=== PATIENT | male | born 1960 | race Caucasian/White ===

== ENCOUNTER 2017-02-06 22:10 | Inpatient (IN) | payer OTHER, MEDICARE ==
[~2017-02-06] VITALS: Ht 182.9 cm; Wt 97.1 kg
[~2017-02-06 22:10] MED LIST: CLINDAMYCIN HY300 MG PO; COREG3.125 MG PO; COZAAR50 M1 PO; LABETALOL HCL200 M1 PO; NORVASC5 M1 PO; OXYCONTIN80 M1 PO; ROXICODONE30 M1 PO; SOMA350 M1 PO; VALIUM10 M1 PO; XARTEMIS XR 7.1 EACH PO
--- NOTE | 2017-02-06 22:16 | NUR ---
YESI FROM HOME FOR MULTIPLE COMPLAINTS. 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 PT REPORTS INCREASE IN FLUID RETENTION, GENREALIZED WEAKNESS, INTERMITTENT SOB. PT STATES HE'S GAINED APPROX 30 LBS IN A MONTH. UPON ARRIVAL PT A+OX4, SPEAKING IN FULL SENTENCES WITH NO DIFFICULTY. 94% ON RA
--- NOTE | 2017-02-06 22:30 | ED GENERAL ADULT ---
See Addendum History of Present Illness General Chief Complaint: Lower Extremity Problems Stated Complaint: LOWER EXTREMITY EDEMA Source: patient Exam Limitations: no limitations Vital Signs & Intake/Output Vital Signs & Intake/Output Vital Signs Date Time Temp Pulse Resp B/P B/P Pulse O2 O2 Flow FiO2 Mean Ox Delivery Rate 02/07 0001 96.8 129 18 117/79 02/06 2317 Room Air 02/06 2215 94 Room Air 02/06 2212 96.8 120 16 103/57 94 Room Air ED Intake and Output 02/07 0000 02/06 1200 Intake Total Output Total Balance Patient 200 lb Weight Weight Estimated Measurement Method Allergies Coded Allergies: MDX - Penicillin (Mild, HIVES 01/04/15) Reconcile Medications Amlodipine (Norvasc 5MG Tab) 5 MG TABLET 1 TAB PO DAILY BP (Reported) Carisoprodol (Soma 350MG Tab) 350 MG TABLET 1 TAB PO QPM MUSCLE SPASMS ( Reported) Carvedilol (Coreg) 3.125 MG TABLET 1 TAB PO BID BP (Reported) CLINDAMYCIN HCL (Clindamycin Hydrochloride) 300 MG CAPSULE 1 TAB PO TID CELLULITIS Diazepam (Valium 10 Mg. Tablet) 10 MG TABLET 1 TAB PO BID MUSCLE SPASMS ( Reported) LABETALOL HCL (Labetalol Hydrochloride) 200 MG TABLET 400 MG PO BID BP ( Reported) Losartan (Cozaar) 50 MG TAB 1 TAB PO DAILY BP (Reported) Oxycodone HCL (Roxicodone) 30 MG TABLET 1 TAB PO Q6 PAIN (Reported) OXYCODONE HCL/ACETAMINOPHEN (Xartemis XR 7.5-325 MG Tablet) 7.5 MG-325 MG TAB.IR.ERO 1 TAB PO 4 TIMES/DAY PAIN (Reported) Oxycodone Hydrochloride (Oxycontin) [address] 1 TAB PO 4 TIMES/DAY PAIN ( Reported) Triage Note: BIBA FROM HOME FOR MULTIPLE COMPLAINTS. 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 PT REPORTS INCREASE IN FLUID RETENTION, GENREALIZED WEAKNESS, INTERMITTENT SOB. PT STATES HE'S GAINED APPROX 30 LBS IN A MONTH. UPON ARRIVAL PT A+OX4, SPEAKING IN FULL SENTENCES WITH NO DIFFICULTY. 94% ON RA Triage Nurses Notes Reviewed? yes Onset: Abrupt Duration: week(s):, constant, continues in ED Timing: recent history Injury Environment: home No Modifying Factors: none HPI: 56-year-old male comes into emergency room for further evaluation of swelling to his legs bilaterally as well as some chest pain or shortness of breath. Symptoms began on for the past month. Patient also reports swelling in his groin and testicles. Patient complains of pain to open sores on his legs. Denies any fever chills. Nothing seems to make the symptoms better or worse. Denies any other associated symptoms. (MICKY DINH) Past History Medical History Any Pertinent Medical History? 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 No (MICKY DINH) Review of Systems Review of Systems Constitutional: Reports: see HPI. EENTM: Reports: no symptoms. Respiratory: Reports: see HPI. Cardiovascular: Reports: no symptoms. GI: Reports: no symptoms. Genitourinary: Reports: no symptoms. Musculoskeletal: Reports: see HPI. Skin: Reports: no symptoms. Neurological/Psychological: Reports: no symptoms. Hematologic/Endocrine: Reports: no symptoms. Immunologic/Allergic: Reports: no symptoms. All Other Systems: Reviewed and Negative (MICKY DINH) Physical Exam Physical Exam General Appearance: alert, awake, mild distress Head: atraumatic Eyes: Bilateral: normal appearance, EOMI. Ears, Nose, Throat: normal ENT inspection, hearing grossly normal Neck: normal inspection, full range of motion Respiratory: normal breath sounds, no respiratory distress Cardiovascular: regular rate/rhythm Gastrointestinal: swelling to her genitals, swelling in the suprapubic region, Back: normal inspection Extremities: edema bilaterally, erythema, open sores, Neurologic/Psych: awake, alert, oriented x 3 Skin: rash (see above) Core Measures ACS in differential dx? No CVA/TIA Diagnosis: No Severe Sepsis Present: No Septic Shock Present: No (MICKY DINH) Progress Differential Diagnoses I considered the following diagnoses in my evaluation of the patient: Cellulitis, DVT, CHF, COPD, liver cirrhosis, Plan of Care: Orders Procedure Date/time Status Patient Data 02/07 2352 Active Telemetry/Foot Tender 02/06 2229 Active URINALYSIS 02/06 2229 Complete TROPONIN LEVEL 02/06 2226 Complete COMPREHENSIVE METABOLIC PANEL 02/06 2226 Complete CBC WITHOUT DIFFERENTIAL 02/06 2226 Complete B-TYPE NATRIURETIC PEP (BNP) 02/06 2226 Complete EKG 02/06 2226 Active Current Medications Sig/Cinthia Start time Last Medication Dose Stop Time Status Admin Oxycodone HCl 60 MG ONCE ONE 02/07 15 UNVr (OxyCONTIN) 02/08 16 Heparin Sodium 25,000 UNIT Q24H 02/06 2345 UNVr (Porcine) (Heparin) Sodium Chloride 500 ML Laboratory Tests 02/06/172321: Urinalysis LIGHT H, Urine Color YEL, Urine Clarity CLEAR, Urine pH 6.0, Ur Specific [place] 1.025, Urine Protein 100 H, Urine Ketones NEG, Urine Nitrite NEG, Urine Bilirubin NEG, Urine Urobilinogen 0.2, Ur Leukocyte Esterase NEG, Ur Microscopic SEDIMENT EXAMINED, Urine WBC 1-3 H, Urine Hemoglobin NEG, Urine Glucose NEG 02/06/17 225: Anion Gap 11, Estimated GFR > 60, BUN/Creatinine Ratio 32.5 H, Glucose 74, Calcium 8.7, Total Bilirubin 0.8, AST 26, ALT 36, Alkaline Phosphatase 100, Troponin I < 0.01, Iji-P-Wffrfktoomu Pept 3890 H, Total Protein 6.2 L, Albumin 3.2 L, Globulin 3.0, Albumin/Globulin Ratio 1.1, CBC w Diff NO MAN DIFF REQ, RBC 3.51 L, MCV 94.6 H, MCH 31.1 H, RDW 14.9 H, MPV 9.4, Gran % 73.0, Lymphocytes % 17.7 L, Monocytes % 7.3, Eosinophils % 1.0, Basophils % 1.0, Absolute Granulocytes 5.6, Absolute Lymphocytes 1.4, Absolute Monocytes 0.6, Absolute Eosinophils 0.1, Absolute Basophils 0.1, PUBS MCHC 32.9 L Diagnostic Imaging: Viewed by Me: Radiology Read. Discussed w/RAD: Radiology Read. Radiology Impression: SERVICE DATE: 02/06/17-2228 EXAM TYPE: RAD - XRY-CHEST XRAY, PA AND LATERAL EXAMINATION: XR CHEST CLINICAL INFORMATION: Chest pain COMPARISON: None TECHNIQUE: 2 views of the chest were obtained. FINDINGS: The lungs are well expanded. Small right pleural effusion. Increased interstitial prominence with bronchial wall thickening. No pneumothorax. The cardiomediastinal silhouette is unchanged. Degenerative changes in the spine. IMPRESSION: Small right pleural effusion. Bronchial wall thickening with interstitial prominence may represent a small airways process. Edema is also a consideration. DICTATED BY: WILLIAM RODRIGUEZ MD DATE/TIME DICTATED:02/06/172304 [employer] WORK[employer] APPRENTICE:MARIBEL DATE/TIME TRANSCRIBED:02/06/172304 Initial ED EKG: rate (126), AFIB (MICKY DINH) Departure Departure Disposition: STILL A PATIENT Condition: Stable Clinical Impression Primary Impression: Acute CHF (congestive heart failure) Secondary Impressions: Hypokalemia, New onset a-fib Referrals: NICOLE HONG MD Departure Forms: Customer Survey General Discharge Information Admission Note Spoke With: HARESH MENDOZA MD Documentation of Exam: Documentation of any treatments & extenuating circumstances including Concerns Regarding Discharge (functional status, medication knowledge or non-compliance, living conditions, etc.) that warrant an admission rather than observation: Patient will require IV heparin. Rate control. IV Lasix. Echocardiogram. Cardiac consultation. High risk. Patient would do poorly as an outpatient. Dr. Mendoza was consulted. (MICKY DINH) PA/ALTERATION WORKROOM SUPERVISOR Co-Sign Statement Statement: ED Attending supervision documentation- x I saw and evaluated the patient. I have also reviewed all the pertinent lab results and diagnostic results. I agree with the findings and the plan of care as documented in the PA's/ALTERATION WORKROOM SUPERVISOR's documentation. [] I have reviewed the ED Record and agree with the PA's/ALTERATION WORKROOM SUPERVISOR's documentation. [] Additions or exceptions (if any) to the PAs/ALTERATION WORKROOM SUPERVISOR's note and plan are summarized below: [] (DUANE BOYD MD) Critical Care Note Critical Care Note Critical Care Time: 30-74 min (40 min) (MICKY DINH)
--- NOTE | 2017-02-06 22:30 | NUR ---
JOSE C PAPPAS AT BEDSIDE
--- NOTE | 2017-02-06 22:35 | NUR ---
PT TO XRAY
--- NOTE | 2017-02-06 22:55 | NUR ---
PT REQUESTING TO USE BATHROOM PRIOR TO EKG
--- NOTE | 2017-02-06 22:55 | NUR ---
LABS DRAWN AND SENT BY THIS [facility].
[2017-02-06 23:00] LABS: ABSOLUTE BASOPHIL COUNT 0.1 /CUMM (0.0-0.2); ABSOLUTE EOSINOPHIL COUNT 0.1 /CUMM (0.0-0.7); ABSOLUTE GRANULOCYTE CT 5.6 /CUMM (1.4-6.5); ABSOLUTE LYMPH COUNT 1.4 /CUMM (1.2-3.4); ABSOLUTE MONOCYTE COUNT 0.6 /CUMM (0.10-0.60); HEMATOCRIT 33.2 % (42-52); MEAN CORPUSCULAR HGB 31.1 PG (27.0-31.0); MEAN CORPUSCULAR HGB CONC 32.9 G/DL (33.0-37.0); MEAN CORPUSCULAR VOLUME 94.6 FL (80.0-94.0); MEAN PLATELET VOLUME 9.4 FL (7.4-10.4); PLATELET COUNT 221 /CUMM (130-400); RBC DISTRIBUTION WIDTH 14.9 % (11.5-14.5); RED BLOOD CELL CT 3.51 /CUMM (4.70-6.10); WHITE BLOOD CELL COUNT 7.7 /CUMM (4.8-10.8)
--- NOTE | 2017-02-06 23:06 | NUR ---
PT CONTINUES TO BE IN BATHROOM, AWAITING EKG
--- NOTE | 2017-02-06 23:12 | RADIOLOGY REPORT ---
EXAMINATION: XR CHEST CLINICAL INFORMATION: Chest pain COMPARISON: None TECHNIQUE: 2 views of the chest were obtained. FINDINGS: The lungs are well expanded. Small right pleural effusion. Increased interstitial prominence with bronchial wall thickening. No pneumothorax. The cardiomediastinal silhouette is unchanged. Degenerative changes in the spine. IMPRESSION: Small right pleural effusion. Bronchial wall thickening with interstitial prominence may represent a small airways process. Edema is also a consideration.
--- NOTE | 2017-02-06 23:19 | NUR ---
PT BACK FROM BATHROOM, EKG PERFORMED. LUNGS CTA. PT REMOVED AVERY WRAPS FROM LEGS, BILATERAL LOWER EXTREMITY ULCERS NOTED. STATES THOSE ARE NEW IN THE LAST FEW WEEKS
--- NOTE | 2017-02-06 23:24 | NUR ---
URINE TRIO SENT BY THIS [facility].
--- NOTE | 2017-02-07 00:01 | History & Physical ---
MAGDALENA SERNA MD 02/07/17 0001: General Information and HPI MD Statement: I have seen and personally examined BRANDON ALEXANDRA JR and documented this H&P. The patient is a 56 year old M who presented with a patient stated chief complaint of lower extremity swelling. Source of Information: patient, old records Exam Limitations: poor historian History of Present Illness: Mr. Alexandra is a 56 year old male with PMH HTN, HLD, chronic low back pain, atrial fibrillation s/p DEUCE cardioversion with return to normal sinus rhythm, chest pain syndrome, hypomagnesemia, mild sleep apnea, obesity and chronic cigarette use who presents with several complaints. As per the patient, about 1 month ago after he was shoveling his driveway, he developed bilateral lower extremity swelling that progressed upwards to his groin and lower abdomen. This swelling was accompanied by a 40-50 pound weight gain over the same time frame. About two weeks ago, patient noticed bilateral lower extremity erythema to the level of the upper shins. Small ulcers slowly formed, mostly on the lateral aspects of the shins, that would weep serous fluid. Due to this swelling and the ulcer formations, Brandon reports that he has only left his house twice in one month and sits most of the days on his couch with his lower extremities elevated. Associated symptoms include shortness of breath at rest and worsened by exertion, lower extremity ulcerations, lower extremity erythema, occasional sweats/chills, constipation and chronic low back pain. Patient denies fever, dizziness, chest pain, wheezing, paroxysmal nocturnal dyspnea, abdominal pain, nausea or vomiting. Social history is significant for tobacco abuse of 5 cigarettes/day. He also admits to prior heavy alcohol use which he stopped about 2.5-3 years ago when he joined the pain management program with Dr. Anthony. He currently takes roxicodone 20 mg PO 5 times a day and oxycontin 60 mg PO Q6. Past surgical history is signficant for pilonidal cyst surgery. Family history is significant for a mother who with heart failure. 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 Home Services at Home: None Smoking Status: Current Everyday Smoker ETOH Use: Heavy former use. Illicit Drug Use: denies illicit drug use Functional Ability ADLs Independent: dressing, eating, toileting, bathing. IADLs Independent: shopping, housework, finances, food prep, telephone, transportation , medication admin. Review of Systems Review of Systems Constitutional: Reports: chills, malaise. Denies: fever. EENTM: Denies: visual changes, hearing changes, nasal congestion. Cardiovascular: Reports: edema, peripheral edema. Denies: chest pain, palpitations, syncope. Respiratory: Reports: short of breath. Denies: cough, wheezing. GI: Denies: abdominal pain, nausea, vomiting. Genitourinary: Denies: dysuria. Musculoskeletal: Reports: back pain (Chronic). Skin: Reports: erythema, lesions. Neurological/Psychological: Denies: confusion, headache. Hematologic/Endocrine: Denies: bruising, bleeding. Immunologic/Allergic: Denies: splenectomy. All Other Systems: Reviewed and Negative Exam & Diagnostic Data Last 24 Hrs of Vital Signs/I&O Vital Signs Date Time Temp Pulse Resp B/P B/P Pulse O2 O2 Flow FiO2 Mean Ox Delivery Rate 02/07 0110 97.0 108 18 105/76 94 Room Air 02/07 0025 95 02/07 0001 96.8 129 18 117/79 02/06 2317 Room Air 02/06 2215 94 Room Air 02/06 2212 96.8 120 16 103/57 94 Room Air Intake & Output 02/07 0800 02/07 0000 02/06 1600 Intake Total Output Total 1265 Balance -1265 Output, Urine 1265 Patient 200 lb Weight Weight Estimated Measurement Method Physical Exam General Appearance Alert, Oriented X3, Cooperative, No Acute Distress Skin Bilateral lower extremity erythema to level of tibial tuberosities. 3 ulcerations noted on the left and one large on the right. Slight drainage of serous fluid. Sepsis Skin Exam (color): Normal for Ethnicity HEENT Atraumatic, PERRLA, Mucous Membr. moist/pink Neck Supple, +2 Carotid Pulse wo Bruit Lymphatic Cervical nl Cardiovascular Irregularly irregular, tachycaric Lungs Right mid and lower lung expiratory wheeze, decreased air entry bilaterally Abdomen Obese, non-tender with + bowel sounds Neurological Normal Speech, Normal Tone Extremities No Clubbing, 1-2+ pitting edema with erthema as noted above. Noted scrotal swelling. Vascular Pulses Symmetrical Sepsis Peripheral Pulse Location: Dorsalis Pedis Sepsis Peripheral Pulse Exam: Normal Sepsis Cap Refill Exam: <2 Sec Last 24 Hrs of Labs/Rigoberto: Laboratory Tests 02/06/17 2350: PT 14.5 H, INR 1.39 H, APTT 33 02/06/17 2322: Urinalysis LIGHT H, Urine Color YEL, Urine Clarity CLEAR, Urine pH 6.0, Ur Specific [place] 1.025, Urine Protein 100 H, Urine Ketones NEG, Urine Nitrite NEG, Urine Bilirubin NEG, Urine Urobilinogen 0.2, Ur Leukocyte Esterase NEG, Ur Microscopic SEDIMENT EXAMINED, Urine WBC 1-3 H, Urine Hemoglobin NEG, Urine Glucose NEG 02/06/17 2252: Anion Gap 11, Estimated GFR > 60, BUN/Creatinine Ratio 32.5 H, Glucose 74, Calcium 8.7, Total Bilirubin 0.8, AST 26, ALT 36, Alkaline Phosphatase 100, Troponin I < 0.01, Gtv-N-Anaibcriqvb Pept 3890 H, Total Protein 6.2 L, Albumin 3.2 L, Globulin 3.0, Albumin/Globulin Ratio 1.1, CBC w Diff NO MAN DIFF REQ, RBC 3.51 L, MCV 94.6 H, MCH 31.1 H, RDW 14.9 H, MPV 9.4, Gran % 73.0, Lymphocytes % 17.7 L, Monocytes % 7.3, Eosinophils % 1.0, Basophils % 1.0, Absolute Granulocytes 5.6, Absolute Lymphocytes 1.4, Absolute Monocytes 0.6, Absolute Eosinophils 0.1, Absolute Basophils 0.1, PUBS MCHC 32.9 L Diagnostic Data EKG Results Atrial fibrillatio HR 126 bpm, QTC 487 CXR Results IMPRESSION: Small right pleural effusion. Bronchial wall thickening with interstitial prominence may represent a small airways process. Edema is also a consideration. Assessment/Plan Assessment: Mr. Alexandra is a 56 year old male with PMH HTN, HLD, chronic low back pain, atrial fibrillation s/p DEUCE cardioversion with return to normal sinus rhythm, chest pain syndrome, hypomagnesemia, mild sleep apnea, obesity and chronic cigarette use who presents with increased lower extremity edema, lower extremity erythema and bilateral ulcerations. In the ED: Vital signs showed T 96.8, HR 120, RR 16, BP 103/57 and O2 saturation of 94% on room air. Labs were significant for macrocytic anemia to 10.9/33.2 with MCV 94.6, Na 135, K 3.2, BUN 26, proBNP 3890, INR 1.39, and UA with 100 protein and 1-3 WBCs. CXR showed small right pleural effusion. EKG showed atrial fibrillation with RVR to HR 126. Patient is admitted to the telemetry floor and the following is the management: 1. New onset atrial fibrillation with rapid ventricular response * Admit to the telemetry floor for continuous telemetry monitoring * Guiac in ED by JOSE C was negative, patient started on IV heparin gtt * Consult with Dr. Nunez in AM * Patient received 10 mg IV of cardizem in ED, monitor HR closely and consider further rate control medications as needed * Echocardiogram for AM, follow up results 2. Likely new onset congestive heart failure * Consider new onset CHF in the setting of bilateral lower extremity edema, increasing shortness of breath, CXR suggestive of cardiac edema, elevated proBNP * Cardio consult for AM pending * Strict Is/Os and daily weights * CHF diet * Patient received 60 mg IV lasix in the ED, continue 40 mg IV lasix BID while on the floor * Follow up echocardiogram * Elevate lower extremities, monitor ulcerations, consider wound consult * Consider vascular surgery consult in AM for ulcerations 3. Hypokalemia * K 3.2 on admission, patient ordered 40 gm PO KDur x 1 in ED * Follow up repeat AM labs and replete as needed * Follow up magnesium level 4. Macrocytic anemia * Guiac negative * Follow up B12, folate, thiamine * Monitor CBC daily for now 5. Tobacco abuse * Patient counseled on tobacco cessation * 7 mg nicotine patch daily 6. HTN, HLD * Monitor vital signs Q shift * Continue daily losartan, labetalol, amlodipine 7. Chronic low back pain * Continue home oxycontin 60 mg Q6 and roxicodone 20 mg 5 times a day * Continue soma 350 mg PO QPM for muscle spasms * Ibuprofen 800 mg 1 tab PO BID FULL CODE DVTP: IV heparin CHF diet Chronic pain pathway As Ranked By This Provider Problem List: 1. Hypokalemia 2. New onset a-fib 3. Acute CHF (congestive heart failure) 4. Obesity 5. Tobacco user 6. Chronic back pain 7. Increased lipid 8. Benign essential hypertension Core Measures/Miscellaneous Acute Coronary Syndrome ACS Diagnosis: No Cerebrovascular Accident CVA/TIA Diagnosis: No Congestive Heart Failure CHF Diagnosis: Yes Date of most recent Echo: 08/10/10 Last Known EF %: 50 Venous Thromboembolism VTE Risk Factors: Acute medical illness, Age > 40, Obesity, Smoking No [facility] VTE prophylaxis d/t: No contraindications No VTE Pharm Prophylaxis d/t: No contraindications VTE Diagnosis: No VTE Type: NONE VTE Confirmed by (Test): NONE Severe Sepsis Severe Sepsis Present: No Septic Shock Septic Shock Present: No Miscellaneous Documentation Attending Case Discussed With: Ezequiel NUNEZ MD Primary Care Physician: Ezequiel NUNEZ MD Patient sees these Specialists Dr. Nunez, cardiology Level of Patient Care: Telemetry [facility] 02/07/17 0112: General Information and HPI Allergies/Medications Allergies: Coded Allergies: Penicillins (Intermediate, HIVES 02/07/17) Resident Review Statement Resident Statement: examined this patient, discussed with hospital internship, agreed with hospital internship Other Findings: is a 56 yo man with PMHx. of A. fib not on anticoagulation s/p cardioversion switched to SR, hypomagnesemia, chest pain syndrome, HTN, chronic tobbaco, HLD, obesity, sleep apnea, cardiac cath @ 2009 with no CAD presented to ED with a c/o B/L lower extrimity swelling, SOB. Patient report that his symptoms started about 1 month ago, in last , he was shoveling the snow and in the second day he develped B/L lower extrimity swelling, SOB, he called his certified emergency vehicle technician who prescribed Lasix for 2 week, his symptoms initially improved with lasix but 2 weeks later his symptoms gradually worsen, he report that he had SOB even at rest, he used 2 pillow at night, he denies fever, chest pain, cough. 2 weeks ago he started to developed B/L lower extrmity ulcers, mainly in the lateral aspect of legs, which oozing clear fluid and it is painful, his edema get extended to groin region and abdomen. He gained about 40 IB in the last months, he report having difficulty urinating 2/2 scrotal edema, he report chills but no fever. Patient denies chest pain, palpitation, headache, dizziness, vision changes and there is no change on bowel habits Vitals examinations and labs as above EKG showed A. fibm rate 126, QTc 487 CXR:Small right pleural effusion. Bronchial wall thickening with interstitial prominence may represent a small airways process. Edema is also a consideration. Assessment: #CHF exacerbation #A.fib #PVD with B/L LE ulcers #Chronic back pain following with pain management clinic #Hx. of HTN, HLD #Active smoker Plan: -Will admitt the patient to telemetry floor -He received IV lasix at ED, will continue to diurese him with 40mg IV lasix BID -Strict I's& O's -daily weight -Full anticoagulation with IV hepain drip given he is now in A.fib -He received one dose of 10mg IV Cardizem at ED and his HR being controlled afterward, will hold further cardizem -Will cycle troponin and EKG -B/L LE doppler to r/o dvt -Vascular surgeon consult for PVD at am -Echocardiogram -Will continue his home meds, including chronic pain medications Wound care and daily dressing -CHF diet Full code dvt ppx: iv heparin Case discussed with , who agreed with above, to see the patient today. HARESH MENDOZA MD 02/26/17 0892: General Information and HPI Allergies/Medications Home Med list Alprazolam (Xanax) 0.25 MG TABLET 0.5 MG PO BID PRN ANXIETY Carisoprodol 350 MG TABLET 1 TAB PO DAILY MUSCLE RELAXANT (Reported) Furosemide 20 MG TABLET 20 MG PO DAILY WATER PILL Ibuprofen 800 MG TABLET 1 TAB PO BID PAIN CONTROL (Reported) Magnesium Oxide 400 MG TABLET 400 MG PO BID low mag Melatonin 10 MG TABLET 1 TAB PO DAILY SLEEP HELP Metoprolol Tartrate 50 MG TABLET 1 TAB PO BID HEART HEALTH Mirtazapine 15 MG TABLET 1 TAB PO QPM DEPRESSION Nicotine (Nicotine Patch) 7 MG/24 HOUR PATCH.TD24 7 MG TOP DAILY smoking Oxycodone HCl (Oxycontin) 60 MG TAB.ER.12H 1 TAB PO 4 TIMES/DAY PAIN CONTROL (Reported) Oxycodone HCl 10 MG TABLET 2 TAB PO Q6 PRN pain (Reported) Polyethylene Glycol 3350 (Miralax) 17 GRAM POWD.PACK 1 PAC PO DAILY PRN CONSTIPATION dissolve in water Rivaroxaban (Xarelto) 10 MG TABLET 20 MG PO 5PM BLOOD THINNER Sennosides (Senna) 8.6 MG TABLET 2 TAB PO BID PRN CONSTIPATION
--- NOTE | 2017-02-07 00:01 | NUR ---
PT MEDICATED WITH 10 MG CARDIZEM IV ORDERED FOR AFIB HR 120'S- 130'S. HR DOWN TO 90'S-110'S
--- NOTE | 2017-02-07 00:23 | NUR ---
PT AT BEDSIDE FOR ALBUTEROL NEB
[2017-02-07 00:39] LABS: PT 14.5 SEC (9.4-12.5); PTT 33 SEC (25-37)
--- NOTE | 2017-02-07 00:43 | NUR ---
PT MEDICATED WITH 40 MEQ POT CHLOR PO AND 60 MG LASIX IV ORDERED. HOUSE STAFF AT BEDSIDE TO EVAL PT
--- NOTE | 2017-02-07 00:50 | NUR ---
MEDICATED WITH 60 MG OXYCONTIN ORDERED FOR CHRONIC PAIN
--- NOTE | 2017-02-07 00:52 | NUR ---
BED 183
--- NOTE | 2017-02-07 01:05 | NUR ---
PT REMIANS IN AFIB, HR 100'S-120. MEDICATED WITH 4000 UNIT HEPARIN BOLUS. PT AT FIRST REFUSED HEPARIN DRIP "I DON'T WANT TO DO THAT UNTIL I SPEAK TO DR NUNEZ" PT INFORMED THAT IT WAS THE FACILITY ENGINEER THAT WANTED HIM TO HAVE THE HEPARIN DRIP RELATED TO RISK FOR BLOOD CLOTS. PT NOW REQUESTING HEPARIN DRIP. HEPARIN INFUSING AT 26 ML/HR. NEXT PTT DUE AT 0705
[2017-02-07] MEDS ORDERED: IBUPROFEN800 M1 PO (01:28)
[2017-02-07] MEDS ORDERED: CARISOPRODOL350 M1 PO (01:28)
[2017-02-07] MEDS ORDERED: OXYCODONE HCL20 M2 PO (01:29)
[2017-02-07] MEDS ORDERED: OXYCONTIN60 M1 PO (01:30)
[2017-02-07] MEDS ORDERED: FUROSEMIDE20 M1 PO (01:31)
--- NOTE | 2017-02-07 01:39 | NUR ---
REPORT GIVEN TO GADIEL SCHERER
[2017-02-07 02:00] VITALS: BP 102/56
[2017-02-07 06:45] LABS: PTT 76 SEC (25-37)
[2017-02-07 08:27] VITALS: BP 98/64
--- NOTE | 2017-02-07 09:56 | ULTRASOUND REPORT ---
EXAMINATION: US TRIPLEX OF LOWER EXTREMITIES, BILATERAL CLINICAL INFORMATION: Bilateral lower extremity edema. COMPARISON: None TECHNIQUE: Color-flow triplex imaging with spectral analysis and compression Doppler were performed on the lower extremities. FINDINGS: Examination is limited due to patient's body habitus. Respiratory variation, normal compression and augmented flow are noted throughout the lower extremities. The visualized common femoral vein, superficial femoral vein, profunda femoral vein, popliteal vein and midcalf peroneal and posterior tibial venous segments show no evidence of deep venous thrombosis. There is no Herndon's cyst. Enlarged lymph nodes noted in the right groin measuring approximately 3.7 x 2.1 x 1.1 cm. Additional lymph node with fatty center entering 4 x 2.2 x 1.3 cm. Enlarged lymph nodes in the left groin with fatty center measuring approximately 3.3 x 1.3 x 2 cm and 2.3 x 1.4 x 1 cm.. IMPRESSION: There is no sonographic evidence of deep venous thrombosis involving the lower extremities. Enlarged lymph nodes noted in bilateral groins, right greater than left. Clinical correlation recommended.
[2017-02-07 10:15] VITALS: BP 90/52
--- NOTE | 2017-02-07 10:41 | Event Note ---
Event Note Event Note: Updates (02/07/17): - Patient was hypotensive to 90s/50s this morning and home antihypertensives losartan and labetalol were held. - Patient was continued on IV heparin drip with plans to transition to oral anticoagulation. - K (3.3) and Mg (1.6) were repleted. - Vascular surgery was consulted for evaluation of bilateral lower extremity edema with ulcers. Dr. Queen will see patient tomorrow (02/08/17). Arterial ultrasound of bilateral lower extremities was ordered according to his recs. - Possible DEUCE and cardioversion is planned for Friday.
--- NOTE | 2017-02-07 10:46 | Cons- Cardiology ---
See Addendum ERLIN ASCENCIO 02/07/17 1046: General Information and HPI Consulting Request Date of Consult: 02/07/17 Requested By: Ezequiel NUNEZ MD Reason for Consult: Atrial fibrillation Source of Information: patient, old records Exam Limitations: no limitations History of Present Illness: Mr Mccann is a 56-year-old gentleman with a PMH of HFrEF (LVEF 4550 percent on echo in 2009), previous history of persistent A. fib with RVR confirmed on Holter monitor for which she underwent successful cardioversion back to [facility], previous catheterization in 2009 with unremarkable coronary vasculature, hypertension, hyperlipidemia and chronic tobacco use was admitted with complaints of one-month duration of progressive lower extremity swelling tracking upwards towards the groin/lower abdomen, 40 pound weight gain, erythema of his lower extremities with ulcerations on the lateral aspects of his shins, decreased mobility due to difficulty with ambulation. ROS: Exertional dyspnea, intermittent subjective fever/chills, chronic low back pain and occasional constipation. VS on admission: BP 103/57, HR 120, RR 16, SPO2 94% on RA, T 96.8 PE on admission: 3+ pitting edema bilateral lower extremities with erythema/ chronic venous changes, ulcerations on bilateral lower extremities, serous drainage present. Irregularly irregular heart rate, tachycardic. Expiratory wheeze present with decreased air entry bilaterally. Scrotal edema present. Pertinent labs: H&H 10.9/33.2, platelets 221, sodium 135, potassium 3.2, chloride 100, Vicryl 23, BUN/Cr 26/0.8 EKG: A. fib, HR 126, QTC 487 CXR: Small right pleural effusion. Bronchial wall thickening with interstitial prominence may represent a small airways process. Edema is also a consideration. Allergies/Medications Allergies: Coded Allergies: Penicillins (Intermediate, HIVES 02/07/17) Home Med List: Alprazolam (Xanax) 0.25 MG TABLET 0.5 MG PO BID PRN ANXIETY Amlodipine Besylate (Norvasc) 5 MG TABLET 1 TAB PO DAILY BP (Reported) Carisoprodol 350 MG TABLET 1 TAB PO DAILY MUSCLE RELAXANT (Reported) Carvedilol (Coreg) 3.125 MG TABLET 1 TAB PO BID BP (Reported) Diazepam (Valium) 10 MG TABLET 1 TAB PO BID MUSCLE SPASMS (Reported) Furosemide 20 MG TABLET 1 TAB PO EOD WATER RETENTION (Reported) Furosemide 20 MG TABLET 20 MG PO DAILY WATER PILL Ibuprofen 800 MG TABLET 1 TAB PO BID PAIN CONTROL (Reported) Labetalol HCl 200 MG TABLET 2 TAB PO BID BP (Reported) Losartan Potassium (Cozaar) 50 MG TABLET 1 TAB PO DAILY BP (Reported) Magnesium Oxide 400 MG TABLET 400 MG PO BID low mag Melatonin 5 MG TABLET 5 MG PO AT BEDTIME SLEEPING Nicotine (Nicotine Patch) 7 MG/24 HOUR PATCH.TD24 7 MG TOP DAILY smoking Oxycodone HCl (Oxycontin) 60 MG TAB.ER.12H 1 TAB PO 4 TIMES/DAY PAIN CONTROL (Reported) Oxycodone HCl 10 MG TABLET 2 TAB PO Q6 PRN pain (Reported) Rivaroxaban (Xarelto) 10 MG TABLET 20 MG PO 5PM BLOOD THINNER Review of Systems Review of Systems Constitutional: Reports: see HPI. EENTM: Reports: see HPI. Cardiovascular: Reports: see HPI. Respiratory: Reports: see HPI. GI: Reports: see HPI. Genitourinary: Reports: see HPI. Musculoskeletal: Reports: see HPI. Skin: Reports: see HPI. 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 Home Services at Home: None Smoking Status: Current Everyday Smoker ETOH Use: Heavy former use. Illicit Drug Use: denies illicit drug use Functional Ability ADLs Independent: dressing, eating, toileting, bathing. IADLs Independent: shopping, housework, finances, food prep, telephone, transportation , medication admin. Exam & Diagnostic Data Vital Signs and I&O Vital Signs Date Time Temp Pulse Resp B/P B/P Pulse O2 O2 Flow FiO2 Mean Ox Delivery Rate 02/07 1138 92/02/07 1055 Room Air Room Air 02/07 1015 9002/07 0827 98.3 118 18 98/64 95 Room Air 02/07 0200 98.0 82 22 102/56 97 Room Air 02/07 0110 97.0 108 18 105/76 94 Room Air 02/07 0025 95 02/07 0001 96.8 129 18 117/79 02/06 2317 Room Air 02/06 2215 94 Room Air 02/06 2212 96.8 120 16 103/57 94 Room Air Intake & Output 02/07 1600 02/07 0800 02/07 0000 02/06 1600 02/06 0800 02/06 0000 Intake Total 480 Output Total 3065 Balance -2585 Intake, Oral 480 Output, Urine 3065 Patient 225 lb 200 lb Weight Weight Chair scale Estimated Measurement Method Physical Exam General Appearance: alert, comfortable Assessment/Plan Assessment/Plan 56-year-old gentleman with a PMH of HFrEF (LVEF 4550 percent on echo in 2009), previous history of persistent A. fib with RVR confirmed on Holter monitor for which she underwent successful cardioversion back to [facility], previous catheterization in 2009 with unremarkable coronary vasculature, hypertension, hyperlipidemia and chronic tobacco use was admitted with complaints of one-month duration of progressive lower extremity swelling tracking upwards towards the groin/lower abdomen, 40 pound weight gain, erythema of his lower extremities with ulcerations on the lateral aspects of his shins, decreased mobility due to difficulty with ambulation. Problem list: 1. Atrial fibrillation with RVR 2. HFrEF (LVEF 4550 percent on echo in 2009) 3. Hyponatremia 4. Hypokalemia 5. Mild hypomagnesemia 6. Hypertension 7. Hyperlipidemia 8. Tobacco dependence 9. Diet noncompliance Recommendations: * New onset hypotension this morning with SBP in the 90s. We'll discontinue home dose of losartan and labetalol. Patient did receive his morning dose of furosemide 40 mg daily * Restart him at lower dose of labetalol 100 mg BID with holding parameter for SBP less than 110mmHg * Continue on heparin drip for now and will plan to transition him to NOAC/ coumadin for 3 months prior ideally prior to a repeat cardioversion in the near future * Replete potassium> 4.0, magnesium > 2.0 * Check phosphorus, TFTs * Check iron studies and start on ferrous sulfate supplementation BID if iron deficient * Check lipid panel and start patient on statin per ASCVD score Problem List: 1. Atrial fibrillation with RVR 2. HFrEF (heart failure with reduced ejection fraction) 3. Chronic venous insufficiency Consult Acknowledgment - Thank you for your consult request. MAYRA YOO,SABINO N 02/07/17 7444: Assessment/Plan Assessment/Plan Attending addendum; I have seen and examined the patient and discussed the case with the housestaff physicians. I agree with the plan as outlined above. Recommendations: - Hold amlodipine and losartan for now. - Restart Labetalol at 100 BID when BP stable - WOund care evaluation - COnservative care for LE edema for now with elevation, sodium restriction and AVERY wraps if possible. - Restart IV lasix BID as soon as tolerated by BP with maintenance of negative fluid balance. - COntinue IV heparin for nowl - SHort term goal to improve Leg issues. - Likely transition to JEFF when stable with plans for possible DEUCE / cardioversion on Friday if patient stable and optimized clinically. - Further plans after the followup labs and echocardiogram available. Consult Acknowledgment - Thank you for your consult request.
[2017-02-07 11:38] VITALS: BP 92/52
[2017-02-07 15:58] VITALS: BP 102/54
--- NOTE | 2017-02-07 19:24 | ULTRASOUND REPORT ---
EXAMINATION: US BILATERAL LOWER EXTREMITY ARTERIAL DOPPLER CLINICAL INFORMATION: 56-year-old male patient with bilateral leg swelling and erythema. Nonhealing ulcers bilaterally for the past 3 weeks. History of atrial fibrillation. COMPARISON: Bilateral leg venous ultrasound performed earlier today which was negative for DVT. TECHNIQUE: Duplex Doppler ultrasound was performed of the leg arteries bilaterally with velocity measurements and waveforms documented. FINDINGS: No significant atherosclerotic plaques are seen in the arteries of either leg. Triphasic waveforms were obtained throughout both leg arterial systems. No focal flow accelerations were identified on either side. The velocities were symmetric. The pulse was noted to be irregular consistent with the clinical history of atrial fibrillation. IMPRESSION: No evidence of significant arterial occlusive disease of either leg.
[2017-02-07 19:54] LABS: PTT 60 SEC (25-37)
[2017-02-07 23:51] VITALS: BP 110/70
[2017-02-08 03:36] LABS: PTT 79 SEC (25-37)
[2017-02-08 08:11] LABS: ABSOLUTE BASOPHIL COUNT 0 /CUMM (0.0-0.2); ABSOLUTE EOSINOPHIL COUNT 0.1 /CUMM (0.0-0.7); ABSOLUTE GRANULOCYTE CT 3.1 /CUMM (1.4-6.5); ABSOLUTE LYMPH COUNT 1.9 /CUMM (1.2-3.4); ABSOLUTE MONOCYTE COUNT 0.4 /CUMM (0.10-0.60); BASOPHIL % 0.5 % (0.0-2.0); EOSINOPHIL % 1.7 % (0-5); MEAN CORPUSCULAR HGB 30.8 PG (27.0-31.0); MEAN CORPUSCULAR HGB CONC 32.7 G/DL (33.0-37.0); MEAN CORPUSCULAR VOLUME 94.3 FL (80.0-94.0); PLATELET COUNT 185 /CUMM (130-400); RBC DISTRIBUTION WIDTH 15.5 % (11.5-14.5); WHITE BLOOD CELL COUNT 5.6 /CUMM (4.8-10.8)
[2017-02-08 08:51] VITALS: BP 122/85
--- NOTE | 2017-02-08 09:48 | PN- Housestaff ---
Subjective Follow-up For: New onset atrial fibrillation HFrEF Hypokalemia Hypomagnesemia LE edema Complaints: back pain, bilateral leg pain Tele-Events Since Last Visit: A.fib 90-160s with RVR PVCs Subjective: Pt was seen and examined at bedside. He's sitting on a chair. He c/o chronic back pain and bilateral leg pain with edema. He is requesting extra dilaudid added on current pain regimen. He c/o chest tightness and light headedness. However, he denies palpitation with RVR. Review of Systems Constitutional: Denies: chills, fever, weakness. EENTM: Reports: no symptoms. Cardiovascular: Reports: peripheral edema. Denies: chest pain, palpitations. Respiratory: Denies: cough, short of breath, sputum production, wheezing. Gastrointestinal: Reports: no symptoms. Genitourinary: Reports: no symptoms. Musculoskeletal: Reports: back pain. Skin: Reports: change in skin color. Neurological/Psychological: Reports: no symptoms. Objective Last 24 Hrs of Vital Signs/I&O Vital Signs Date Time Temp Pulse Resp B/P B/P Pulse O2 O2 Flow FiO2 Mean Ox Delivery Rate 02/08 1100 154 104/80 02/08 0851 98.7 91 16 122/85 96 Room Air 02/07 2351 98.5 94 20 110/70 95 Room Air 02/07 2036 112 106/78 02/07 1558 98.1 107 20 102/54 96 Room Air 02/07 1245 126 110/60 Intake & Output 02/08 1600 02/08 0800 02/08 0000 Intake Total 200 814 Output Total 1750 1700 Balance -1550 -886 Intake, IV 200 214 Intake, Oral 600 Output, Urine 1750 1700 Patient 220 lb Weight Weight Standing Scale Measurement Method Physical Exam General Appearance: Alert, Oriented X3, Cooperative, No Acute Distress Skin: bilateral leg chronic venous stasis, woozing+ Skin Temp/Moisture Exam: Warm/Dry HEENT: Atraumatic, PERRLA, EOMI Neck: Supple, No JVD, +2 Carotid Pulse wo Bruit, No LAD Lymphatic: Cervical nl Cardiovascular: irregularly irregular Lungs: Clear to Auscultation, Normal Air Movement Abdomen: Normal Bowel Sounds, Soft, No Tenderness Neurological: Normal Speech, Strength at 5/5 X4 Ext, Normal Tone, Sensation Intact, Cranial Nerves 3-12 NL Extremities: Normal Pulses, LE non-pitting edema, chronic venous changes Vascular: Normal Pulses, Pulses Symmetrical Current Medications: Current Medications Sig/Cinthia Start time Last Medication Dose Route Stop Time Status Admin Amlodipine Besylate 5 MG DAILY 02/07 1000 DC PO Carisoprodol 350 MG DAILY 02/07 1000 AC 02/07 PO 1135 Furosemide 40 MG 7:30 AM, & 4:30 PM 02/07 0730 AC 02/08 IV 0812 Heparin Sodium 25,000 UNIT Q24H 02/06 2345 AC 02/07 (Porcine) IV 1926 Sodium Chloride 500 ML Hydromorphone HCl 0.2 MG ONCE ONE 02/07 1930 DC 02/07 IV 02/07 193 1927 Ibuprofen 800 MG BID 02/07 0301 AC 02/07 PO 2036 Labetalol HCl 100 MG BID 02/07 2200 AC PO Labetalol HCl 400 MG BID 02/07 1000 DC 02/07 PO 1245 Losartan Potassium 50 MG DAILY 02/07 1000 DC PO Magnesium Oxide 400 MG BID 02/08 1000 UNVr PO Magnesium Oxide 400 MG ONE ONE 02/07 1615 DC 02/07 PO 02/07 1616 1811 Nicotine 7 MG DAILY 02/07 1000 AC TOP Oxycodone HCl 60 MG Q6 02/07 1200 AC 02/08 PO 0637 Oxycodone HCl 20 MG Q4-6 PRN PRN 02/07 0945 AC 02/08 PO 0638 Potassium Chloride 40 MEQ ONCE ONE 02/08 1000 UNVr PO 02/08 1001 Potassium Chloride 10 MEQ ONCE ONE 02/07 1730 DC 02/07 PO 02/07 1731 1811 Last 24 Hrs of Lab/Rigoberto Results Last 24 Hrs of Labs/Mics: Laboratory Tests 02/08/17629: Whole Bld Vitamin B1 Pending 02/08/1730: Anion Gap 11, Estimated GFR > 60, BUN/Creatinine Ratio 31.3 H, Magnesium 1.7, CBC w Diff NO MAN DIFF REQ, RBC 3.40 L, MCV 94.3 H, MCH 30.8, RDW 15.5 H, MPV 10.0, Gran % 56.0, Lymphocytes % 33.8, Monocytes % 8.0, Eosinophils % 1.7, Basophils % 0.5, Absolute Granulocytes 3.1, Absolute Lymphocytes 1.9, Absolute Monocytes 0.4, Absolute Eosinophils 0.1, Absolute Basophils 0, PUBS MCHC 32.7 L 02/08/17 0254: APTT 79 H 02/07/17 1912: APTT 60 H Lines/Diet/Fluids Lines: peripheral lines Assessment/Plan Assessment: 1. Atrial fibrillation with RVR: Rapid rate with po labetalol 100mg bid. BP borderline, was on IV heparin for anticoagulation. Cardiology consult is appreciated. * Will add metoprolol 25mg bid, continue labetalol 100mg bid * Will switch IV heparin to po xarelto per cariology recommendation * possible DEUCE / cardioversion on Friday (02/12) if patient stable and optimized clinically 2. HFrEF (LVEF 4550 percent on echo in 2009): on IV lasix 40mg bid, I/Os -4.9L 1DA, -1.5 today, pt is diuresing well. Bun/Cr stable 23/0.8. * Will hold IV lasix dose per cardio as pt c/o lightheadeness with borderline BP * Continue monitor I/Os, BEP, Leg elevation, Na restriction, wound care. * Repeat echo pending. 3. Hyponatremia: Likely secondary to volume overload. Na 136. 4. Hypokalemia: K 3.7 today, will replete to keep > 4.0 5. Mild hypomagnesemia: Mg 1.7 today, will replete to keep > 2.0 6. Hypertension: losartan/amlodipine were held due to hypotension yesterday. Continue labetalol 100mg bid & metoprolol 25mg bid as tolerated 7. Hyperlipidemia: LDL low 39, HDL 33 8. Chronic LE edema/ulcers: US LE arteridal doppler didn't show arterial occlusion. Likely secondary to chronic venous insufficiency. Patient was seen by Dr. Queen today, will get AVERY bandage. Continue wound care, pt will get wound boot BL on Friday. As pt c/o 8/10 pain due to LE edema, will add po dilaudid on pain pathway. DVT ppx: IV heparin -> xarelto Full code. Problem List: 1. New onset a-fib 2. Acute CHF (congestive heart failure) 3. Hypokalemia 4. Tobacco user Pain Ratin Pain Location: back pain, bialteral LE Pain Goal: Pain 4 or less Pain Plan: oxycontin 60mg q6, oxycodone 20mg q6p, dilaudid 2mg q6p Tomorrow's Labs & Rationales: CBC - on IV heparin BEP - low K, monitor BUN/Cr Mg - low Mg DVT/Prophylaxis: pharmacological Consulting Request: Consulting Specialty: Cardiology Consulting Physician: Dr. Sow Reason for Consult: new onset A.fib Discharge Plan Stable for Discharge? No
--- NOTE | 2017-02-08 10:25 | NUR ---
Visited with pt for meal rounds, he would like more food and doesn't want to be on a therapeutic diet. Discussed medical rationale for CHF diet and pt is aware, reports he will limit sodium on his own. Discussed diet liberalization request with Dr Zaragoza, will liberalize diet to regular as discussed with MD and as requested by pt.
--- NOTE | 2017-02-08 11:08 | PN- Cardiology ---
Subjective Subjective: * Patient reports mild shortness of breath, mild and atypical chest discomfort and mild lightheadedness without significant cognition of palpitations. * Atrial fibrillation with increased heart rate * Increased free T4 Objective Vital Signs and I&Os Vital Signs Date Time Temp Pulse Resp B/P B/P Pulse O2 O2 Flow FiO2 Mean Ox Delivery Rate 02/09 0851 98.7 91 16 122/85 96 Room Air 02/07 2351 98.5 94 20 110/70 95 Room Air 02/07 2036 112 106/78 02/07 1558 98.1 107 20 102/54 96 Room Air 02/07 1245 126 110/60 02/07 1138 92/52 Intake & Output 02/08 1600 02/08 0800 02/08 0000 02/07 1600 02/07 0000 Intake Total 200 814 620 480 Output Total 1750 1700 2100 3065 Balance -1550 -886 -1480 -9905 Intake, IV 200 214 Intake, Oral 600 620 480 Output, Urine 1750 1700 2100 3065 Patient 220 lb 204 lb 225 lb 200 lb Weight Weight Standing Scale Chair scale Estimated Measurement Method Physical Exam: General: WD/WN male in NAD; alert and oriented x 3 Neck: positive JVD Heart: irregularly irregular w/o murmur Lungs: clear bilaterally Extremities: 2+ bilateral leg edema with venous stasis changes Assessment/Plan Assessment/Plan * Atrial fibrillation with increased heart rate. Continue Labetolol for both heart rate and blood pressure control. Begin Xarelto for stroke prophylaxis. Add Metoprolol 25mg PO BID for additional rate control. Stop Norvasc. Anticipate DC cardioversion later in the week. * Hold diuretics for now until blood pressure proves stable on the above medications. * Follow BUN, creatinine and potassium. * Repeat an echocardiogram. * Obtain an endocrine consult for elevated free T4 with low T3 Continue telemetry? Yes
--- NOTE | 2017-02-08 11:56 | Cons- Vascular Surgery ---
General Information and HPI Consulting Request Date of Consult: 02/08/17 Requested By: Ezequiel NUNEZ MD History of Present Illness: 56-year-old man with history of hypertension, HLD, chronic back pain and atrial fibrillation as well as obesity presented to the hospital with progressively worsening bilateral leg swelling, ulcer and discomfort. He has been quite active and was walking 8 miles a day and has lost over 100 pounds. His bilateral leg swelling was noted about a month ago. The venous ultrasound performed on this admission showed no evidence of DVT. He has been started on heparin for A. fib. He swelling so far has been treated with Lasix. Vascular surgery was consulted regarding bilateral leg swelling and ulcers. Allergies/Medications Allergies: Coded Allergies: Penicillins (Intermediate, HIVES 02/07/17) Home Med List: Amlodipine Besylate (Norvasc) 5 MG TABLET 1 TAB PO DAILY BP (Reported) Carisoprodol 350 MG TABLET 1 TAB PO DAILY MUSCLE RELAXANT (Reported) Carisoprodol (SOMA) 350 MG TABLET 1 TAB PO QPM MUSCLE SPASMS (Reported) Carvedilol (Coreg) 3.125 MG TABLET 1 TAB PO BID BP (Reported) CLINDAMYCIN HCL (Clindamycin Hydrochloride) 300 MG CAPSULE 1 TAB PO TID CELLULITIS Diazepam (Valium) 10 MG TABLET 1 TAB PO BID MUSCLE SPASMS (Reported) Furosemide 20 MG TABLET 1 TAB PO EOD WATER RETENTION (Reported) Ibuprofen 800 MG TABLET 1 TAB PO BID PAIN CONTROL (Reported) Labetalol HCl 200 MG TABLET 2 TAB PO BID BP (Reported) Losartan Potassium (Cozaar) 50 MG TABLET 1 TAB PO DAILY BP (Reported) Oxycodone HCl 20 MG TABLET 1 TAB PO 5 TIMES A DAY PAIN CONTROL (Reported) Oxycodone HCl (Oxycontin) 60 MG TAB.ER.12H 1 TAB PO 4 TIMES/DAY PAIN CONTROL (Reported) Oxycodone HCl (Roxicodone) 30 MG TABLET 1 TAB PO Q6 PAIN (Reported) Oxycodone HCl (Oxycontin) 80 MG TAB.ER.12H 1 TAB PO 4 TIMES/DAY PAIN ( Reported) Oxycodone HCl/Acetaminophen (Xartemis XR 7.5-325 MG Tablet) 7.5 MG-325 MG TAB.IR.ERO 1 TAB PO 4 TIMES/DAY PAIN (Reported) Past History Medical History Blood Transfusion Hx: No Neurological: NONE EENT: NONE Cardiovascular: AFIB, hypertension Respiratory: NONE Gastrointestinal: NONE Hepatic: NONE Renal: NONE Musculoskeletal: chronic back pain Psychiatric: chronic pain disorder Endocrine: NONE Blood Disorders: NONE Cancer(s): NONE 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 Home Services at Home: None Smoking Status: Current Everyday Smoker ETOH Use: Heavy former use. Illicit Drug Use: denies illicit drug use Functional Ability ADLs Independent: dressing, eating, toileting, bathing. IADLs Independent: shopping, housework, finances, food prep, telephone, transportation , medication admin. Review of Systems Review of Systems: Patient denies headache, dizziness, cough, palpitation, diarrhea or constipation Exam & Diagnostic Data Vital Signs and I&O Vital Signs Date Time Temp Pulse Resp B/P B/P Pulse O2 O2 Flow FiO2 Mean Ox Delivery Rate 02/08 1146 98 Room Air 02/08 1100 154 104/80 02/08 0851 98.7 91 16 122/85 96 Room Air 02/07 2351 98.5 94 20 110/70 95 Room Air 02/07 2036 112 106/78 02/07 1558 98.1 107 20 102/54 96 Room Air 02/07 1245 126 110/60 Intake & Output 02/08 1600 02/08 0800 02/08 0000 02/07 1600 02/08 0800 02/07 0000 Intake Total 200 814 620 480 Output Total 1750 1700 2100 3065 Balance -1550 -886 -1480 -2585 Intake, IV 200 214 Intake, Oral 600 620 480 Output, Urine 1750 1700 2100 3065 Patient 220 lb 204 lb 225 lb 200 lb Weight Weight Standing Scale Chair scale Estimated Measurement Method Physical Exam: Patient is alert and oriented 3 Cardiovascular: Irregularly irregular Lungs: Clear to auscultation bilaterally Abdomen: Soft, nontender nondistended Extremities: There are weakly palpable pedal pulses bilaterally. Bilateral legs are moderately swollen. There is skin discoloration. There are multiple superficial ulcers with dry scab rhythm. Currently, there is no drainage. There is no evidence of infection. Assessment/Plan Assessment/Plan 56-year-old man with multiple medical issues with new onset of bilateral leg swelling and ulcers in the last month. He does have risk factors for peripheral arterial disease. However, I believe his leg swelling, skin discoloration and ulcers are due to venous insufficiency. I recommend Chu wrap of bilateral legs from toes to below knee for compression. Leg elevation whenever possible. On Friday, please contact [facility] wound center and asked for consultation for placement of bilateral lower extremity Unna boot. I will follow him as outpatient. His wound care will continue to be managed at [facility] wound center after discharge. Consult Acknowledgment - Thank you for your consult request. Attending MD Review Statement Attending Statement Attending MD Statement: examined this patient, discuss w/resident/PA/ARTIFICIAL [employer] WORKER
[2017-02-08 16:12] VITALS: BP 100/88
[2017-02-08 16:12] LABS: PTT 63 SEC (25-37)
[2017-02-08 16:39] VITALS: BP 96/54
--- NOTE | 2017-02-08 16:40 | NUR ---
16:40 PM HEART RATE STEADY IN 140S. HIGHEST RECORDED 166, LOWEST 122. DR KNUTSON & DR THAKKAR AWARE. BP 96/58 AT THIS TIME. AFIB RATE NOT CONTROLLED SINCE AM AFTER GIVEN MEDS PER EMAR. PT ASYMPTOMATIC AT THIS TIME. WILL CONTINUE TO MONITOR.
--- NOTE | 2017-02-08 16:55 | Event Note ---
Event Note Event Note: I spoke with Dr. Banks regarding patient's rapid heart rate. Patient is not complaining of chest pain/palpitation but HR is in 120-150s. As his BP was decreased to 96/54, we'll hold po labetalol. We'll wait until the effect of labetalol wears out, then increase po metoprolol as tolerated. If his HR is not well controlled with higher dose of metoprool, we'll consider adding calcium channel mehreen. Jane Walls PGY4 IM/PM.
--- NOTE | 2017-02-08 16:57 | ECHOCARDIOGRAM REPORT ---
L[place]ON ALEXANDRA Age: 56 : 1960 Gender: M Exam Date: 02/07/2017 11:30 Exam Location: [address] Ht (in): 72 Wt (lb): 200 BSA: 2.16 BP: 92 / 52 Ordering Physician: LIZA RODRÍGUEZ MD Referring Physician: LIZA RODRÍGUEZ MD Technologist: Kavon Tee [facility] Room Number: 183-1 Indications: Shortness of breath Rhythm: Atrial fibrillation Technical Quality: Fair FINDINGS Left Ventricle Mild left ventricular dilatation. Moderately reduced global left ventricular systolic function. Moderately abnormal left ventricular ejection fraction estimated at 25-30%. Possible left ventricular mural thrombus. Right Ventricle Moderate right ventricular dilatation. Right Atrium Moderate right atrial dilatation. Left Atrium Moderate left atrial dilatation. Mitral Valve Mitral valve thickened. Moderate mitral regurgitation. Aortic Valve Trileaflet aortic valve. Focal thickening of the aortic valve cusps. No aortic stenosis. No aortic regurgitation. Tricuspid Valve Tricuspid valve not well visualized, grossly normal. Moderate tricuspid regurgitation. Right ventricular systolic pressure estimated at 40 mmHg. Pulmonic Valve Pulmonic valve not well visualized, grossly normal. Pericardium No pericardial effusion. Great Vessels Mildly dilated proximal ascending aorta (tube). CONCLUSIONS 1. This was a technically difficult examination. 2. Minimal aortic sclerosis is present with no valvular stenTheosis or insufficiency. Minimal dilatation of the ascending aorta is present. 3. Mitral leaflet thickening is present with moderate mitral insufficiency and moderate left atrial enlargement. 4. There is no pericardial fluid present. 5. The left ventricular chamber is mildly enlarged with global hypokinesia and an ejection fraction of 25-30%. THere is an area of increased echodensity present at the apex which is stronglky suggestive of an apical thrombus. 6. MOderate enlargement of the right heart chambers and IVC is noted. with moderate tricuspid insufficiency and an RV systolic pressure of 40 mmHg. 7. A followup study is suggested with IV contrast to better assess for the presence of an apical mural thrombus. Sarah Sow M.D. (Electronically Signed) Final Date: 08 February 2017 16:56 MEASUREMENTS (Male / Female) Normal Values 2D ECHO LV Diastolic Diameter PLAX 6.1 cm 4.2 - 5.9 / 3.9 - 5.3 cm LV Systolic Diameter PLAX 5.3 cm 2.1 - 4.0 cm LV Fractional Shortening PLAX 13.1 % 25 - 46 % LV Ejection Fraction 2D Teich 27.6 % IVS Diastolic Thickness 1.1 cm LVPW Diastolic Thickness 0.8 cm LV Relative Wall Thickness 0.3 RV Internal Dim ED PLAX 3.9 cm 1.9 - 3.8 cm LVOT Diameter 2.2 cm Aortic Root Diameter 3.5 cm LA Systolic Diameter LX 5.0 cm 3.0 - 4.0 / 2.7 - 3.8 cm Ascending Aorta Diameter 3.7 cm DOPPLER AV Peak Velocity 102.0 cm/s AV Peak Gradient 4.2 mmHg AV Mean Velocity 71.8 cm/s AV Mean Gradient 2.0 mmHg AV Velocity Time Integral 20.9 cm LVOT Peak Velocity 69.2 cm/s LVOT Peak Gradient 1.9 mmHg LVOT Mean Velocity 44.7 cm/s LVOT Mean Gradient 1.0 mmHg LVOT Velocity Time Integral 11.1 cm LVOT Stroke Volume 42.2 cm AV Area Cont Eq vti 2.0 cm AV Area Cont Eq pk 2.6 cm MV Peak Velocity 109.0 cm/s MV Peak Gradient 4.8 mmHg MV Mean Velocity 60.3 cm/s MV Mean Gradient 2.0 mmHg Mitral E Point Velocity 83.4 cm/s Mitral A Point Velocity 45.9 cm/s Mitral E to A Ratio 1.8 MV PHT Velocity 106.0 cm/s MV Deceleration [place] 425.0 cm/s MV Pressure Half Time 74.8 ms MV Area PHT 2.9 cm MV Deceleration Time 176.0 ms MR Peak Velocity 435.0 cm/s MR Peak Gradient 75.7 mmHg TR Peak Velocity 311.0 cm/s TR Peak Gradient 38.7 mmHg Right Atrial Pressure 10.0 mmHg Pulmonary Artery Systolic Pressu 48.7 mmHg Right Ventricular Systolic Press 48.7 mmHg PV Peak Velocity 71.3 cm/s PV Peak Gradient 2.0 mmHg PV Mean Velocity 53.4 cm/s PV Mean Gradient 1.0 mmHg PV Velocity Time Integral 17.1 cm
[2017-02-08 23:35] VITALS: BP 98/60
[2017-02-09 07:39] VITALS: BP 100/74
[2017-02-09 08:09] LABS: ABSOLUTE BASOPHIL COUNT 0.1 /CUMM (0.0-0.2); ABSOLUTE EOSINOPHIL COUNT 0.1 /CUMM (0.0-0.7); ABSOLUTE GRANULOCYTE CT 3.2 /CUMM (1.4-6.5); ABSOLUTE LYMPH COUNT 2.2 /CUMM (1.2-3.4); ABSOLUTE MONOCYTE COUNT 0.6 /CUMM (0.10-0.60); BASOPHIL % 0.9 % (0.0-2.0); EOSINOPHIL % 1.6 % (0-5); GRANULOCYTE % 52.7 % (42.2-75.2); HEMATOCRIT 33.5 % (42-52); MEAN CORPUSCULAR HGB 30.9 PG (27.0-31.0); MEAN CORPUSCULAR HGB CONC 32.5 G/DL (33.0-37.0); MEAN PLATELET VOLUME 10.1 FL (7.4-10.4); PLATELET COUNT 198 /CUMM (130-400); RBC DISTRIBUTION WIDTH 15.2 % (11.5-14.5); RED BLOOD CELL CT 3.53 /CUMM (4.70-6.10); WHITE BLOOD CELL COUNT 6.1 /CUMM (4.8-10.8)
--- NOTE | 2017-02-09 08:33 | PN- Housestaff ---
Subjective Follow-up For: Atrial fibrillation with RVR HFrEF Chronic venous insufficiency Abnormal TFTs Tele-Events Since Last Visit: Normal sinus rhythm HR 69-79 First degree heart block CO interval 0.22 Subjective: No acute events overnight. Patient seen and examined this morning. His breathing has improved. He reports swelling in his abdomen. He continues to endorse significant pain in his lower extremities. He has been ambulating around the unit. Review of Systems Constitutional: Reports: see HPI. Objective Last 24 Hrs of Vital Signs/I&O Vital Signs Date Time Temp Pulse Resp B/P B/P Pulse O2 O2 Flow FiO2 Mean Ox Delivery Rate 02/10 0017 97.8 96 20 102/88 94 02/09 2112 115 116/80 02/09 1756 119 118/88 02/09 1556 98.6 119 18 100/60 95 02/09 1246 87 16 96/72 02/09 1137 98 Room Air 02/09 0920 113 100/74 02/09 0800 Room Air 02/09 0739 98.5 113 14 100/74 95 Room Air Intake & Output 02/10 0800 02/10 0000 02/09 1600 Intake Total 480 670 Output Total Balance 480 670 Intake, IV 10 Intake, Oral 480 660 Physical Exam General Appearance: Alert, Oriented X3, No Acute Distress HEENT: Atraumatic, Mucous Membr. moist/pink Neck: Supple Cardiovascular: No Murmurs, Gallops, Rubs, Irregularly Irregular Lungs: Clear to Auscultation Abdomen: Soft, No Tenderness, Positive Bowel Sounds, Mild Distention Extremities: Bilateral Lower Extremities with 2+ Pitting Edema and Skin Changes Consistent with Chronic Venous Stasis Current Medications: Current Medications Sig/Cinthia Start time Last Medication Dose Route Stop Time Status Admin Carisoprodol 350 MG DAILY 02/07 1000 AC 02/09 PO 09 Hydromorphone HCl 2 MG Q6P PRN 02/08 1200 AC 02/09 PO 2347 Ibuprofen 800 MG BID 02/07 0301 AC 02/09 PO 2027 Magnesium Oxide 400 MG BID 02/08 1000 AC 02/09 PO 2027 Melatonin 5 MG ONCE ONE 02/09 2045 DC 02/09 PO 02/09 Metoprolol Tartrate 75 MG BID 02/09 2200 AC 02/09 PO 2026 Metoprolol Tartrate 50 MG BID 02/08 2200 DC 02/09 PO 0920 Nicotine 7 MG DAILY 02/07 1000 AC TOP Oxycodone HCl 20 MG Q6P PRN 02/08 1200 AC 02/09 PO 2028 Oxycodone HCl 60 MG Q6 02/07 1200 AC 02/09 PO 2348 Rivaroxaban 20 MG 5PM 02/08 1700 AC 02/09 PO 1757 Last 24 Hrs of Lab/Rigoberto Results Last 24 Hrs of Labs/Mics: Laboratory Tests 02/09/17 0700: Anion Gap 9, Estimated GFR > 60, BUN/Creatinine Ratio 27.8 H, Magnesium 1.8, CBC w Diff NO MAN DIFF REQ, RBC 3.53 L, MCV 95.0 H, MCH 30.9, RDW 15.2 H, MPV 10.1, Gran % 52.7, Lymphocytes % 35.6, Monocytes % 9.2, Eosinophils % 1.6, Basophils % 0.9, Absolute Granulocytes 3.2, Absolute Lymphocytes 2.2, Absolute Monocytes 0.6, Absolute Eosinophils 0.1, Absolute Basophils 0.1, PUBS MCHC 32.5 L Assessment/Plan Assessment: Mr. Cobian is a 56 y/o M with PMHx of HFrEF, atrial fibrillation and HTN who presents with progressively worsening bilateral lower extremity edema with ulcerations, 40-lbs weight gain and atrial fibrillation with RVR. #Atrial fibrillation with RVR: * Continue telemetry monitoring. * Cardiology following. Appreciate their recs. * Discontinue labetalol given borderline hypotension. * Increase metoprolol to 75 mg PO BID for better control of heart rate. * If BP becomes elevated, maximize beta-mhereen first, then consider calcium channel mehreen as the latter may lead to exacerbation of leg edema. * Possible cardioversion later in the week. * Continue Xarelto 20 mg PO daily for anticoagulation. #HFrEF: * Continue to hold diuretics pending improvement of blood pressures. * Monitor I/Os and daily BMPs. * Repeat ECHO pending. #Abnormal TFTs: TSH WNL but high free T4 and low total T3 on admission. Could represent sick euthyroid syndrome. * Endocrinology following. Appreciate their recs. * Repeat thyroid function tests in the AM. * Check thyroid antibody panel. #Chronic venous insufficiency: Arterial ultrasound of BLE with no significant evidence of arterial occlusive disease. * Wound care consult in the AM for BLE unna boot. * Encourage leg elevation. * Apply bilateral Chu wraps from toes to below knee for compression. * Give vascular surgery follow-up on discharge. Diet: Regular DVT PPx: Xarelto CODE: FULL Problem List: 1. Atrial fibrillation with RVR 2. Abnormal thyroid function test 3. HFrEF (heart failure with reduced ejection fraction) 4. Chronic venous insufficiency Pain Ratin Pain Location: Legs Pain Goal: Pain 4 or less Pain Plan: Dilaudid 2 mg PO Q6H PRN for severe pain (scale 7-10) Roxicodone 20 mg PO Q6H PRN for moderate pain (scale 4-6) Motrin 800 mg PO BID Oxycontin 60 mg PO Q6H Tomorrow's Labs & Rationales: CBC to monitor H/H in the setting of anemia BMP and Mg to monitor lytes and kidney function in the setting of fluctuating potassium levels
--- NOTE | 2017-02-09 10:28 | Cons- Endocrinology ---
General Information and HPI Consulting Request Date of Consult: 02/09/17 Requested By: medical team Reason for Consult: evaluation of abnormal TFT Source of Information: patient, old records Exam Limitations: no limitations History of Present Illness: Mr Mccann is a 56-year-old gentleman with a PMH of CHF (LVEF 4550 percent on echo in 2009), previous history of A. fib with RVR s/p cardioversion 8 years ago, hypertension, hyperlipidemia and chronic tobacco use, was admitted with complaints of one-month duration of progressive lower extremity swelling, 40 pound weight gain, erythema of his lower extremities with ulcerations and A. fib with RVR. Blood work showed TSH 3.6, free T4 1.85 and TT3 0.80. Patient denied having thyroid condition. He doesn't have family hx of thyroid disorders. Allergies/Medications Allergies: Coded Allergies: Penicillins (Intermediate, HIVES 02/07/17) Home Med List: Amlodipine Besylate (Norvasc) 5 MG TABLET 1 TAB PO DAILY BP (Reported) Carisoprodol 350 MG TABLET 1 TAB PO DAILY MUSCLE RELAXANT (Reported) Carisoprodol (SOMA) 350 MG TABLET 1 TAB PO QPM MUSCLE SPASMS (Reported) Carvedilol (Coreg) 3.125 MG TABLET 1 TAB PO BID BP (Reported) CLINDAMYCIN HCL (Clindamycin Hydrochloride) 300 MG CAPSULE 1 TAB PO TID CELLULITIS Diazepam (Valium) 10 MG TABLET 1 TAB PO BID MUSCLE SPASMS (Reported) Furosemide 20 MG TABLET 1 TAB PO EOD WATER RETENTION (Reported) Ibuprofen 800 MG TABLET 1 TAB PO BID PAIN CONTROL (Reported) Labetalol HCl 200 MG TABLET 2 TAB PO BID BP (Reported) Losartan Potassium (Cozaar) 50 MG TABLET 1 TAB PO DAILY BP (Reported) Oxycodone HCl 20 MG TABLET 1 TAB PO 5 TIMES A DAY PAIN CONTROL (Reported) Oxycodone HCl (Oxycontin) 60 MG TAB.ER.12H 1 TAB PO 4 TIMES/DAY PAIN CONTROL (Reported) Oxycodone HCl (Roxicodone) 30 MG TABLET 1 TAB PO Q6 PAIN (Reported) Oxycodone HCl (Oxycontin) 80 MG TAB.ER.12H 1 TAB PO 4 TIMES/DAY PAIN ( Reported) Oxycodone HCl/Acetaminophen (Xartemis XR 7.5-325 MG Tablet) 7.5 MG-325 MG TAB.IR.ERO 1 TAB PO 4 TIMES/DAY PAIN (Reported) Review of Systems Review of Systems Constitutional: Reports: see HPI, weakness. Cardiovascular: Reports: edema, palpitations. Respiratory: Reports: short of breath. GI: Denies: abdominal pain. Skin: Reports: erythema (LE due to CHF). 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 Home Services at Home: None Smoking Status: Current Everyday Smoker ETOH Use: Heavy former use. Illicit Drug Use: denies illicit drug use Functional Ability ADLs Independent: dressing, eating, toileting, bathing. IADLs Independent: shopping, housework, finances, food prep, telephone, transportation , medication admin. Exam & Diagnostic Data Last 24 Hrs of Vital Signs/I&O Vital Signs Date Time Temp Pulse Resp B/P B/P Pulse O2 O2 Flow FiO2 Mean Ox Delivery Rate 02/09 0920 113 100/74 02/09 0800 Room Air 02/09 0739 98.5 113 14 100/74 95 Room Air 02/09 0000 96 Room Air 02/08 2335 98.0 100 18 98/60 96 Room Air 02/08 2059 102/56 02/08 1652 96 Room Air Room Air 02/08 1639 142 96/54 02/08 1612 98.5 100 19 100/88 92 Room Air 02/08 1249 122 110/76 02/08 1146 98 Room Air 02/08 1100 154 104/80 Intake & Output 02/09 1600 02/09 0800 02/09 0000 Intake Total 480 480 Output Total 600 Balance -120 480 Intake, Oral 480 480 Output, Urine 600 Patient 224 lb Weight Weight Standing Scale Measurement Method Physical Exam General Appearance: no apparent distress Neck: no significant thyroid enlargement Respiratory: decreased breath sounds Cardiovascular: tachycardia, irregularly irregular Gastrointestinal: distention Extremities: swelling (with chronic skin changes) Labs/Rigoberto Results: Laboratory Tests 02/09 02/08 02/08 0700 1505 0630 Chemistry Sodium (137 - 145 mmol/L) 138 Potassium (3.5 - 5.1 mmol/L) 4.6 Chloride (98 - 107 mmol/L) 100 Carbon Dioxide (22 - 30 mmol/L) 29 Anion Gap (5 - 16) 9 BUN (9 - 20 mg/dL) 25 H Creatinine (0.7 - 1.2 mg/dL) 0.9 Estimated GFR (>60 ml/min) > 60 BUN/Creatinine Ratio (7 - 25 %) 27.8 H Magnesium (1.6 - 2.3 mg/dL) 1.8 Whole Bld Vitamin B1 Pending Coagulation APTT (25 - 37 SEC) 63 H Hematology CBC w Diff NO MAN DIFF REQ WBC (4.8 - 10.8 /CUMM) 6.1 RBC (4.70 - 6.10 /CUMM) 3.53 L Hgb (14.0 - 18.0 G/DL) 10.9 L Hct (42 - 52 %) 33.5 L MCV (80.0 - 94.0 FL) 95.0 H MCH (27.0 - 31.0 PG) 30.9 RDW (11.5 - 14.5 %) 15.2 H Plt Count (130 - 400 /CUMM) 198 MPV (7.4 - 10.4 FL) 10.1 Gran % (42.2 - 75.2 %) 52.7 Lymphocytes % (20.5 - 51.1 %) 35.6 Monocytes % (1.7 - 9.3 %) 9.2 Eosinophils % (0 - 5 %) 1.6 Basophils % (0.0 - 2.0 %) 0.9 Absolute Granulocytes (1.4 - 6.5 /CUMM) 3.2 Absolute Lymphocytes (1.2 - 3.4 /CUMM) 2.2 Absolute Monocytes (0.10 - 0.60 /CUMM) 0.6 Absolute Eosinophils (0.0 - 0.7 /CUMM) 0.1 Absolute Basophils (0.0 - 0.2 /CUMM) 0.1 PUBS MCHC (33.0 - 37.0 G/DL) 32.5 L 02/08 02/08 02/07 02/07 0630 0254 1912 0615 Chemistry Sodium (137 - 145 mmol/L) 136 L 136 L Potassium (3.5 - 5.1 mmol/L) 3.7 3.3 L Chloride (98 - 107 mmol/L) 102 102 Carbon Dioxide (22 - 30 mmol/L) 24 24 Anion Gap (5 - 16) 11 10 BUN (9 - 20 mg/dL) 25 H 27 H Creatinine (0.7 - 1.2 mg/dL) 0.8 0.8 Estimated GFR (>60 ml/min) > 60 > 60 BUN/Creatinine Ratio (7 - 25 %) 31.3 H 33.8 H Phosphorus (2.5 - 4.5 mg/dL) 3.9 Magnesium (1.6 - 2.3 mg/dL) 1.7 1.6 Iron (49 - 181 ug/dL) 42 L TIBC (261 - 462 ug/dL) 336 Ferritin (17.9 - 464 ng/mL) 55.4 Troponin I (<0.11 ng/ml) < 0.01 Triglycerides (<150 mg/dL) 50 Cholesterol (< 200 MG/DL) 82 LDL Cholesterol, Calc (65 - 129 mg/dL) 39 L HDL Cholesterol (40 - 60 mg/dL) 33 L Cholesterol/HDL Ratio (0.00 - 4.88 %) 3 TSH (0.270 - 4.200 uIU/mL) 3.600 Free T4 (0.64 - 1.79 ng/dL) 1.85 H Total T3 (0.97 - 1.69 ng/mL) 0.80 L Coagulation APTT (25 - 37 SEC) 79 H 60 H 76 H Hematology CBC w Diff NO MAN DIFF REQ WBC (4.8 - 10.8 /CUMM) 5.6 RBC (4.70 - 6.10 /CUMM) 3.40 L Hgb (14.0 - 18.0 G/DL) 10.5 L Hct (42 - 52 %) 32.0 L MCV (80.0 - 94.0 FL) 94.3 H MCH (27.0 - 31.0 PG) 30.8 RDW (11.5 - 14.5 %) 15.5 H Plt Count (130 - 400 /CUMM) 185 MPV (7.4 - 10.4 FL) 10.0 Gran % (42.2 - 75.2 %) 56.0 Lymphocytes % (20.5 - 51.1 %) 33.8 Monocytes % (1.7 - 9.3 %) 8.0 Eosinophils % (0 - 5 %) 1.7 Basophils % (0.0 - 2.0 %) 0.5 Absolute Granulocytes (1.4 - 6.5 /CUMM) 3.1 Absolute Lymphocytes (1.2 - 3.4 /CUMM) 1.9 Absolute Monocytes (0.10 - 0.60 /CUMM) 0.4 Absolute Eosinophils (0.0 - 0.7 /CUMM) 0.1 Absolute Basophils (0.0 - 0.2 /CUMM) 0 PUBS MCHC (33.0 - 37.0 G/DL) 32.7 L 02/07 02/06 02/06 0500 2350 2322 Chemistry Troponin I Cancelled Coagulation PT (9.4 - 12.5 SEC) 14.5 H INR (0.90 - 1.17) 1.39 H APTT (25 - 37 SEC) 33 Urines Urinalysis LIGHT H Urine Color (YEL,AMB,STR) YEL Urine Clarity (CLEAR) CLEAR Urine pH (5.0 - 8.0) 6.0 Ur Specific Warriors Mark (1.001 - 1.035) 1.025 Urine Protein (NEG,<30 MG/DL) 100 H Urine Ketones (NEG) NEG Urine Nitrite (NEG) NEG Urine Bilirubin (NEG) NEG Urine Urobilinogen (0.1 - 1.0 EU/dl) 0.2 Ur Leukocyte Esterase (NEG) NEG Ur Microscopic SEDIMENT EXAMINED Urine WBC (0 - 2 /HPF) 1-3 H Urine Hemoglobin (NEG) NEG Urine Glucose (N MG/DL) NEG 02/06 6952 Chemistry Sodium (137 - 145 mmol/L) 135 L Potassium (3.5 - 5.1 mmol/L) 3.2 L Chloride (98 - 107 mmol/L) 100 Carbon Dioxide (22 - 30 mmol/L) 23 Anion Gap (5 - 16) 11 BUN (9 - 20 mg/dL) 26 H Creatinine (0.7 - 1.2 mg/dL) 0.8 Estimated GFR (>60 ml/min) > 60 BUN/Creatinine Ratio (7 - 25 %) 32.5 H Glucose (65 - 99 mg/dL) 74 Calcium (8.4 - 10.2 mg/dL) 8.7 Magnesium (1.6 - 2.3 mg/dL) 1.6 Total Bilirubin (0.2 - 1.3 mg/dL) 0.8 AST (17 - 59 U/L) 26 ALT (21 - 72 U/L) 36 Alkaline Phosphatase (< 127 U/L) 100 Troponin I (<0.11 ng/ml) < 0.01 Cot-W-Rlbcudlsdom Pept (<125 pg/mL) 3890 H Total Protein (6.3 - 8.2 g/dL) 6.2 L Albumin (3.5 - 5.0 g/dL) 3.2 L Globulin (1.9 - 4.2 gm/dL) 3.0 Albumin/Globulin Ratio (1.1 - 2.2 %) 1.1 Vitamin B12 (239 - 931 pg/mL) 503 Folate (2.76 - 20.0 ng/mL) 5.9 Hematology CBC w Diff NO MAN DIFF REQ WBC (4.8 - 10.8 /CUMM) 7.7 RBC (4.70 - 6.10 /CUMM) 3.51 L Hgb (14.0 - 18.0 G/DL) 10.9 L Hct (42 - 52 %) 33.2 L MCV (80.0 - 94.0 FL) 94.6 H MCH (27.0 - 31.0 PG) 31.1 H RDW (11.5 - 14.5 %) 14.9 H Plt Count (130 - 400 /CUMM) 221 MPV (7.4 - 10.4 FL) 9.4 Gran % (42.2 - 75.2 %) 73.0 Lymphocytes % (20.5 - 51.1 %) 17.7 L Monocytes % (1.7 - 9.3 %) 7.3 Eosinophils % (0 - 5 %) 1.0 Basophils % (0.0 - 2.0 %) 1.0 Absolute Granulocytes (1.4 - 6.5 /CUMM) 5.6 Absolute Lymphocytes (1.2 - 3.4 /CUMM) 1.4 Absolute Monocytes (0.10 - 0.60 /CUMM) 0.6 Absolute Eosinophils (0.0 - 0.7 /CUMM) 0.1 Absolute Basophils (0.0 - 0.2 /CUMM) 0.1 PUBS MCHC (33.0 - 37.0 G/DL) 32.9 L Assessment/Plan Assessment/Plan Mr Mccann is a 56-year-old gentleman with a PMH of CHF (LVEF 4550 percent on echo in 2009), previous history of A. fib with RVR s/p cardioversion 8 years ago, hypertension, hyperlipidemia and chronic tobacco use, was admitted with complaints of one-month duration of progressive lower extremity swelling, 40 pound weight gain, erythema of his lower extremities with ulcerations and A. fib with RVR. Blood work showed TSH 3.6, free T4 1.85 and TT3 0.80. Abnormal TFT could be due to sick euthyroid changes. Recommend: 1. repeating TSH, free T4 and TT3 tomorrow. 2. checking thyroid antibody panel. will follow. Consult Acknowledgment - Thank you for your consult request.
[2017-02-09 12:46] VITALS: BP 96/72
--- NOTE | 2017-02-09 13:23 | PN- Cardiology ---
Subjective Subjective: * Patient reports mild shortness of breath, mild and atypical chest discomfort and mild lightheadedness without significant cognition of palpitations. He is also noting lower abdominal swelling. * Atrial fibrillation with increased heart rate * Increased free T4 Objective Vital Signs and I&Os Vital Signs Date Time Temp Pulse Resp B/P B/P Pulse O2 O2 Flow FiO2 Mean Ox Delivery Rate 02/09 1246 87 16 96/72 02/09 1137 98 Room Air 02/09 0920 113 100/74 02/09 0800 Room Air 02/09 0739 98.5 113 14 100/74 95 Room Air 02/09 0000 96 Room Air 02/08 2335 98.0 100 18 98/60 96 Room Air 02/08 2059 102/56 02/08 1652 96 Room Air Room Air 02/08 1639 142 96/54 02/08 1612 98.5 100 19 100/88 92 Room Air Intake & Output 02/09 1600 02/09 0800 02/09 0000 02/08 1600 02/08 0800 02/08 0000 Intake Total 317 745 6661.6 200 814 Output Total 600 1700 1750 1700 Balance -120 480 -662.4 -1550 -886 Intake, IV 237.6 200 214 Intake, Oral 480 480 800 600 Output, Urine 600 1700 1750 1700 Patient 224 lb 220 lb Weight Weight Standing Scale Standing Scale Measurement Method Physical Exam: General: WD/WN male in NAD; alert and oriented x 3 Neck: positive JVD Heart: irregularly irregular w/o murmur Lungs: clear bilaterally Abdomen: soft, NT, mildly distended, +ve bowel sounds Extremities: 2+ bilateral leg edema with venous stasis changes Assessment/Plan Assessment/Plan * Atrial fibrillation with increased heart rate. Discontinue Labetolol due to borderline blood pressure. Increase Metoprolol to 75 mg BID for better heart rate control. Begin Xarelto for stroke prophylaxis. Stop Norvasc to minimized hypotension. We will consider a calcium channel mehreen if his BP reamins difficult to control but this may exacerbate his leg edema so we will try to maximize beta blockers first. Anticipate DC cardioversion later in the week. * Hold diuretics for now until blood pressure proves stable on the above medications. * Follow BUN, creatinine and potassium. * Repeat an echocardiogram. Continue telemetry? Yes
[2017-02-09 15:56] VITALS: BP 100/60
[2017-02-09 17:56] VITALS: BP 118/88
--- NOTE | 2017-02-09 17:56 | ECHOCARDIOGRAM REPORT ---
LONDON ALEXANDRA Age: 56 : 1960 Gender: M Exam Date: 02/09/2017 13:59 Exam Location: [facility] Ht (in): 72 Wt (lb): 220 BSA: 2.27 BP: 100 / 74 Ordering Physician: LIZETH THAKKAR MD Referring Physician: Sarah Sow MD Technologist: Kimberli Leslie DIANA Room Number: [id number] Indications: SHORTNESS OF BREATH Rhythm: Atrial fibrillation Technical Quality: Fair FINDINGS Left Ventricle Mild left ventricular dilatation. Mildly reduced global left ventricular systolic function. Mildly abnormal left ventricular ejection fraction estimated at 45-50%. Right Ventricle Mild right ventricular dilatation. Right Atrium Mild right atrial dilatation. Left Atrium Moderate to severe left atrial dilatation. Mitral Valve Mitral valve thickened. [id number] mitral regurgitation. Aortic Valve Trileaflet aortic valve. Diffuse thickening (sclerosis) of the aortic valve cusps without reduced excursion. No aortic stenosis. No aortic regurgitation. Tricuspid Valve Tricuspid valve not well visualized, grossly normal. Moderate tricuspid regurgitation. Right ventricular systolic pressure estimated at 36 mmHg. Pulmonic Valve Pulmonic valve not well visualized, grossly normal. Mild pulmonic regurgitation. Pericardium No pericardial effusion. Great Vessels Aortic root and proximal ascending aorta not well visualized, grossly normal. CONCLUSIONS 1. Aortic sclerosis is present with no valvular stenosis or insufficiency. 2. Mitral leaflet thickening is present with mild to moderate mitral insufficinecy and moderate to severe left atrial enlargement. 3. There is no pericardial fluid present 4. The left ventricular chamber is minimally dilated. There is global hypokinesia present with an estimated ejection fraction of 45-50%. 5. Mild enlargement of the right heart chambers is present with moderate tricuspid insufficieny and no significant pulmonary hypertension. 6. THere is evidence of elevated left atrial pressure. 7. Mild LV diastolic dysfunction is present. Sarah Sow M.D. (Electronically Signed) Final Date: 09 February 2017 17:55 MEASUREMENTS (Male / Female) Normal Values 2D ECHO LV Diastolic Diameter PLAX 5.8 cm 4.2 - 5.9 / 3.9 - 5.3 cm LV Systolic Diameter PLAX 2.5 cm 2.1 - 4.0 cm LV Fractional Shortening PLAX 56.9 % 25 - 46 % LV Ejection Fraction 2D Teich 86.6 % IVS Diastolic Thickness 1.1 cm LVPW Diastolic Thickness 1.1 cm LV Relative Wall Thickness 0.4 RV Internal Dim ED PLAX 3.6 cm 1.9 - 3.8 cm LVOT Diameter 1.9 cm Aortic Root Diameter 2.8 cm LA Systolic Diameter LX 5.2 cm 3.0 - 4.0 / 2.7 - 3.8 cm LA Volume 96.0 cm 18 - 58 / 22 - 52 cm Ascending Aorta Diameter 2.9 cm DOPPLER AV Peak Velocity 107.0 cm/s AV Peak Gradient 4.6 mmHg AV Mean Velocity 76.8 cm/s AV Mean Gradient 3.0 mmHg AV Velocity Time Integral 21.5 cm LVOT Peak Velocity 82.0 cm/s LVOT Peak Gradient 2.7 mmHg LVOT Mean Velocity 63.1 cm/s LVOT Mean Gradient 2.0 mmHg LVOT Velocity Time Integral 17.5 cm LVOT Stroke Volume 49.6 cm AV Area Cont Eq vti 2.3 cm AV Area Cont Eq pk 2.2 cm MV Peak Velocity 134.0 cm/s MV Peak Gradient 7.2 mmHg MV Mean Velocity 76.5 cm/s MV Mean Gradient 3.0 mmHg Mitral E Point Velocity 103.0 cm/s MV PHT Velocity 141.0 cm/s MV Deceleration Avery 565.0 cm/s MV Pressure Half Time 74.9 ms MV Area PHT 2.9 cm MV Deceleration Time 201.0 ms MR Peak Velocity 458.0 cm/s MR Peak Gradient 83.9 mmHg MR ERO PISA 0.1 cm MR Regurgitant Volume PISA 16.1 cm TR Peak Velocity 292.0 cm/s TR Peak Gradient 34.1 mmHg Right Atrial Pressure 5.0 mmHg Pulmonary Artery Systolic Pressu 39.1 mmHg Right Ventricular Systolic Press 39.1 mmHg PV Peak Velocity 81.0 cm/s PV Peak Gradient 2.6 mmHg PV Mean Velocity 58.7 cm/s PV Mean Gradient 2.0 mmHg PV Velocity Time Integral 17.8 cm LV E' Lateral Velocity 11.0 cm/s Mitral E to LV E' Lateral Ratio 9.4 LV E' Septal Velocity 3.1 cm/s Mitral E to LV E' Septal Ratio 33.0
[2017-02-09 21:12] VITALS: BP 116/80
[2017-02-10 00:17] VITALS: BP 102/88
--- NOTE | 2017-02-10 07:20 | PN- Housestaff ---
Subjective Follow-up For: Atrial fibrillation with RVR HFrEF Chronic venous insufficiency Abnormal TFTs Tele-Events Since Last Visit: Atrial fibrillation HR 90-100s Intermittent episodes of RVR to 160s Subjective: No acute events overnight. Patient seen and examined this morning. He reports that his shortness of breath and abdominal swelling is worse today and feels that he has too much "water" that needs to be removed. He denies chest pain or palpitations. At 3:45 PM, patient complained of shortness of breath and desatted to 82% on room air. He was placed on 4 L NC with little improvement of his oxygenation and subsequently placed on partial rebreather mask. Respiratory was called nebulizer treatment. He complained of chest discomfort therefore STAT EKG, troponin and CXR were ordered. EKG showed atrial fibrillation with no acute ST-T changes and troponin later came back negative. CXR showed enlarging small right-sided pleural effusion without overt alveolar edema. Patient was given 40 mg of IV Lasix with resulting 1.9 L of urine output and 0.5 mg PO Xanax. Approximately one hour later, patient reported feeling much better and was weaned down to 7 L NC. Review of Systems Constitutional: Reports: see HPI. Objective Last 24 Hrs of Vital Signs/I&O Vital Signs Date Time Temp Pulse Resp B/P B/P Pulse O2 O2 Flow FiO2 Mean Ox Delivery Rate 02/11 2012 120 130/80 02/10 1805 121 120/80 02/10 1647 98.5 65 24 134/82 92 Nasal 60% Cannula 02/10 1545 84 Nasal 4.0L Cannula 02/10 1052 95 Room Air 02/10 0959 127 98/60 02/10 0840 99.3 90 18 95/67 95 Room Air 02/10 0017 97.8 96 20 102/88 94 /30 2112 115 116/80 Intake & Output 02/10 1600 02/10 0800 02/10 0000 Intake Total 480 250 480 Output Total 600 Balance -120 250 480 Intake, IV 10 Intake, Oral 480 240 480 Output, Urine 600 Patient 103.419 kg Weight Physical Exam General Appearance: Alert, Oriented X3, No Acute Distress HEENT: Atraumatic, Mucous Membr. moist/pink Neck: Supple Cardiovascular: Normal S1, No Murmurs, Gallops, Rubs, Irregularly Irregular Lungs: Clear to Auscultation Abdomen: Soft, No Tenderness, Positive Bowel Sounds Extremities: Bilateral Extremities with 2+ Pitting Edema and Compression Wraps in Place Current Medications: Current Medications Sig/Cinthia Start time Last Medication Dose Route Stop Time Status Admin Alprazolam 0.5 MG ONCE ONE 02/10 1515 DC 02/10 PO 02/10 1516 1558 Carisoprodol 350 MG 2200 02/10 2200 AC PO Carisoprodol 350 MG DAILY 02/07 1000 DC 02/09 PO 0921 Diltiazem HCl 2.5 MG ONCE ONE 02/10 1800 DC 02/10 IV 02/10 1801 1805 Furosemide 40 MG 7:30 AM, & 4:30 PM 02/11 0730 AC IV Furosemide 40 MG ONCE ONE 02/10 1545 DC 02/10 IV PUSH 02/10 1546 1550 Hydromorphone HCl 2 MG Q6P PRN 02/08 1200 AC 02/10 PO 0602 Ibuprofen 800 MG BID PRN 02/10 1624 AC PO Ibuprofen 800 MG BID 02/07 0301 DC 02/10 PO 0954 Magnesium Oxide 400 MG BID 02/08 1000 AC 02/10 PO 0954 Melatonin 5 MG ONCE ONE 02/09 2045 DC 02/09 PO 02/09 2046 2348 Metoprolol Tartrate 150 MG BID 02/11 1000 AC PO Metoprolol Tartrate 50 MG ONCE ONE 02/10 1930 DC 02/10 PO 02/10 1932011 Metoprolol Tartrate 100 MG BID 02/10 1000 AC 02/10 PO 02/11 0900 0959 Metoprolol Tartrate 75 MG BID 02/09 2200 DC 02/09 PO 2027 Nicotine 7 MG DAILY 02/07 1000 AC TOP Oxycodone HCl 20 MG Q6P PRN 02/08 1200 AC 02/10 PO 1559 Oxycodone HCl 60 MG Q6 02/07 1200 AC 02/10 PO 1709 Rivaroxaban 20 MG 5PM 02/08 1700 AC 02/10 PO 1709 Last 24 Hrs of Lab/Rigoberto Results Last 24 Hrs of Labs/Mics: Laboratory Tests 02/10/17 1600: Troponin I < 0.01 02/10/17 0715: Anion Gap 10, Estimated GFR > 60, BUN/Creatinine Ratio 33.8 H, Magnesium 1.9, TSH 6.310 H, Free T4 1.56, CBC w Diff NO MAN DIFF REQ, RBC 3.63 L, MCV 95.0 H , MCH 31.1 H, RDW 15.4 H, MPV 10.3, Gran % 70.4, Lymphocytes % 19.2 L, Monocytes % 8.6, Eosinophils % 1.3, Basophils % 0.5, Absolute Granulocytes 5.7, Absolute Lymphocytes 1.5, Absolute Monocytes 0.7 H, Absolute Eosinophils 0.1, Absolute Basophils 0, PUBS MCHC 32.8 L, Thyroglobulin Antibody 74 H, Thyroid Peroxidase Ab 383 H Orders ECHO Findings: 1. Aortic sclerosis is present with no valvular stenosis or insufficiency. 2. Mitral leaflet thickening is present with mild to moderate mitral insufficinecy and moderate to severe left atrial enlargement. 3. There is no pericardial fluid present 4. The left ventricular chamber is minimally dilated. There is global hypokinesia present with an estimated ejection fraction of 45-50%. 5. Mild enlargement of the right heart chambers is present with moderate tricuspid insufficieny and no significant pulmonary hypertension. 6. THere is evidence of elevated left atrial pressure. 7. Mild LV diastolic dysfunction is present. Radiology Findings: CXR: Enlarging right-sided pleural effusion which remains small in volume. Stable cardiomegaly without overt alveolar edema. Prominent bilateral interstitial lung markings could reflect interstitial pulmonary edema. Assessment/Plan Assessment: 56 y/o M with PMHx of HFrEF, atrial fibrillation and HTN who presents with progressively worsening bilateral lower extremity edema with ulcerations, 40-lbs weight gain and atrial fibrillation with RVR. #Acute on chronic HFrEF: ECHO with LVEF of 45-50% and [id number] mitral insufficiency with severe left atrial enlargement. Episode of SOB and hypoxia today likely secondary to volume overload with CXR showing enlarging small right -sided pleural effusion after holding Lasix. S/p Lasix 40 mg IV x 1 with 1.9 L of urine output. * Cardiology following. Appreciate their recs. * Resume Lasix 40 mg IV BID given improvement of blood pressures and evidence of volume overload. * Monitor I/Os and daily weight. * Monitor daily BMPs. * Provide supplemental oxygen as tolerated to keep SpO2 >92%. #Atrial fibrillation with RVR: Continues to have intermittent rapid ventricular rate. * Continue telemetry monitoring. * Increase metoprolol to 100 mg PO BID for better control of heart rate. * DEUCE/cardioversion planned on Friday (02/12/17). * Continue Xarelto 20 mg PO daily for anticoagulation. #Chronic venous insufficiency: * Unna boots applied to bilateral lower extremities by wound care. * Encourage leg elevation. * Give vascular surgery follow-up on discharge. #Abnormal TFTs: TSH WNL (3.6) but high free T4 (1.85) and low total T3 (0.80) on admission. Could represent sick euthyroid syndrome. Repeat TSH today elevated ( 6.31) and free T4 WNL (1.56). 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 * Endocrinology following. Appreciate their recs. Diet: Regular DVT PPx: Xarelto CODE: FULL Problem List: 1. Atrial fibrillation with RVR 2. Abnormal thyroid function test 3. HFrEF (heart failure with reduced ejection fraction) 4. Chronic venous insufficiency 5. Acute CHF (congestive heart failure) Pain Ratin Pain Location: Legs Pain Goal: Remain pain free Pain Plan: Dilaudid 2 mg IV Q6H PRN for severe pain (scale 7-10) Motrin 800 mg PO BID PRN and Roxicodone 20 mg PO Q6H for moderate pain (scale 4- 6) Oxycontin 60 mg PO Q6H Tomorrow's Labs & Rationales: BMP to monitor lytes and kidney function in the setting of diuresis
[2017-02-10 08:15] LABS: ABSOLUTE BASOPHIL COUNT 0 /CUMM (0.0-0.2); ABSOLUTE EOSINOPHIL COUNT 0.1 /CUMM (0.0-0.7); ABSOLUTE GRANULOCYTE CT 5.7 /CUMM (1.4-6.5); ABSOLUTE LYMPH COUNT 1.5 /CUMM (1.2-3.4); ABSOLUTE MONOCYTE COUNT 0.7 /CUMM (0.10-0.60); BASOPHIL % 0.5 % (0.0-2.0); EOSINOPHIL % 1.3 % (0-5); GRANULOCYTE % 70.4 % (42.2-75.2); HEMATOCRIT 34.5 % (42-52); MEAN CORPUSCULAR HGB 31.1 PG (27.0-31.0); MEAN CORPUSCULAR HGB CONC 32.8 G/DL (33.0-37.0); MEAN PLATELET VOLUME 10.3 FL (7.4-10.4); PLATELET COUNT 206 /CUMM (130-400); RBC DISTRIBUTION WIDTH 15.4 % (11.5-14.5); RED BLOOD CELL CT 3.63 /CUMM (4.70-6.10)
[2017-02-10 08:40] VITALS: BP 95/67
--- NOTE | 2017-02-10 13:27 | NUR ---
WOUND CARE: PT SEEN TODAY AT REQUESTED OF DR CALDERA FOR PLACEMENT OF UNNA BOOTS TO BLE - PT NOTED WITH A FULL THICKNESS VENOUS STASIS ULERS PREDOMIN. YELLOW FILL RIGHT LEG 15 X 7 CM AND LEFT LEG 3X3 CM - MOD AMOUNT SEROUS DRNG - NO EVIDENCE OF INFECTION - UNNA BOOTS APPLIED AND EDUCATION PROVIDED - PT REPORTS POOR TOLERANCE TO WRAPS STATING "THEYRE TOO TIGHT AND IM GOING TO END UP TAKING THEM OFF" - UNNA REAPPLIED LOOSELY AND PT CONT TO STATE POOR TOLERANCE - PER MD REQUEST, PT TO KEEP WRAPS ON TOLERATED AND F/U AT [facility] Q FRIDAY RECOMMEDNATION: MULTILAYER COMPRESSION WRAPS TOLERATED BLE - IF PT DEMONSTRATES POOR TOLERANCE AND REFUSAL, MAY APPLY XEROFORM KERLIX AND AVERY WRAPS AND ENCOURAGE STRICT ELEVATION
--- NOTE | 2017-02-10 15:36 | NUR ---
Physical Therapy: Consult received and chart reviewed. Per nursing documentation pt has been ambulating I without AD around unit for past day or so. Spoke with KARISHMA Ibarra who also reports this. Acute skilled PT is not indicated at this time. Will not follow. Thank you.
--- NOTE | 2017-02-10 16:26 | RADIOLOGY REPORT ---
EXAMINATION: XR PORTABLE CHEST CLINICAL INFORMATION: Hypoxia. Congestive heart failure with volume overload. COMPARISON: Chest x-ray 02/06/2017. TECHNIQUE: Portable frontal view of the chest was obtained. FINDINGS: Blunting of the right costophrenic angle indicative of a right-sided pleural effusion, increased in volume relative to the prior examination. Stable prominence of the cardiac silhouette. Prominent bilateral interstitial lung markings, which could reflect interstitial pulmonary edema. No findings suggestive of alveolar edema. IMPRESSION: Enlarging right-sided pleural effusion which remains small in volume. Stable cardiomegaly without overt alveolar edema. Prominent bilateral interstitial lung markings could reflect interstitial pulmonary edema.
--- NOTE | 2017-02-10 16:26 | PN- Cardiology ---
Subjective Subjective: The patient complains of persistent shortness of breath and scrotal swelling. No chest pain. No palpitations. No diaphoresis. No nausea or vomiting. He is noted to have intermittent rapid ventricular rate and borderline low blood pressure Objective Vital Signs and I&Os Vital Signs Date Time Temp Pulse Resp B/P B/P Pulse O2 O2 Flow FiO2 Mean Ox Delivery Rate 02/10 1052 95 Room Air 02/10 0959 127 98/60 02/10 0840 99.3 90 18 95/67 95 Room Air 02/10 0017 97.8 96 20 102/88 94 02/09 2112 115 116/80 02/09 1756 119 118/88 Intake & Output 02/10 1600 02/10 0802/10 0000 02/09 1600 02/09 0800 02/09 0000 Intake Total 480 250 480 670 480 480 Output Total 600 600 Balance -120 250 480 670 -120 480 Intake, IV 10 10 Intake, Oral 480 240 480 660 480 480 Output, Urine 600 600 Patient 228 lb 224 lb Weight Weight Standing Scale Measurement Method Physical Exam: Gen: The patient is in no acute distress HEENT: Normal nose, ears, and oropharynx. Pupils equal bilaterally. Conjunctiva normal. Neck: Supple with no JVD, no masses, and no thyromegaly Lungs: Clear to auscultation with normal respiratory effort Heart: Irregular irregular, S1, S2, no murmurs. 2+ peripheral edema, 2+ pulses in the lower extremities bilaterally Abdomen: Soft, nontender, no masses. No hepatomegaly. No splenomegaly Extremities: No clubbing or cyanosis. Normal muscle strength in the upper and lower extremities Skin: Normal skin turgor with no skin ulcers or lesions noted. Current Medications: Current Medications Sig/Cinthia Start time Last Medication Dose Route Stop Time Status Admin Alprazolam 0.5 MG ONCE ONE 02/10 1515 DC 02/10 PO 02/10 1516 1558 Carisoprodol 350 MG 2200 02/10 2200 AC PO Carisoprodol 350 MG DAILY 02/07 1000 DC 02/09 PO 0921 Furosemide 40 MG ONCE ONE 02/10 1545 DC 02/10 IV PUSH 02/10 1546 1550 Hydromorphone HCl 2 MG Q6P PRN 02/08 1200 AC 02/10 PO 0602 Ibuprofen 800 MG BID PRN 02/10 1624 UNVr PO Ibuprofen 800 MG BID 02/07 0301 DC 02/10 PO 0954 Magnesium Oxide 400 MG BID 02/08 1000 AC 02/10 PO 0954 Melatonin 5 MG ONCE ONE 02/09 2045 DC 02/09 PO 02/09 2046 2348 Metoprolol Tartrate 100 MG BID 02/10 1000 AC 02/10 PO 0959 Metoprolol Tartrate 75 MG BID 02/09 2200 DC 02/09 PO 2027 Nicotine 7 MG DAILY 02/07 1000 AC TOP Oxycodone HCl 20 MG Q6P PRN 02/08 1200 AC 02/10 PO 1559 Oxycodone HCl 60 MG Q6 02/07 1200 AC 02/10 PO 0602 Rivaroxaban 20 MG 5PM 02/08 1700 AC 02/09 PO 1757 Results Last 48 Hrs of Labs/Mics: Laboratory Tests 02/10/17 1608: Troponin I Pending 02/10/17 0715: Anion Gap 10, Estimated GFR > 60, BUN/Creatinine Ratio 33.8 H, Magnesium 1.9, TSH 6.310 H, Free T4 1.56, CBC w Diff NO MAN DIFF REQ, RBC 3.63 L, MCV 95.0 H , MCH 31.1 H, RDW 15.4 H, MPV 10.3, Gran % 70.4, Lymphocytes % 19.2 L, Monocytes % 8.6, Eosinophils % 1.3, Basophils % 0.5, Absolute Granulocytes 5.7, Absolute Lymphocytes 1.5, Absolute Monocytes 0.7 H, Absolute Eosinophils 0.1, Absolute Basophils 0, PUBS MCHC 32.8 L, Thyroglobulin Antibody 74 H, Thyroid Peroxidase Ab 383 H 02/09/17 0700: Anion Gap 9, Estimated GFR > 60, BUN/Creatinine Ratio 27.8 H, Magnesium 1.8, CBC w Diff NO MAN DIFF REQ, RBC 3.53 L, MCV 95.0 H, MCH 30.9, RDW 15.2 H, MPV 10.1, Gran % 52.7, Lymphocytes % 35.6, Monocytes % 9.2, Eosinophils % 1.6, Basophils % 0.9, Absolute Granulocytes 3.2, Absolute Lymphocytes 2.2, Absolute Monocytes 0.6, Absolute Eosinophils 0.1, Absolute Basophils 0.1, PUBS MCHC 32.5 L Recent Imaging Studies: Echocardiogram: 1. Aortic sclerosis is present with no valvular stenosis or insufficiency. 2. Mitral leaflet thickening is present with mild to moderate mitral insufficinecy and moderate to severe left atrial enlargement. 3. There is no pericardial fluid present 4. The left ventricular chamber is minimally dilated. There is global hypokinesia present with an estimated ejection fraction of 45-50%. 5. Mild enlargement of the right heart chambers is present with moderate tricuspid insufficieny and no significant pulmonary hypertension. 6. THere is evidence of elevated left atrial pressure. 7. Mild LV diastolic dysfunction is present. Chest x-ray: Enlarging right-sided pleural effusion which remains small in volume. Stable cardiomegaly without overt alveolar edema. Prominent bilateral interstitial lung markings could reflect interstitial pulmonary edema. Assessment/Plan Assessment/Plan Assessment: 1. Atrial fibrillation 2. Hypertension 3. acute on chronic heart failure with reduced ejection fraction. Plan: * Increase metoprolol to 100 milligrams p.o. b.i.d. for additional rate control * continue Xarelto * Lasix 40 milligrams IV q.12 hours * Monitor input and output with daily weights * DEUCE/cardioversion planned for Friday Continue telemetry? Yes
[2017-02-10 16:47] VITALS: BP 134/82
--- NOTE | 2017-02-10 18:37 | NUR ---
PT AT 1545 C/O SOB O2 82%. 4L NC PLACED ON PT WITH LITTLE IMPROVEMENT. RT CALLED AND PLACED PT ON 60% PARTIAL REBREATHER NOW O2 97%. LASIX AND XANAX GIVEN PER MED ORDER. PT ALSO C/O CHEST PRESSURE EKG AND TROP ORDERED. CXR ORDERED. ABOUT AN HOUR LATER PT DECREASED O2 TO 7L NC AND NOW O2 94%. PT STATES HE FEELS MUCH BETTER AND VOIDED A TOTAL OF 1900 ML IN URINAL. WILL CONTINUE TO MONITOR.
[2017-02-11 01:46] VITALS: BP 118/90
--- NOTE | 2017-02-11 07:14 | PN- Housestaff ---
Subjective Follow-up For: Atrial fibrillation with RVR HFrEF Chronic venous insufficiency Abnormal TFTs Tele-Events Since Last Visit: Atrial fibrillation HR 104-114 No events Subjective: No acute events overnight. Patient seen and examined this morning. He reports that shortness of breath has improved but is still present. He continues to endorse abdominal distention and scrotal swelling. He denies chest pain or palpitations. Review of Systems Constitutional: Reports: see HPI. Objective Last 24 Hrs of Vital Signs/I&O Vital Signs Date Time Temp Pulse Resp B/P B/P Pulse O2 O2 Flow FiO2 Mean Ox Delivery Rate 02/11 1425 98.5 95 18 115/90 95 02/11 0941 102 116/84 02/11 0800 98.0 89 20 120/80 93 Room Air 02/11 0146 98.1 54 22 118/90 95 Room Air 02/10 2156 130 126/64 02/11 2012 120 130/80 02/10 1805 121 120/80 Intake & Output 02/11 1600 02/11 0800 02/11 0000 Intake Total 680 120 120 Output Total 1200 500 600 Balance -520 -380 -480 Intake, Oral 680 120 120 Output, Urine 1200 500 600 Patient 102.058 kg Weight Weight Standing Scale Measurement Method Physical Exam General Appearance: Alert, Oriented X3, No Acute Distress HEENT: Atraumatic, Mucous Membr. moist/pink Neck: Supple Cardiovascular: Normal S1, Normal S2, No Murmurs, Gallops, Rubs, Irregularly Irregular Lungs: Clear to Auscultation Abdomen: Soft, No Tenderness, Mild Distention, Positive Bowel Sounds Extremities: Bilateral Lower Extremities with 2+ Pitting Edema and Compression Wraps in Place Current Medications: Current Medications Sig/Cinthia Start time Last Medication Dose Route Stop Time Status Admin Alprazolam 0.5 MG BID PRN 02/11 1045 AC 02/11 PO 02/18 1044 1405 Carisoprodol 350 MG 2200 02/10 2200 AC 02/10 PO 2156 Diltiazem HCl 2.5 MG ONCE ONE 02/10 1800 DC 02/10 IV 02/10 1801 1805 Furosemide 60 MG 7:30 AM, & 4:30 PM 02/11 1630 AC 02/11 IV 1622 Furosemide 40 MG 7:30 AM, & 4:30 PM 02/11 0730 DC 02/11 IV 0934 Hydromorphone HCl 2 MG Q6P PRN 02/08 1200 AC 02/11 PO 1621 Ibuprofen 800 MG BID PRN 02/10 1624 AC 02/11 PO 1403 Magnesium Oxide 400 MG BID 02/08 1000 AC 02/11 PO 0941 Melatonin 5 MG AT BEDTIME 02/11 2200 DC PO Melatonin 5 MG AT BEDTIME 02/11 0015 AC 02/11 PO 0011 Melatonin 5 MG .STK-MED ONE 02/10 2356 DC PO 02/10 2357 Metoprolol Tartrate 150 MG BID 02/11 1000 AC 02/11 PO 0941 Metoprolol Tartrate 50 MG ONCE ONE 02/10 1930 DC 02/10 PO 02/10 1932011 Metoprolol Tartrate 100 MG BID 02/10 1000 DC 02/10 PO 02/11 0900 2156 Nicotine 7 MG DAILY 02/07 1000 AC TOP Oxycodone HCl 20 MG Q6P PRN 02/08 1200 AC 02/11 PO 1401 Oxycodone HCl 60 MG Q6 02/07 1200 AC 02/11 PO 1359 Patient Medication 1 ED .STK-MED ONE 02/11 1341 DC Teaching ED 02/11 1342 Rivaroxaban 20 MG 5PM 02/08 1700 AC 02/11 PO 1621 Last 24 Hrs of Lab/Rigoberto Results Last 24 Hrs of Labs/Mics: Laboratory Tests 02/11/17 0646: Anion Gap 12, Estimated GFR > 60, BUN/Creatinine Ratio 37.5 H Assessment/Plan Assessment: 56 y/o M with PMHx of HFrEF, atrial fibrillation and HTN who presents with progressively worsening bilateral lower extremity edema with ulcerations, 40-lbs weight gain and atrial fibrillation with RVR. #Acute on chronic HFrEF: ECHO with LVEF of 45-50% and [id number] mitral insufficiency with severe left atrial enlargement. * Cardiology following. Appreciate their recs. * Increase Lasix to 60 mg IV BID. * Monitor I/Os and daily weight. * Monitor daily BMPs. * Provide supplemental oxygen as tolerated to keep SpO2 >92%. #Atrial fibrillation with RVR: Continues to have intermittent rapid ventricular rate. * Continue telemetry monitoring. * Continue metoprolol 100 mg PO BID. * DEUCE/cardioversion planned tomorrow. * Continue Xarelto 20 mg PO daily for anticoagulation. 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 Thyroid function tests have been fluctuating, most likely secondary to sick euthyroid changes. * Recheck thyroid function test in two weeks and follow up with endocrinology as outpatient. * Baseline thyroid ultrasound planned as outpatient. #Chronic venous insufficiency: * Unna boots applied to bilateral lower extremities by wound care. * Encourage leg elevation. * Give vascular surgery follow-up on discharge. Diet: Regular DVT PPx: Xarelto - NPO at midnight for DEUCE/cardioversion in the AM CODE: FULL Problem List: 1. Atrial fibrillation with RVR 2. Abnormal thyroid function test 3. HFrEF (heart failure with reduced ejection fraction) 4. Chronic venous insufficiency 5. Acute CHF (congestive heart failure) Pain Ratin Pain Location: Legs and back Pain Goal: Remain pain free Pain Plan: Motrin 800 mg PO BID PRN and Roxicodone 20 mg PO Q6H for moderate pain (scale 4- 6) Dilaudid 2 mg IV Q6H PRN for severe pain (scale 7-10) Tomorrow's Labs & Rationales: BMP to monitor lytes and kidney function in the setting of diruesis
[2017-02-11 08:00] VITALS: BP 120/80
--- NOTE | 2017-02-11 12:50 | PN- Endocrinology ---
Assessment/Plan Assessment: Mr. Mccann is a 56-year-old gentleman with a PMH of CHF (LVEF 4550 percent on echo in 2009), previous history of A. fib with RVR s/p cardioversion 8 years ago, hypertension, hyperlipidemia and chronic tobacco use, was admitted with complaints of one-month duration of progressive lower extremity swelling, 40 pound weight gain, erythema of his lower extremities with ulcerations and A. fib with RVR. Blood work showed TSH 3.6, free T4 1.85 and TT3 0.80. Patient has a strong family hx of thyroid disorder. Repeat blood work showed TSH 6.310, free T4 1.56; anti TPO 383 and anti Tg 74. Plan: Patient has Salty's thyroiditis. His TFT has been up and down which still could be sick euthyroid changes. I will monitor his TFT in 2 weeks to look for a trend and then the further manegement will be determined accordingly. I will order a baseline thyroid u.s as outpatient. Subjective Subjective: He didn't have special complaints this morning. Objective Last 24 Hrs of Vital Signs/I&O Vital Signs Date Time Temp Pulse Resp B/P B/P Pulse O2 O2 Flow FiO2 Mean Ox Delivery Rate 02/11 0941 102 116/84 02/11 08 98.0 89 20 120/80 93 Room Air 02/11 0146 98.1 54 22 118/90 95 Room Air 02/10 2156 130 126/64 02/11 2012 120 130/80 02/10 1805 121 120/80 02/10 1647 98.5 65 24 134/82 92 Nasal 60% Cannula 02/10 1545 84 Nasal 4.0L Cannula Intake & Output 02/11 1600 02/11 0800 02/11 0000 Intake Total 120 120 Output Total 500 600 Balance -380 -480 Intake, Oral 120 120 Output, Urine 500 600 Patient 225 lb Weight Weight Standing Scale Measurement Method Results Pertinent Lab/Rigoberto Results: Laboratory Tests 02/11 02/10 05 0646 1600 0715 Chemistry Sodium (137 - 145 mmol/L) 137 136 L Potassium (3.5 - 5.1 mmol/L) 4.7 5.2 H Chloride (98 - 107 mmol/L) 99 103 Carbon Dioxide (22 - 30 mmol/L) 26 24 Anion Gap (5 - 16) 12 10 BUN (9 - 20 mg/dL) 30 H 27 H Creatinine (0.7 - 1.2 mg/dL) 0.8 0.8 Estimated GFR (>60 ml/min) > 60 > 60 BUN/Creatinine Ratio (7 - 25 %) 37.5 H 33.8 H Magnesium (1.6 - 2.3 mg/dL) 1.9 Troponin I (<0.11 ng/ml) < 0.01 TSH (0.270 - 4.200 uIU/mL) 6.310 H Free T4 (0.64 - 1.79 ng/dL) 1.56 Hematology CBC w Diff NO MAN DIFF REQ WBC (4.8 - 10.8 /CUMM) 8.0 RBC (4.70 - 6.10 /CUMM) 3.63 L Hgb (14.0 - 18.0 G/DL) 11.3 L Hct (42 - 52 %) 34.5 L MCV (80.0 - 94.0 FL) 95.0 H MCH (27.0 - 31.0 PG) 31.1 H RDW (11.5 - 14.5 %) 15.4 H Plt Count (130 - 400 /CUMM) 206 MPV (7.4 - 10.4 FL) 10.3 Gran % (42.2 - 75.2 %) 70.4 Lymphocytes % (20.5 - 51.1 %) 19.2 L Monocytes % (1.7 - 9.3 %) 8.6 Eosinophils % (0 - 5 %) 1.3 Basophils % (0.0 - 2.0 %) 0.5 Absolute Granulocytes (1.4 - 6.5 /CUMM) 5.7 Absolute Lymphocytes (1.2 - 3.4 /CUMM) 1.5 Absolute Monocytes (0.10 - 0.60 /CUMM) 0.7 H Absolute Eosinophils (0.0 - 0.7 /CUMM) 0.1 Absolute Basophils (0.0 - 0.2 /CUMM) 0 PUBS MCHC (33.0 - 37.0 G/DL) 32.8 L Immunology Thyroglobulin Antibody (< 61 U/mL) 74 H Thyroid Peroxidase Ab (< 61 U/mL) 383 H
--- NOTE | 2017-02-11 13:52 | PN- Cardiology ---
Subjective Subjective: The patient complains of persistent shortness of breath and scrotal swelling. No chest pain. No palpitations. No diaphoresis. No nausea or vomiting. Objective Vital Signs and I&Os Vital Signs Date Time Temp Pulse Resp B/P B/P Pulse O2 O2 Flow FiO2 Mean Ox Delivery Rate 02/11 941 102 116/84 02/11 08 98.0 89 20 120/80 93 Room Air 02/11 0146 98.1 54 22 118/90 95 Room Air 02/10 215 130 126/64 02/11 2012 120 130/80 02/10 180 121 120/80 02/10 1647 98.5 65 24 134/82 92 Nasal 60% Cannula 02/10 1545 84 Nasal 4.0L Cannula Intake & Output 02/11 0000 02/10 1600 02/10 0802/10 0000 Intake Total 120 120 480 250 480 Output Total 500 600 600 Balance -380 -480 -120 250 480 Intake, IV 10 Intake, Oral 120 120 480 240 480 Output, Urine 500 600 600 Patient 225 lb 228 lb Weight Weight Standing Scale Measurement Method Physical Exam: Gen: The patient is in no acute distress HEENT: Normal nose, ears, and oropharynx. Pupils equal bilaterally. Conjunctiva normal. Neck: Supple with no JVD, no masses, and no thyromegaly Lungs: Scattered rales bilaterally with normal respiratory effort Heart: Irregular irregular, S1, S2, no murmurs. 2+ peripheral edema, 2+ pulses in the lower extremities bilaterally Abdomen: Soft, nontender, no masses. No hepatomegaly. No splenomegaly Extremities: No clubbing or cyanosis. Normal muscle strength in the upper and lower extremities Skin: Normal skin turgor with no skin ulcers or lesions noted. Current Medications: Current Medications Sig/Cinthia Start time Last Medication Dose Route Stop Time Status Admin Alprazolam 0.5 MG BID PRN 02/11 1045 AC PO 02/18 1044 Alprazolam 0.5 MG ONCE ONE 02/10 1515 DC 02/10 PO 02/10 1516 1558 Carisoprodol 350 MG 0 02/10 2200 AC 02/10 PO 215 Diltiazem HCl 2.5 MG ONCE ONE 02/10 1800 DC 02/10 IV 02/10 180 180 Furosemide 40 MG 7:30 AM, & 4:30 PM 02/11 0730 AC 02/11 IV 0934 Furosemide 40 MG ONCE ONE 02/10 1545 DC 02/10 IV PUSH 02/10 1546 1550 Furosemide 40 MG .STK-MED ONE 02/10 1545 DC IV 02/10 1546 Hydromorphone HCl 2 MG Q6P PRN 02/08 1200 AC 02/11 PO 0953 Ibuprofen 800 MG BID PRN 02/10 1624 AC 02/11 PO 0011 Ibuprofen 800 MG BID 02/07 0301 DC 02/10 PO 0954 Magnesium Oxide 400 MG BID 02/08 1000 AC 02/11 PO 0941 Melatonin 5 MG AT BEDTIME 02/11 2200 DC PO Melatonin 5 MG AT BEDTIME 02/11 0015 AC 02/11 PO 0011 Melatonin 5 MG .STK-MED ONE 02/10 2356 DC PO 02/10 2357 Metoprolol Tartrate 150 MG BID 02/11 1000 AC 02/11 PO 0941 Metoprolol Tartrate 50 MG ONCE ONE 02/10 1930 DC 02/10 PO 02/10 1932011 Metoprolol Tartrate 100 MG BID 02/10 1000 DC 02/10 PO 02/11 0900 2156 Nicotine 7 MG DAILY 02/07 1000 AC TOP Oxycodone HCl 20 MG Q6P PRN 02/08 1200 AC 02/11 PO 0622 Oxycodone HCl 60 MG Q6 02/07 1200 AC 02/11 PO 0622 Patient Medication 1 ED .STK-MED ONE 02/11 1341 DC Teaching ED 02/11 1342 Rivaroxaban 20 MG 5PM 02/08 1700 AC 02/10 PO 1709 Results Last 48 Hrs of Labs/Mics: Laboratory Tests 02/11/17 0646: Anion Gap 12, Estimated GFR > 60, BUN/Creatinine Ratio 37.5 H 02/10/17 1600: Troponin I < 0.01 02/10/17 0715: Anion Gap 10, Estimated GFR > 60, BUN/Creatinine Ratio 33.8 H, Magnesium 1.9, TSH 6.310 H, Free T4 1.56, CBC w Diff NO MAN DIFF REQ, RBC 3.63 L, MCV 95.0 H , MCH 31.1 H, RDW 15.4 H, MPV 10.3, Gran % 70.4, Lymphocytes % 19.2 L, Monocytes % 8.6, Eosinophils % 1.3, Basophils % 0.5, Absolute Granulocytes 5.7, Absolute Lymphocytes 1.5, Absolute Monocytes 0.7 H, Absolute Eosinophils 0.1, Absolute Basophils 0, PUBS MCHC 32.8 L, Thyroglobulin Antibody 74 H, Thyroid Peroxidase Ab 383 H Recent Imaging Studies: Chest x-ray: Enlarging right-sided pleural effusion which remains small in volume. Stable cardiomegaly without overt alveolar edema. Prominent bilateral interstitial lung markings could reflect interstitial pulmonary edema. Assessment/Plan Assessment/Plan Assessment: 1. Atrial fibrillation 2. Hypertension 3. Acute on chronic heart failure with reduced ejection fraction. Plan: * Continue metoprolol for rate control * continue Xarelto * Increase Lasix to 69 g IV every 12 hours * Monitor input and output with daily weights * DEUCE/cardioversion planned for Friday * Nothing by mouth after midnight Continue telemetry? Yes
[2017-02-11 14:18] VITALS: BP 102/60
[2017-02-11 14:25] VITALS: BP 115/90
[2017-02-11 23:51] VITALS: BP 110/80
--- NOTE | 2017-02-12 07:18 | PN- Housestaff ---
Subjective Follow-up For: Atrial fibrillation with RVR HFrEF Chronic venous insufficiency Abnormal TFTs Tele-Events Since Last Visit: Atrial fibrillation HR 91-114 PVCs Subjective: No acute events overnight. Patient seen and examined this morning. He expresses some anxiety over the DEUCE/cardioversion planned today. Shortness of breath has improved. Patient complains of persistent abdominal distention and scrotal swelling. He denies chest pain or palpitations. Review of Systems Constitutional: Reports: see HPI. Objective Last 24 Hrs of Vital Signs/I&O Vital Signs Date Time Temp Pulse Resp B/P B/P Pulse O2 O2 Flow FiO2 Mean Ox Delivery Rate 02/12 1445 Room Air 60% 02/12 1414 Room Air 60% 02/12 0813 79 110/60 02/12 0800 98.6 79 20 110/60 96 Room Air 02/11 2351 97.3 92 20 110/80 98 Room Air 02/11 2157 120/70 Intake & Output 02/12 1600 02/12 0800 02/12 0000 Intake Total 100 720 Output Total 3500 Balance 100 -2780 Intake, Oral 100 720 Output, Urine 3500 Patient 97.976 kg Weight Weight Standing Scale Measurement Method Physical Exam General Appearance: Alert, Oriented X3, No Acute Distress HEENT: Atraumatic, Mucous Membr. moist/pink Neck: Supple Cardiovascular: Normal S1, Normal S2, No Murmurs, Gallops, Rubs, Irregularly Irregular Lungs: Clear to Auscultation Abdomen: Soft, No Tenderness, Mild Distention, Positive Bowel Sounds Extremities: Bilateral Lower Extremities with 2+ Pitting Edema and Compression Wraps in Place Current Medications: Current Medications Sig/Cinthia Start time Last Medication Dose Route Stop Time Status Admin Alprazolam 0.5 MG BID PRN 02/11 1045 AC 02/12 PO 02/18 1044 1340 Carisoprodol 350 MG 2200 02/10 2200 AC 02/11 PO 2157 Furosemide 60 MG 7:30 AM, & 4:30 PM 02/11 1630 AC 02/12 IV 0812 Hydromorphone HCl 2 MG Q6P PRN 02/08 1200 AC 02/12 PO 0616 Ibuprofen 800 MG BID PRN 02/10 1624 AC 02/12 PO 0210 Magnesium Oxide 400 MG BID 02/08 1000 AC 02/12 PO 0813 Melatonin 5 MG AT BEDTIME 02/11 0015 AC 02/11 PO 2157 Metoprolol Tartrate 100 MG BID 02/12 2200 AC PO Metoprolol Tartrate 150 MG BID 02/11 1000 DC 02/12 PO 0813 Multi-Ingred Cream/ 1 BRIAN BID PRN 02/12 1415 AC Lotion/Oil/Oint EXT Nicotine 7 MG DAILY 02/07 1000 AC TOP Oxycodone HCl 20 MG Q6P PRN 02/08 1200 AC 02/12 PO 0211 Oxycodone HCl 60 MG Q6 02/07 1200 AC 02/12 PO 1333 Rivaroxaban 20 MG 5PM 02/08 1700 AC 02/11 PO 1621 Last 24 Hrs of Lab/Rigoberto Results Last 24 Hrs of Labs/Mics: Laboratory Tests 02/12/17 0625: Anion Gap 8, Estimated GFR > 60, BUN/Creatinine Ratio 37.8 H Assessment/Plan Assessment: 56 y/o M with PMHx of HFrEF, atrial fibrillation and HTN who presents with progressively worsening bilateral lower extremity edema with ulcerations, 40-lbs weight gain and atrial fibrillation with RVR. #Atrial fibrillation with RVR: S/p DEUCE/cardioversion today. Converted successfully to sinus rhythm but was noted to be slightly hypotensive and bradycardic post-procedure. * Continue telemetry monitoring. * Decrease metoprolol to 100 mg PO BID. * Continue Xarelto 20 mg PO daily for anticoagulation. * Monitor patient overnight with possible discharge planned tomorrow. #Acute on chronic HFrEF: ECHO with LVEF of 45-50% and [id number] mitral insufficiency with severe left atrial enlargement. * Cardiology following. Appreciate their recs. * Continue 60 mg IV BID. * Monitor I/Os and daily weight. * Monitor daily BMPs. * Provide supplemental oxygen as tolerated to keep SpO2 >92%. * Patient will need ECHO in several weeks to reassess his LV function. 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 Thyroid function tests have been fluctuating, most likely secondary to sick euthyroid changes. * Recheck thyroid function test in two weeks and follow up with endocrinology as outpatient. * Baseline thyroid ultrasound planned as outpatient. #Chronic venous insufficiency: * Unna boots applied to bilateral lower extremities by wound care. * Encourage leg elevation. * Give vascular surgery follow-up on discharge. Diet: Regular DVT PPx: Xarelto CODE: FULL Problem List: 1. Atrial fibrillation with RVR 2. HFrEF (heart failure with reduced ejection fraction) 3. Chronic venous insufficiency 4. Salty's thyroiditis Pain Ratin Pain Location: Legs Pain Goal: Pain 4 or less Pain Plan: Motrin 800 mg PO BID PRN for eyujbbyc-np-rfzcod pain (scale 4-10) Roxicodone 20 mg PO Q6H PRN for moderate pain (scale 4-6) Dilaudid 2 mg PO Q6H PRN for severe pain (scale 7-10) Oxycontin 60 mg PO Q6H Tomorrow's Labs & Rationales: BMP to monitor lytes and kidney function in the setting of IV diuresis Discharge Plan Anticipated Discharge (Day): tomorrow
[2017-02-12 08:00] VITALS: BP 110/60
--- NOTE | 2017-02-12 13:36 | PN- Cardiology ---
Subjective Subjective: Stable and doing well. Events over the last several days noted. DEUCE/ cardioversion today. Objective Vital Signs and I&Os Vital Signs Date Time Temp Pulse Resp B/P B/P Pulse O2 O2 Flow FiO2 Mean Ox Delivery Rate 02/12 08 79 110/60 / 0800 98.6 79 20 110/60 96 Room Air 02/11 2351 97.3 92 20 110/80 98 Room Air 02/11 2157 120/70 02/11 1425 98.5 95 18 115/90 95 Intake & Output 02/12 1600 02/12 0800 02/12 0000 02/11 1600 02/11 0800 02/11 0000 Intake Total 100 720 680 120 120 Output Total 3500 1200 500 600 Balance 100 -2780 -520 -380 -480 Intake, Oral 100 720 680 120 120 Output, Urine 3500 1200 500 600 Patient 216 lb 225 lb Weight Weight Standing Scale Standing Scale Measurement Method Physical Exam: General Appearance: Alert, Oriented X3, No Acute Distress HEENT: Atraumatic, Mucous Membr. moist/pink Neck: Supple Cardiovascular: Normal S1, Normal S2, No Murmurs, Gallops, Rubs, Irregularly Irregular Lungs: Clear to Auscultation Abdomen: Soft, No Tenderness, Mild Distention, Positive Bowel Sounds Extremities: Bilateral Lower Extremities with 2+ Pitting Edema and Compression Wraps in Place Current Medications: Current Medications Sig/Cinthia Start time Last Medication Dose Route Stop Time Status Admin Alprazolam 0.5 MG BID PRN 02/11 1045 AC 02/12 PO 02/18 1044 0213 Carisoprodol 350 MG 2200 02/10 2200 AC 02/11 PO 2157 Furosemide 60 MG 7:30 AM, & 4:30 PM 02/11 1630 AC 02/12 IV 0812 Furosemide 40 MG 7:30 AM, & 4:30 PM 02/11 0730 DC 02/11 IV 0934 Hydromorphone HCl 2 MG Q6P PRN 02/08 1200 AC 02/12 PO 0616 Ibuprofen 800 MG .STK-MED ONE 02/11 1357 DC PO 02/11 1358 Ibuprofen 800 MG BID PRN 02/10 1624 AC 02/12 PO 0210 Magnesium Oxide 400 MG BID 02/08 1000 AC 02/12 PO 0813 Melatonin 5 MG AT BEDTIME 02/11 0015 AC 02/11 PO 2157 Metoprolol Tartrate 150 MG BID 02/11 1000 AC 02/12 PO 0813 Nicotine 7 MG DAILY 02/07 1000 AC TOP Oxycodone HCl 20 MG Q6P PRN 02/08 1200 AC 02/12 PO 0211 Oxycodone HCl 60 MG Q6 02/07 1200 AC 02/12 PO 1333 Patient Medication 1 ED .STK-MED ONE 02/11 1341 DC Teaching ED 02/11 1342 Rivaroxaban 20 MG 5PM 02/08 1700 AC 02/11 PO 1621 Results Last 48 Hrs of Labs/Mics: Laboratory Tests 02/12/17 0625: Anion Gap 8, Estimated GFR > 60, BUN/Creatinine Ratio 37.8 H 02/11/17 0646: Anion Gap 12, Estimated GFR > 60, BUN/Creatinine Ratio 37.5 H 02/10/17 1600: Troponin I < 0.01 Assessment/Plan Assessment/Plan Assessment: 1. Atrial fibrillation 2. Hypertension 3. Acute on chronic heart failure with reduced ejection fraction. 4. Lower extremity edema with stasis changes Recommendations: -Continue current medications for now. -The patient was noted to be mildly hypotensive and slightly bradycardic post- cardioversion. He is currently in sinus rhythm. For now, I would reassess the patient later today and if necessary decrease his metoprolol dose accordingly. Discussed with the house staff. -Monitor the patient overnight. -Reassess in the morning, possible discharge tomorrow. -The patient will need to have an echocardiogram within several weeks to reassess his LV function now that he is back in sinus rhythm.
[2017-02-12] MEDS ORDERED: NICOTINE PATCH1 EAC1 TOP (15:53)
[2017-02-12] MEDS ORDERED: XANAX0.25 M1 PO (15:53)
[2017-02-12] MEDS ORDERED: MELATONIN5 M7 PO (15:53)
[2017-02-12] MEDS ORDERED: MAGNESIUM OXID400 M1 PO (15:53)
--- NOTE | 2017-02-12 15:56 | Patient Discharge Instructions ---
Discharge Instructions General Discharge Information You were seen/treated for: Atrial fibrillation, CHF exacerbation Special Instructions: -Please follow-up with your primary care provider within 7 days after discharge. -please follow-up with your cathode washer 7 days after discharge -please follow up with vascular suegeron in 7 days after discharge. -Please follow-up with your basin finish operator tig welder 7 days after discharge for outpatient thyroid ultrasound -peasle follow up to [facility]. -We have made changes to your home medications, please read the instructions carefully. -Please come back to the hospital if your symptoms got worse. Diet Recommended Diet: Heart Healthy Activity Full Activity/No Limits: Yes (as tolerated) Acute Coronary Syndrome Inclusion Criteria At DC or during hospital stay patient has or had the following: ACS DIAGNOSIS No Discharge Core Measures Meds if any: Prescribed or Continued at Discharge Meds if any: NOT Prescribed or Continued at Discharge Congestive Heart Failure Inclusion Criteria At DC or during hospital stay patient has or had the following: CHF DIAGNOSIS Yes Discharge Core Measures Meds if any: Prescribed or Continued at Discharge Meds if any: NOT Prescribed or Continued at Discharge No AVERY/ARB d/t Medical Contraindication Cerebrovascular accident Inclusion Criteria At DC or during hospital stay patient has or had the following: CVA/TIA Diagnosis No Discharge Core Measures Meds if any: Prescribed or Continued at Discharge Meds if any: NOT Prescribed or Continued at Discharge Venous thromboembolism Inclusion Criteria VTE Diagnosis No VTE Type NONE VTE Confirmed by (Test) NONE Discharge Core Measures - Per Current guidelines, there needs to be overlap - treatment for the first 5 days of Warfarin therapy. - If discharged on Warfarin prior to 5 days of - overlap therapy, the patient will need to be - assessed for post discharge needs including - *Post discharge parental anticoagulation - *Warfarin and/or parental anticoagulation education - *Follow up date to check INR post discharge At least 5 days overlap therapy as Inpatient No Meds if any: Prescribed or Continued at Discharge Note: Overlap Therapy is Warfarin and Anticoagulant Meds if any: NOT Prescribed or Continued at Discharge
--- NOTE | 2017-02-12 16:14 | Discharge Summary ---
Visit Information Visit Dates Admission Date: 02/07/17 Discharge Date: 02/14/2017 Hospital Course Course Attending Physician: Ezequiel NUNEZ MD Primary Care Physician: Ezequiel NUNEZ MD Hospital Course: Mr. Cobian is a 56 year old male with PMH HTN, HLD, chronic low back pain, atrial fibrillation s/p DEUCE cardioversion with return to normal sinus rhythm, chest pain syndrome, hypomagnesemia, mild sleep apnea, obesity and chronic cigarette use who presents with increased lower extremity edema, lower extremity erythema and bilateral ulcerations. In the ED: Vital signs showed T 96.8, HR 120, RR 16, BP 103/57 and O2 saturation of 94% on room air. Labs were significant for macrocytic anemia to 10.9/33.2 with MCV 94.6, Na 135, K 3.2, BUN 26, proBNP 3890, INR 1.39, and UA with 100 protein and 1-3 WBCs. CXR showed small right pleural effusion. EKG showed atrial fibrillation with RVR to HR 126. Patient is admitted to the telemetry floor and treated for these medical conditions: 1. New onset atrial fibrillation with rapid ventricular response patient was put on IV heparin. ACS was ruled out. laebtalol was changed to metoprolol 50 BID. patient underwent DEUCE and successful cardioversion. IV heparin was transitioned to Xarelto. he should follow up wit in 7-14 days. He should on Xalerto untill seen by him. 2.congestive heart failure patient on high-dose IV Lasix initially. Lower extremities wounds were seen by wound care and vascular surgeon. It was suggested to put him on Unna boots and follow-up in an outpatient setting with vascular surgeon. Eventually IV lasix was changed o by mouth Lasix 20 mg daily and was discharged to [facility]. 3. Macrocytic anemia Guiac negative,stable H&H 4. HTN, HLD We discontinued amlodipine and losartan. Patient was discharged on low-dose metoprolol. 5. Chronic low back pain we continued Continue home oxycontin 60 mg Q6 and roxicodone 20 mg 5 times a day , soma 350 mg PO QPM for muscle spasms,Ibuprofen 800 mg 1 tab PO BID. 6. Abnormal TFTs Patient had elevated TSH and elevated antithyroid antibodies. Per endocrine recommendation he should follow-up in outpatient setting for ultrasound of the thyroid and endocrine follow-up. He should also do thyroid function test in two weeks. Allergies: Coded Allergies: Penicillins (Intermediate, HIVES 02/07/17) Pertinent Lab Results: Laboratory Tests 02/14/17 0635: Anion Gap 11, Estimated GFR > 60, BUN/Creatinine Ratio 29.0 H 02/13/17 0615: Anion Gap 10, Estimated GFR > 60, BUN/Creatinine Ratio 35.0 H, Phosphorus 5.1 H, Magnesium 2.0 02/12/17 0625: Anion Gap 8, Estimated GFR > 60, BUN/Creatinine Ratio 37.8 H Disposition Summary Disposition Principal Diagnosis: Atrial fibrillation is status post cardioversion Additional Diagnosis: Chronic pain Discharge Disposition: SNF Discharge Instructions General Discharge Information Code Status: Full Code Patient's Diet: Heart healthy Patient's Activity: As tolerated Follow-Up Instructions/Appts: -Please follow-up with your primary care provider within 7 days after discharge. -please follow-up with your hand hose cutter 7 days after discharge -please follow up with vascular suegeron in 7 days after discharge. -Please follow-up with your dividend clerk 7 days after discharge for outpatient thyroid ultrasound -[facility]le [facility]. -We have made changes to your home medications, please read the instructions carefully. -Please come back to the hospital if your symptoms got worse. Medications at Discharge Discharge Medications: Stop taking the following medications: Diazepam (Valium) 10 MG TABLET ORAL TWICE DAILY Labetalol HCl (Labetalol HCl) 200 MG TABLET ORAL TWICE DAILY Carvedilol (Coreg) 3.125 MG TABLET ORAL TWICE DAILY Losartan Potassium (Cozaar) 50 MG TABLET ORAL DAILY Amlodipine Besylate (Norvasc) 5 MG TABLET ORAL DAILY Furosemide (Furosemide) 20 MG TABLET ORAL Every other day Qty = 15 Continue taking these medications: Carisoprodol (Carisoprodol) 350 MG TABLET 1 Tablet ORAL DAILY Qty = 30 Comments: Last Taken: 02/13/17 Time: 10:00 PM Ibuprofen (Ibuprofen) 800 MG TABLET 1 Tablet ORAL TWICE DAILY Qty = 60 Comments: Last Taken: 02/14/17 Time: 5:00 AM Oxycodone HCl (Oxycontin) 60 MG TAB.ER.12H 1 Tablet ORAL 4 TIMES A DAY Qty = 120 Comments: Last Taken: 02/14/17 Time: 1:00 PM Oxycodone HCl (Oxycodone HCl) 10 MG TABLET 2 Tablet ORAL EVERY SIX HOURS as needed for pain Comments: Last Taken: 02/14/17 Time: 1:00 PM Start taking the following new medications: Polyethylene Glycol 3350 (Miralax) 17 GRAM POWD.PACK 1 Packet ORAL DAILY as needed for CONSTIPATION Qty = 30 No Refills Instructions: dissolve in water Sennosides (Senna) 8.6 MG TABLET 2 Tablet ORAL TWICE DAILY as needed for CONSTIPATION Qty = 100 No Refills Mirtazapine (Mirtazapine) 15 MG TABLET 1 Tablet ORAL Every night Qty = 30 No Refills Metoprolol Tartrate (Metoprolol Tartrate) 50 MG TABLET 1 Tablet ORAL TWICE DAILY Qty = 60 No Refills Nicotine (Nicotine Patch) 7 MG/24 HOUR PATCH.TD24 7 Milligram On the skin DAILY Days = 6 No Refills Alprazolam (Xanax) 0.25 MG TABLET 0.5 Milligram ORAL TWICE DAILY as needed for ANXIETY Days = 14 No Refills Magnesium Oxide (Magnesium Oxide) 400 MG TABLET 400 Milligram ORAL TWICE DAILY Days = 14 No Refills Rivaroxaban (Xarelto) 10 MG TABLET 20 Milligram ORAL 5 PM Days = 28 No Refills Furosemide (Furosemide) 20 MG TABLET 20 Milligram ORAL DAILY Days = 28 No Refills Melatonin (Melatonin) 10 MG TABLET 1 Tablet ORAL DAILY Qty = 30 No Refills Copies To: MAYRA YOO,Ezequiel GONZALEZ; VERENICE YOO,ANDREW; DELIA YOO,FELICITA
[2017-02-12] MEDS ORDERED: OXYCODONE HCL10 M2 PO (16:18)
[2017-02-12 16:38] VITALS: BP 100/70
[2017-02-12 23:48] VITALS: BP 87/54
--- NOTE | 2017-02-13 00:57 | Event Note ---
Event Note Event Note: At 12:30 AM, nurse called for low blood pressure 87/54 HR 63. Promptly I evaluated the patient, he is lying in Trendelenburg position, complaining of lightheadedness. I rechecked his blood pressure and was 70/50 HR 63. Resident was made aware. I reviewed with patient medication history and noticed that at 9:30 pm blood pressure was 102/68 and was given 100 mg of metoprolol at 10 pm. Decision was made to administer 1 L of fluid 500 mL bolus. We'll measure the blood pressure after one hour. Metoprolol holding measure is systolic less than 90 and heart rate less than 50. It was noticed that patient had multiple episodes of hypotension during this hospitalization. The next dose of metoprolol will be at 10 AM, we will defer for the morning team to change the holding measure if needed. We'll continue to follow.
--- NOTE | 2017-02-13 01:25 | NUR ---
APPX 0035, PT'S BLOOD PRESSURE 76/42. MD NOTIFIED. PT'S LEG RAISED AND HEAD LOWERED. MD NOTIFIED. MD ORDERED 1L NS @ 500 ML/HR. NS CURRENTLY INFUSING. WILL CONTINUE TO MONITOR
[2017-02-13 04:30] VITALS: BP 125/75
[2017-02-13 06:39] VITALS: BP 99/70
--- NOTE | 2017-02-13 06:58 | ECHOCARDIOGRAM REPORT ---
LONDON ALEXANDRA Age: 56 : Gender: M Exam Date: 02/12/2017 10:57 Exam Location: [address] Ht (in): 72 Wt (lb): 216 BSA: 2.25 BP: 120 / 93 Ordering Physician: HARESH MENDOZA M Referring Physician: HARESH MENDOZA MD Technologist: Kavon Tee [facility] Room Number: 182-1 Indications: AFIB/FLUTTER Rhythm: Atrial fibrillation Technical Quality: Good Medications Lidocaine [employer] Propofol administered by Anesthesiology. Ease of Transducer Insertion No Difficulty Complications None. Technical Difficulty FINDINGS Left Ventricle Mild left ventricular dilatation. Moderately reduced global left ventricular systolic function. Moderately abnormal left ventricular ejection fraction estimated at 30-35%. Right Ventricle Moderate right ventricular dilatation. Right Atrium Moderate right atrial dilatation. Left Atrium Moderate left atrial dilatation. LA Appendage Normal left atrial appendage. IA Septum Patent foramen ovale. Mitral Valve Mitral valve thickened. Mild mitral regurgitation. Aortic Valve Trileaflet aortic valve. Focal thickening of the aortic valve cusps. No aortic stenosis. No aortic regurgitation. Tricuspid Valve Tricuspid valve not well visualized, grossly normal. Mild-to- moderate tricuspid regurgitation. Pulmonic Valve Structurally normal pulmonic valve. Trace to mild pulmonic regurgitation. Pericardium No pericardial effusion. Great Vessels Normal size aortic root and proximal ascending aorta. Grade I plaque seen in the aortic arch. Grade I plaque seen in the descending aorta. CONCLUSIONS 1. Aortic scleosis is present with no valvular stenosis or insufficiency. 2. Mitral leaflet thickening is present with mild mitral insufficiency and moderate left atrial enlargement. 3. The left atrial appendage is enlarged with no evidence of mass or thrombus. 4. The pulmonary venous anatomy is normal bilaterally 5. The left ventricular chamber is mildly dilated with global hypokinesia and an ejection fraction of approximately 35%. 6. Moderate enlargement of the right heart chambers is present with mild to moderate tricuspid insufficieny and minimal to mild pulmonic insufficieny. THe RV systolic pressure was not accurately assessed. 7. A PFO is present with a resting small bidirectional shunt. 8. Grade I atheromatous plaque is present in the thoracic aorta. Immediately following the completion of the DEUCE, while still under anesthesia, the patient was placed in the supine position. 200 joules of synchronized energy was administered and the patient reverted to NSR with atrial ectopy. THe patient woke in stable condition and was transferred back to [address] [place] [address]. Sarah Sow M.D. (Electronically Signed) Final Date: 13 Feb 2017 06:58 MEASUREMENTS (Male / Female) Normal Values
--- NOTE | 2017-02-13 07:24 | PN- Housestaff ---
Subjective Follow-up For: Atrial fibrillation with RVR s/p cardioversion Acute on chronic HFrEF Chronic venous insufficiency Abnormal TFTs Tele-Events Since Last Visit: Sinus rhythm HR 57-65 No events Subjective: Patient was hypotensive to 76/42 overnight. Blood pressure improved to acceptable range with 500 ml normal saline bolus. Patient seen and examined this morning. He reports that he does not feel good and endorses anxiety regarding his health. He is worried about the new adjustments to his blood pressure medications. He endorses dizziness and mild shortness of breath. He denies chest pain. Patient had a 7-beat run of V-tach today. Vitals were stable and he was asymptomatic during that time. K and Mg was normal. Phos was slightly elevated at 5.1. Review of Systems Constitutional: Reports: see HPI. Objective Last 24 Hrs of Vital Signs/I&O Vital Signs Date Time Temp Pulse Resp B/P B/P Pulse O2 O2 Flow FiO2 Mean Ox Delivery Rate 05/ 1302 63 116/78 05/04 1258 116/78 05/04 1041 62 105/71 05/04 0824 98.7 62 18 105/71 93 Room Air 05/04 0800 Room Air 05/04 0639 99/70 05/04 0430 125/75 05/04 0000 91 Room Air 05/03 2348 98.0 63 20 87/54 93 Room Air 05/03 2132 77 102/68 05/03 1638 98.1 70 20 100/70 94 Room Air 05/03 1600 96 Room Air Intake & Output 05/04 1600 05/04 0800 05/04 0000 Intake Total 959 1460 460 Output Total 1850 900 Balance -891 560 460 Intake, IV 14 1010 10 Intake, Oral 945 450 450 Number 1 Bowel Movements Output, Urine 1850 900 Patient 96.162 kg Weight Weight Standing Scale Measurement Method Physical Exam General Appearance: Alert, Oriented X3, No Acute Distress HEENT: Atraumatic, Mucous Membr. moist/pink Neck: Supple Cardiovascular: Regular Rate, Normal S1, Normal S2, No Murmurs, Gallops, Rubs Lungs: Clear to Auscultation Abdomen: Soft, No Tenderness, Positive Bowel Sounds Extremities: No Clubbing, No Cyanosis, Multilayer Compression Wraps in Place on Bilateral Lower Extremities Current Medications: Current Medications Sig/Cinthia Start time Last Medication Dose Route Stop Time Status Admin Alprazolam 0.5 MG BID PRN 02/11 1045 AC 02/12 PO 02/18 1044 1340 Carisoprodol 350 MG 2200 02/10 2200 AC 02/12 PO 2128 Furosemide 20 MG DAILY 02/14 1000 AC PO Furosemide 40 MG ONCE ONE 02/13 0730 DC 02/13 IV 02/13 0731 0752 Furosemide 60 MG 7:30 AM, & 4:30 PM 02/11 1630 DC 02/12 IV 1629 Hydromorphone HCl 1 MG Q8P PRN 02/12 1630 AC PO Hydromorphone HCl 2 MG Q6P PRN 02/08 1200 DC 02/12 PO 0616 Ibuprofen 800 MG BID PRN 02/10 1624 AC 02/13 PO 0642 Magnesium Oxide 400 MG BID 02/08 1000 AC 02/13 PO 1045 Melatonin 5 MG AT BEDTIME 02/11 0015 AC 02/12 PO 2128 Metoprolol Tartrate 50 MG BID 02/13 2200 AC PO Metoprolol Tartrate 50 MG ONCE ONE 02/13 1200 DC 02/13 PO 02/13 1201 1302 Metoprolol Tartrate 100 MG BID 02/12 2200 DC 02/12 PO 2132 Metoprolol Tartrate 150 MG BID 02/11 1000 DC 02/12 PO 0813 Mirtazapine 15 MG AT BEDTIME 02/13 2200 AC PO Multi-Ingred Cream/ 1 BRIAN BID PRN 02/12 1415 AC Lotion/Oil/Oint EXT Nicotine 7 MG DAILY 02/07 1000 AC TOP Oxycodone HCl 20 MG Q6P PRN 02/08 1200 AC 02/13 PO 1300 Oxycodone HCl 60 MG Q6 02/07 1200 AC 02/13 PO 1300 Patient Medication 1 ED .STK-MED ONE 02/13 1356 DC Teaching ED 02/13 1357 Rivaroxaban 20 MG 5PM 02/08 1700 AC 02/12 PO 1629 Sodium Chloride 1,000 ML BOLUS ONE 02/13 0100 DC 02/13 IV 02/13 0259 0119 Tramadol HCl 50 MG ONCE ONE 02/13 0815 DC 02/13 PO 02/13 0816 0822 Last 24 Hrs of Lab/Rigoberto Results Last 24 Hrs of Labs/Mics: Laboratory Tests 02/13/17 0615: Anion Gap 10, Estimated GFR > 60, BUN/Creatinine Ratio 35.0 H, Phosphorus 5.1 H, Magnesium 2.0 Orders ECHO Findings: DEUCE: 1. Aortic scleosis is present with no valvular stenosis or insufficiency. 2. Mitral leaflet thickening is present with mild mitral insufficiency and moderate left atrial enlargement. 3. The left atrial appendage is enlarged with no evidence of mass or thrombus. 4. The pulmonary venous anatomy is normal bilaterally 5. The left ventricular chamber is mildly dilated with global hypokinesia and an ejection fraction of approximately 35%. 6. Moderate enlargement of the right heart chambers is present with mild to moderate tricuspid insufficieny and minimal to mild pulmonic insufficieny. THe RV systolic pressure was not accurately assessed. 7. A PFO is present with a resting small bidirectional shunt. 8. Grade I atheromatous plaque is present in the thoracic aorta. Immediately following the completion of the DEUCE, while still under anesthesia, the patient was placed in the supine position. 200 joules of synchronized energy was administered and the patient reverted to NSR with atrial ectopy. THe patient woke in stable condition and was transferred back to [address] [place] [address]. Assessment/Plan Assessment: 56 y/o M with PMHx of HFrEF, atrial fibrillation and HTN who presents with progressively worsening bilateral lower extremity edema with ulcerations, 40-lbs weight gain and atrial fibrillation with RVR s/p cardioversion back to normal sinus rhythm. #Atrial fibrillation with RVR: S/p DEUCE/cardioversion yesterday. Heart rate well- controlled but blood pressure has been running low. * Continue telemetry monitoring. * Decrease metoprolol to 50 mg PO BID. * Continue Xarelto 20 mg PO daily for anticoagulation. * Monitor patient overnight with possible discharge to [facility] in the AM. #Acute on chronic HFrEF: * Cardiology following. Appreciate their recs. * Start Lasix 20 mg PO daily. * Monitor I/Os and daily weight. * Monitor daily BMPs. * Provide supplemental oxygen as tolerated to keep SpO2 >92%. * Patient will need ECHO in several weeks to reassess his LV function. 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 Thyroid function tests have been fluctuating, most likely secondary to sick euthyroid changes. * Recheck thyroid function test in two weeks and follow up with endocrinology as outpatient. * Baseline thyroid ultrasound planned as outpatient. #Chronic venous insufficiency: * Continue multilayer compression wraps to bilateral extremiteis. * Encourage leg elevation. * Give vascular surgery and wound care follow-up on discharge. #Persistent depressive disorder: Seen by psych today. * Psych following. Appreciate their recs. * Include referral to [facility] outpatient psychiatry on discharge. * Have patient follow up with psychiatry at [facility]. * Start mirtazapine 15 mg PO QHS. * Increase melatonin to 10 mg PO QHS. Diet: Regular DVT PPx: Xarelto CODE: FULL Problem List: 1. Atrial fibrillation with RVR 2. Chronic venous insufficiency 3. Salty's thyroiditis 4. HFrEF (heart failure with reduced ejection fraction) 5. Atrial fibrillation status post cardioversion 6. Persistent depressive disorder Pain Ratin Pain Location: Legs Pain Goal: Remain pain free Pain Plan: Dilaudid 1 mg PO Q8H PRN for pain scale 9-10 Motrin 800 mg PO BID PRN for nymqjini-le-gmyaxx pain (scale 4-10) Oxycodone 20 mg PO Q6H PRN for pain scale 4-8 OxyContin 60 mg PO Q6H Tomorrow's Labs & Rationales: BMP to monitor lytes and kidney function in the setting of Discharge Plan Discharge Disposition: STR/RI Anticipated Discharge (Day): tomorrow
--- NOTE | 2017-02-13 07:24 | History & Physical ---
General Information and HPI Source of Information: patient, old records Exam Limitations: no limitations Allergies/Medications Allergies: Coded Allergies: Penicillins (Intermediate, HIVES 02/07/17) Home Med list Alprazolam (Xanax) 0.25 MG TABLET 0.5 MG PO BID PRN ANXIETY Amlodipine Besylate (Norvasc) 5 MG TABLET 1 TAB PO DAILY BP (Reported) Carisoprodol 350 MG TABLET 1 TAB PO DAILY MUSCLE RELAXANT (Reported) Carvedilol (Coreg) 3.125 MG TABLET 1 TAB PO BID BP (Reported) Diazepam (Valium) 10 MG TABLET 1 TAB PO BID MUSCLE SPASMS (Reported) Furosemide 20 MG TABLET 1 TAB PO EOD WATER RETENTION (Reported) Ibuprofen 800 MG TABLET 1 TAB PO BID PAIN CONTROL (Reported) Labetalol HCl 200 MG TABLET 2 TAB PO BID BP (Reported) Losartan Potassium (Cozaar) 50 MG TABLET 1 TAB PO DAILY BP (Reported) Magnesium Oxide 400 MG TABLET 400 MG PO BID low mag Melatonin 5 MG TABLET 5 MG PO AT BEDTIME SLEEPING Nicotine (Nicotine Patch) 7 MG/24 HOUR PATCH.TD24 7 MG TOP DAILY smoking Oxycodone HCl (Oxycontin) 60 MG TAB.ER.12H 1 TAB PO 4 TIMES/DAY PAIN CONTROL (Reported) Oxycodone HCl 10 MG TABLET 2 TAB PO Q6 PRN pain (Reported) Compliance With Home Meds: FAIR Past History Travel History Traveled to [place] past 21 day No Medical History Blood Transfusion Hx: No Neurological: NONE EENT: NONE Cardiovascular: AFIB, hypertension Respiratory: NONE Gastrointestinal: NONE Hepatic: NONE Renal: NONE Musculoskeletal: chronic back pain Psychiatric: chronic pain disorder Endocrine: NONE Blood Disorders: NONE Cancer(s): NONE 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 Home Services at Home: None Smoking Status: Current Everyday Smoker ETOH Use: Heavy former use. Illicit Drug Use: denies illicit drug use Functional Ability ADLs Independent: dressing, eating, toileting, bathing. IADLs Independent: shopping, housework, finances, food prep, telephone, transportation , medication admin. Exam & Diagnostic Data Diagnostic Data EKG Results Atrial fibrillatio HR 126 bpm, QTC 487 CXR Results IMPRESSION: Small right pleural effusion. Bronchial wall thickening with interstitial prominence may represent a small airways process. Edema is also a consideration. Core Measures/Miscellaneous Cerebrovascular Accident CVA/TIA Diagnosis: No Severe Sepsis Severe Sepsis Present: No Septic Shock Septic Shock Present: No Miscellaneous Documentation Patient sees these Specialists Dr. Sow, cardiology Level of Patient Care: Telemetry
--- NOTE | 2017-02-13 08:12 | NUR ---
0746 PT HAD A 7 BEAT RUN V-TACH. PT SITTING UP AT THE EDGE OF THE BED ASYMPTOMATIC. VSS. BP 105/71 HR 81. 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 WILL CONTINUE TO MONITOR PT.
[2017-02-13 08:24] VITALS: BP 105/71
--- NOTE | 2017-02-13 08:45 | PN- Cardiology ---
Subjective Subjective: Inteval history: Episode of symptomatic hypotension last night BP 87/54. Patient had received metoprolol 500 mg at 10 PM. BP responded to 500 mL fluid. He reports concern feeling depressed all the medical issues going on. He reports feeling sad, loss of interest, trouble concentrating, lack of energy, difficulty falling asleep/tenuously. He denies any suicidal/homicidal ideations. He is concerned about the medication adjustments now that his blood pressure is low. Previously he did experience noticeable headaches when his blood pressure medications were changed. He denies any current headache, blurry vision, chest pain, palpitations, shortness of breath, fevers or chills. He is experiencing some pain in his lower extremities with a wrapping of both legs. Review of Systems Constitutional: Reports: see HPI. EENTM: Reports: no symptoms. Cardiovascular: Reports: no symptoms. Respiratory: Reports: no symptoms. Gastrointestinal: Reports: no symptoms. Musculoskeletal: Reports: see HPI. Skin: Reports: see HPI. Objective Vital Signs and I&Os Vital Signs Date Time Temp Pulse Resp B/P B/P Pulse O2 O2 Flow FiO2 Mean Ox Delivery Rate 02/13 1041 62 105/71 / 0824 98.7 62 18 105/71 93 Room Air 02/13 0800 Room Air 02/13 0639 99/70 / 0430 125/75 05/ 0000 91 Room Air 02/12 2348 98.0 63 20 87/54 93 Room Air 02/12 2132 77 102/68 05/ 1638 98.1 70 20 100/70 94 Room Air 02/12 1600 96 Room Air 02/12 1445 Room Air 60% 02/12 1414 Room Air 60% Intake & Output 02/13 1600 02/13 0800 05/04 0000 02/12 1600 02/12 0800 02/12 0000 Intake Total 1460 460 750 100 720 Output Total 900 4500 3500 Balance 560 460 -3750 100 -2780 Intake, IV 1010 10 Intake, Oral 450 450 750 100 720 Number 1 0 Bowel Movements Output, Urine 900 4500 3500 Patient 212 lb 216 lb Weight Weight Standing Scale Standing Scale Measurement Method Physical Exam General Appearance: no apparent distress, alert, awake, Slightly anxious appearing Head: normal appearance Ears, Nose, Throat: hearing grossly normal Respiratory: normal breath sounds, no respiratory distress Cardiovascular: regular rate/rhythm Abdomen: normal bowel sounds, soft, non-tender Extremities: normal range of motion, bilateral lower extremity wrapped in Chu bandages at this time with no evidence of active serous drainage. Neurologic/Psychiatric: sad affect Current Medications: Current Medications Sig/Cinthia Start time Last Medication Dose Route Stop Time Status Admin Alprazolam 0.5 MG BID PRN 02/11 1045 AC 02/12 PO 02/18 1044 1340 Carisoprodol 350 MG 2200 02/10 2200 AC 02/12 PO 2128 Furosemide 40 MG ONCE ONE 02/13 0730 DC 02/13 IV 02/13 0731 0752 Furosemide 60 MG 7:30 AM, & 4:30 PM 02/11 1630 DC 02/12 IV 1629 Hydromorphone HCl 1 MG Q8P PRN 02/12 1630 AC PO Hydromorphone HCl 2 MG Q6P PRN 02/08 1200 DC 02/12 PO 0616 Ibuprofen 800 MG BID PRN 02/10 1624 AC 02/13 PO 0642 Magnesium Oxide 400 MG BID 02/08 1000 AC 02/13 PO 1045 Melatonin 5 MG AT BEDTIME 02/11 0015 AC 02/12 PO 2128 Metoprolol Tartrate 100 MG BID 02/12 2200 DC 02/12 PO 2132 Metoprolol Tartrate 150 MG BID 02/11 1000 DC 02/12 PO 0813 Multi-Ingred Cream/ 1 BRIAN BID PRN 02/12 1415 AC Lotion/Oil/Oint EXT Nicotine 7 MG DAILY 02/07 1000 AC TOP Oxycodone HCl 20 MG Q6P PRN 02/08 1200 AC 02/12 PO 1640 Oxycodone HCl 60 MG Q6 02/07 1200 AC 02/13 PO 0437 Rivaroxaban 20 MG 5PM 02/08 1700 AC 02/12 PO 1629 Sodium Chloride 1,000 ML BOLUS ONE 02/13 0100 DC 02/13 IV 02/13 0259 0119 Tramadol HCl 50 MG ONCE ONE 02/13 0815 DC 02/13 PO 02/13 0816 0822 Results Last 48 Hrs of Labs/Mics: Laboratory Tests 02/13/17 0615: Anion Gap 10, Estimated GFR > 60, BUN/Creatinine Ratio 35.0 H, Phosphorus 5.1 H, Magnesium 2.0 02/12/17 0625: Anion Gap 8, Estimated GFR > 60, BUN/Creatinine Ratio 37.8 H Assessment/Plan Assessment/Plan 56-year-old gentleman with a PMH of HFrEF (LVEF 4550 percent on echo in 2009), previous history of persistent A. fib with RVR confirmed on Holter monitor for which she underwent successful cardioversion back to [facility], previous catheterization in 2009 with unremarkable coronary vasculature, hypertension, hyperlipidemia and chronic tobacco use was admitted with complaints of one-month duration of progressive lower extremity swelling tracking upwards towards the groin/lower abdomen, 40 pound weight gain, erythema of his lower extremities with ulcerations on the lateral aspects of his shins, decreased mobility due to difficulty with ambulation. 1. Atrial fibrillation 2. Hypotension 3. Acute on chronic heart failure with reduced ejection fraction. 4. Lower extremity edema with stasis changes Accommodations: * Discontinued carvedilol 3.125 mg PO BID, losartan 50 mg daily, Norvasc 5 mg * Start on Lopressor 50 mg PO BID monitor for 24 hours * Start furosemide 20 mg daily * Monitor 24 hours prior to discharge Continue telemetry? Yes * Continue telemetry? Yes
[2017-02-13] MEDS ORDERED: FUROSEMIDE20 M1 PO (11:59)
[2017-02-13] MEDS ORDERED: XARELTO10 M1 PO (11:59)
[2017-02-13 12:58] VITALS: BP 116/78
--- NOTE | 2017-02-13 15:06 | Cons- Psychiatry ---
Psychiatric Consult Date of Consult: 02/13/17 Reason for Consult: "Evaluate for Depression" Ordered by Huber Daniel MD History of Present Illness: Identifying Info: 56-year-old male presents to [facility] emergency department on 02/07/2017 with chief complaint of bilateral lower extremity edema and admitted to medicine. CC: "Kind of depressed and stuff" HPI: Patient reports since his divorce 10 years ago he has had some issues with mood which has intermittently waxed and wained without significant intervention or precipitant. He reported over the past month things have been significantly worse since he hurt his back shoveling snow. He subsequently developed swelling in his groin and legs and his mood deteriorated as his physical condition got worse. His depression became more severe when he recently needed hospitalization for his cardiac issues. He reports that he is a "friendly person" and describes being socially isolated, living alone. He spends much time thinking about his relationship with his daughter who blames him for the divorce and he liked to repair his relationship with. Pt states he still loves his ex as well. Per house staff report the patient has been displayed poor compliance with tx in the community. In hospital amotivation and hypersomnolence have been present. PMH: Please see the H&P for a complete listing HTN, HLD, chronic low back pain, atrial fibrillation s/p DEUCE cardioversion with return to normal sinus rhythm, chest pain syndrome, hypomagnesemia, mild sleep apnea, obesity and chronic cigarette use Past Psych History: -Outpatient Couple's counseling with a drug and alcohol counselor with his approximately 10 years ago -Inpatient One previous evaluation by consult service in 2010 for low mood Family Psych History: Unobtained Substance History Formerly heavy daily drinker who quit for a 2 year period. Now has a few drinks a few times a year. Current smoker. -Treatment None Family Substance History: Unobtained Social: . Two young adult children. Born and raised in [place]. 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 Injured at work in 2002 no won social security. Abuse/Trauma: Unobtained Current Home Psychotropic Medications: None Current Hospital Psychotropic Medications: Med Alprazolam 0.5 MG PO BID PRN 02/11/17 1045 Nicotine 7 MG TOP DAILY 02/07/17 1000 Allergies: Coded Allergies: Penicillins (Intermediate, HIVES 02/07/17) Current Medications: Current Medications Sig/Cinthia Start time Last Medication Dose Route Stop Time Status Admin Alprazolam 0.5 MG BID PRN 02/11 1045 AC 02/12 PO 02/18 1044 1340 Carisoprodol 350 MG 2200 02/10 2200 AC 02/12 PO 2128 Furosemide 20 MG DAILY 02/14 1000 AC PO Furosemide 40 MG ONCE ONE 02/13 0730 DC 02/13 IV 02/13 0731 0752 Furosemide 60 MG 7:30 AM, & 4:30 PM 02/11 1630 DC 02/12 IV 1629 Hydromorphone HCl 1 MG Q8P PRN 02/12 1630 AC PO Hydromorphone HCl 2 MG Q6P PRN 02/08 1200 DC 02/12 PO 0616 Ibuprofen 800 MG BID PRN 02/10 1624 AC 02/13 PO 0642 Magnesium Oxide 400 MG BID 02/08 1000 AC 02/13 PO 1045 Melatonin 5 MG AT BEDTIME 02/11 0015 AC 02/12 PO 2128 Metoprolol Tartrate 50 MG BID 02/13 2200 AC PO Metoprolol Tartrate 50 MG ONCE ONE 02/13 1200 DC 02/13 PO 02/13 1201 1302 Metoprolol Tartrate 100 MG BID 02/12 2200 DC 02/12 PO 2132 Metoprolol Tartrate 150 MG BID 02/11 1000 DC 02/12 PO 0813 Multi-Ingred Cream/ 1 BRIAN BID PRN 02/12 1415 AC Lotion/Oil/Oint EXT Nicotine 7 MG DAILY 02/07 1000 AC TOP Oxycodone HCl 20 MG Q6P PRN 02/08 1200 AC 02/13 PO 1300 Oxycodone HCl 60 MG Q6 02/07 1200 AC 02/13 PO 1300 Patient Medication 1 ED .STK-MED ONE 02/13 1356 DC Teaching ED 02/13 1357 Rivaroxaban 20 MG 5PM 02/08 1700 AC 02/12 PO 1629 Sodium Chloride 1,000 ML BOLUS ONE 02/13 0100 DC 02/13 IV 02/13 0259 0119 Tramadol HCl 50 MG ONCE ONE 02/13 0815 DC 02/13 PO 02/13 0816 0822 Past History Past Medical History Neurological: NONE EENT: NONE Cardiovascular: AFIB, hypertension Respiratory: NONE Gastrointestinal: NONE Hepatic: NONE Renal: NONE Musculoskeletal: chronic back pain Psychiatric: chronic pain disorder Endocrine: NONE Blood Disorders: NONE Cancer(s): NONE DRILL DOCTOR/Reproductive: NONE Past Surgical History Surgical History: non-contributory Psychosocial History Strengths/Capabilities: Motivated to improve relationships Physical Limitations (Interventions): Pain, chroinc illness Psychiatric Treatment History Psych Treatment Psychiatric Treatment No Diagnosis: by hx dysthymia Risk Factors: chronic/serious med cond., high anxiety/distress, isolate/no social support, lives alone, male Substance Use/Abuse History Drug Use/Abuse Substances Used/Abused Yes (as above) Substance Abuse Treatment Substance Abuse Treatment Past Substance Abuse [place] No Assessment/Plan Mental Status Mental Status Exam: Mental Status Exam Presentation/Appearance: Cooperative with evaluation. Hospital garb. On approach is lying in bed alone in dark room, listening to music, tears noted to cheeks Orientation: Grossly oriented Sensorium: Awake and alert Eye contact: Appropriate Affect: Somewhat blunted but congruent with stated mood, tearful at times Mood: Dysphoric Depression: Endorses Anxiety: "a little" Thought Content: - Denies SI/HI, AH/VH, PI. States and also believes they will not kill themselves. - Denies Hopeless/Helpless Thoughts Thought Process: Linear, some perseveration on loss Associations: Appropriate Speech: Normal tone and rate Judgment: Intact Insight: Intact Cognition: Memory: Grossly intact Attention/Concentration: Grossly intact Fund of Knowledge: Adequate MMSE: Did not assess Brief ROS Gait: Steady Sleep: Poor Appetite: Adequate Energy: Low IADLs/ADLs: Independent Patient is agreeable to follow-up with outpatient psychiatric services for group therapy and medication management. Lab Results: Laboratory Tests 02/13/17 0615: Anion Gap 10, Estimated GFR > 60, BUN/Creatinine Ratio 35.0 H, Phosphorus 5.1 H, Magnesium 2.0 02/12/17 0625: Anion Gap 8, Estimated GFR > 60, BUN/Creatinine Ratio 37.8 H 02/11/17 0646: Anion Gap 12, Estimated GFR > 60, BUN/Creatinine Ratio 37.5 H 02/10/17 1600: Troponin I < 0.01 Diffential Diagnosis: Persistent Depressive Disorder Tobacco use disorder r/o depressive disorder due to another medical condition h/o alcohol use disorder, in stustained remission Impression: 56-year-old male with a history of intermittent low mood for approximately 10 years that has returned and been compounded by his current physical condition. He cites his divorce and poor relationship with his daughter often during psychiatric interview and appear primary causes of his low mood. He has a history of problematic drinking that has now resolved. Additionally this patient suffers from chronic pain. Of note the patient had a low vitamin D level on lab work in 2014. Provisional Treatment Plan: 1. Please include an W 10 the following "patient to follow-up with [facility] outpatient psychiatric services. Prior to discharge please call to arrange for intake appointment." 2. Please have patient followed by psychiatry at [facility]. 3. Please order mirtazapine 15 mg daily at bedtime. 4. Consider vitamin D supplementation if level remains low. 5. Plan to f/u with Endo for thyroid issues. Thank for including psychiatry in this case we'll follow on an as-needed basis until discharge.
[2017-02-13 15:41] VITALS: BP 112/60
[2017-02-14 00:10] VITALS: BP 102/60
[2017-02-14 01:30] VITALS: BP 98/60
--- NOTE | 2017-02-14 07:04 | PN- Housestaff ---
Subjective Follow-up For: Atrial fibrillation with RVR s/p cardioversion Acute on chronic HFrEF Salty's thyroiditis Chronic venous insufficiency Persistent depressive disorder Tele-Events Since Last Visit: Sinus rhythm HR 56-100 No events Subjective: No acute events overnight. Patient seen and examined this morning. He feels much better today. He reports finally being able to sleep last night. He has no complaints at present. He denies chest pain or shortness of breath. Review of Systems Constitutional: Reports: see HPI. Objective Last 24 Hrs of Vital Signs/I&O Vital Signs Date Time Temp Pulse Resp B/P B/P Pulse O2 O2 Flow FiO2 Mean Ox Delivery Rate 02/14 1222 99.1 64 16 98/50 05/05 1113 64 98/50 05/05 0823 99.1 59 16 102/60 95 Room Air 05 0130 98/60 05/05 0010 102/60 02/13 2214 72 110/64 Intake & Output 02/14 1600 05/05 0800 05 0000 Intake Total 240 840 Output Total Balance 240 840 Intake, Oral 240 840 Patient 97.069 kg Weight Weight Standing Scale Measurement Method Physical Exam General Appearance: Alert, Oriented X3, No Acute Distress HEENT: Atraumatic, Mucous Membr. moist/pink Neck: Supple Cardiovascular: Regular Rate, Normal S1, Normal S2, No Murmurs, Gallops, Rubs Lungs: Clear to Auscultation Abdomen: Soft, No Tenderness, Positive Bowel Sounds Extremities: No Clubbing, No Cyanosis, Multilayer Compression Wraps in Bilateral Lower Extremities Current Medications: Current Medications Sig/Cinthia Start time Last Medication Dose Route Stop Time Status Admin Alprazolam 0.5 MG BID PRN 02/11 1045 DCD 05 PO 02/18 1044 2214 Carisoprodol 350 MG 2200 02/10 2200 DCD 02/13 PO 2214 Furosemide 20 MG DAILY 02/14 1000 DCD 05 PO 0851 Hydromorphone HCl 1 MG Q8P PRN 02/12 1630 DCD 05 PO 1105 Ibuprofen 800 MG BID PRN 02/10 1624 DCD 05 PO 0508 Magnesium Oxide 400 MG BID 02/08 1000 DCD 05 PO 0851 Melatonin 10 MG AT BEDTIME 02/130 DCD 05 PO 0015 Melatonin 5 MG AT BEDTIME 02/11 0015 DC 02/12 PO 2128 Metoprolol Tartrate 50 MG BID 02/13 2200 DCD 02/14 PO 1113 Mirtazapine 15 MG AT BEDTIME 02/13 2200 DCD 02/14 PO 0015 Multi-Ingred Cream/ 1 BRIAN BID PRN 02/12 1415 DCD Lotion/Oil/Oint EXT Nicotine 7 MG DAILY 02/07 1000 DCD TOP Oxycodone HCl 20 MG Q6P PRN 02/08 1200 DCD 02/14 PO 1257 Oxycodone HCl 60 MG Q6 02/07 1200 DCD 05 PO 1259 Polyethylene Glycol 17 GM DAILY 02/14 1104 DCD PO Rivaroxaban 20 MG 5PM 02/08 1700 DCD 02/13 PO 1817 Senna/Docusate Sodium 1 TAB BID 02/14 1106 DCD PO Last 24 Hrs of Lab/Rigoberto Results Last 24 Hrs of Labs/Mics: Laboratory Tests 02/14/17 0635: Anion Gap 11, Estimated GFR > 60, BUN/Creatinine Ratio 29.0 H Assessment/Plan Assessment: 56 y/o M with PMHx of HFrEF, atrial fibrillation and HTN who presents with progressively worsening bilateral lower extremity edema with ulcerations, 40-lbs weight gain and atrial fibrillation with RVR s/p cardioversion back to normal sinus rhythm. #Atrial fibrillation with RVR: S/p DEUCE/cardioversion. Remains in normal sinus rhythm with well-controlled heart rate. BP stable around 90-100s/50-60s. * Discharge to [facility] today. * Continue metoprolol to 50 mg PO BID on discharge. * Continue Xarelto 20 mg PO daily for anticoagulation. #Acute on chronic HFrEF: * Follow up with cardiology on discharge. * Continue Lasix 20 mg PO daily. 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 Thyroid function tests have been fluctuating, most likely secondary to sick euthyroid changes. * Recheck thyroid function test in two weeks and follow up with endocrinology as outpatient. * Baseline thyroid ultrasound planned as outpatient. #Chronic venous insufficiency: With full thickness venous stasis ulcers. * Patient was instructed to follow up with vascular surgery and wound care on discharge. * Encourage leg elevation. #Persistent depressive disorder: * Patient provided instructions to follow up with [facility] for intake appointment after discharge. * Continue mirtazapine 15 mg PO QHS and melatonin to 10 mg PO QHS on discharge. #HTN: * Outpatient antihypertensives labetalol, carvedilol, losartan and amlodipine stopped on discharge. * Patient will continue taking metoprolol 50 mg PO BID and Lasix 20 mg PO daily on discharge. Diet: Regular DVT PPx: Xarelto CODE: FULL Problem List: 1. Atrial fibrillation with RVR 2. HFrEF (heart failure with reduced ejection fraction) 3. Chronic venous insufficiency 4. Salty's thyroiditis 5. Atrial fibrillation status post cardioversion 6. Persistent depressive disorder 7. HTN (hypertension) Pain Ratin Pain Location: Legs Pain Goal: Pain 4 or less Pain Plan: Dilaudid 1 mg PO Q8H PRN for pain scale 9-10 Motrin 800 mg PO BID PRN for [id number] pain (scale 4-10) Oxycodone 20 mg PO Q6H PRN for pain scale 4-8 OxyContin 60 mg PO Q6H Tomorrow's Labs & Rationales: None Discharge Plan Discharge Disposition: STR/NH Stable for Discharge? Yes Anticipated Discharge (Day): today
[2017-02-14 08:23] VITALS: BP 102/60
--- NOTE | 2017-02-14 09:08 | PN- Psychiatry ---
Assessment/Plan Impression: Identifying Info: 56-year-old male presents to [facility] emergency department on 02/07/2017 with chief complaint of bilateral lower extremity edema and admitted to medicine. SUBJECTIVE Pt reports "I got the best sleep I've had in year... I think this is going to work," r/t mirtazepine. He feels ready for discharge today and is looking forward to his f/u at outpatient psychiatry. Brief ROS Gait: Steady Sleep: Adequate Appetite: Adequate OBJECTIVE Mental Status Exam Presentation/Appearance: Cooperative with evaluation. Hospital garb. On approach is sitting in bed. Orientation: x3 Sensorium: Awake and alert Eye contact: Appropriate Affect: Somewhat blunted but range is increased Mood: Denies disturbance this AM Depression: Denies Anxiety: Denies Thought Content: - Denies SI/HI, AH/VH, PI. States and also believes they will not kill themselves. - Denies Hopeless/Helpless Thoughts Thought Process: Linear Associations: Appropriate Speech: Normal tone and rate Judgment: Intact Insight: Intact Cognition: Memory: Grossly intact Attention/Concentration: Grossly intact Fund of Knowledge: Adequate MMSE: Did not assess ASSESSMENT 56-year-old male with a history of intermittent low mood for approximately 10 years that has returned and been compounded by his current physical condition. He is ready to and motivated to seek psychiatric tx at this time. Differential diagnosis Persistent Depressive Disorder Tobacco use disorder r/o depressive disorder due to another medical condition h/o alcohol use disorder, in stustained remission Suggestion: 1. Please include an W 10 the following "patient to follow-up with [facility] outpatient psychiatric services. Prior to discharge please call to arrange for intake appointment." 2. Continue mirtazepine and melatonin as currently ordered. Thank for including psychiatry in this case, we will sign off. Subjective Subjective: as above Objective Last 24 Hrs of Vital Signs/I&O Current Medications Sig/Cinthia Start time Last Medication Dose Route Stop Time Status Admin Alprazolam 0.5 MG BID PRN 02/11 1045 AC 02/13 PO 02/18 1044 2214 Carisoprodol 350 MG 2200 05 2200 AC 02/13 PO 2214 Furosemide 20 MG DAILY 02/14 1000 AC 02/14 PO 0851 Hydromorphone HCl 1 MG Q8P PRN 02/12 1630 AC 02/13 PO 2215 Ibuprofen 800 MG BID PRN 02/10 1624 AC 02/14 PO 0508 Magnesium Oxide 400 MG BID 02/08 1000 AC 02/14 PO 0851 Melatonin 10 MG AT BEDTIME 02/13 2200 AC 02/14 PO 0015 Melatonin 5 MG AT BEDTIME 02/11 0015 DC 02/12 PO 2128 Metoprolol Tartrate 50 MG BID 02/13 2200 AC 02/13 PO 2214 Metoprolol Tartrate 50 MG ONCE ONE 02/13 1200 DC 02/13 PO 02/13 1201 1302 Metoprolol Tartrate 100 MG BID 02/12 2200 DC 02/12 PO 2132 Mirtazapine 15 MG AT BEDTIME 02/13 2200 AC 02/14 PO 0015 Multi-Ingred Cream/ 1 BRIAN BID PRN 02/12 1415 AC Lotion/Oil/Oint EXT Nicotine 7 MG DAILY 02/07 1000 AC TOP Oxycodone HCl 20 MG Q6P PRN 02/08 1200 AC 02/14 PO 0626 Oxycodone HCl 60 MG Q6 02/07 1200 AC 02/14 PO 0627 Patient Medication 1 ED .STK-MED ONE 02/13 1356 AK Teaching ED 02/13 1357 Rivaroxaban 20 MG 5PM 02/08 1700 AC 02/13 PO 1817 Laboratory Tests 02/14/17 0635: Anion Gap 11, Estimated GFR > 60, BUN/Creatinine Ratio 29.0 H Vital Signs Date Time Temp Pulse Resp B/P B/P Pulse O2 O2 Flow FiO2 Mean Ox Delivery Rate 02/14 823 99.1 59 16 102/60 95 Room Air 02/14 0130 98/60 02/14 0010 102/60 02/13 2214 72 110/64 02/13 1541 97.6 60 18 112/60 96 /04 1302 63 116/78 02/13 1258 116/78 02/13 1041 62 105/71 Intake & Output 02/14 1600 02/14 0800 02/14 0000 Intake Total 240 840 Output Total Balance 240 840 Intake, Oral 240 840 Patient 214 lb Weight Weight Standing Scale Measurement Method
--- NOTE | 2017-02-14 11:35 | PN- Cardiology ---
Subjective Subjective: Interval history: This morning Mr. Cobian reports that he feels significantly better than yesterday I was able to get a good night sleep for the first on one year. He denies any dizziness, blurred vision chest pain, palpitations, shortness of breath, worsening lower extremity swelling or pain. He reports intermittent episodes of constipation but denies any bloody stools. Review of Systems Constitutional: Reports: see HPI. EENTM: Reports: no symptoms. Cardiovascular: Reports: no symptoms. Respiratory: Reports: no symptoms. Gastrointestinal: Reports: see HPI. Musculoskeletal: Reports: see HPI. Neurological/Psychological: Reports: see HPI. Objective Vital Signs and I&Os Vital Signs Date Time Temp Pulse Resp B/P B/P Pulse O2 O2 Flow FiO2 Mean Ox Delivery Rate 02/14 1113 64 98/50 02/14 0823 99.1 59 16 102/60 95 Room Air 02/14 0130 98/60 02/14 0010 102/60 02/13 2214 72 110/64 02/13 1541 97.6 60 18 112/60 96 /04 1302 63 116/78 02/13 1258 116/78 Intake & Output 02/14 1600 02/14 0800 / 0000 / 1600 02/13 0800 02/13 0000 Intake Total 240 389 797 2889 460 Output Total 1850 900 Balance 240 840 -891 560 460 Intake, IV 14 1010 10 Intake, Oral 240 840 945 450 450 Number 1 Bowel Movements Output, Urine 1850 900 Patient 214 lb 212 lb Weight Weight Standing Scale Standing Scale Measurement Method Physical Exam General Appearance: no apparent distress, alert, awake, comfortable Head: normal appearance Ears, Nose, Throat: hearing grossly normal Respiratory: normal breath sounds, no respiratory distress, lungs clear Cardiovascular: regular rate/rhythm Abdomen: normal bowel sounds, soft, non-tender Extremities: bilateral lower extremities wrapped in clean Chu bandages at this time with no evidence of weeping Neurologic/Psychiatric: awake, alert, normal mood/affect Current Medications: Current Medications Sig/Cinthia Start time Last Medication Dose Route Stop Time Status Admin Alprazolam 0.5 MG BID PRN 02/11 1045 AC 02/13 PO 02/18 1044 2214 Carisoprodol 350 MG 2200 02/10 2200 AC 02/13 PO 221 Furosemide 20 MG DAILY 02/14 1000 AC 02/14 PO 0851 Hydromorphone HCl 1 MG Q8P PRN 02/12 1630 AC 02/14 PO 1105 Ibuprofen 800 MG BID PRN 02/10 1624 AC 02/14 PO 0508 Magnesium Oxide 400 MG BID 02/08 1000 AC 02/14 PO 0851 Melatonin 10 MG AT BEDTIME 02/13 2200 AC 02/14 PO 0015 Melatonin 5 MG AT BEDTIME 02/11 0015 DC 02/12 PO 2128 Metoprolol Tartrate 50 MG BID 02/13 2200 AC 02/14 PO 1113 Metoprolol Tartrate 50 MG ONCE ONE 02/13 1200 DC 02/13 PO 02/13 1201 1302 Mirtazapine 15 MG AT BEDTIME 02/13 2200 AC 02/14 PO 0015 Multi-Ingred Cream/ 1 BRIAN BID PRN 02/12 1415 AC Lotion/Oil/Oint EXT Nicotine 7 MG DAILY 02/07 1000 AC TOP Oxycodone HCl 20 MG Q6P PRN 02/08 1200 AC 02/14 PO 0626 Oxycodone HCl 60 MG Q6 02/07 1200 AC 02/14 PO 0627 Patient Medication 1 ED .STK-MED ONE 02/13 1356 DC Teaching ED 02/13 1357 Polyethylene Glycol 17 GM DAILY 02/14 1104 AC PO Rivaroxaban 20 MG 5PM 02/08 1700 AC 02/13 PO 1817 Senna/Docusate Sodium 1 TAB BID 02/14 1106 AC PO Results Last 48 Hrs of Labs/Mics: Laboratory Tests 02/14/17 0635: Anion Gap 11, Estimated GFR > 60, BUN/Creatinine Ratio 29.0 H 02/13/17 0615: Anion Gap 10, Estimated GFR > 60, BUN/Creatinine Ratio 35.0 H, Phosphorus 5.1 H, Magnesium 2.0 Assessment/Plan Assessment/Plan 56-year-old gentleman with a PMH of HFrEF (LVEF 4550 percent on echo in 2009), previous history of persistent A. fib with RVR confirmed on Holter monitor for which she underwent successful cardioversion back to [facility], previous catheterization in 2009 with unremarkable coronary vasculature, hypertension, hyperlipidemia and chronic tobacco use was admitted with complaints of one-month duration of progressive lower extremity swelling tracking upwards towards the groin/lower abdomen, 40 pound weight gain, erythema of his lower extremities with ulcerations on the lateral aspects of his shins, decreased mobility due to difficulty with ambulation. 1. Atrial fibrillation 2. Hypotension 3. Acute on chronic heart failure with reduced ejection fraction. 4. Lower extremity edema with stasis changes Accommodations: * Over the past 24 hours his heart rate has remained stable with SBP ranged between 90s to low 100s * Based on his history of A. fib and resistant hypertension we feel it would be safer to discharge the patient on Lopressor 50 mg BID with instructions s/p discharge for rehabilitation facility to titrate up or down based on heart rate and blood pressure * Continue furosemide 20 mg daily * Patient follow-up with cardiology in 2 weeks after discharge Continue telemetry? No Problem List: 1. Atrial fibrillation status post cardioversion 2. HFrEF (heart failure with reduced ejection fraction) 3. Persistent depressive disorder
[2017-02-14 12:22] VITALS: BP 98/50
[2017-02-14] MEDS ORDERED: METOPROLOL TART50 M1 PO ×3 (13:30→13:54)
[2017-02-14] MEDS ORDERED: MIRALAX17 G1 PO (13:52)
[2017-02-14] MEDS ORDERED: SENNA8.6 M3 PO (13:52)
[2017-02-14] MEDS ORDERED: MIRTAZAPINE15 M2 PO (13:53)
[2017-02-14] MEDS ORDERED: MELATONIN5 M7 PO (13:54)
[2017-02-14] MEDS ORDERED: MELATONIN10 M2 PO (13:57)
--- NOTE | 2017-02-14 14:33 | NUR ---
WOUND CARE: PT SEEN FOR REAPPLICATION OF UNNA BOOTS - TOLERATED WELL - NO C/O EXCEPT "THEYRE ANNOYING" UNNA BOOTS REAPPLIED TO FULL THICNKESS VENOUS STASIS ULCERS BLE (R) 5X5 CM, (LEFT) 3X3 CM PREDOMINATELY YELLOW SLOUGHED FILL - ANEDEMATOUS PT HAS F/U [facility] DR AGARWAL BOOKED FOR [facility] AT [address] ON VACATION THIS WEEK
== END 2017-02-14 14:15 | DRG 308 ==
LOC: ERH 22:10 → ERHI 02-07 00:23 → 1NO 02-07 00:23 → ENRESERV 02-07 00:50 → 1NO 02-07 02:20
PROVIDERS: Dermatology; Internal Medicine; Internal Medicine Nephrology; Physician Assistant Medical; ADMIT Specialist
PROC: B246ZZ4 Ultrasonography of Right and Left Heart, Transesophageal (ICD-10-PCS; principal; 2017-02-12)
PROC: 5A2204Z Restoration of Cardiac Rhythm, Single (ICD-10-PCS; principal; 2017-02-12)
DX: I48.91 Unspecified atrial fibrillation (principal); I50.23 Acute on chronic systolic (congestive) heart failure; I95.9 Hypotension, unspecified; E87.1 Hypo-osmolality and hyponatremia; I11.0 Hypertensive heart disease with heart failure; L97.819 Non-pressure chronic ulcer of other part of right lower leg with unspecified severity; L97.829 Non-pressure chronic ulcer of other part of left lower leg with unspecified severity; F17.210 Nicotine dependence, cigarettes, uncomplicated; E87.6 Hypokalemia; G89.29 Other chronic pain; M54.5 Low back pain; E78.5 Hyperlipidemia, unspecified; I87.2 Venous insufficiency (chronic) (peripheral); R09.02 Hypoxemia; E06.3 Autoimmune thyroiditis; I34.0 Nonrheumatic mitral (valve) insufficiency; F32.9 Major depressive disorder, single episode, unspecified
CPT/HCPCS: 1NP; 36415; 81001; 82436; 84425; 86376; 86800; 93005; 93010; 93306; 93325; 93925; 93970; 96374; 96375; 99291; J1170; J1644; J1940; J3490

== ENCOUNTER 2017-03-07 18:40 | Inpatient (IN) | payer OTHER, MEDICARE ==
[~2017-03-07] VITALS: Ht 182.9 cm; Wt 104.0 kg
[~2017-03-07 18:40] MED LIST changes: +CARISOPRODOL350 M1 PO; +FUROSEMIDE20 M1 PO; +IBUPROFEN800 M1 PO; +MAGNESIUM OXID400 M1 PO; +MELATONIN10 M2 PO; +MELATONIN5 M7 PO; +METOPROLOL TART50 M1 PO; +MIRALAX17 G1 PO; +MIRTAZAPINE15 M2 PO; +NICOTINE PATCH1 EAC1 TOP; +OXYCODONE HCL10 M2 PO; +OXYCODONE HCL20 M2 PO; +OXYCONTIN60 M1 PO; +SENNA8.6 M3 PO; +XANAX0.25 M1 PO; +XARELTO10 M1 PO
--- NOTE | 2017-03-07 18:54 | ED GENERAL ADULT ---
History of Present Illness General Chief Complaint: Dyspnea (COPD, CHF, Other) Stated Complaint: BIBA, RAPID AFIB Source: patient, family Exam Limitations: no limitations Vital Signs & Intake/Output Vital Signs & Intake/Output Vital Signs Date Time Temp Pulse Resp B/P B/P Pulse O2 O2 Flow FiO2 Mean Ox Delivery Rate 03/08 0000 Room Air 03/08 0000 Room Air 03/07 2356 160 118/88 03/07 2241 99.2 145 20 128/81 95 Room Air 03/07 2210 97.6 126 20 120/76 95 Room Air 03/07 2200 96 Room Air 03/07 2139 98.7 140 20 109/84 95 Room Air 03/07 2033 98.2 130 20 120/75 03/07 2015 130 20 120/75 99 Room Air 03/07 1941 98.2 137 20 117/69 03/07 1910 98.2 137 20 117/69 96 Room Air ED Intake and Output 03/08 0000 03/07 1200 Intake Total Output Total 1600 Balance -1600 Output, Urine 1600 Patient 2210 lb Weight Allergies Coded Allergies: Penicillins (Intermediate, HIVES 02/07/17) Triage Nurses Notes Reviewed? yes Onset: Gradual Duration: day(s): (2) Timing: recent history Injury Environment: home Severity: moderate Severity Numbers: 8 No Modifying Factors: none Associated Symptoms: SOB HPI: Patient is a 56-year-old male with history of atrial fibrillation that was diagnosed one month ago, chronic CHF presenting to the emergency department with chief complaint of increasing swelling to the lower extremities extending up to his scrotum and lower abdomen. Patient also complaining of intermittent palpitations. He reports last time he was admitted he was electrically cardioverted into sinus rhythm from atrial fibrillation. He went to rehabilitation after discharge from the hospital. Symptoms of shortness of breath, swelling in palpitations started about 2-3 days ago. Denies any fevers or chills. No coughing. Denies any nausea or vomiting. No abdominal pain. Reports that he has pressure over his scrotal area secondary to the swelling but denies any pain. Denies any urinary symptoms. No frequency or urgency. Has been taking all medications as previously prescribed. worse with exertion. (JUMA VARGAS) Reconcile Medications Acetaminophen 325 MG CAPSULE 2 CAP PO Q4H PRN PAIN/TEMP>101 (Reported) Alprazolam (Xanax) 0.25 MG TABLET 0.5 MG PO BID PRN ANXIETY Carisoprodol 350 MG TABLET 1 TAB PO DAILY MUSCLE RELAXANT (Reported) Furosemide 20 MG TABLET 20 MG PO DAILY WATER PILL Ibuprofen 800 MG TABLET 1 TAB PO BID PRN PAIN (Reported) Magnesium Hydroxide (Milk Of Magnesia) 400 MG/5 ML ORAL.SUSP 30 ML PO DAILY PRN CONSTIPATION (Reported) Magnesium Oxide 400 MG TABLET 400 MG PO BID low mag Melatonin 10 MG TABLET 1 TAB PO DAILY SLEEP HELP Metoprolol Tartrate 50 MG TABLET 1 TAB PO BID HEART HEALTH Mirtazapine 15 MG TABLET 1 TAB PO QPM DEPRESSION Oxycodone HCl 10 MG TABLET 2 TAB PO Q6 PRN pain (Reported) Oxycodone HCl (Oxycontin) 60 MG TAB.ER.12H 1 TAB PO 4 TIMES/DAY PAIN CONTROL (Reported) Polyethylene Glycol 3350 (Miralax) 17 GRAM POWD.PACK 1 PAC PO DAILY PRN CONSTIPATION dissolve in water Rivaroxaban (Xarelto) 10 MG TABLET 20 MG PO 5PM BLOOD THINNER Sennosides (Senna) 8.6 MG TABLET 2 TAB PO BID PRN CONSTIPATION (CARL YOO,DIANNE Bonner) Past History Travel History Traveled to [place] past 21 day No Medical History Any Pertinent Medical History? see below for history Neurological: NONE EENT: NONE Cardiovascular: AFIB, hypertension Respiratory: NONE Gastrointestinal: NONE Hepatic: NONE Renal: NONE Musculoskeletal: chronic back pain Psychiatric: chronic pain disorder Endocrine: NONE Blood Disorders: NONE Cancer(s): NONE RAIL WALKER/Reproductive: NONE History of MRSA: No History of VRE: No History of CDIFF: No Influenza Vaccine: 07/27/16 Surgical History Surgical History: non-contributory Psychosocial History Who do you live with Patient/Self Services at Home None What is your primary language Occitan Family History Hx Contributory? No (SAKINA WOODALL,JUMA) Review of Systems Review of Systems Constitutional: Reports: malaise. Comments Review of systems: See HPI, All other systems negative. Constitutional, no chills fever or weight loss HEENT: No visual changes no sore throat Cardiovascular: No chest pain Skin, no jaundice no rashes Respiratory: No cough sputum or hemoptysis GI: No nausea no vomiting : No dysuria No hematuria Muscle skeletal: no back pain, no neck pain, Neurologic: No numbness no confusion NO CARLSON Psych: No stress anxiety or depression,. Heme/endocrine: No bruising no bleeding no polyuria or polydipsia Immunology: No splenectomy or history of AIDS (JUMA VARGAS) Physical Exam Physical Exam General Appearance: no apparent distress, alert, comfortable, obese Comments: Well-developed well-nourished person in no acute distress HEENT: Pupils equally round and reactive to light and accommodation. Nose is atraumatic. External auditory canal and Tympanic membranes clear. Pharynx normal. No swelling or edema. Neck: Supple, no lymphadenopathy, normal range of motion without pain or tenderness Back: Nontender, no CVA tenderness. Cardiovascular: IRRegular rate and rhythms Respiratory: Chest nontender. No respiratory distress.RALES to auscultation bilaterally AT BASES. Abdomen: Soft, nontender , nondistended, no appreciable organomegaly. Normal bowel sounds. No ascites : Extensive swelling noted to the scrotum bilaterally, nontender TO palpation. Extremity: 3 PLUS PITTING EDEMA noted to the upper thighs extending into the scrotal area. 1+ pitting edema noted to the lower aspect of the lower extremities. Wraps in place. Pedal pulses are 2+ bilaterally. Neuro: Alert oriented x3 Skin: No appreciable rash on exposed skin, skin is warm and dry. Psych: Mood and affect is normal, memory and judgment is normal. Core Measures ACS in differential dx? Yes CVA/TIA Diagnosis: No Severe Sepsis Present: No Septic Shock Present: No (JUMA VARGAS) Progress Differential Diagnoses I considered the following diagnoses in my evaluation of the patient: That atrial fibrillation, CHF exacerbation, ACS, electrolyte abnormality, cardiac arrhythmia, medication noncompliance, PE, pneumonia, bronchitis Plan of Care: Orders Procedure Date/time Status Nothing by Mouth 03/08 B Active BASIC ELECTROLYTES PLUS BUN&CR 03/08 0600 Active Skin/Pressure Ulcer Assess (Sk 03/08 0256 Active TROPONIN LEVEL 03/08 0100 Active EKG 03/08 0100 Active Lab Add-on Test 03/08 UNK Active Heart Healthy Diet 03/07 D Complete Teach/Educate 03/07 2338 Active Pain Treatment and Response 03/07 2338 Active Nutritional Intake, Monitor 03/07 2338 Active Isolation 03/07 2338 Active Patient Care Conference 03/07 2338 Active Activity/Ambulation 05/26 2338 Active Precautions 03/07 2320 Active Pathway - chart 03/07 2318 Active Intake & Output 03/07 220 Active Pathway - chart 03/07 2149 Active Patient Data 03/07 2149 Active Saline Lock 03/07 2047 Active Misc Message 03/07 2047 Active ED Holding Orders 03/07 2047 Active Admit to inpatient 03/07 2047 Active Vital Signs 03/07 2047 Active Code Status 03/07 2047 Active THYROID STIMULATING HORMONE 03/07 191 Complete FREE T4 03/07 191 Complete Add-on Test (ER Only) 03/07 190 Active Telemetry/Motorcycle Sales Associate 03/07 185 Active TROPONIN LEVEL 03/07 185 Complete PARTIAL THROMBOPLASTIN TIME 03/07 185 Complete PROTHROMBIN TIME 03/07 185 Complete COMPREHENSIVE METABOLIC PANEL 03/07 185 Complete CBC WITHOUT DIFFERENTIAL 03/07 185 Complete B-TYPE NATRIURETIC PEP (BNP) 03/07 185 Complete EKG 03/07 184 Active Pathway - chart 03/07 UNK Active House Staff 03/07 UNK Active VTE Mechanical Prophylaxis 03/07 UNK Active Vital Signs 03/07 UNK Active Current Medications Sig/Cinthia Start time Last Medication Dose Stop Time Status Admin Magnesium Oxide 400 MG BID 03/08 1000 AC (Mag-Ox) Polyethylene Glycol 17 GM DAILY 03/08 1000 AC (Miralax) Furosemide 40 MG 7:30 AM, & 4:30 PM 03/08 0730 AC (Lasix) Mirtazapine 15 MG QPM 03/08 0100 AC 03/08 (Remeron) 0118 Melatonin 10 MG AT BEDTIME 03/08 0030 AC 03/08 (Melatonin) 0029 Ibuprofen 800 MG BID 03/08 0024 AC 03/08 (Motrin) 0029 Metoprolol Tartrate 50 MG BID 03/07 235 AC 03/07 (Lopressor) 2356 Oxycodone HCl 60 MG Q4P PRN 03/07 2330 AC 03/07 (OxyCONTIN) 2358 Oxycodone HCl 20 MG Q6 PRN 03/07 2330 AC 03/07 (Roxicodone) 235 Rivaroxaban 20 MG 5PM 03/07 2330 AC 03/08 (Xarelto) 0117 Acetaminophen 650 MG Q4P PRN 03/07 2315 AC (Tylenol) Magnesium Hydroxide 30 ML DAILY PRN 03/07 2315 AC (Milk Of Magnesia) Senna/Docusate Sodium 2 TAB DAILY PRN 03/07 231 AC (Senokot S) Diltiazem HCl 125 MG Q24H 03/07 2030 AC 03/07 (Cardizem DRIP) 2145 Sodium Chloride 100 ML (Normal Saline 0.9%) Laboratory Tests 03/07/171913: Anion Gap 12, Estimated GFR > 60, BUN/Creatinine Ratio 28.8 H, Glucose 86, Calcium 8.6, Total Bilirubin 0.6, AST 51, ALT 61, Alkaline Phosphatase 102, Troponin I < 0.01, Xif-Q-Aludtnvrofa Pept 4990 H, Total Protein 6.9, Albumin 3.8, Globulin 3.1, Albumin/Globulin Ratio 1.2, TSH 2.480, Free T4 1.52, PT 15.0 H, INR 1.43 H, APTT 33, CBC w Diff NO MAN DIFF REQ, RBC 3.45 L, MCV 92.4, MCH 30.2, RDW 16.0 H, MPV 8.9, Gran % 76.4 H, Lymphocytes % 14.6 L, Monocytes % 8.1, Eosinophils % 0.6, Basophils % 0.3, Absolute Granulocytes 6.8 H, Absolute Lymphocytes 1.3, Absolute Monocytes 0.7 H, Absolute Eosinophils 0.1, Absolute Basophils 0, PUBS MCHC 32.7 L Diagnostic Imaging: Viewed by Me: Radiology Read. Discussed w/RAD: Radiology Read. CXR Impression: PATIENT: LONDON ALEXANDRA JR PRESENT AGE: 56 PATIENT ACCOUNT NO: [id number] : 60 LOCATION: [facility] ORDERING PHYSICIAN: JUMA WOODALL SERVICE DATE: 03/07/17 EXAM TYPE: RAD - XRY-PORTABLE CHEST XRAY EXAMINATION: XR PORTABLE CHEST CLINICAL INFORMATION: Shortness of breath. Fluid overload. COMPARISON: Chest x-ray dated 02/10/2017. TECHNIQUE: Portable frontal view of the chest was obtained. FINDINGS: The cardiac silhouette remains enlarged. Mediastinal contours are normal. There is a stable small right-sided pleural effusion. Prominence of interstitial markings is again noted, though somewhat improved compared to the prior study. IMPRESSION : No new airspace disease. Unchanged cardiomegaly. Small right-sided pleural effusion is stable. Improvement in degree of interstitial prominence. DICTATED BY: KARINA MARTINEZ MD DATE/TIME DICTATED:03/07/171934 FRICTION WELDING MACHINE OPERATOR: MARIBEL DATE/TIME TRANSCRIBED:03/07/171934 CONFIDENTIAL, DO NOT COPY WITHOUT APPROPRIATE AUTHORIZATION. <Electronically signed in Other Vendor System> SIGNED BY: KARINA MARTINEZ MD 03/07/171940 Initial ED EKG: RAPID ATRIAL FIBRILLATION AT 146 BPM. Prior EKG: changed Comments: On arrival patient in rapid atrial fibrillation with pitting edema and alert she moves as well. Patient will receive IV Cardizem bolus 10 mg. Patient will also receive IV Lasix 40 mg as he takes 20 mg by mouth daily. Patient was recently diagnosed with atrial fibrillation about 1 month ago and was cardioverted into sinus rhythm. Second dose of Cardizem IV 10 mg administered for rapid atrial fibrillation. We will reassess after medication has been given. Second is of Cardizem IV 10 mg unsuccessful to slow down the rate of the rapid A. fib. Patient will be started on a Cardizem drip. Spoke with Dr. Jaramillo regarding this patient. Telemetry monitoring come IV drip starting at 5 and titration up. Spoke with Dr. Villagomez and he agrees with plan. (JUMA VARGAS) Departure Departure Time of Disposition: 2125 Disposition: STILL A PATIENT Condition: Stable Clinical Impression Primary Impression: Rapid atrial fibrillation Secondary Impressions: Acute on chronic congestive heart failure Qualifiers: Congestive heart failure type: unspecified congestive heart failure type Qualified Code: I50.9 - Heart failure, unspecified Anasarca Referrals: Ezequiel JARAMILLO MD (PCP/Family) Departure Forms: Customer Survey General Discharge Information Admission Note Spoke With: Ezequiel JARAMILLO MD Documentation of Exam: Documentation of any treatments & extenuating circumstances including Concerns Regarding Discharge (functional status, medication knowledge or non-compliance, living conditions, etc.) that warrant an admission rather than observation: requiring cardiology consultation, IV Cardizem drip for rapid atrial fibrillation, IV Lasix for anasarca and CHF. Serial CMP to monitor kidney function while on IV Lasix. Telemetry monitoring for rapid atrial fibrillation. Discharge at this time and he medically harmful. Monitoring ins and outs. (JUMA VARGAS) PA/PEN RIDER Co-Sign Statement Statement: ED Attending supervision documentation- [x] I saw and evaluated the patient. I have also reviewed all the pertinent lab results and diagnostic results. I agree with the findings and the plan of care as documented in the PA's/PEN RIDER's documentation. pt signed out to me... I evaluated patient... pt on dilt gtt, stable, doing well. [] I have reviewed the ED Record and agree with the PA's/PEN RIDER's documentation. [] Additions or exceptions (if any) to the PAs/PEN RIDER's note and plan are summarized below: [] (CARL YOO,DIANNE Bonner) Critical Care Note Critical Care Note Critical Care Time: 30-74 min (SAKINA WOODALL,JUMA)
[2017-03-07 19:21] LABS: ABSOLUTE BASOPHIL COUNT 0 /CUMM (0.0-0.2); ABSOLUTE EOSINOPHIL COUNT 0.1 /CUMM (0.0-0.7); ABSOLUTE GRANULOCYTE CT 6.8 /CUMM (1.4-6.5); ABSOLUTE LYMPH COUNT 1.3 /CUMM (1.2-3.4); ABSOLUTE MONOCYTE COUNT 0.7 /CUMM (0.10-0.60); BASOPHIL % 0.3 % (0.0-2.0); EOSINOPHIL % 0.6 % (0-5); GRANULOCYTE % 76.4 % (42.2-75.2); HEMATOCRIT 31.9 % (42-52); MEAN CORPUSCULAR HGB 30.2 PG (27.0-31.0); MEAN CORPUSCULAR HGB CONC 32.7 G/DL (33.0-37.0); MEAN CORPUSCULAR VOLUME 92.4 FL (80.0-94.0); MEAN PLATELET VOLUME 8.9 FL (7.4-10.4); PLATELET COUNT 203 /CUMM (130-400); RED BLOOD CELL CT 3.45 /CUMM (4.70-6.10); WHITE BLOOD CELL COUNT 8.9 /CUMM (4.8-10.8)
[2017-03-07 19:29] LABS: PTT 33 SEC (25-37)
--- NOTE | 2017-03-07 19:41 | RADIOLOGY REPORT ---
EXAMINATION: XR PORTABLE CHEST CLINICAL INFORMATION: Shortness of breath. Fluid overload. COMPARISON: Chest x-ray dated 02/10/2017. TECHNIQUE: Portable frontal view of the chest was obtained. FINDINGS: The cardiac silhouette remains enlarged. Mediastinal contours are normal. There is a stable small right-sided pleural effusion. Prominence of interstitial markings is again noted, though somewhat improved compared to the prior study. IMPRESSION: No new airspace disease. Unchanged cardiomegaly. Small right-sided pleural effusion is stable. Improvement in degree of interstitial prominence.
[2017-03-07] MEDS ORDERED: ACETAMINOPHEN325 M3 PO (21:52)
[2017-03-07] MEDS ORDERED: MILK OF MA400 MG/52 PO (21:52)
--- NOTE | 2017-03-07 22:51 | History & Physical ---
See Addendum YAIR YOO,AVARaya 03/07/17 8790: General Information and HPI MD Statement: I have seen and personally examined LONDON ALEXANDRA JR and documented this H&P. The patient is a 56 year old M who presented with a patient stated chief complaint of [ worsening edema and a. fib]. Source of Information: patient, old records Exam Limitations: no limitations History of Present Illness: This is a 56-year-old male past medical history significant for hypertension, hyperlipidemia, CHF, A. fib with rapid ventricular rate, who comes in for chief complaint of worsening lower extremity edema and atrial fibrillation. On Friday of this week he noticed an increasing shortness of breath when he was ambulating. Additionally he noted worsening lower extremity edema. Symptoms progressed over the next 2 days. Patient had a visiting nurse come in today and upon monitoring of his vitals he was noted to be in atrial fibrillation with rapid ventricular rate. Patient was last seen at [facility] on February 07 for worsening lower extremity edema and atrial fibrillation with rapid ventricular rate. During that admission he was noted to be slightly hypotensive and treated Lasix and sodium restriction for heart failure. For his a.fib he had DEUCE with successful cardioversion. He was discharged to rehabilitation and he finally went home on 02/27/2017. He states that after discharge he did not have any lower extremity edema and he was normal sinus rhythm. Pt states that he has had one more episode of atrial fibrillation about 10 years ago and he had had cardioversion during that time. In the interim 10 years until his admission last month he states he had been in normal sinus rhythm. Patient denies any chest pain, dizziness, headache, or orthopnea. He endorses some shortness of breath and dyspnea on exertion. He also endorses lower extremity edema and some intermittent palpitations. Allergies/Medications Allergies: Coded Allergies: Penicillins (Intermediate, HIVES 02/07/17) Home Med list Acetaminophen 325 MG CAPSULE 2 CAP PO Q4H PRN PAIN/TEMP>101 (Reported) Alprazolam (Xanax) 0.25 MG TABLET 0.5 MG PO BID PRN ANXIETY Carisoprodol 350 MG TABLET 1 TAB PO DAILY MUSCLE RELAXANT (Reported) Furosemide 20 MG TABLET 20 MG PO DAILY WATER PILL Ibuprofen 800 MG TABLET 1 TAB PO BID PRN PAIN (Reported) Magnesium Hydroxide (Milk Of Magnesia) 400 MG/5 ML ORAL.SUSP 30 ML PO DAILY PRN CONSTIPATION (Reported) Magnesium Oxide 400 MG TABLET 400 MG PO BID low mag Melatonin 10 MG TABLET 1 TAB PO DAILY SLEEP HELP Metoprolol Tartrate 50 MG TABLET 1 TAB PO BID HEART HEALTH Mirtazapine 15 MG TABLET 1 TAB PO QPM DEPRESSION Oxycodone HCl 10 MG TABLET 2 TAB PO Q6 PRN pain (Reported) Oxycodone HCl (Oxycontin) 60 MG TAB.ER.12H 1 TAB PO 4 TIMES/DAY PAIN CONTROL (Reported) Polyethylene Glycol 3350 (Miralax) 17 GRAM POWD.PACK 1 PAC PO DAILY PRN CONSTIPATION dissolve in water Rivaroxaban (Xarelto) 10 MG TABLET 20 MG PO 5PM BLOOD THINNER Sennosides (Senna) 8.6 MG TABLET 2 TAB PO BID PRN CONSTIPATION Compliance With Home Meds: GOOD Past History Travel History Traveled to [place] past 21 day No Medical History Neurological: NONE EENT: NONE Cardiovascular: AFIB, hypertension Respiratory: NONE Gastrointestinal: NONE Hepatic: NONE Renal: NONE Musculoskeletal: chronic back pain Psychiatric: chronic pain disorder Endocrine: NONE Blood Disorders: NONE 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 Ambulation: walker IADLs Independent: shopping, housework, finances, food prep, telephone, transportation , medication admin. Review of Systems Review of Systems Constitutional: Denies: chills, diaphoresis, fever, malaise, weakness, unexplained weight loss. EENTM: Denies: blurred vision, visual changes. Cardiovascular: Reports: edema, palpitations, peripheral edema. Denies: chest pain, orthopena, syncope. Respiratory: Reports: short of breath. Denies: hemoptysis, orthopnea, sputum production. GI: Reports: no symptoms. Genitourinary: Reports: no symptoms. Musculoskeletal: Reports: no symptoms. Skin: Reports: no symptoms. Denies: rash. Neurological/Psychological: Reports: no symptoms. Exam & Diagnostic Data Last 24 Hrs of Vital Signs/I&O Vital Signs Date Time Temp Pulse Resp B/P B/P Pulse O2 O2 Flow FiO2 Mean Ox Delivery Rate 03/07 2241 99.2 145 20 128/81 95 Room Air 03/070 97.6 126 20 120/76 95 Room Air 03/070 96 Room Air 03/07 2139 98.7 140 20 109/84 95 Room Air 03/07 2033 98.2 130 20 120/75 03/07 2015 130 20 120/75 99 Room Air 03/07 1941 98.2 137 20 117/69 03/07 1910 98.2 137 20 117/69 96 Room Air Physical Exam General Appearance Alert, Oriented X3, Cooperative, No Acute Distress Skin has both LE wrapped in AVERY wrap. HEENT Atraumatic, PERRLA, EOMI, Mucous Membr. moist/pink Neck Supple, mild JVD elevation Cardiovascular irreg irregular Lungs Normal Air Movement Abdomen slightly tense. no rebound or guarding Neurological Normal Speech, Strength at 5/5 X4 Ext, Normal Tone, Cranial Nerves 3-12 NL Extremities 3+ edema in bilat LE above shins. Has both legs below knee in avery bandage Last 24 Hrs of Labs/Rigoberto: Laboratory Tests 03/07/171913: Anion Gap 12, Estimated GFR > 60, BUN/Creatinine Ratio 28.8 H, Glucose 86, Calcium 8.6, Total Bilirubin 0.6, AST 51, ALT 61, Alkaline Phosphatase 102, Troponin I < 0.01, [id number] Pept 4990 H, Total Protein 6.9, Albumin 3.8, Globulin 3.1, Albumin/Globulin Ratio 1.2, PT 15.0 H, INR 1.43 H, APTT 33, CBC w Diff NO MAN DIFF REQ, RBC 3.45 L, MCV 92.4, MCH 30.2, RDW 16.0 H, MPV 8.9, Gran % 76.4 H, Lymphocytes % 14.6 L, Monocytes % 8.1, Eosinophils % 0.6, Basophils % 0.3, Absolute Granulocytes 6.8 H, Absolute Lymphocytes 1.3, Absolute Monocytes 0.7 H, Absolute Eosinophils 0.1, Absolute Basophils 0, PUBS MCHC 32.7 L Assessment/Plan Assessment: This is a 56 are old male past medical history significant for A. fib with RVR and heart failure, hypertension, hyperlipidemia, tobacco use, comes in for chief complaint of worsening lower extreme edema and A. fib with RVR. ED workup shows: Vitals: 98.2, 137, 20, 117/69, 96. CBC shows: White count 8.9, hemoglobin 10.4, hematocrit 31.9, platelet 203. BEP shows sodium 132, BUN 23, creatinine 0.8 Chest x-ray: Small stable pleural effusion. No new changes. EKG: Is irregularly irregular, rate 146. QTc 443. Plan A. fib with rapid ventricular rate: Patient was seen for this same problem in February 2017. At that time he received DEUCE with successful cardioversion. Patient has had one other episode of atrial fibrillation and cardioversion around 10 years ago. Since last month he has been on Xarelto daily. CHADS2 vasc of 2. * Control heart rate with IV diltiazem. Titrate as necessary * Continue Xarelto * Continue home dose of metoprolol tartrate 50 mg twice a day * Cardiology consult with Dr. Nunez Heart failure with reduced ejection fraction: Echocardiogram done on 02/12/2017 shows EF 30-35% with left ventricular dilation, moderate right ventricular dilation, moderate right atrial dilation, moderate left atrial dilation. Small PFO present. BNP at 4990. On February 06, last admission, was at 3890. Patient's weight on 02/14/2017, on day of last discharge, was 214 pounds. Unclear if pt is on AVERY/ARB for HF. The current list he gave us does not have the medication; apparently recently d/c'd recently...Follow up with pharmacy in AM regarding pt' s regimen. * IV Lasix 40 mg twice a day * Elevate Legs * Low-salt diet * Compression stockings * Heart failure medical optimization Chronic pain and muscle spasm: * Continue oxycodone * Continue OxyContin * Continue Soma * Continue ibuprofen Hypothyroidism: Pt not on any medication. Labs on previous admission show subclinical hypothyroidism. * Re-check TFT Full code Chemical DVT prophylaxis Low-sodium diet As Ranked By This Provider Problem List: 1. ATRIAL FIBRILATION 2. Acute on chronic congestive heart failure Qualifiers Congestive heart failure type: unspecified congestive heart failure type Qualified Code: I50.9 - Heart failure, unspecified 3. Rapid atrial fibrillation Core Measures/Miscellaneous Acute Coronary Syndrome ACS Diagnosis: No Cerebrovascular Accident CVA/TIA Diagnosis: No Congestive Heart Failure CHF Diagnosis: Yes Date of most recent Echo: 02/12/17 Last Known EF %: 35 AVERY/ARB for EF <40%: No No AVERY/ARB d/t: Medical Contraindication Venous Thromboembolism VTE Risk Factors: Acute medical illness, Age > 40 No [facility] V[facility] prophylaxis d/t: No contraindications No VTE Pharm Prophylaxis d/t: No contraindications VTE Diagnosis: No VTE Type: NONE VTE Confirmed by (Test): NONE Severe Sepsis Severe Sepsis Present: No Septic Shock Septic Shock Present: No Miscellaneous Documentation Attending Case Discussed With: Ezequiel NUNEZ MD Primary Care Physician: Ezequiel NUNEZ MD Patient sees these Specialists unknonw Level of Patient Care: Telemetry RODRIGUEZ YOO,AISLINN 03/07/17 2306: Resident Review Statement Resident Statement: examined this patient, discussed with underwriting internship, agreed with underwriting internship Other Findings: 56-year-old man with past medical history significant for hyperlipidemia, hypertension, congestive heart failure, atrial fibrillation with rapid ventricular rate came to emergency department with chief complaint of increasing bilateral lower extremity swelling, shortness of breath on exertion and some palpitations noticed for the last 3-4 days. Patient in emergency department afebrile, tachycardic heart rate ranging from 137-140, no tachypnea, systolic pressure ranging from 109-120 and diastolic 75- 84, oxygen saturation of 95-99% on room air. Patient is alert and oriented not in any acute distress, active GI in the bed. Lower extremities are covered with pressure bandages. S1 and S2 audible without any murmurs, decreased air entry bilateral lower lung bases with some rales, 2-3 + bilateral lower extremity edema, wounds covered with dressing, grossly intact neurological examination. Labs significant for chronic anemia, no leukocytosis, no significant electrolyte abnormality. ProBNP 4990. INR 1.43. Chest x-ray showed no new airspace disease. Last echo showed ejection fraction of 30-35%. EKG showed heart rate of 140, left axis deviation, atrial fibrillation. Patient was admitted on telemetry floor for the management of following problems Atrial fibrillation with RVR Most likely cause ? CHF ( High BNP ) vs ACS (Negative Troponins and No ST changes on EKG) VS vs ? Hyperthyroidism Current [id number] score 2, Stroke risk was 2.2% per year - Admit to Telemetry - Vitals Q shift - Repeat EKG - Adjust cardizem drip and Lopressor dose as per HR, Hold if less than 60. - Patient is currently on Xarelto for anticoagulation - Monitor HR and Rhythm -Patient had a recent echo on 02-26 which showed ejection fraction of 30-35% -Free T4 and TSH to rule out thyroid abnormalities CHF exacerbation -Most likely acute CHF exacerbation vs OR vs non compliance with medications -No acute EKG ST changes and negative troponin < 0.01. - Hemodynamically stable, 2-3+ve B/L Lowr extremity edema - Admit to telemetry - Vitals q Shift - Monitor I/O - Daily weight - Cardio consult - Last Echo was done in - ? AVERY-1 or ARB - Give Furosemide 40mg IV BID - Continue Metoprololo 50 mg PO Daily, - ASA 81 mg Po daily. - Give dinner (Heart Healthy Diet) Patient is on Xarelto for DVT prophylaxis Patient is on heart healthy diet Patient is full code Patient is on pain pathway and medications from his reconcile meds. MAYRA YOO,SABINO Ferreira 03/08/17 1423: Attending MD Review Statement Attending Statement Attending MD Statement: examined this patient, discuss w/resident/PA/JUICE SCALEMAN, agreed w/resident/PA/JUICE SCALEMAN, discussed with family, reviewed EMR data (avail), discussed with nursing, discussed with case mgmt, reviewed images, amended to note Attending Assessment/Plan: Attending addendum: The patient is a 56 role male well-known to me. I have examined the patient and discussed the case with the patient and with the house staff. I agree with the plan as outlined above. Recommendations: -Admit the patient to telemetry monitoring -Continue IV Cardizem for now in addition to the patient's metoprolol. -If there is issues with the patient's heart rate, increase metoprolol to 75 mg twice a day -Follow-up limited echocardiogram to reassess LV function. -Hold diuretics for now due to borderline blood pressure -Continue pain medication regimen -We can reassess the patient's status in 24 hours. Clearly, the patient does not tolerate the atrial fibrillation and tends to retain fluid and his left ventricular systolic function does tend to deteriorate when in atrial fibrillation. -Ultimately, I would like to cardiovert the patient again, however, we will likely need to change his medical regimen prior to that time in the hopes of maintaining sinus rhythm. -In addition, I will have the patient seen and evaluated by electrophysiology as an outpatient for consideration for possible ablation.
[2017-03-07 23:45] VITALS: BP 118/88
--- NOTE | 2017-03-08 05:21 | PN- Housestaff ---
Subjective Follow-up For: Atrial fibrillation with RVR CHF exacerbation Complaints: Bilateral lower extremity edema Tele-Events Since Last Visit: Afib, 68-157 HR Subjective: Pateint is doing the same as before No acute shortness of breath or chest pain overnight. Review of Systems Constitutional: Denies: chills, fever. Cardiovascular: Denies: chest pain, palpitations. Respiratory: Denies: cough, short of breath. Gastrointestinal: Reports: bloating, distention. Genitourinary: Denies: dysuria, hematuria. Objective Last 24 Hrs of Vital Signs/I&O Vital Signs Date Time Temp Pulse Resp B/P B/P Pulse O2 O2 Flow FiO2 Mean Ox Delivery Rate 03/08 0000 Room Air 03/08 0000 Room Air 03/07 2356 160 118/88 03/07 2345 98.2 160 18 118/88 95 03/07 2241 99.2 145 20 128/81 95 Room Air 03/07 2210 97.6 126 20 120/76 95 Room Air 03/070 96 Room Air 03/079 98.7 140 20 109/84 95 Room Air 03/07 2033 98.2 130 20 120/75 03/07 2015 130 20 120/75 99 Room Air 03/07 1941 98.2 137 20 117/69 03/07 1910 98.2 137 20 117/69 96 Room Air Intake & Output 03/08 0800 03/08 0000 03/07 1600 Intake Total Output Total 1600 Balance -1600 Output, Urine 1600 Patient 2210 lb Weight Physical Exam General Appearance: Alert, Oriented X3, Cooperative, No Acute Distress Neck: Mild JVD elevation Cardiovascular: Regular Rate, Normal S1, Normal S2 Abdomen: Soft, No Tenderness, Mildy distended Neurological: Normal Gait, Normal Tone, Sensation Intact Extremities: No Clubbing, 2-3+ BILATERAL LOWER EXTREMITY EDEMA, lower extremity wounds covered with dressing b/l Current Medications: Current Medications Sig/Cinthia Start time Last Medication Dose Route Stop Time Status Admin Acetaminophen 650 MG Q4P PRN 03/07 2315 AC PO Carisoprodol 350 MG ONCE ONE 03/08 0030 DC 03/08 PO 03/08 003 0028 Diltiazem HCl 0 .STK-MED ONE 03/07 2126 DC IV Diltiazem HCl 125 MG Q24H 03/07 2030 AC 03/07 Sodium Chloride 100 ML IV 2144 Diltiazem HCl 10 MG ONCE ONE 03/07 2015 DC 03/07 IV 03/07 Diltiazem HCl 0 .STK-MED ONE 03/07 1939 DC .ROUTE Diltiazem HCl 10 MG ONCE ONE 03/07 1930 DC 03/07 IV 03/07 Furosemide 40 MG 7:30 AM, & 4:30 PM 03/08 730 AC IV Furosemide 0 .STK-MED ONE 03/07 1940 DC IV Furosemide 40 MG ONCE ONE 03/07 1915 DC 03/07 IV 03/07 Ibuprofen 800 MG BID 03/08 0024 AC 03/08 PO 0029 Magnesium Hydroxide 30 ML DAILY PRN 03/07 2315 AC PO Magnesium Oxide 400 MG BID 03/08 1000 AC PO Melatonin 10 MG AT BEDTIME 03/08 2200 DC PO Melatonin 10 MG AT BEDTIME 03/08 0030 AC 03/08 PO 0029 Metoprolol Tartrate 50 MG BID 03/07 2359 AC 03/07 PO 2356 Mirtazapine 15 MG QPM 03/08 2200 DC PO Mirtazapine 15 MG QPM 03/08 0100 AC 03/08 PO 0118 Oxycodone HCl 60 MG Q4P PRN 03/07 2330 AC 03/07 PO 2359 Oxycodone HCl 20 MG Q6 PRN 03/07 233 AC 03/07 PO 2359 Polyethylene Glycol 17 GM DAILY 03/08 1000 AC PO Rivaroxaban 20 MG 5PM 03/07 2330 AC 03/08 PO 0117 Senna/Docusate Sodium 2 TAB DAILY PRN 03/07 2315 AC PO Last 24 Hrs of Lab/Rigoberto Results Last 24 Hrs of Labs/Mics: Laboratory Tests 03/08/17 0340: Troponin I < 0.01 03/07/171913: Anion Gap 12, Estimated GFR > 60, BUN/Creatinine Ratio 28.8 H, Glucose 86, Calcium 8.6, Total Bilirubin 0.6, AST 51, ALT 61, Alkaline Phosphatase 102, Troponin I < 0.01, [id number] Pept 4990 H, Total Protein 6.9, Albumin 3.8, Globulin 3.1, Albumin/Globulin Ratio 1.2, TSH 2.480, Free T4 1.52, PT 15.0 H, INR 1.43 H, APTT 33, CBC w Diff NO MAN DIFF REQ, RBC 3.45 L, MCV 92.4, MCH 30.2, RDW 16.0 H, MPV 8.9, Gran % 76.4 H, Lymphocytes % 14.6 L, Monocytes % 8.1, Eosinophils % 0.6, Basophils % 0.3, Absolute Granulocytes 6.8 H, Absolute Lymphocytes 1.3, Absolute Monocytes 0.7 H, Absolute Eosinophils 0.1, Absolute Basophils 0, PUBS MCHC 32.7 L Lines/Diet/Fluids Fluids/Infusions: none Lines: peripheral lines Restraints: none Assessment/Plan Assessment: 56-year-old man with past medical history significant for hyperlipidemia, hypertension, congestive heart failure, atrial fibrillation with rapid ventricular rate came to emergency department with chief complaint of increasing bilateral lower extremity swelling, shortness of breath on exertion and some palpitations noticed for the last 3-4 days. Atrial fibrillation with RVR Most likely cause ? CHF ( High BNP ) vs ACS (Negative Troponins and No ST changes on EKG) VS vs ? Hyperthyroidism -Current [id number] score 2, Stroke risk was 2.2% per year -Adjust cardizem drip @ 10 and Lopressor dose as per HR, Hold if less than 60. -Patient is currently on Xarelto for anticoagulation -Recent echo on 02/26 which showed ejection fraction of 30-35% -Free T4 and TSH to rule out thyroid abnormalities CHF exacerbation -Most likely acute CHF exacerbation vs AL vs possible non compliance with medications -No acute EKG ST changes and negative troponin < 0.01 X 2 - Hemodynamically stable, 2-3+ve B/L Lowr extremity edema - ? Ask cardio for AVERY-1 or ARB - Continue Furosemide 40mg IV BID - Continue Metoprololo 50 mg PO Daily, - ASA 81 mg Po daily Patient is on Xarelto for DVT prophylaxis Patient is on heart healthy diet Patient is full code Patient is on pain pathway and medications from his reconcile med Problem List: 1. ATRIAL FIBRILATION 2. Acute on chronic congestive heart failure Pain Ratin Pain Location: BACK Pain Goal: Pain 4 or less Pain Plan: PAIN PATHWAY [facility] Labs & Rationales: YES, BEP for IV Lasix DVT/Prophylaxis: pharmacological Discharge Plan Discharge Disposition: home PAIN PATHWAY [facility] Labs & Rationales: YES, BEP for IV Lasix DVT/Prophylaxis: pharmacological Discharge Plan Discharge Disposition: home
[2017-03-08 08:26] VITALS: BP 90/64
[2017-03-08 11:35] VITALS: BP 102/64
[2017-03-08 16:05] VITALS: BP 127/73
[2017-03-09 01:13] VITALS: BP 122/74
[2017-03-09 08:28] VITALS: BP 116/80
--- NOTE | 2017-03-09 09:28 | PN- Housestaff ---
DIA YOO,DACIA 03/09/17927: Subjective Follow-up For: Atrial fibrillation with RVR CHF exacerbation Tele-Events Since Last Visit: Afib, HR 80-117 Subjective: Patient seen and examined. He is sitting in bed in mild distress due to the chronic back pain, waiting for his scheduled pain meds. Otherwise he feels improved overall compared to yesterday. Reports less swelling in legs. Denies any headache, chest discomfort, palpitations, dypsnea, lightheadedness, dizziness, abdominal pain, n/v/c/d. No events reported overnight. Review of Systems Constitutional: Reports: see HPI. Objective Last 24 Hrs of Vital Signs/I&O Vital Signs Date Time Temp Pulse Resp B/P B/P Pulse O2 O2 Flow FiO2 Mean Ox Delivery Rate 03/09 828 97.7 71 20 116/80 95 Room Air 03/09 0113 98.4 78 16 122/74 94 Room Air 03/08 1605 98.2 88 16 127/73 94 Room Air 03/08 1242 117 102/64 03/08 1135 109 102/64 Intake & Output 03/09 1600 03/09 0800 03/09 0000 Intake Total 330 Output Total Balance 330 Intake, IV 30 Intake, Oral 300 Patient 102.512 kg Weight Weight Standing Scale Measurement Method Physical Exam General Appearance: Alert, Oriented X3, Cooperative, Mild Distress Other Physical Findings: Neck: Mild JVD elevation Cardiovascular: Regular Rate, Normal S1, Normal S2 Abdomen: Soft, No Tenderness, Mildy distended Neurological: Normal Gait, Normal Tone, Sensation Intact Extremities: No Clubbing, 1+ BILATERAL LOWER EXTREMITY EDEMA, lower extremity wounds covered with dressing b/l Current Medications: Current Medications Sig/Cinthia Start time Last Medication Dose Route Stop Time Status Admin Acetaminophen 650 MG Q4P PRN 03/075 AC PO Diltiazem HCl 125 MG Q24H 03/07 2030 03/07 Sodium Chloride 100 ML IV 2145 Furosemide 40 MG 7:30 AM, & 4:30 PM 03/08 0730 DC 03/08 IV 0855 Ibuprofen 800 MG BID 03/08 0024 AC 03/09 PO 0932 Magnesium Hydroxide 30 ML DAILY PRN 03/07 2315 AC PO Magnesium Oxide 400 MG BID 03/08 1000 AC 03/09 PO 0932 Melatonin 10 MG AT BEDTIME 03/08 0030 AC 03/08 PO 0029 Metoprolol Tartrate 50 MG BID 03/07 2359 AC 03/09 PO 0932 Mirtazapine 15 MG QPM 03/08 0100 AC 03/08 PO 0118 Oxycodone HCl 20 MG Q5 PRN 03/08 1329 AC 03/09 PO 1039 Oxycodone HCl 60 MG Q4P PRN 03/07 2330 AC 03/09 PO 1039 Oxycodone HCl 20 MG Q6 PRN 03/07 2330 DC 03/08 PO 1241 Polyethylene Glycol 17 GM DAILY 03/08 1000 AC 03/08 PO 0859 Potassium Chloride 40 MEQ ONCE ONE 03/08 1600 DC 03/08 PO 03/08 1601 1749 Rivaroxaban 20 MG AT BEDTIME 03/08 2200 AC PO Rivaroxaban 20 MG 5PM 03/07 2330 DC 03/08 PO 0117 Senna/Docusate Sodium 2 TAB DAILY PRN 03/07 2315 AC PO Assessment/Plan Assessment: 56-year-old man with past medical history significant for hyperlipidemia, hypertension, congestive heart failure, atrial fibrillation with rapid ventricular rate came to emergency department with chief complaint of increasing bilateral lower extremity swelling, shortness of breath on exertion and some palpitations noticed for the last 3-4 days. # Atrial fibrillation with RVR Most likely cause ? CHF ( High BNP ) vs ACS (Negative Troponins and No ST changes on EKG) VS vs ? Hyperthyroidism. Current [id number] score 2, Stroke risk was 2.2% per year. Recent echo on 02/26 showed ejection fraction of 30-35% -Start amiodarone 400mg PO BID -Taper off cardizem drip -Cont Xarelto for anticoagulation -Free T4 and TSH - WNL # CHF exacerbation Most likely acute CHF exacerbation vs UT vs possible non compliance with medications. No acute EKG ST changes and negative troponin < 0.01 X 2 - Remains hemodynamically stable with improvement in bilateral lower extremity edema - Decrease Furosemide to 40mg IV daily as patient's BP tends to drop and his creatinine is slightly elevated - Continue Metoprololo 50 mg PO Daily, - ASA 81 mg Po daily Patient is on Xarelto for DVT prophylaxis Patient is on heart healthy diet Patient is full code Patient is on pain pathway and medications from his reconcile med Problem List: 1. ATRIAL FIBRILATION 2. Benign essential hypertension 3. Chronic back pain 4. Obesity 5. Tobacco user 6. Acute on chronic congestive heart failure 7. Rapid atrial fibrillation 8. Persistent depressive disorder 9. Chronic venous insufficiency Pain Ratin Pain Location: Back Pain Goal: Pain 4 or less Pain Plan: Moderate pathway Tomorrow's Labs & Rationales: CBC, BEP, Mg MAYRA YOO,SABINO Jhon 03/09/17 1349: Attending MD Review Statement Attending Statement Attending MD Statement: examined this patient, discuss w/resident/PA/BROADCAST MAINTENANCE ENGINEER, agreed w/resident/PA/BROADCAST MAINTENANCE ENGINEER, discussed with family, reviewed EMR data (avail), discussed with nursing, discussed with case mgmt, reviewed images, amended to note Attending Assessment/Plan: Attending addendum: The patient appears to be doing about the same. He remains in atrial fibrillation. He has had no significant change in his clinical status. His ventricular rate, however, is better controlled although intermittently elevated. I had an extended discussion about the situation with the patient. For now, I believe that he will need a repeat attempt at cardioversion. However , prior to that time we will need to institute some other medication in the hopes of preventing recurrent atrial fibrillation post cardioversion. Recommendations: -Await echocardiogram -Add amiodarone 400 mg twice a day for 7 days, then decrease to 200 mg twice a day 7 days, then decrease to 200 mg daily. -As amiodarone is added to the patient's system, titrate the IV Cardizem drip in the hopes of eliminating the Cardizem. -Continue metoprolol for now -Depending on the patient's course over the next 48 hours, possible plans for cardioversion later this week. -The patient will also be seen by Dr. Pedro James as an outpatient for electrophysiology evaluation and consideration for possible ablation electrophysiology evaluation and consideration for possible ablation
--- NOTE | 2017-03-09 15:20 | ECHOCARDIOGRAM REPORT ---
LONDON ALEXANDRA Age: 56 : 1960 Gender: M Exam Date: 03/09/2017 11:27 Exam Location: 1 [address] Ht (in): 72 Wt (lb): 226 BSA: 2.31 BP: 122 / 74 Ordering Physician: RHINA PAREDES MD Referring Physician: Sarah Sow MD Technologist: Kimberli Leslie [facility] Room Number: [id number] Indications: AFIB/FLUTTER Rhythm: Atrial fibrillation Technical Quality: Good FINDINGS Left Ventricle Mild left ventricular dilatation. Mildly reduced global left ventricular systolic function. Mildly abnormal left ventricular ejection fraction estimated at 35-40%. Right Ventricle Mild right ventricular dilatation. Right Atrium Mild to moderate right atrial dilatation. Left Atrium Moderate to severe left atrial dilatation. Mitral Valve Mitral valve thickened. Moderate mitral regurgitation. Posteriorly directed mitral regurgitation jet. Aortic Valve Trileaflet aortic valve. Focal thickening of the aortic valve cusps. No aortic regurgitation. No aortic stenosis. Tricuspid Valve Tricuspid valve not well visualized, grossly normal. Moderate tricuspid regurgitation. Right ventricular systolic pressure estimated to be elevated at 50 mmHg. Pulmonic Valve Pulmonic valve not well visualized, grossly normal. Pericardium No pericardial effusion. Great Vessels Aortic root and proximal ascending aorta not well visualized, grossly normal. CONCLUSIONS 1. Minimal aortic sclerosis is present with no valvualr stenosis or insufficiency. 2. Mitral leaflet thickening is present with moderate eccentric mitral insufficiency and moderate to severe left atrial enlargement. 3. There is no significant pericardial fluid present. 4. The left ventricular chamber is minimally dilated with global hypokinesia and an ejection fraction of 35-40%. 5. Mild enlargement of the right heart chambers is present with moderate tricuspid insufficiency and pulmonary hypertension wtih an estimated RV systolic pressure of 50 mmHg 6. There is evidence of elevated left atrial pressure. Sarah Sow M.D. (Electronically Signed) Final Date: 09 Mar 2017 15:19 MEASUREMENTS (Male / Female) Normal Values 2D ECHO LV Diastolic Diameter PLAX 5.7 cm 4.2 - 5.9 / 3.9 - 5.3 cm LV Systolic Diameter PLAX 4.5 cm 2.1 - 4.0 cm LV Fractional Shortening PLAX 21.1 % 25 - 46 % LV Ejection Fraction 2D Teich 42.2 % IVS Diastolic Thickness 0.8 cm LVPW Diastolic Thickness 0.8 cm LV Relative Wall Thickness 0.3 RV Internal Dim ED PLAX 4.6 cm 1.9 - 3.8 cm DOPPLER TR Peak Velocity 321.0 cm/s TR Peak Gradient 41.2 mmHg Right Atrial Pressure 10.0 mmHg Pulmonary Artery Systolic Pressu 51.2 mmHg Right Ventricular Systolic Press 51.2 mmHg
[2017-03-09 15:53] VITALS: BP 116/84
[2017-03-09 22:00] VITALS: BP 100/70
[2017-03-10 08:07] LABS: ABSOLUTE BASOPHIL COUNT 0 /CUMM (0.0-0.2); ABSOLUTE EOSINOPHIL COUNT 0.2 /CUMM (0.0-0.7); ABSOLUTE MONOCYTE COUNT 0.8 /CUMM (0.10-0.60); BASOPHIL % 0.5 % (0.0-2.0); EOSINOPHIL % 2.3 % (0-5); GRANULOCYTE % 66.7 % (42.2-75.2); HEMATOCRIT 32.9 % (42-52); MEAN CORPUSCULAR HGB 30.1 PG (27.0-31.0); MEAN CORPUSCULAR HGB CONC 32.4 G/DL (33.0-37.0); MEAN CORPUSCULAR VOLUME 92.9 FL (80.0-94.0); MEAN PLATELET VOLUME 9.4 FL (7.4-10.4); PLATELET COUNT 217 /CUMM (130-400); RBC DISTRIBUTION WIDTH 16.4 % (11.5-14.5); RED BLOOD CELL CT 3.54 /CUMM (4.70-6.10)
--- NOTE | 2017-03-10 08:26 | PN- Housestaff ---
See Addendum Subjective Follow-up For: Atrial fibrillation with RVR CHF exacerbation Tele-Events Since Last Visit: Atrial fibrillation, 73-114, some PVCs Subjective: Afebrile, heart rate in the 90s, stable blood pressure, and saturating well on room air. Patient reported multiple similar for bowel movement immediately after he was started on magnesium. He denies abdominal pain, nausea, or vomiting. He denies any recent use of antibiotic. Patient denies any other current active complaints Review of Systems Constitutional: Reports: no symptoms. Objective Last 24 Hrs of Vital Signs/I&O Vital Signs Date Time Temp Pulse Resp B/P B/P Pulse O2 O2 Flow FiO2 Mean Ox Delivery Rate 03/10 1009 95 112/78 03/10 1008 95 11278 03/10 0841 99.0 95 18 11278 94 Room Air 03/10 0800 Room Air 03/09 2200 98.1 96 20 100/70 95 Room Air 03/09 2145 96 100/60 03/09 1553 98.3 70 18 116/84 95 Intake & Output 03/10 1600 03/10 0800 03/10 0000 Intake Total 1199 100 200 Output Total 1200 Balance -1 100 200 Intake, IV 44 Intake, Oral 1155 100 200 Number 3 Bowel Movements Output, Urine 1200 Physical Exam General Appearance: Alert, Oriented X3, Cooperative, No Acute Distress HEENT: Atraumatic, PERRLA, EOMI, Mucous Membr. moist/pink Cardiovascular: Normal S1, Normal S2, No Murmurs, irregular Lungs: Clear to Auscultation, Normal Air Movement Abdomen: Normal Bowel Sounds, Soft, No Tenderness Neurological: Normal Speech, Strength at 5/5 X4 Ext Extremities: No Clubbing, No Cyanosis, No Edema Current Medications: Current Medications Sig/Cinthia Start time Last Medication Dose Route Stop Time Status Admin Acetaminophen 650 MG Q4P PRN 03/07 2315 AC PO Amiodarone HCl 400 MG BID 03/09 1302 AC 03/10 PO 1009 Diltiazem HCl 125 MG Q24H 03/07 2030 03/10 Sodium Chloride 100 ML IV 0120 Diphenoxylate HCl/ 2.5 MG BID 03/10 1138 AC 03/10 Atropine PO 1234 Furosemide 40 MG DAILY 03/09 1444 AC 03/10 IV 1010 Ibuprofen 800 MG BID 03/08 0024 AC 03/10 PO 1009 Magnesium Hydroxide 30 ML DAILY PRN 03/07 2315 AC PO Magnesium Oxide 400 MG BID 03/08 1000 AC 03/09 PO 2140 Melatonin 10 MG AT BEDTIME 03/08 0030 AC 03/09 PO 214 Metoprolol Tartrate 50 MG BID 03/07 2359 AC 03/10 PO 1008 Mirtazapine 15 MG QPM 03/08 0100 AC 03/09 PO 2139 Oxycodone HCl 20 MG Q5 PRN 03/08 1329 AC 03/10 PO 1258 Oxycodone HCl 60 MG Q4P PRN 03/07 2330 AC 03/10 PO 1258 Polyethylene Glycol 17 GM DAILY 03/08 1000 AC 03/08 PO 0859 Rivaroxaban 20 MG AT BEDTIME 03/08 2200 AC 03/09 PO 2141 Senna/Docusate Sodium 2 TAB DAILY PRN 03/07 2315 AC PO Last 24 Hrs of Lab/Rigoberto Results Last 24 Hrs of Labs/Mics: Laboratory Tests 03/10/17 0650: CBC w Diff NO MAN DIFF REQ, RBC 3.54 L, MCV 92.9, MCH 30.1, RDW 16.4 H, MPV 9.4, Gran % 66.7, Lymphocytes % 21.8, Monocytes % 8.7, Eosinophils % 2.3, Basophils % 0.5, Absolute Granulocytes 6.0, Absolute Lymphocytes 2.0, Absolute Monocytes 0.8 H, Absolute Eosinophils 0.2, Absolute Basophils 0, PUBS MCHC 32.4 L Assessment/Plan Assessment: 56-year-old man with past medical history significant for hyperlipidemia, hypertension, congestive heart failure, atrial fibrillation with rapid ventricular rate came to emergency department with chief complaint of increasing bilateral lower extremity swelling, shortness of breath on exertion and some palpitations noticed for the last 3-4 days. # Atrial fibrillation with RVR * Continue amiodarone 400mg PO BID * We will follow cardiology in regard of switching cardizem from drip to PO * Continue Xarelto for anticoagulation * Free T4 and TSH - WNL # CHF exacerbation * Remains hemodynamically stable with improvement in bilateral lower extremity edema * Continue Furosemide 40mg IV daily, monitor as patient's BP tends to drop and his creatinine is slightly elevated * Continue Metoprololo 50 mg PO Daily, * Continue ASA 81 mg Po daily #Diarrhea caused by magnesium * Patient has a benign Physical Exam. His symptoms started after he was given magnesium. * Patient denies nausea, fever, vomiting, OR abdominal pain. * She will be given Lomotil 2.5 mg BID PRN Patient is on Xarelto for DVT prophylaxis Patient is on heart healthy diet Patient is full code Problem List: 1. ATRIAL FIBRILATION Pain Ratin Pain Location: NA Pain Goal: Remain pain free Pain Plan: See A&P Tomorrow's Labs & Rationales: bep and mag
[2017-03-10 08:41] VITALS: BP 112/78
[2017-03-10 15:54] VITALS: BP 110/70
[2017-03-10 18:08] VITALS: BP 128/86
[2017-03-10 22:32] VITALS: BP 112/80
--- NOTE | 2017-03-11 08:08 | PN- Housestaff ---
HERBERT YOO,CLEM 03/11/17 0808: Subjective Follow-up For: Bibiana zhang with RVR Tele-Events Since Last Visit: Overnight telemetry: Bibiana zhang with heart rates of 73-86. Subjective: Patient seen while walking around the hallway. Was then examined at bedside in his room, he still endorses his chronic pain, he denies any complaints of chest pain, increased shortness of breath, fever, chills, nausea, vomiting. He is noted to have an increased heart rate today in the morning with intermittent bursts of 130s (current cardizem drip is 2.5). However no acute overnight event reported these overnight heart rate being around 73-86. Review of Systems Constitutional: Reports: no symptoms. Objective Last 24 Hrs of Vital Signs/I&O Vital Signs Date Time Temp Pulse Resp B/P B/P Pulse O2 O2 Flow FiO2 Mean Ox Delivery Rate 03/11 1113 104 102/66 03/11 0912 118 112/68 03/11 0911 118 112/68 03/11 0818 98.2 98 18 110/78 97 Room Air 03/10 2232 97.9 148 18 112/80 94 Room Air 03/10 2124 4.0 03/10 212 145 112/80 03/10 2124 145 112/80 03/10 1808 134 128/86 94 Room Air 03/10 1554 97.8 114 18 110/70 95 Room Air Intake & Output 03/11 1600 03/11 0800 03/11 0000 Intake Total 1155 Output Total 300 Balance 855 Intake, IV 10 Intake, Oral 1145 Number 1 Bowel Movements Output, Urine 300 Physical Exam General Appearance: Alert, Oriented X3, Cooperative Other Physical Findings: HEENT: Atraumatic, PERRLA, EOMI, Mucous Membr. moist/pink Cardiovascular: Normal S1, Normal S2, No Murmurs, irregular Lungs: Clear to Auscultation, Normal Air Movement Abdomen: Normal Bowel Sounds, Soft, No Tenderness Neurological: Normal Speech, Strength at 5/5 X4 Ext Extremities: No Clubbing, No Cyanosis, No Edema Current Medications: Current Medications Sig/Cinthia Start time Last Medication Dose Route Stop Time Status Admin Acetaminophen 650 MG Q4P PRN 03/07 2315 AC PO Amiodarone HCl 400 MG BID 03/09 1302 AC 03/11 PO 0911 Diltiazem HCl 125 MG Q24H 03/07 2030 AC 03/10 Sodium Chloride 100 ML IV 0120 Diphenoxylate HCl/ 2.5 MG BID 03/10 1138 AC 03/11 Atropine PO 0919 Furosemide 40 MG DAILY 03/09 1444 AC 03/11 IV 0911 Ibuprofen 800 MG BID 03/08 0024 AC 03/11 PO 0912 Magnesium Hydroxide 30 ML DAILY PRN 03/07 2315 AC PO Magnesium Oxide 400 MG BID 03/08 1000 AC 03/10 PO 2121 Melatonin 10 MG AT BEDTIME 03/08 0030 AC 03/10 PO 2123 Metoprolol Tartrate 75 MG BID 03/11 1000 AC 03/11 PO 1153 Metoprolol Tartrate 50 MG BID 03/07 2359 DC 03/11 PO 0912 Mirtazapine 15 MG QPM 03/08 0100 AC 03/10 PO 2123 Oxycodone HCl 20 MG Q5 PRN 03/08 1329 AC 03/11 PO 0912 Oxycodone HCl 60 MG Q4P PRN 03/07 2330 AC 03/11 PO 0912 Polyethylene Glycol 17 GM DAILY 03/08 1000 AC 03/08 PO 0859 Rivaroxaban 20 MG AT BEDTIME 03/08 2200 AC 03/10 PO 2123 Senna/Docusate Sodium 2 TAB DAILY PRN 03/07 2315 AC PO Assessment/Plan Assessment: 56-year-old man with past medical history significant for hyperlipidemia, hypertension, congestive heart failure, atrial fibrillation with rapid ventricular rate came to emergency department with chief complaint of increasing bilateral lower extremity swelling, shortness of breath on exertion and some palpitations noticed for the last 3-4 days. # Atrial fibrillation with RVR: Morning rates averaging 110s with intermittent bursts of 130s. Cardizem drip is a 2.5mg/hr, will increase metoprolol from 50 [place] twice a day to 75 twice a day (current BP allows)/ * Continue amiodarone 400mg PO BID * Continue Xarelto for anticoagulation * Free T4 and TSH - WNL # CHF exacerbation * Remains hemodynamically stable with improvement in bilateral lower extremity edema * Will hold off furosemide for today as patient's systolic blood pressure is around 102 and his rapid heart rate required a titration of his metoprolol and possibly Cardizem. * Continue Metoprololo 50 mg PO Daily, * Continue ASA 81 mg Po daily #Diarrhea caused by magnesium * Patient has a benign Physical Exam. His symptoms started after he was given magnesium. * Patient denies nausea, fever, vomiting, OR abdominal pain. * Lomotil 2.5 mg BID PRN Patient is on Xarelto for DVT prophylaxis Patient is on heart healthy diet Patient is full code Problem List: 1. ATRIAL FIBRILATION Pain Ratin Pain Location: musculoskeletal Pain Goal: Pain 4 or less Pain Plan: oxcycontin and oxycodone Tomorrow's Labs & Rationales: BEP-a/fib --electrolytes Magnesium--afib HARESH MENDOZA MD 03/11/17 1150: Attending MD Review Statement Attending Statement Attending MD Statement: examined this patient, discuss w/resident/PA/PROVIDER SERVICE REPRESENTATIVE, agreed w/resident/PA/PROVIDER SERVICE REPRESENTATIVE, discussed with family, reviewed EMR data (avail), discussed with nursing, reviewed images, amended to note Attending Assessment/Plan: Shortness of breath somewhat better. No chest pain. No palpitations. No diaphoresis. The patient remains in atrial fibrillation with controlled rate. Vital Signs Date Time Temp Pulse Resp B/P B/P Pulse O2 O2 Flow FiO2 Mean Ox Delivery Rate 03/11 1113 104 102/66 03/11 0912 118 112/68 03/11 0911 118 112/68 03/11 0818 98.2 98 18 110/78 97 Room Air 03/10 2232 97.9 148 18 112/80 94 Room Air 03/10 2124 4.0 03/10 212 145 112/80 03/10 2124 145 112/80 03/10 1808 134 128/86 94 Room Air 03/10 1554 97.8 114 18 110/70 95 Room Air Gen: NAD HEENT: normal Lungs: clear to auscultation, normal resp. effort Heart: Irregularly irregular, S1, S2, 1/6 systolic murmur Abdomen: Soft, nontender, no masses Extremities: 2+ edema Neuro: Alert and oriented x 3, cranial nerves intact Laboratory Tests 03/10 0650 Hematology CBC w Diff NO MAN DIFF REQ WBC (4.8 - 10.8 /CUMM) 9.0 RBC (4.70 - 6.10 /CUMM) 3.54 L Hgb (14.0 - 18.0 G/DL) 10.6 L Hct (42 - 52 %) 32.9 L MCV (80.0 - 94.0 FL) 92.9 MCH (27.0 - 31.0 PG) 30.1 RDW (11.5 - 14.5 %) 16.4 H Plt Count (130 - 400 /CUMM) 217 MPV (7.4 - 10.4 FL) 9.4 Gran % (42.2 - 75.2 %) 66.7 Lymphocytes % (20.5 - 51.1 %) 21.8 Monocytes % (1.7 - 9.3 %) 8.7 Eosinophils % (0 - 5 %) 2.3 Basophils % (0.0 - 2.0 %) 0.5 Absolute Granulocytes (1.4 - 6.5 /CUMM) 6.0 Absolute Lymphocytes (1.2 - 3.4 /CUMM) 2.0 Absolute Monocytes (0.10 - 0.60 /CUMM) 0.8 H Absolute Eosinophils (0.0 - 0.7 /CUMM) 0.2 Absolute Basophils (0.0 - 0.2 /CUMM) 0 PUBS MCHC (33.0 - 37.0 G/DL) 32.4 L Assessment: 1. paroxysmal atrial fibrillation, rate under control 2. Acute systolic heart failure Plan: * Increased Lasix dose to 40 mg IV every 12 hours * Continue amiodarone * Continue Xarelto * Increase metoprolol to 100 mg by mouth twice a day * Wean off IV diltiazem if possible
[2017-03-11 08:18] VITALS: BP 110/78
[2017-03-11 11:13] VITALS: BP 102/66
--- NOTE | 2017-03-11 15:47 | Incdntl Nt Psy ---
Incidental Note Notation: Saw this former pt ambulating on unit. He requested help with outpatient psychiatry referral. Plan - Please include the following in discharge instructions: "Follow-up with [facility] on Friday03/26/17 at 8:45 AM for intake appointment with Clary Sifuentes LCSW at [address] [place] [address] in [facility]. Call [phone] for details or appointment changes." -Appointment card provided to pt. -If needed, please order formal psychiatry referral.
[2017-03-11 15:54] VITALS: BP 104/62
[2017-03-12 00:23] VITALS: BP 86/56
--- NOTE | 2017-03-12 07:58 | PN- Housestaff ---
Subjective Follow-up For: Bibiana zhang Tele-Events Since Last Visit: Hermelinda. vicente with rates of 80s to 100s and some PVCs. Subjective: Patient is seen and examined while seated in a recliner. He reports that his pain is well controlled with his current pain regimen. Does not endorse any acute complaints of chest pain, shortness of breath, palpitation, fever, chills. He is noted to be very ambulatory and likes to walk around the hospital HALLWAY. Acute overnight event reported by nursing staff Review of Systems Constitutional: Reports: no symptoms. Objective Last 24 Hrs of Vital Signs/I&O Vital Signs Date Time Temp Pulse Resp B/P B/P Pulse O2 O2 Flow FiO2 Mean Ox Delivery Rate 03/12 1021 130 116/74 03/12 1018 130 98/70 03/12 0823 98.1 102 20 98/60 96 Room Air 03/12 0023 98.2 82 12 86/56 96 Room Air 03/11 205 115 112/72 03/11 205 115 112/72 03/11 1600 Room Air 03/11 1554 97.5 103 14 104/62 98 Room Air Intake & Output 03/12 1600 03/12 0800 03/12 0000 Intake Total 200 820 Output Total 700 Balance 200 120 Intake, IV 220 Intake, Oral 200 600 Output, Urine 700 Patient 104.043 kg Weight Weight Chair scale Measurement Method Physical Exam General Appearance: Alert, Oriented X3, Cooperative Other Physical Findings: HEENT: normal Lungs: clear to auscultation, normal resp. effort Heart: Irregularly irregular, S1, S2, 1/6 systolic murmur Abdomen: Soft, nontender, no masses Extremities: 2+ edema Neuro: Alert and oriented x 3, cranial nerves intact Current Medications: Current Medications Sig/Cinthia Start time Last Medication Dose Route Stop Time Status Admin Acetaminophen 650 MG Q4P PRN 03/07 2315 AC PO Amiodarone HCl 400 MG BID 03/09 1302 AC 03/12 PO 1018 Diltiazem HCl 125 MG Q24H 03/07 2030 DC 03/11 Sodium Chloride 100 ML IV 2051 Diphenoxylate HCl/ 2.5 MG BID 03/10 1138 AC 03/12 Atropine PO 1012 Furosemide 40 MG BID 03/11 2200 AC 03/12 IV 1017 Furosemide 40 MG DAILY 03/09 1444 DC 03/11 IV 0911 Ibuprofen 800 MG BID 03/08 0024 AC 03/12 PO 1019 Magnesium Hydroxide 30 ML DAILY PRN 03/07 2315 AC PO Magnesium Oxide 400 MG BID 03/08 1000 AC 03/10 PO 2121 Magnesium Sulfate 1 GM Q2H 03/11 1645 DC 03/11 Dextrose/Water 100 ML IV 03/11 2044 1905 Melatonin 10 MG AT BEDTIME 03/08 0030 AC 03/11 PO 2048 Metoprolol Tartrate 100 MG BID 03/11 2200 AC 03/12 PO 1021 Metoprolol Tartrate 75 MG BID 03/11 1000 DC 03/11 PO 1153 Mirtazapine 15 MG QPM 03/08 0100 AC 03/11 PO 2048 Oxycodone HCl 20 MG Q5 PRN 03/08 1329 AC 03/12 PO 1012 Oxycodone HCl 60 MG Q4P PRN 03/07 2330 AC 03/12 PO 1012 Polyethylene Glycol 17 GM DAILY 03/08 1000 AC 03/12 PO 1018 Rivaroxaban 20 MG AT BEDTIME 03/08 2200 AC 03/11 PO 2047 Senna/Docusate Sodium 2 TAB DAILY PRN 03/07 2315 AC PO Last 24 Hrs of Lab/Rigoberto Results Last 24 Hrs of Labs/Mics: Laboratory Tests 03/12/17 0620: Anion Gap 7, Estimated GFR > 60, BUN/Creatinine Ratio 37.8 H, Magnesium 1.9 03/11/17 1420: Anion Gap 12, Estimated GFR > 60, BUN/Creatinine Ratio 34.4 H, Magnesium 1.6 Assessment/Plan Assessment: 56-year-old man with past medical history significant for hyperlipidemia, hypertension, congestive heart failure, atrial fibrillation with rapid ventricular rate came to emergency department with chief complaint of increasing bilateral lower extremity swelling, shortness of breath on exertion and some palpitations noticed for the last 3-4 days. # Atrial fibrillation with RVR: Heart rate averages below 110 however patient has intermittent bursts up to 120-140. * Currently on metoprolol 100 mg twice a day * Plan is to cardiovert patient on Friday * Continue amiodarone 400mg PO BID * Continue Xarelto for anticoagulation * Free T4 and TSH - WNL # CHF exacerbation * Remains hemodynamically stable with improvement in bilateral lower extremity edema * Will continue Lasix 40 mg twice a day, will monitor strict ins and outs. * Continue Metoprololo 50 mg PO Daily, * Continue ASA 81 mg Po daily Patient is on Xarelto for DVT prophylaxis Patient is on heart healthy diet Patient is full code Problem List: 1. ATRIAL FIBRILATION Pain Ratin Pain Location: back Pain Goal: Remain pain free Pain Plan: per pain pathway Tomorrow's Labs & Rationales: CBC BEP
[2017-03-12 08:23] VITALS: BP 98/60
--- NOTE | 2017-03-12 13:21 | PN- Cardiology ---
Subjective Subjective: Clinically somewhat better. Diarrhea improved. Continues to be minimally short of breath and lower extremity edema still present. Remains in atrial fibrillation with suboptimal rate control. Objective Vital Signs and I&Os Vital Signs Date Time Temp Pulse Resp B/P B/P Pulse O2 O2 Flow FiO2 Mean Ox Delivery Rate 03/12 1021 130 116/74 03/12 1018 130 98/70 03/12 0823 98.1 102 20 98/60 96 Room Air 03/12 0023 98.2 82 12 86/56 96 Room Air 03/11 2051 115 112/72 03/11 2051 115 112/72 03/11 1600 Room Air 03/11 1554 97.5 103 14 104/62 98 Room Air Intake & Output 03/12 0800 03/12 0000 03/11 1600 03/11 0800 03/11 0000 Intake Total 200 820 563 269 1903 Output Total 700 1750 300 Balance 200 120 -1070 800 855 Intake, IV 220 10 Intake, Oral 200 600 884 640 8586 Number 1 Bowel Movements Output, Urine 700 1750 300 Patient 229 lb 227 lb 223 lb Weight Weight Chair scale Standing Scale Measurement Method Current Medications: Current Medications Sig/Cinthia Start time Last Medication Dose Route Stop Time Status Admin Acetaminophen 650 MG Q4P PRN 03/07 2315 AC PO Amiodarone HCl 400 MG BID 03/09 1302 AC 03/12 PO 1018 Diltiazem HCl 125 MG Q24H 03/07 2030 DC 03/11 Sodium Chloride 100 ML IV 2051 Diphenoxylate HCl/ 2.5 MG BID 03/10 1138 AC 03/12 Atropine PO 1012 Furosemide 40 MG BID 03/11 2200 AC 03/12 IV 1017 Furosemide 40 MG DAILY 03/09 1444 DC 03/11 IV 0911 Ibuprofen 800 MG BID 03/08 0024 AC 03/12 PO 1019 Magnesium Hydroxide 30 ML DAILY PRN 03/07 2315 AC PO Magnesium Oxide 400 MG BID 03/08 1000 AC 03/10 PO 2121 Magnesium Sulfate 1 GM Q2H 03/11 1645 DC 03/11 Dextrose/Water 100 ML IV 03/11 2044 1905 Melatonin 10 MG AT BEDTIME 03/08 0030 AC 03/11 PO 2048 Metoprolol Tartrate 100 MG BID 03/11 2200 AC 03/12 PO 1021 Metoprolol Tartrate 75 MG BID 03/11 1000 DC 03/11 PO 1153 Mirtazapine 15 MG QPM 03/08 0100 AC 03/11 PO 2048 Oxycodone HCl 20 MG Q5 PRN 03/08 1329 AC 03/12 PO 1012 Oxycodone HCl 60 MG Q4P PRN 03/07 2330 AC 03/12 PO 1012 Polyethylene Glycol 17 GM DAILY 03/08 1000 AC 03/12 PO 1018 Rivaroxaban 20 MG AT BEDTIME 03/08 2200 AC 03/11 PO 2047 Senna/Docusate Sodium 2 TAB DAILY PRN 03/07 2315 AC PO Results Last 48 Hrs of Labs/Mics: Laboratory Tests 03/12/17 0620: Anion Gap 7, Estimated GFR > 60, BUN/Creatinine Ratio 37.8 H, Magnesium 1.9 03/11/17 1420: Anion Gap 12, Estimated GFR > 60, BUN/Creatinine Ratio 34.4 H, Magnesium 1.6 Assessment/Plan Assessment/Plan Assessment: 1. Paroxysmal atrial fibrillation 2. History of hypertension 3. Cardiomyopathy with acute on chronic systolic heart failure, likely related to #1 Recommendations: -Please keep the patient on IV Lasix for another 24 hours -Continue to monitor her intakes, outputs, daily weights. -Follow-up laboratories, including potassium, magnesium, etc. in the morning -Continue current medications. Continue amiodarone. -If the patient is improved tomorrow, the patient will be kept nothing by mouth tomorrow night for possible DEUCE cardioversion on Friday.
[2017-03-12 16:12] VITALS: BP 110/80
--- NOTE | 2017-03-12 20:08 | RADIOLOGY REPORT ---
EXAMINATION: XR PORTABLE CHEST CLINICAL INFORMATION: 56-year-old male patient with shortness of breath and dizziness. Fluid overload. COMPARISON: Chest x-rays done February 10 and 03/07/2017. TECHNIQUE: Portable AP semierect view of the chest was obtained. FINDINGS: The heart remains enlarged as before. There is no evidence of interstitial or airspace pulmonary edema. The small right pleural effusion has decreased in volume. IMPRESSION: Cardiomegaly. No pulmonary edema.
[2017-03-12 22:35] VITALS: BP 86/60
[2017-03-13 00:49] VITALS: BP 98/70
--- NOTE | 2017-03-13 07:31 | PN- Housestaff ---
Subjective Follow-up For: AFIB RVR Subjective: Patient is seen and examined while seated in a recliner. He reports that his pain is well controlled with his current pain regimen. He continues to be very ambulatory and likes to walk around the hospital hallway. He still has episode of intermittent burst of hr 140s.No Acute overnight event reported by nursing staff Review of Systems Constitutional: Reports: see HPI. Objective Last 24 Hrs of Vital Signs/I&O Vital Signs Date Time Temp Pulse Resp B/P B/P Pulse O2 O2 Flow FiO2 Mean Ox Delivery Rate 03/14 0000 95 Room Air 03/13 2336 98.9 122 18 106/62 97 Room Air 03/13 212 134 110/70 03/13 2127 4.0 03/13 2016 134 108/78 03/13 1707 98.0 119 18 104/84 95 Room Air Room Air 03/13 0923 132 102/68 03/13 0922 132 102/68 03/13 0807 98.8 107 20 90/62 95 Room Air Intake & Output 03/14 0800 03/14 0000 03/13 1600 Intake Total 600 1000 Output Total 1999 1999 Balance -1400 -1000 Intake, Oral 600 1000 Number 1 Bowel Movements Output, Urine 1999 1999 Physical Exam General Appearance: Alert, Oriented X3, Cooperative Skin: No Breakdown, No Significant Lesion Cardiovascular: Normal S1, Normal S2, irregular Lungs: Clear to Auscultation, Normal Air Movement Abdomen: Normal Bowel Sounds, Soft, No Tenderness Neurological: Normal Gait, Normal Speech, Strength at 5/5 X4 Ext, Normal Tone, Sensation Intact Extremities: No Tenderness/Swelling Vascular: Pulses Symmetrical Assessment/Plan Assessment: 56-year-old man with past medical history significant for hyperlipidemia, hypertension, congestive heart failure, atrial fibrillation with rapid ventricular rate came to emergency department with chief complaint of increasing bilateral lower extremity swelling, shortness of breath on exertion and some palpitations noticed for the last 3-4 days. # Atrial fibrillation with RVR: Heart rate averages below 110 however patient has intermittent bursts up to 120-140. * Currently on metoprolol 100 mg twice a day * Plan is to cardiovert patient tomorrow * Continue amiodarone 400mg PO BID * Continue Xarelto for anticoagulation * Free T4 and TSH - WNL # CHF exacerbation * Remains hemodynamically stable with improvement in bilateral lower extremity edema * Will continue Lasix 40 mg twice a day till tomorrow. Will then trasntion to po. * will monitor strict ins and outs. * Continue Metoprololo 100 mg PO BID * Continue ASA 81 mg Po daily Patient is on Xarelto for DVT prophylaxis Patient is on heart healthy diet Patient is full code Problem List: 1. Atrial fibrillation with RVR 2. Acute CHF (congestive heart failure) Pain Ratin Pain Location: back Pain Goal: Remain pain free Pain Plan: per pain pathway Tomorrow's Labs & Rationales: BEP AND MAG: On lasix
[2017-03-13 08:07] VITALS: BP 90/62
[2017-03-13 08:09] LABS: ABSOLUTE BASOPHIL COUNT 0 /CUMM (0.0-0.2); ABSOLUTE EOSINOPHIL COUNT 0.3 /CUMM (0.0-0.7); ABSOLUTE GRANULOCYTE CT 5.7 /CUMM (1.4-6.5); ABSOLUTE LYMPH COUNT 2.3 /CUMM (1.2-3.4); ABSOLUTE MONOCYTE COUNT 0.6 /CUMM (0.10-0.60); BASOPHIL % 0.5 % (0.0-2.0); EOSINOPHIL % 2.8 % (0-5); GRANULOCYTE % 64.2 % (42.2-75.2); HEMATOCRIT 33.7 % (42-52); MEAN CORPUSCULAR HGB 29.9 PG (27.0-31.0); MEAN CORPUSCULAR HGB CONC 32.4 G/DL (33.0-37.0); MEAN CORPUSCULAR VOLUME 92.2 FL (80.0-94.0); MEAN PLATELET VOLUME 8.9 FL (7.4-10.4); PLATELET COUNT 228 /CUMM (130-400); RBC DISTRIBUTION WIDTH 16.3 % (11.5-14.5); RED BLOOD CELL CT 3.65 /CUMM (4.70-6.10); WHITE BLOOD CELL COUNT 8.9 /CUMM (4.8-10.8)
--- NOTE | 2017-03-13 11:58 | PN- Cardiology ---
Objective Vital Signs and I&Os Vital Signs Date Time Temp Pulse Resp B/P B/P Pulse O2 O2 Flow FiO2 Mean Ox Delivery Rate 03/13 923 132 102/68 03/13 09 132 102/68 03/13 0807 98.8 107 20 90/62 95 Room Air 03/13 0049 97.8 74 20 98/70 96 Room Air 03/12 2235 86/60 03/12 2032 137 126/90 03/12 2032 137 126/90 03/12 1612 97.8 125 20 110/80 95 Room Air Intake & Output 03/13 1600 03/13 0800 03/13 0000 03/12 1600 03/12 0800 03/12 0000 Intake Total 589 232 3952 200 820 Output Total 850 2250 700 Balance 480 -120 -450 200 120 Intake, IV 10 220 Intake, Oral 689 083 9623 200 600 Number 1 Bowel Movements Output, Urine 850 2250 700 Patient 229 lb 229 lb Weight Weight Chair scale Chair scale Measurement Method Current Medications: Current Medications Sig/Cinthia Start time Last Medication Dose Route Stop Time Status Admin Acetaminophen 650 MG Q4P PRN 03/07 2315 AC PO Amiodarone HCl 400 MG BID 03/09 1302 AC 03/13 PO 0922 Carisoprodol 350 MG AT BEDTIME NEED.. 03/12 2100 AC 03/13 PO 0120 Diphenoxylate HCl/ 2.5 MG BID 03/10 1138 AC 03/12 Atropine PO 2032 Furosemide 20 MG ONCE ONE 03/12 2030 DC 03/12 IV 03/12 2031 203 Furosemide 40 MG BID 03/11 2200 AC 03/13 IV 0924 Ibuprofen 800 MG BID 03/08 0024 AC 03/13 PO 0922 Magnesium Hydroxide 30 ML DAILY PRN 03/07 2315 PO Magnesium Oxide 400 MG BID 03/08 1000 AC 03/10 PO 2121 Melatonin 10 MG AT BEDTIME 03/08 0030 AC 03/12 PO 2031 Metoprolol Tartrate 100 MG BID 03/11 2200 AC 03/13 PO 0923 Mirtazapine 15 MG QPM 03/08 0100 AC 03/12 PO 203 Oxycodone HCl 20 MG Q5 PRN 03/08 1329 AC 03/13 PO 1114 Oxycodone HCl 60 MG Q4P PRN 03/07 2330 AC 03/13 PO 1115 Patient Medication 1 ED .STK-MED ONE 03/12 1417 [facility] ED 03/12 1418 Polyethylene Glycol 17 GM DAILY 03/08 1000 AC 03/12 PO 1018 Rivaroxaban 20 MG AT BEDTIME 03/08 2200 AC 03/12 PO 2031 Senna/Docusate Sodium 2 TAB DAILY PRN 03/07 2315 AC PO Results Last 48 Hrs of Labs/Mics: Laboratory Tests 03/13/17 0605: Anion Gap 10, Estimated GFR > 60, BUN/Creatinine Ratio 35.0 H, Magnesium 1.6, CBC w Diff NO MAN DIFF REQ, RBC 3.65 L, MCV 92.2, MCH 29.9, RDW 16.3 H, MPV 8.9, Gran % 64.2, Lymphocytes % 25.6, Monocytes % 6.9, Eosinophils % 2.8, Basophils % 0.5, Absolute Granulocytes 5.7, Absolute Lymphocytes 2.3, Absolute Monocytes 0.6, Absolute Eosinophils 0.3, Absolute Basophils 0, PUBS MCHC 32.4 L 03/12/17 0620: Anion Gap 7, Estimated GFR > 60, BUN/Creatinine Ratio 37.8 H, Magnesium 1.9 03/11/17 1420: Anion Gap 12, Estimated GFR > 60, BUN/Creatinine Ratio 34.4 H, Magnesium 1.6 Assessment/Plan Assessment/Plan Assessment: 1. Paroxysmal atrial fibrillation 2. History of hypertension 3. Cardiomyopathy with acute on chronic systolic heart failure, likely related to #1 Recommendations: -Please keep the patient on IV Lasix for another 24 hours -Continue to monitor her intakes, outputs, daily weights. -Follow-up laboratories, including potassium, magnesium, etc. in the morning -Continue current medications. Continue amiodarone. -If the patient is improved tomorrow, the patient will be kept nothing by mouth tomorrow night for possible DEUCE cardioversion on Friday.
[2017-03-13 17:07] VITALS: BP 104/84
[2017-03-13 23:36] VITALS: BP 106/62
--- NOTE | 2017-03-14 07:37 | PN- Housestaff ---
Subjective Follow-up For: afib rvr Subjective: Seen and examine at [facility]. Pt was NPO since midnight for DEUCE cardioversion. However, dietitician reports finding patinet at the kitchen eating crackers and drinking coffe around 7:00am, nurse also reports around 8 pm, pt was noted to have empty cracker wraps on his hands. When asked, pt denies eating anything. Review of Systems Constitutional: Reports: see HPI. Objective Last 24 Hrs of Vital Signs/I&O .. Physical Exam General Appearance: Alert, Oriented X3 Other Physical Findings: Skin: No Breakdown, No Significant Lesion Cardiovascular: Normal S1, Normal S2, irregular Lungs: Clear to Auscultation, Normal Air Movement Abdomen: Normal Bowel Sounds, Soft, No Tenderness Neurological: Normal Gait, Normal Speech, Strength at 5/5 X4 Ext, Normal Tone, Sensation Intact Extremities: No Tenderness/Swelling Vascular: Pulses Symmetrical Current Medications: . Last 24 Hrs of Lab/Rigoberto Results Last 24 Hrs of Labs/Mics: .. Assessment/Plan Assessment: 56-year-old man with past medical history significant for hyperlipidemia, hypertension, congestive heart failure, atrial fibrillation with rapid ventricular rate came to emergency department with chief complaint of increasing bilateral lower extremity swelling, shortness of breath on exertion and some palpitations noticed for the last 3-4 days. # Atrial fibrillation with RVR: Heart rate averages below 110 however patient has intermittent bursts up to 120-140. * Currently on metoprolol 100 mg twice a day * Not able to be cardioverted because of patient secretly eating breakfast, procedure will be done outpatient basis. * Continue amiodarone 400mg PO BID * Continue Xarelto for anticoagulation * Free T4 and TSH - WNL # CHF exacerbation * Remains hemodynamically stable with improvement in bilateral lower extremity edema * Tranition to Lasix po * will monitor strict ins and outs. * Continue Metoprololo 100 mg PO BID * Continue ASA 81 mg Po daily Patient is on Xarelto for DVT prophylaxis Patient is on heart healthy diet Patient is full code Problem List: 1. ATRIAL FIBRILATION 2. Benign essential hypertension Pain Ratin Pain Location: chronic back pain Pain Goal: Pain 4 or less Pain Plan: per pain pathway Tomorrow's Labs & Rationales: none-discharge
[2017-03-14 08:23] VITALS: BP 112/80
[2017-03-14 09:11] VITALS: BP 112/80
--- NOTE | 2017-03-14 10:59 | Patient Discharge Instructions ---
Discharge Instructions General Discharge Information You were seen/treated for: AFIB CHF Special Instructions: please follow up with Dr Sow (Dr Sow) on friday to arrange for a scheduled procedure (cardioversion) Please follow up with your primary care physcian within 1 week Acute Coronary Syndrome Inclusion Criteria At DC or during hospital stay patient has or had the following: ACS DIAGNOSIS No Discharge Core Measures Meds if any: Prescribed or Continued at Discharge Meds if any: NOT Prescribed or Continued at Discharge Congestive Heart Failure Inclusion Criteria At DC or during hospital stay patient has or had the following: CHF DIAGNOSIS No Discharge Core Measures Meds if any: Prescribed or Continued at Discharge Meds if any: NOT Prescribed or Continued at Discharge Cerebrovascular accident Inclusion Criteria At DC or during hospital stay patient has or had the following: CVA/TIA Diagnosis No Discharge Core Measures Meds if any: Prescribed or Continued at Discharge Meds if any: NOT Prescribed or Continued at Discharge Venous thromboembolism Inclusion Criteria VTE Diagnosis No VTE Type NONE VTE Confirmed by (Test) NONE Discharge Core Measures - Per Current guidelines, there needs to be overlap - treatment for the first 5 days of Warfarin therapy. - If discharged on Warfarin prior to 5 days of - overlap therapy, the patient will need to be - assessed for post discharge needs including - *Post discharge parental anticoagulation - *Warfarin and/or parental anticoagulation education - *Follow up date to check INR post discharge At least 5 days overlap therapy as Inpatient No Meds if any: Prescribed or Continued at Discharge Note: Overlap Therapy is Warfarin and Anticoagulant Meds if any: NOT Prescribed or Continued at Discharge
[2017-03-14] MEDS ORDERED: XANAX0.25 M1 PO (11:10)
[2017-03-14] MEDS ORDERED: LASIX40 M1 PO (11:10)
[2017-03-14] MEDS ORDERED: Cordarone PO (11:10)
[2017-03-14] MEDS ORDERED: METOPROLOL TART50 M1 PO (11:15)
--- NOTE | 2017-03-14 13:31 | PN- Cardiology ---
Subjective Subjective: Clinically stable, events of this morning noted. Objective Vital Signs and I&Os Vital Signs Date Time Temp Pulse Resp B/P B/P Pulse O2 O2 Flow FiO2 Mean Ox Delivery Rate 03/14 0911 120 112/80 03/14 0911 120 112/80 03/14 0823 98.8 120 18 112/80 96 Room Air 03/14 0000 95 Room Air 03/13 2336 98.9 122 18 106/62 97 Room Air 03/13 2128 134 110/70 03/13 2127 4.0 03/13 2016 134 108/78 03/13 1707 98.0 119 18 104/84 95 Room Air Room Air Intake & Output 03/14 1600 03/14 0800 03/14 0000 03/13 1600 03/13 0800 03/13 0000 Intake Total 600 1000 480 730 Output Total 1999 1999 850 Balance -1400 -1000 480 -120 Intake, IV 10 Intake, Oral 600 1000 480 720 Number 1 Bowel Movements Output, Urine 1999 1999 850 Patient 229 lb Weight Weight Chair scale Measurement Method Current Medications: Current Medications Sig/Cinthia Start time Last Medication Dose Route Stop Time Status Admin Acetaminophen 650 MG Q4P PRN 03/07 2315 AC PO Alprazolam 0.5 MG ONCE PRN 03/13 2200 AC 03/14 PO 03/209 0828 Alprazolam 0.5 MG ONCE ONE 03/13 1730 DC 03/13 PO 03/13 1731 1719 Amiodarone HCl 400 MG BID 03/09 1302 AC 03/14 PO 0911 Carisoprodol 350 MG AT BEDTIME NEED.. 03/12 2100 AC 03/13 PO 2328 Diphenoxylate HCl/ 2.5 MG BID 03/10 1138 AC 03/12 Atropine PO 2033 Furosemide 40 MG DAILY 03/14 1000 AC PO Furosemide 40 MG BID 03/11 2200 DC 03/13 IV 2016 Ibuprofen 800 MG BID 03/08 0024 AC 03/14 PO 0911 Lidocaine 0 .STK-MED ONE 03/14 0951 DC TOP Magnesium Hydroxide 30 ML DAILY PRN 03/07 2315 AC PO Magnesium Oxide 400 MG BID 03/08 1000 AC 03/10 PO 2121 Magnesium Sulfate 1 GM Q2H 03/13 1515 DC 03/13 Dextrose/Water 100 ML IV 03/13 1914 1609 Melatonin 10 MG AT BEDTIME 03/08 0030 AC 03/13 PO 2328 Metoprolol Tartrate 100 MG BID 03/11 2200 AC 03/14 PO 0911 Mirtazapine 15 MG QPM 03/08 0100 AC 03/13 PO 2126 Oxycodone HCl 20 MG Q5 PRN 03/08 1329 AC 03/14 PO 1253 Oxycodone HCl 60 MG Q4P PRN 03/07 2330 AC 03/14 PO 1224 Polyethylene Glycol 17 GM DAILY 03/08 1000 AC 03/12 PO 1018 Rivaroxaban 20 MG AT BEDTIME 03/08 2200 AC 03/13 PO 2127 Senna/Docusate Sodium 2 TAB DAILY PRN 03/07 2315 AC PO Results Last 48 Hrs of Labs/Mics: Laboratory Tests 03/14/17638: Anion Gap 9, Estimated GFR > 60, BUN/Creatinine Ratio 39.0 H, Magnesium 1.8 03/13/17604: Anion Gap 10, Estimated GFR > 60, BUN/Creatinine Ratio 35.0 H, Magnesium 1.6, CBC w Diff NO MAN DIFF REQ, RBC 3.65 L, MCV 92.2, MCH 29.9, RDW 16.3 H, MPV 8.9, Gran % 64.2, Lymphocytes % 25.6, Monocytes % 6.9, Eosinophils % 2.8, Basophils % 0.5, Absolute Granulocytes 5.7, Absolute Lymphocytes 2.3, Absolute Monocytes 0.6, Absolute Eosinophils 0.3, Absolute Basophils 0, PUBS MCHC 32.4 L Assessment/Plan Assessment/Plan Assessment: 1. Paroxysmal atrial fibrillation 2. History of hypertension 3. Cardiomyopathy with acute on chronic systolic heart failure, likely related to #1 Recommendations: -The patient was originally scheduled for a DEUCE cardioversions morning at 10 AM. -The patient was observed by the dietary staff at approximate 6:45 AM to be making and/or drinking coffee as well as eating crackers. -In addition, the nursing staff noted the patient to be in the kitchen, possibly eating crackers again at 9 AM. -After an extended discussion with the patient, anesthesia, etc., the decision was made that, since the procedure is elective, that the procedure should be canceled and we will reschedule it later as an outpatient. Hopefully can be performed this coming Friday. -The patient will be discharged home today. -The patient will continue all of his current medications including amiodarone, metoprolol, xarelto, Lasix, etc. -The patient will call my office later today or Friday to document the scheduled procedure on Friday.
== END 2017-03-14 13:00 | disposition home health service (06) | DRG 308 ==
LOC: ERH 18:40 → ERHI 20:47 → 1NO 20:47 → ENRESERV 22:25 → 1NO 23:28 → ENPENDDIS 03-14 11:43 → 1NO 03-14 13:00
PROVIDERS: Physician Assistant; Student in an Organized Health Care Education/Training Program; ADMIT Specialist
DX: I48.0 Paroxysmal atrial fibrillation (principal); I50.23 Acute on chronic systolic (congestive) heart failure; I42.9 Cardiomyopathy, unspecified; I11.0 Hypertensive heart disease with heart failure; E78.5 Hyperlipidemia, unspecified; D64.9 Anemia, unspecified; I87.2 Venous insufficiency (chronic) (peripheral); E66.9 Obesity, unspecified; Z68.30 Body mass index [BMI] 30.0-30.9, adult; F32.9 Major depressive disorder, single episode, unspecified; E03.9 Hypothyroidism, unspecified
CPT/HCPCS: 1NSP; 36415; 82436; 93005; 93010; 93308; 93321; 96365; 96375; 96376; 99291; J1940; J3490

== ENCOUNTER 2018-04-24 06:15 | Inpatient (IN) | payer OTHER, MEDICARE ==
[~2018-04-24] VITALS: Ht 182.9 cm; Wt 128.8 kg
[~2018-04-24 06:15] MED LIST changes: +ACETAMINOPHEN325 M3 PO; +AMIODARONE HCL200 M2 PO; +Cordarone PO; +FUROSEMIDE40 M1 PO; +LASIX40 M1 PO; +MILK OF MA400 MG/52 PO; +MOBIC15 M1 PO
--- NOTE | 2018-04-24 06:40 | ED GENERAL ADULT ---
History of Present Illness General Chief Complaint: ETOH/Drug Related Complaint Stated Complaint: YESI GOMEZ Source: patient, old records, EMS Exam Limitations: no limitations Vital Signs & Intake/Output Vital Signs & Intake/Output Vital Signs Date Time Temp Pulse Resp B/P B/P Pulse O2 O2 Flow FiO2 Mean Ox Delivery Rate 04/24 1143 151 98/58 04/24 1003 136 88/46 04/24 0930 136 80/45 04/24 0900 139 84/50 04/24 0840 130 81/55 04/24 0839 130 81/55 04/24 0838 130 81/55 04/24 0831 70/00 04/24 0815 140 111/48 04/24 0800 140 110/48 04/24 0621 97.0 710 18 131/58 93 Room Air Allergies Coded Allergies: Penicillins (Intermediate, HIVES 02/07/17) Reconcile Medications Amiodarone HCl 200 MG TABLET 0.5 TAB PO DAILY HEART (Reported) Carisoprodol 350 MG TABLET 1 TAB PO QPM MUSCLE RELAXANT (Reported) Furosemide 40 MG TABLET 1 TAB PO DAILY DIURETIC (Reported) Ibuprofen 800 MG TABLET 1 TAB PO BID PRN PAIN (Reported) Metoprolol Tartrate 50 MG TABLET 1 TAB PO BID HEART/BP (Reported) Mirtazapine 15 MG TABLET 1 TAB PO QPM MENTAL HEALTH (Reported) Oxycodone HCl (Oxycontin) 60 MG TAB.ER.12H 1 TAB PO 4 TIMES/DAY PAIN CONTROL (Reported) Oxycodone HCl 20 MG TABLET 1 TAB PO 5XDAILY PAIN (Reported) Oxycodone HCl 10 MG TABLET 1 TAB PO 4XDP PRN CHRONIC BACK PAIN Triage Nurses Notes Reviewed? yes Onset: 2 days Duration: day(s):, constant, continues in ED Timing: recent history Injury Environment: home Severity: moderate Modifying Factors: Improves With: rest. Worsens With: movement. Associated Symptoms: back pain (chronic) HPI: 2 days prior to admission the patient reports losing his balance and falling down the stairs with left lateral malleolar pain and swelling right medial malleoli pain and swelling right knee pain. Prior to admission he reports seeing a woman and her cats Feeding from His Refrigerator with a board underneath the refrigerator for them to enter and exit. EMS did not find any woman or animals in his apartment. He denies fever chills nausea vomiting diarrhea abdominal pain chest pain shortness of breath headache dysuria rash bleeding. (Luis Bee MD) Past History Medical History Any Pertinent Medical History? 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 No (Luis Bee MD) Review of Systems Review of Systems Constitutional: Reports: no symptoms. EENTM: Reports: no symptoms. Respiratory: Reports: no symptoms. Cardiovascular: Reports: no symptoms. GI: Reports: no symptoms. Genitourinary: Reports: no symptoms. Musculoskeletal: Reports: see HPI, back pain, joint pain. Skin: Reports: no symptoms. Neurological/Psychological: Reports: see HPI, anxiety, cognitive dysfunction. Hematologic/Endocrine: Reports: no symptoms. Immunologic/Allergic: Reports: no symptoms. All Other Systems: Reviewed and Negative (Luis Bee MD) Physical Exam Physical Exam General Appearance: well developed/nourished, alert, awake, anxious, mild distress Head: atraumatic, normal appearance Eyes: Bilateral: normal appearance, PERRL, EOMI. Ears, Nose, Throat: normal pharynx, normal ENT inspection Neck: normal inspection, supple, full range of motion, no midline tenderness Respiratory: chest non-tender, no respiratory distress, decreased breath sounds, rales Cardiovascular: normal peripheral pulses, irregularly irregular, norml femoral pulses equa Peripheral Pulses: 4+ carotid (R), 4+ carotid (L) Gastrointestinal: normal bowel sounds, soft, non-tender, no organomegaly Back: normal inspection, normal range of motion, no vertebral tenderness Extremities: normal capillary refill, limited range of motion, pedal edema, tenderness (bilateral ankle right knee), no ligament instability Neurologic/Psych: no motor/sensory deficits, awake, alert, oriented x 3, metrology manager II- XII nml as tested Reflexes: 2+: bicep (R), bicep (L). Skin: warm/dry, rash, bilateral stasis dermatitis Lymphatic: no anterior cervical caesar Core Measures ACS in differential dx? No CVA/TIA Diagnosis: No Sepsis Present: No Sepsis Focused Exam Completed? No (Luis Bee MD) Progress Differential Diagnoses I considered the following diagnoses in my evaluation of the patient: Fracture electrolyte abnormality schizoaffective disorder schizophrenia Plan of Care: Orders Procedure Date/time Status Add-on Test (ER Only) 04/24 1153 Active TROPONIN LEVEL 04/24 1153 Active MAGNESIUM 04/24 06 Complete ETHANOL 04/24 06 Complete COMPREHENSIVE METABOLIC PANEL 04/24 630 Complete CBC WITHOUT DIFFERENTIAL 04/24 630 Complete B-TYPE NATRIURETIC PEP (BNP) 04/24 630 Complete EKG 04/24 630 Active Current Medications Sig/Cinthia Start time Last Medication Dose Stop Time Status Admin Amiodarone HCl 100 MG ONCE ONE 04/24 1200 AC (Cordarone) 04/24 1201 Metoprolol Tartrate 50 MG ONCE ONE 04/24 1200 AC (Lopressor) 04/24 1201 Sodium Chloride 1,000 ML BOLUS ONE 04/24 1130 AC 04/24 (Normal Saline 0.9%) 04/24 1229 1130 Amiodarone HCl 100 MG DAILY 04/24 0900 UNVr (Cordarone) Metoprolol Tartrate 50 MG BID 04/24 0900 UNVr (Lopressor) Laboratory Tests 04/24/18 0658: Anion Gap 15, Estimated GFR 31 L, BUN/Creatinine Ratio 19.5, Glucose 113 H, Calcium 9.0, Magnesium 1.8, Total Bilirubin 0.4, AST 27, ALT 26, Alkaline Phosphatase 84, [id number]-Hzmddcrtcgg Pept 7510 H, Total Protein 6.9, Albumin 3.8, Globulin 3.1, Albumin/Globulin Ratio 1.2, CBC w Diff NO MAN DIFF REQ, RBC 4.06 L, MCV 91.6, MCH 30.9, MCHC 33.8, RDW 14.7 H, MPV 9.1, Gran % 82.9 H, Lymphocytes % 7.3 L, Monocytes % 8.0, Eosinophils % 1.4, Basophils % 0.4, Absolute Granulocytes 7.2 H, Absolute Lymphocytes 0.6 L, Absolute Monocytes 0.7 H, Absolute Eosinophils 0.1, Absolute Basophils 0, Serum Alcohol < 10.0 Diagnostic Imaging: Viewed by Me: Radiology Read. Discussed w/RAD: Radiology Read. Initial ED EKG: AFIB, nonspecific ST T wave chg Prior EKG: unchanged Rhythm Strip: atrial fibrillation Hand-Off Endorsed To: Giuseppe Little MD Endorsed Time: 0700 Pending: labs, Xray (Rohit YOO,Luis) Radiology Impression: PATIENT: BRANDON ALEXANDRA JR PRESENT AGE: 57 PATIENT ACCOUNT NO: [id number] : 60 LOCATION: [facility] ORDERING PHYSICIAN: Luis Bee MD SERVICE DATE: 04/24/18 EXAM TYPE: RAD - XRY-CHEST XRAY, TWO VIEWS EXAMINATION: XR CHEST CLINICAL INFORMATION: History of atrial fibrillation. CHF. Fall. COMPARISON: 09/18/2017 TECHNIQUE: 2 views of the chest were obtained. FINDINGS: Lung volumes are low. No consolidation, edema, or effusion. No pneumothorax. The cardiomediastinal silhouette is within normal limits. Multilevel degenerative changes of the spine. No acute osseous abnormality. IMPRESSION: Hypoexpanded lungs with no acute pulmonary finding. No displaced fractures are seen. DICTATED BY: Isaias Otoole MD DATE/TIME DICTATED:04/24/18658 TITLE CLOSER: MARIBEL DATE/TIME TRANSCRIBED:04/24/18658 CONFIDENTIAL, DO NOT COPY WITHOUT APPROPRIATE AUTHORIZATION. <Electronically signed in Other Vendor System> SIGNED BY: Isaias Otoole MD 04/24/18 0703, PATIENT: BRANDON ALEXANDRA JR PRESENT AGE: 57 PATIENT ACCOUNT NO: [id number] : 60 LOCATION: [facility] ORDERING PHYSICIAN: Luis Bee MD SERVICE DATE: 04/24/18 EXAM TYPE: RAD - XRY-ANKLE 3 OR MORE VIEWS L; XRY- ANKLE 3 OR MORE VIEWS R EXAMINATION: XR ANKLE, LEFT XR ANKLE, RIGHT CLINICAL INFORMATION: Left ankle pain status post fall down stairs. Lateral malleolus tenderness. Right ankle pain. COMPARISON: 08/11/2017 TECHNIQUE: 2 views of the left ankle. 3 views of the right ankle. FINDINGS: Left ankle: No fracture or dislocation. Ankle mortise is congruent. Mild circumferential soft tissue swelling diffusely. Plantar and Achilles heel spurs. Mild degenerative changes at the midfoot. No ankle joint effusion. Right ankle: There is somewhat irregular contour of the calcaneus, although this is unchanged from previous imaging. This may be the sequela of old fracture. No evidence of acute fracture or dislocation. The ankle mortise is congruent. Small plantar heel spurs. Circumferential soft tissue swelling. Possible small ankle joint effusion. IMPRESSION: No evidence of acute fracture or malalignment. Diffuse soft tissue swelling of both lower extremities. Probable old right calcaneal fracture. DICTATED BY: Isaias Otoole MD DATE/TIME DICTATED:04/24/18699 TITLE CLOSER:MARIBEL DATE/TIME TRANSCRIBED:04/24/18699 CONFIDENTIAL, DO NOT COPY WITHOUT APPROPRIATE AUTHORIZATION. <Electronically signed in Other Vendor System> SIGNED BY: Isaias Otoole MD 04/24/18 0705 Comments: 04/24/2018 8:20:23 AM patient signed out to me by Dr. Bee at shift exchange clerk. I have just updated Brandon on test results. He offers no complaints currently. I have paged Dr. Pineda regarding his paroxysm of atrial fibrillation. He has just received an IV dose of Lopressor for rate control. 8:26AM pt case d/w dr pineda who will evaluate pt shortly. 04/24/2018 8:38:29 AM I was asked to see patient due to low blood pressure after Lopressor. The patient is awake alert and appears clinically stable with easily palpable radial pulses. I have ordered a fluid bolus. Review of patient's renal functions show an acute increase in creatinine consistent with acute kidney injury. 04/24/2018 11:47:40 AM Sarah Pineda MD is evaluating patient in the emergency department. He has recommended holding off on the Cardizem drip even though patient's blood pressure has improved with IV fluids. He does agree with providing the patient's usual medications (amiodarone and metoprolol). Patient to be admitted due to his relative hypotension and rapid atrial fibrillation. (Anabel YOO,Giuseppe De Oliveira) Departure Departure Disposition: STILL A PATIENT Condition: Stable Clinical Impression Primary Impression: Atrial fibrillation Secondary Impressions: Fall at home Referrals: Ezequiel Pineda MD (PCP/Family) Departure Forms: Customer Survey General Discharge Information (Rohit YOO,Luis) Admission Note Spoke With: Migdalia Grissom MD Documentation of Exam: Documentation of any treatments & extenuating circumstances including Concerns Regarding Discharge (functional status, medication knowledge or non-compliance, living conditions, etc.) that warrant an admission rather than observation: Patient is experiencing rapid atrial fibrillation with relative hypotension along with an acute kidney injury. The patient cannot be safely treated as an outpatient as he requires continuous cardiac monitoring and IV heparin to prevent cardioembolic phenomenon. He will also require a rate controlling medications such as metoprolol and amiodarone and serial EKGs and troponins to rule out an acute coronary syndrome. Cardiology consultation should be considered. Patient will require conversion to oral anticoagulates along with adjustment of his current rate controlling medications to provide better heart rate control. He should also receive IV fluids to correct his acute kidney injury and have renal functions monitored. If patient does not respond to IV fluids in regards to his renal functions and nephrology consultations to be considered. I feel this patient will require a multiple day hospitalization. (Anabel YOO,Giuseppe De Oliveira) Critical Care Note Critical Care Note Critical Care Time: non-applicable (Rohit YOO,Luis) Critical Care Note Critical Care Time: 30-74 min (Anabel YOO,Giuseppe De Oliveira)
--- NOTE | 2018-04-24 07:03 | RADIOLOGY REPORT ---
EXAMINATION: XR CHEST CLINICAL INFORMATION: History of atrial fibrillation. CHF. Fall. COMPARISON: 09/18/2017 TECHNIQUE: 2 views of the chest were obtained. FINDINGS: Lung volumes are low. No consolidation, edema, or effusion. No pneumothorax. The cardiomediastinal silhouette is within normal limits. Multilevel degenerative changes of the spine. No acute osseous abnormality. IMPRESSION: Hypoexpanded lungs with no acute pulmonary finding. No displaced fractures are seen.
--- NOTE | 2018-04-24 07:05 | RADIOLOGY REPORT ---
EXAMINATION: XR ANKLE, LEFT XR ANKLE, RIGHT CLINICAL INFORMATION: Left ankle pain status post fall down stairs. Lateral malleolus tenderness. Right ankle pain. COMPARISON: 08/11/2017 TECHNIQUE: 2 views of the left ankle. 3 views of the right ankle. FINDINGS: Left ankle: No fracture or dislocation. Ankle mortise is congruent. Mild circumferential soft tissue swelling diffusely. Plantar and Achilles heel spurs. Mild degenerative changes at the midfoot. No ankle joint effusion. Right ankle: There is somewhat irregular contour of the calcaneus, although this is unchanged from previous imaging. This may be the sequela of old fracture. No evidence of acute fracture or dislocation. The ankle mortise is congruent. Small plantar heel spurs. Circumferential soft tissue swelling. Possible small ankle joint effusion. IMPRESSION: No evidence of acute fracture or malalignment. Diffuse soft tissue swelling of both lower extremities. Probable old right calcaneal fracture.
--- NOTE | 2018-04-24 07:06 | RADIOLOGY REPORT ---
EXAMINATION: XR KNEE, RIGHT CLINICAL INFORMATION: Fall down stairs. Right knee pain. COMPARISON: None TECHNIQUE: Three views of the right knee. FINDINGS: No fracture or subluxation. Mild medial compartment joint space narrowing. Tiny marginal osteophytes of the medial compartment. Diffuse soft tissue swelling. No joint effusion. IMPRESSION: Diffuse soft tissue swelling. No acute fracture or malalignment.
[2018-04-24 07:24] LABS: ABSOLUTE BASOPHIL COUNT 0 /CUMM (0.0-0.2); ABSOLUTE EOSINOPHIL COUNT 0.1 /CUMM (0.0-0.7); ABSOLUTE GRANULOCYTE CT 7.2 /CUMM (1.4-6.5); ABSOLUTE LYMPH COUNT 0.6 /CUMM (1.2-3.4); ABSOLUTE MONOCYTE COUNT 0.7 /CUMM (0.10-0.60); BASOPHIL % 0.4 % (0.0-2.0); EOSINOPHIL % 1.4 % (0-5); GRANULOCYTE % 82.9 % (42.2-75.2); HEMATOCRIT 37.1 % (42-52); MEAN CORPUSCULAR HGB 30.9 PG (27.0-31.0); MEAN CORPUSCULAR HGB CONC 33.8 G/DL (33.0-37.0); MEAN CORPUSCULAR VOLUME 91.6 FL (80.0-94.0); MEAN PLATELET VOLUME 9.1 FL (7.4-10.4); PLATELET COUNT 203 /CUMM (130-400); RBC DISTRIBUTION WIDTH 14.7 % (11.5-14.5); RED BLOOD CELL CT 4.06 /CUMM (4.70-6.10); WHITE BLOOD CELL COUNT 8.7 /CUMM (4.8-10.8)
--- NOTE | 2018-04-24 12:10 | History & Physical ---
Mahamed Rosales 04/24/18 1209: General Information and HPI MD Statement: I have seen and personally examined LONDON ALEXANDRA and documented this H&P. The patient is a 57 year old M who presented with a patient stated chief complaint of [ELEVATED HR]. Exam Limitations: no limitations History of Present Illness: 57 year old gentleman, current smoker with PMH significant for atrial fibrillation status post cardioversion in 2009 with conversion to sinus till 2016 when he underwent another cardioversion with conversion back to sinus at that time, apparently he was on Coumadin for about 4 months at this time after which Coumadin was discontinued. Currently not on anticoagulation status post cardiac cath done in 2006,HTN, HFpEF, HLD, chronic low back pain on oxycodone and OxyContin, came in for evaluation after he apparently had a fall last and continued to have left ankle pain. Denies any loss of consciousness, head strike dizziness, chest pain, palpitations at that time. Stated that he tripped over a carpet. 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 Pineda. About 2 days ago he noticed while checking his blood pressure his heart rate on the machine was high. He also endorsed some mid chest discomfort which was nonradiating associated with some diaphoresis Denies any fever, chills, upper respiratory symptoms, dysuria, urinary frequency or hesitancy, bowel symptoms. 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 Ambulation: walker IADLs Independent: shopping, housework, finances, food prep, telephone, transportation , medication admin. Review of Systems Review of Systems Constitutional: Denies: chills, diaphoresis, fever, malaise, weakness, unexplained weight loss. Cardiovascular: Denies: chest pain, edema, orthopena, palpitations, peripheral edema, syncope. Respiratory: Denies: cough, hemoptysis, orthopnea, short of breath, sputum production, stridor, wheezing. Exam & Diagnostic Data Last 24 Hrs of Vital Signs/I&O Vital Signs Date Time Temp Pulse Resp B/P B/P Pulse O2 O2 Flow FiO2 Mean Ox Delivery Rate 04/24 1400 97.6 128 20 96/52 94 Room Air 04/24 1318 102/60 04/24 1202 151 98/58 04/24 1155 151 98/58 04/24 1143 151 98/58 04/24 1003 136 88/46 04/24 0930 136 80/45 04/24 0900 139 84/50 04/24 0840 130 81/55 04/24 0839 130 81/55 04/24 0838 130 81/55 04/24 0831 70/00 04/24 0815 140 111/48 04/24 0800 140 110/48 04/24 0621 97.0 710 18 131/58 93 Room Air Intake & Output 04/24 1600 04/24 0800 04/24 0000 Intake Total 0 Output Total Balance 0 Intake, Oral 0 Patient 240 lb Weight Physical Exam General Appearance Alert, Oriented X3, Cooperative, No Acute Distress Skin B/l chronic skin changes with no break in skin noted. tophi seen on 2nd right toe HEENT Atraumatic, PERRLA, EOMI, Mucous Membr. moist/pink Neck Supple, No JVD Lymphatic Cervical nl Cardiovascular irreg irreg Lungs bibasillar crackles Abdomen Soft, No Tenderness Extremities b/l non pitting edema Diagnostic Data EKG Results afib, hR 137 Qtc CXR Results FINDINGS: Lung volumes are low. No consolidation, edema, or effusion. No pneumothorax. The cardiomediastinal silhouette is within normal limits. Multilevel degenerative changes of the spine. No acute Assessment/Plan Assessment: 57 year old gentleman, current smoker with PMH significant for atrial fibrillation status post cardioversion in 2009 with conversion to sinus till 2017 when he underwent another cardioversion with conversion back to sinus at that time, status post cardiac cath done in 2006,HTN, , HFpEF, HLD, chronic low back pain on oxycodone and OxyContin, came in for evaluation of a fall yesterday , found to be in atrial fibrillation with rapid ventricular rate of 150s in the ED. Labs significant for hyponatremia, mild metabolic acidosis, elevated BUN 43 and creatinine of 2.2 [in 2017 his baseline seem to be 0.9- 1.0] Chest x-ray showed : Hypoexpanded lungs with no acute pulmonary finding. No displaced fractures are seen. Complete bilateral ankle x-ray and right knee x-ray showed no evidence of acute fracture or malalignment ED course patient was given 1 dose of IV 5 mg of metoprolol, started on IV heparin with bolus, and was given 50 mg of metoprolol p.o. and amiodarone 100 mg p.o. Assessment and plan: Atrial fibrillation with rapid ventricular rate Admit to telemetry to the floor for continuous cardiac monitoring, vitals per protocol Dr. 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 ATRIAL FIBRILATION 2. Ankle sprain Core Measures/Misc (06/29) Acute Coronary Syndrome ACS Diagnosis: No Congestive Heart Failure Congestive Heart Failure Diagnosis No Cerebrovascular Accident CVA/TIA Diagnosis: No VTE (View Protocol) VTE Risk Factors Age>40 No Mechanical VTE Prophylaxis d/t N/A MechProphylax Ordered No VTE Pharm Prophylaxis d/t NA PharmProphylax ordered Sepsis (View protocol) Sepsis Present: No If YES complete Sepsis Event Note If YES complete Sepsis Event Note Geraldo Ledesma 04/24/18 1501: General Information and HPI Allergies/Medications Home Med list Amiodarone HCl 200 MG TABLET 0.5 TAB PO DAILY HEART (Reported) Apixaban (Eliquis) 5 MG TABLET 1 TAB PO BID afib Furosemide 40 MG TABLET 1 TAB PO DAILY DIURETIC (Reported) Ibuprofen 800 MG TABLET 1 TAB PO BID PRN PAIN (Reported) Levothyroxine Sodium 25 MCG TABLET 1 TAB PO DAILY hypothyroidism Metoprolol Tartrate 50 MG TABLET 1 TAB PO BID HEART/BP (Reported) Metoprolol Tartrate (Lopressor) 100 MG TABLET 1.5 TAB PO BID afib Mirtazapine 15 MG TABLET 1 TAB PO QPM MENTAL HEALTH (Reported) Oxycodone HCl (Oxycontin) 60 MG TAB.ER.12H 1 TAB PO 4 TIMES/DAY PAIN CONTROL (Reported) Oxycodone HCl 20 MG TABLET 1 TAB PO 5XDAILY PAIN (Reported) Core Measures/Misc (06/29) Sepsis (View protocol) If YES complete Sepsis Event Note If YES complete Sepsis Event Note Attending MD Review Statement Attending Statement Attending MD Statement: examined this patient, discuss w/resident/PA/INSTRUCTOR OF EDUCATION, agreed w/resident/PA/INSTRUCTOR OF EDUCATION, reviewed EMR data (avail), discussed with nursing, discussed with case mgmt Attending Assessment/Plan: 57 yr old man with PMH significant for atrial fibrillation not on anticoagulation s/p cardioversion in 2009 with conversion to sinus and repeat cardioversion in 2016 with conversion back to sinus, s/p cardiac cath in 2006, HTN, HFpEF, HLD, active smoker, chronic low back pain on disability secondary to that on oxycodone and OxyContin presented to the EF for evaluation of High HR that he noticed on checking his BP at home over the last few days. Pt also had a fall last from tripping over the carpet and continued to have left ankle pain. Pt in ED was found to be in Afib with RVR . Pt got iv metoprolol and po metoprolol in Er and po amiodarone which resulted in drop in bp. pt got bolus of iv fluids 2 L in ER and is being admitted for hypotension and afib with RVR and MARYELLEN with cr of 2.2 in ER. AFib with rvr- will d/w pineda about starting amiodarone drip vs digoxin loading as pts bp is borderline. if bp improves we can consider starting cardizem drip. pt was started on heparin drip in ED. will put him on tele monitor and will do another trop. MARYELLEN- pt got 2 liters of fluid bolus in ED. will f/u on bp and if stays low will start on maintenance iv fluids with NS at 70ml/hr and will recheck cr in am. Pt says he has been drinking enough water but was not eating good over the last few days. Chronic back pain- cont on current home meds with caution as bp is on the lower side. pt on very high dose of oxycontin and oxycodone.
--- NOTE | 2018-04-24 12:30 | Cons- Cardiology ---
General Information and HPI Consulting Request Date of Consult: 04/24/18 Requested By: Geraldo Ledesma MD Reason for Consult: Recurrent atrial fibrillation with borderline low blood pressure and elevated heart Source of Information: patient, old records Exam Limitations: no limitations History of Present Illness: The patient is a 57-year-old male who is known to me. His past medical history is remarkable for hypertension, lower extremity edema and prior paroxysmal atrial for ablation. About 1 year ago the patient underwent cardioversion for atrial for ablation and reverted to sinus rhythm. He has been maintained on beta-blockers and low-dose amiodarone since that time. His lower extremity edema has been dramatically improved. More recently, the patient has noted elevated blood pressure again. 2 days ago, the patient lost his balance and fell. The patient also feels that he may have gone into atrial for ablation at that time. Today, he was brought to the emergency room due to reports of some hallucinations. At the time of the ER arrival he was noted to be in atrial fibrillation with a rapid ventricular rate and borderline low blood pressure. In addition, his creatinine was elevated. Patient denies any other cardiac symptoms per Allergies/Medications Allergies: Coded Allergies: Penicillins (Intermediate, HIVES 02/07/17) Home Med List: Amiodarone HCl 200 MG TABLET 0.5 TAB PO DAILY HEART (Reported) Carisoprodol 350 MG TABLET 1 TAB PO QPM MUSCLE RELAXANT (Reported) Furosemide 40 MG TABLET 1 TAB PO DAILY DIURETIC (Reported) Ibuprofen 800 MG TABLET 1 TAB PO BID PRN PAIN (Reported) Metoprolol Tartrate 50 MG TABLET 1 TAB PO BID HEART/BP (Reported) Mirtazapine 15 MG TABLET 1 TAB PO QPM MENTAL HEALTH (Reported) Oxycodone HCl (Oxycontin) 60 MG TAB.ER.12H 1 TAB PO 4 TIMES/DAY PAIN CONTROL (Reported) Oxycodone HCl 20 MG TABLET 1 TAB PO 5XDAILY PAIN (Reported) Oxycodone HCl 10 MG TABLET 1 TAB PO 4XDP PRN CHRONIC BACK PAIN Current Medications: Current Medications Sig/Cinthia Start time Last Medication Dose Route Stop Time Status Admin Amiodarone HCl 100 MG DAILY 04/25 0900 AC PO Amiodarone HCl 100 MG ONCE ONE 04/24 1200 DC 04/24 PO 04/24 1201 1202 Amiodarone HCl 100 MG DAILY 04/24 0900 DC PO Diltiazem HCl 125 MG Q16H 04/24 1130 DC Sodium Chloride 100 ML IV Heparin Sodium 4,000 UNIT ONCE ONE 04/24 1200 DC 04/24 (Porcine) IV 04/24 1201 1214 Heparin Sodium 25,000 UNIT Q24H 04/24 1200 AC 04/24 (Porcine) IV 1214 Sodium Chloride 500 ML Metoprolol Tartrate 50 MG ONCE ONE 04/24 1200 DC 04/24 PO 04/24 1201 1155 Metoprolol Tartrate 0 .STK-MED ONE 04/24 1152 DC PO Metoprolol Tartrate 50 MG BID 04/24 0900 AC PO Metoprolol Tartrate 0 .STK-MED ONE 04/24 0807 DC PO Metoprolol Tartrate 0 .STK-MED ONE 04/24 0807 DC IV Metoprolol Tartrate 5 MG ONCE ONE 04/24 0800 DC 04/24 IV 04/24 0801 0815 Sodium Chloride 1,000 ML BOLUS ONE 04/24 1130 DC 04/24 IV 04/24 1229 1130 Sodium Chloride 1,000 ML BOLUS ONE 04/24 0845 DC 04/24 IV 04/24 0944 0840 Past History Travel History Traveled to [facility] past 21 day No Medical History Neurological: NONE EENT: NONE Cardiovascular: AFIB, CHF, hypertension Respiratory: NONE Gastrointestinal: NONE Hepatic: NONE Renal: NONE Musculoskeletal: chronic back pain Psychiatric: substance abuse Endocrine: NONE Blood Disorders: NONE Cancer(s): NONE FRONT DESK ADMIN/Reproductive: NONE Surgical History Surgical History: non-contributory Psychosocial History Services at Home: None Functional Ability ADLs Independent: dressing, eating, toileting, bathing. Ambulation: walker IADLs Independent: shopping, housework, finances, food prep, telephone, transportation , medication admin. Exam & Diagnostic Data Vital Signs and I&O Vital Signs Date Time Temp Pulse Resp B/P B/P Pulse O2 O2 Flow FiO2 Mean Ox Delivery Rate 04/24 1202 151 98/58 04/24 1155 151 98/58 04/24 1143 151 98/58 04/24 1003 136 88/46 04/24 0930 136 80/45 04/24 0900 139 84/50 04/24 0840 130 81/55 04/24 0839 130 81/55 04/24 0838 130 81/55 04/24 0831 70/00 04/24 0815 140 111/48 04/24 08 140 110/48 04/24 0621 97.0 710 18 131/58 93 Room Air Intake & Output 04/24 0000 04/23 0000 Intake Total 0 Output Total Balance 0 Intake, Oral 0 Patient 240 lb Weight Labs/Rigoberto Results: Laboratory Tests 04/24 658 Chemistry Sodium (137 - 145 mmol/L) 133 L Potassium (3.5 - 5.1 mmol/L) 4.0 Chloride (98 - 107 mmol/L) 99 Carbon Dioxide (22 - 30 mmol/L) 20 L Anion Gap (5 - 16) 15 BUN (9 - 20 mg/dL) 43 H Creatinine (0.7 - 1.2 mg/dL) 2.2 H Estimated GFR (>60 ml/min) 31 L BUN/Creatinine Ratio (7 - 25 %) 19.5 Glucose (65 - 99 mg/dL) 113 H Calcium (8.4 - 10.2 mg/dL) 9.0 Magnesium (1.6 - 2.3 mg/dL) 1.8 Total Bilirubin (0.2 - 1.3 mg/dL) 0.4 AST (17 - 59 U/L) 27 ALT (21 - 72 U/L) 26 Alkaline Phosphatase (< 127 U/L) 84 Troponin I (<0.11 ng/ml) 0.04 Spx-R-Qbdyzxufrva Pept (<125 pg/mL) 7510 H Total Protein (6.3 - 8.2 g/dL) 6.9 Albumin (3.5 - 5.0 g/dL) 3.8 Globulin (1.9 - 4.2 gm/dL) 3.1 Albumin/Globulin Ratio (1.1 - 2.2 %) 1.2 Hematology CBC w Diff NO MAN DIFF REQ WBC (4.8 - 10.8 /CUMM) 8.7 RBC (4.70 - 6.10 /CUMM) 4.06 L Hgb (14.0 - 18.0 G/DL) 12.5 L Hct (42 - 52 %) 37.1 L MCV (80.0 - 94.0 FL) 91.6 MCH (27.0 - 31.0 PG) 30.9 MCHC (33.0 - 37.0 G/DL) 33.8 RDW (11.5 - 14.5 %) 14.7 H Plt Count (130 - 400 /CUMM) 203 MPV (7.4 - 10.4 FL) 9.1 Gran % (42.2 - 75.2 %) 82.9 H Lymphocytes % (20.5 - 51.1 %) 7.3 L Monocytes % (1.7 - 9.3 %) 8.0 Eosinophils % (0 - 5 %) 1.4 Basophils % (0.0 - 2.0 %) 0.4 Absolute Granulocytes (1.4 - 6.5 /CUMM) 7.2 H Absolute Lymphocytes (1.2 - 3.4 /CUMM) 0.6 L Absolute Monocytes (0.10 - 0.60 /CUMM) 0.7 H Absolute Eosinophils (0.0 - 0.7 /CUMM) 0.1 Absolute Basophils (0.0 - 0.2 /CUMM) 0 Toxicology Serum Alcohol (<10 MG/DL) < 10.0 Diagnostic Data EKG Results Atrial fibrillation with elevated ventricular rate and nonspecific ST-T changes CXR Results FINDINGS: Lung volumes are low. No consolidation, edema, or effusion. No pneumothorax. The cardiomediastinal silhouette is within normal limits. Multilevel degenerative changes of the spine. No acute osseous abnormality. IMPRESSION: Hypoexpanded lungs with no acute pulmonary finding. No displaced fractures are seen. Assessment/Plan Assessment/Plan Assessment: 1. Possible hallucinations 2. Atrial fibrillation, recurrent, elevated ventricular rate 3. Borderline low blood pressure 4. Acute renal insufficiency 5. Elevated proBNP Recommendations: -Admit the patient to [address] [place], [place] [address]etry -Continue IV fluids for likely dehydration -Follow-up labs to reassess renal function in 24 hours -If the creatinine remains elevated, consider further evaluation with renal ultrasound, etc. -Restart home medications including beta-blockers and amiodarone -Depending on the patient's heart rate, we may need to consider adding IV Cardizem if the blood pressure tolerates after IV fluids. Otherwise, low-dose digoxin may be necessary for rate control. -Follow-up echocardiogram -Check all labs including B12, TSH, etc. -Follow-up CBCs after IV fluids -Check troponin 2 -Follow-up ECG in a.m. Consult Acknowledgment - Thank you for your consult request.
[2018-04-24 15:02] VITALS: BP 122/64
--- NOTE | 2018-04-24 15:21 | Admission Certification ---
Admission Certification Certification Statement - As attending physician, I certify that at the time of - admission, based on clinical presentation, severity of - symptoms, need for further diagnostic testing and - therapeutic interventions, and risk of adverse outcomes - without in-hospital treatment, in my clinical assessment, - this patient requires an acute hospital stay for a minimum - of two nights or longer. I have also considered psychsocial - factors such as support system, advanced age, financial - issues, cognitive issues, and failed out-patient treatments, - past re-admission history, safety of patient, and lack of - compliance as applicable. Specific rationale supporting this admission is: afib with rvr and hypotension
[2018-04-24 19:28] LABS: PTT 49 SEC (25-37)
--- NOTE | 2018-04-24 19:58 | ULTRASOUND REPORT ---
EXAMINATION: US TRIPLEX LOWER EXTREMITY, RIGHT CLINICAL INFORMATION: Increasing size and more to the right lower extremity. COMPARISON: None TECHNIQUE: Color-flow triplex imaging with spectral analysis and compression Doppler were performed on the right lower extremity. FINDINGS: Respiratory variation, normal compression and augmented flow are noted throughout the right lower extremity. The visualized common femoral vein, superficial femoral vein, profunda femoral vein, popliteal vein and midcalf peroneal and posterior tibial venous segments show no evidence of deep venous thrombosis. There is no Herndon's cyst. There are enlarged bilateral inguinal lymph nodes, the right side measuring up to 1.9 cm and on the left side measuring up to 1.7 cm. IMPRESSION: No evidence of deep venous thrombosis involving the right lower extremity. There are enlarged bilateral inguinal lymph nodes.
[2018-04-24 23:05] VITALS: BP 120/80
[2018-04-25 02:50] LABS: PTT 67 SEC (25-37)
[2018-04-25 07:01] VITALS: BP 130/70
--- NOTE | 2018-04-25 09:15 | PN- Housestaff ---
Vanessa YOO,Mayito 04/25/18913: Subjective Follow-up For: Bibiana zhang with RVR, MARYELLEN Complaints: no complaints Tele-Events Since Last Visit: Bibiana zhang, heart rate from 109-150., PVC at 4 AM. Subjective: I followed up and examined the patient today. He is resting comfortably in bed, does not offer any complaints other than his chronic back pain which hasn't changed much. Vital signs stabilizing, rate controlled. No other issues reported. Review of Systems Constitutional: Reports: see HPI. Objective Last 24 Hrs of Vital Signs/I&O Vital Signs Date Time Temp Pulse Resp B/P B/P Pulse O2 O2 Flow FiO2 Mean Ox Delivery Rate 04/25 0701 98.7 93 18 130/70 94 04/24 2305 99.9 160 18 120/80 94 04/24 2107 140 120/80 04/24 1502 98.8 116 20 122/64 94 Room Air 04/24 1400 97.6 128 20 96/52 94 Room Air 04/24 1318 102/60 04/24 1202 151 98/58 04/24 1155 151 98/58 04/24 1143 151 98/58 04/24 1003 136 88/46 04/24 0930 136 80/45 Intake & Output 04/25 1600 04/25 0800 04/25 0000 Intake Total 960 540 Output Total Balance 960 540 Intake, IV 840 420 Intake, Oral 120 120 Patient 111.13 kg Weight Physical Exam General Appearance: Alert, Oriented X3, Cooperative, No Acute Distress, obese Other Physical Findings: Skin B/l chronic skin changes with no break in skin noted. tophi seen on 2nd right toe HEENT Atraumatic, PERRLA, EOMI, Mucous Membr. moist/pink Neck Supple, No JVD Cardiovascular irreg irreg Lungs bibasillar crackles Abdomen Soft, No Tenderness Extremities b/l edema, better Current Medications: Current Medications Sig/Cinthia Start time Last Medication Dose Route Stop Time Status Admin Amiodarone HCl 100 MG DAILY 04/25 0900 AC PO Amiodarone HCl 100 MG ONCE ONE 04/24 1200 DC 04/24 PO 04/24 1201 1202 Amiodarone HCl 100 MG DAILY 04/24 0900 DC PO Diltiazem HCl 125 MG Q16H 04/24 1130 DC Sodium Chloride 100 ML IV Heparin Sodium 4,354 UNIT ONE ONE 04/24 1950 DC 04/24 (Porcine) IV 04/24 195 2020 Heparin Sodium 4,000 UNIT ONCE ONE 04/24 1200 DC 04/24 (Porcine) IV 04/24 1201 1214 Heparin Sodium 25,000 UNIT Q24H 04/24 1200 AC 04/25 (Porcine) IV 0709 Sodium Chloride 500 ML Metoprolol Tartrate 50 MG ONCE ONE 04/24 1200 DC 04/24 PO 04/24 1201 1155 Metoprolol Tartrate 0 .STK-MED ONE 04/24 1152 DC PO Metoprolol Tartrate 50 MG BID 04/24 0900 AC 04/24 PO 2107 Oxycodone HCl 40 MG Q6 04/24 1800 AC 04/25 PO 0602 Oxycodone HCl 20 MG Q6 04/24 1800 AC 04/25 PO 0602 Oxycodone HCl 20 MG Q4-6 PRN PRN 04/24 1530 AC 04/25 PO 0602 Sodium Chloride 1,000 ML Q13H 04/24 1615 DC 04/24 IV 04/25 0514 1756 Sodium Chloride 1,000 ML BOLUS ONE 04/24 1500 CAN IV 04/24 1559 Sodium Chloride 1,000 ML BOLUS ONE 04/24 1130 DC 04/24 IV 04/24 1229 1130 Sodium Chloride 1,000 ML BOLUS ONE 04/24 0845 DC 04/24 IV 04/24 0944 0840 Last 24 Hrs of Lab/Rigoberto Results Last 24 Hrs of Labs/Mics: Laboratory Tests 04/25/18 0641: Anion Gap 9, Estimated GFR > 60, BUN/Creatinine Ratio 23.8 04/25/18 0210: APTT 67 H 04/24/18 1815: APTT 49 H 04/24/18 1800: Urine Opiates Screen 1621.00, Methadone Screen 53, Barbiturate Screen < 60, Ur Phencyclidine Scrn < 6.00, Amphetamines Screen < 100, U Benzodiazepines Scrn < 85, Urine Cocaine Screen < 50, Urine Cannabis Screen < 5.00 04/24/18 1313: Troponin I 0.03 Assessment/Plan Assessment: 57-year-old male with multiple medical problems, currently admitted in telemetry for the management of following issues: #Atrial flutter fibrillation with rapid ventricular response Rate is getting under control with beta mehreen, which will continue. Anti- Coblation is adequately done with IV heparin, and according to cardiology recommendation, will change to Eliquis in the morning. #Acute kidney injury, resolved. (Cr 0.8 today) #Chronic back pain, continuing home medication. #Will continue rest of his home medications. #DVT prophylaxis: Eliquis from tomorrow per cardio, now on IV Heparin #Diet: HHD #CODE STATUS: Full code. Problem List: 1. ATRIAL FIBRILATION Pain Ratin Pain Location: back Pain Goal: Pain 4 or less Pain Plan: prn, home meds Tomorrow's Labs & Rationales: CBC, BEP Geraldo Ledesma 04/25/18 1538: Attending MD Review Statement Attending Statement Attending MD Statement: examined this patient, discuss w/resident/PA/INCISING MACHINE OPERATOR, agreed w/resident/PA/INCISING MACHINE OPERATOR, discussed with family, reviewed EMR data (avail), discussed with nursing, discussed with case mgmt Attending Assessment/Plan: AFib with rvr- d/w edwin , cont pt on heparin drip and metoprolol 50mg bid and amiodarone 100mg qd. rates better controlled. monitor on tele monitor . Increased metoprolol to 75mg bid. MARYELLEN- resolved. cr down to 0.8 today. Chronic back pain- cont on current home meds with caution as bp is on the lower side. pt on very high dose of oxycontin and oxycodone. Hyponatremia- resolved. sodium up to 140 from 133. d/w pt and family the care plan.
--- NOTE | 2018-04-25 13:02 | PN- Cardiology ---
Subjective Subjective: Clinically doing okay. No significant cardiac symptoms. Overall feels better. Complains of leg discomfort. Objective Vital Signs and I&Os Vital Signs Date Time Temp Pulse Resp B/P B/P Pulse O2 O2 Flow FiO2 Mean Ox Delivery Rate 04/25 1009 93 130/70 04/25 0701 98.7 93 18 130/70 94 04/24 2305 99.9 160 18 120/80 94 04/24 2107 140 120/80 04/24 1502 98.8 116 20 122/64 94 Room Air 04/24 1400 97.6 128 20 96/52 94 Room Air 04/24 1318 102/60 Intake & Output 04/25 1600 04/25 0800 04/25 0000 04/24 1600 04/24 0800 04/24 0000 Intake Total 960 540 0 Output Total Balance 960 540 0 Intake, IV 840 420 Intake, Oral 120 120 0 Patient 245 lb 240 lb Weight Current Medications: Current Medications Sig/Cinthia Start time Last Medication Dose Route Stop Time Status Admin Amiodarone HCl 100 MG DAILY 04/25 0900 AC 04/25 PO 1009 Heparin Sodium 4,354 UNIT ONE ONE 04/24 1950 DC 04/24 (Porcine) IV 04/24 195 2020 Heparin Sodium 25,000 UNIT Q24H 04/24 1200 AC 04/25 (Porcine) IV 0709 Sodium Chloride 500 ML Metoprolol Tartrate 75 MG BID 04/25 2100 AC PO Metoprolol Tartrate 50 MG BID 04/24 0900 DC 04/24 PO 2107 Oxycodone HCl 40 MG Q6 04/24 1800 AC 04/25 PO 0602 Oxycodone HCl 20 MG Q6 04/24 1800 AC 04/25 PO 0602 Oxycodone HCl 20 MG Q4-6 PRN PRN 04/24 1530 AC 04/25 PO 0602 Potassium Chloride 40 MEQ ONCE ONE 04/25 0945 DC 04/25 PO 04/25 0946 1009 Sodium Chloride 1,000 ML Q13H 04/24 1615 DC 04/24 IV 04/25 0514 1756 Sodium Chloride 1,000 ML BOLUS ONE 04/24 1500 CAN IV 04/24 1559 Results Last 48 Hrs of Labs/Mics: Laboratory Tests 04/25/18 0641: Anion Gap 9, Estimated GFR > 60, BUN/Creatinine Ratio 23.8, Magnesium 2.1 04/25/18 0210: APTT 67 H 04/24/18 1815: APTT 49 H 04/24/18 1800: Urine Opiates Screen 1621.00, Methadone Screen 53, Barbiturate Screen < 60, Ur Phencyclidine Scrn < 6.00, Amphetamines Screen < 100, U Benzodiazepines Scrn < 85, Urine Cocaine Screen < 50, Urine Cannabis Screen < 5.00 04/24/18 1313: Troponin I 0.03 04/24/18 0658: Anion Gap 15, Estimated GFR 31 L, BUN/Creatinine Ratio 19.5, Glucose 113 H, Hemoglobin A1c Pending, Calcium 9.0, Magnesium 1.8, Total Bilirubin 0.4, AST 27, ALT 26, Alkaline Phosphatase 84, Troponin I 0.04, Kzn-X-Gizcemhjouz Pept 7510 H , Total Protein 6.9, Albumin 3.8, Globulin 3.1, Albumin/Globulin Ratio 1.2, Vitamin B12 639, TSH 5.060 H, Thyroxine (T4) 7.9, CBC w Diff NO MAN DIFF REQ, RBC 4.06 L, MCV 91.6, MCH 30.9, MCHC 33.8, RDW 14.7 H, MPV 9.1, Gran % 82.9 H , Lymphocytes % 7.3 L, Monocytes % 8.0, Eosinophils % 1.4, Basophils % 0.4, Absolute Granulocytes 7.2 H, Absolute Lymphocytes 0.6 L, Absolute Monocytes 0.7 H, Absolute Eosinophils 0.1, Absolute Basophils 0, Serum Alcohol < 10.0 Assessment/Plan Assessment/Plan Assessment: 1. Possible hallucinations 2. Atrial fibrillation, recurrent, elevated ventricular rate 3. Borderline low blood pressure 4. Acute renal insufficiency-resolved 5. Elevated proBNP Recommendations: -Continue on telemetry -Continue current medication regimen -Heart rate control improved. Continue to encourage oral hydration. -Echocardiogram pending -Continue IV heparin today. Transition to Eliquis tomorrow. -Depending on patient's clinical course, consideration for eventual outpatient DEUCE/cardioversion - Continue telemetry? Yes
--- NOTE | 2018-04-25 15:06 | RADIOLOGY REPORT ---
EXAMINATION: XR PORTABLE CHEST CLINICAL INFORMATION: CHF. Presumptive diagnosis of pulmonary edema/cardiomegaly. COMPARISON: Several prior chest x-rays, most recent of which is dated 04/24/2018. TECHNIQUE: Portable AP semierect view of the chest was obtained. FINDINGS: Multiple EKG leads overlie the chest. The cardiomediastinal silhouette is enlarged. Lungs bilaterally are symmetrically expanded and demonstrate slight central vascular congestion. No overt pulmonary edema is seen. No focal consolidation, effusion or pneumothorax is seen. Bony structures are unremarkable. IMPRESSION: 1. Cardiomegaly. 2. Mild central vascular congestion. No overt pulmonary edema. 3. No focal pneumonia.
[2018-04-25 15:11] VITALS: BP 130/84
[2018-04-25 18:35] LABS: PTT 61 SEC (25-37)
[2018-04-25 22:00] VITALS: BP 130/86
[2018-04-26 06:47] VITALS: BP 124/88
[2018-04-26 08:03] LABS: ABSOLUTE BASOPHIL COUNT 0 /CUMM (0.0-0.2); ABSOLUTE EOSINOPHIL COUNT 0.3 /CUMM (0.0-0.7); ABSOLUTE LYMPH COUNT 2.4 /CUMM (1.2-3.4); ABSOLUTE MONOCYTE COUNT 0.6 /CUMM (0.10-0.60); BASOPHIL % 0.5 % (0.0-2.0); EOSINOPHIL % 5.4 % (0-5); GRANULOCYTE % 47.2 % (42.2-75.2); HEMATOCRIT 37.7 % (42-52); MEAN CORPUSCULAR HGB CONC 33.5 G/DL (33.0-37.0); MEAN CORPUSCULAR VOLUME 92.6 FL (80.0-94.0); PLATELET COUNT 197 /CUMM (130-400); RBC DISTRIBUTION WIDTH 15.1 % (11.5-14.5); RED BLOOD CELL CT 4.07 /CUMM (4.70-6.10); WHITE BLOOD CELL COUNT 6.4 /CUMM (4.8-10.8)
--- NOTE | 2018-04-26 08:25 | PN- Housestaff ---
Misty Connelly 04/26/18 0825: Subjective Follow-up For: A-Fib with RVR MARYELLEN resolved Tele-Events Since Last Visit: Hermelinda zhang, 89, 0.08 Subjective: Patient seen and examined at bedside this morning. Patient had episodes of diffuse chest pain that resolved. He denied any shortness of breath or palpitations. He claims to be well this morning. Continue to monitor on telemetry. Review of Systems Constitutional: Denies: see HPI. Objective Last 24 Hrs of Vital Signs/I&O Vital Signs Date Time Temp Pulse Resp B/P B/P Pulse O2 O2 Flow FiO2 Mean Ox Delivery Rate 04/26 1434 97.8 66 20 122/80 91 04/26 0900 65 124/88 04/26 0647 97.7 65 20 124/88 96 Room Air 04/25 2200 98.3 120 20 130/86 98 Room Air Intake & Output 04/26 1600 04/26 0800 04/26 0000 Intake Total 363 241.6 Output Total Balance 363 241.6 Intake, IV 243 121.6 Intake, Oral 120 120 Patient 246 lb Weight Weight Bed scale Measurement Method Physical Exam General Appearance: Alert, Oriented X3, Cooperative, No Acute Distress HEENT: Atraumatic, PERRLA, EOMI Neck: Supple, No JVD, No thryomegaly Cardiovascular: Normal S1, Normal S2, Irregularly irregular Lungs: Normal Air Movement Abdomen: Normal Bowel Sounds, Soft, No Tenderness Neurological: Normal Speech, Strength at 5/5 X4 Ext, Normal Tone, Sensation Intact, Cranial Nerves 3-12 NL, Reflexes 2+ Extremities: No Clubbing, No Cyanosis, Lower extremities slightly warm; +1 edema ; decreased swelling in comparison to admission Vascular: Normal Pulses, Pulses Symmetrical Current Medications: Current Medications Sig/Cinthia Start time Last Medication Dose Route Stop Time Status Admin Amiodarone HCl 100 MG DAILY 04/25 09 AC 04/26 PO 0900 Apixaban 5 MG BID 04/26 09 AC 04/26 PO 0900 Heparin Sodium 25,000 UNIT Q24H 04/24 1200 DC 04/26 (Porcine) IV 04/26 09 0004 Sodium Chloride 500 ML Ibuprofen 600 MG ONCE ONE 04/25 2000 DC 04/25 PO 04/25 Metoprolol Tartrate 100 MG BID 04/26 2100 AC PO Metoprolol Tartrate 75 MG BID 04/25 2100 DC 04/26 PO 0900 Oxycodone HCl 40 MG Q6 04/24 1800 AC 04/26 PO 1240 Oxycodone HCl 20 MG Q6 04/24 1800 AC 04/26 PO 1240 Oxycodone HCl 20 MG Q4-6 PRN PRN 04/24 1530 AC 04/26 PO 1240 Last 24 Hrs of Lab/Rigoberto Results Last 24 Hrs of Labs/Mics: Laboratory Tests 04/26/18 0640: Anion Gap 11, Estimated GFR > 60, BUN/Creatinine Ratio 22.5, Free T4 1.64, Total T3 1.00, TSH &T3 &Free T4 Intrp 10.100 H, APTT 44 H, CBC w Diff NO MAN DIFF REQ, RBC 4.07 L, MCV 92.6, MCH 31.0, MCHC 33.5, RDW 15.1 H, MPV 9.0, Gran % 47.2, Lymphocytes % 37.6, Monocytes % 9.3, Eosinophils % 5.4 H, Basophils % 0.5 , Absolute Granulocytes 3.0, Absolute Lymphocytes 2.4, Absolute Monocytes 0.6, Absolute Eosinophils 0.3, Absolute Basophils 0 04/25/18 2015: Troponin I 0.02 04/25/18 1755: APTT 61 H Assessment/Plan Assessment: A/P: 57-year-old male with multiple medical problems, currently admitted in telemetry for the management of following issues: Problem List: 1. Atrial fibrillation, recurrent, elevated ventricular rate 2. Acute renal insufficiency-resolved 3. Chronic Back Pain PLAN: * Seen by Dr. Pineda today -continue telemetry; continue current medication regimen -increase Metoprolol to 100mg BID -Eliquis 5mg BID started today; DC Heparin Drip -possible eventual DEUCE/Cardioversion; to be decided after endocrinology input * Endocrinology consulted for tomorrow for elevated TSH 10.100 given that patient is on amiodarone * Pain Meds: Patient on high dose for chronic back pain of oxycontin and oxycodone for many years; follows up with pain clinic * Possible DC after endocrinology evaluation Code Status: Full Code DVT PPx: Eliquis Diet: HHD Problem List: 1. ATRIAL FIBRILATION Pain Ratin Pain Location: [place] Pain Goal: Pain 4 or less Pain Plan: As per pain pathway Tomorrow's Labs & Rationales: CBC BEP DVT/Prophylaxis: pharmacological LedesmaGeraldo boggs 04/26/18 1518: Attending MD Review Statement Attending Statement Attending MD Statement: examined this patient, discuss w/resident/PA/KETTLE HAND, agreed w/resident/PA/KETTLE HAND, reviewed EMR data (avail), discussed with nursing, discussed with case mgmt Attending Assessment/Plan: AFib with rvr- d/w pineda , cont pt on metoprolol 75mg bid and amiodarone 100mg qd. rates better controlled. monitor on tele monitor . Dced heparin drip and started on eliquis. MARYELLEN- resolved. cr down to baseline. Chronic back pain- cont on current home meds . pt on very high dose of oxycontin and oxycodone for many years and f/u with pain clinic. Hyponatremia- resolved. sodium up to 140 from 133. Subclinical hypothyroidism- TSH is high and fluctuating. Given that pt is on amiodarone will get endocrine input on High TSH tomorrow am. Possible dc tomorrow after endo eval. d/w pt the care plan.
[2018-04-26 08:31] LABS: PTT 44 SEC (25-37)
--- NOTE | 2018-04-26 09:28 | ECHOCARDIOGRAM REPORT ---
LONDON ALEXANDRA Age: 57 : 1960 Gender: M Exam Date: 04/25/2018 11:42 Exam Location: [address] Ht (in): 72 Wt (lb): 240 BSA: 2.38 BP: 96 / 52 Ordering Physician: Mahamed Rosales MD Referring Physician: Mahamed Rosales MD Technologist: Aundrea Beavers [facility] Room Number: [id number] Indications: Rhythm: Atrial fibrillation Technical Quality: Poor, Technically difficult study FINDINGS Left Ventricle Left ventricular cavity size at the upper limits of normal. Mildly reduced global left ventricular systolic function. Mildly abnormal left ventricular ejection fraction estimated at 45-50%. Right Ventricle Right ventricle not well visualized, grossly normal. Right Atrium Right atrial dilatation. Left Atrium Moderate to severe left atrial dilatation. Mitral Valve Mitral valve thickened. [id number] mitral regurgitation. Aortic Valve Trileaflet aortic valve. Diffuse thickening (sclerosis) of the aortic valve cusps without reduced excursion. Tricuspid Valve Tricuspid valve not well visualized, grossly normal. Pulmonic Valve Pulmonic valve not well visualized. Pericardium No pericardial effusion. Great Vessels Aortic root and proximal ascending aorta not well visualized, grossly normal. CONCLUSIONS 1. This was a technically difficult and very limited study due to the patient's body habitus. 2. Aortic sclerosis is present with no valvular stenosis or insufficiency. 3. Mitral leaflet thickening is present with mild to moderate mitral insufficiency and moderate to severe left atrial enlargement. 4. There is no significant pericardial fluid present on the study. 5. The left ventricular chamber appears to be upper normal in size. The ejection fraction is approximately 45-50%. Accurate wall motion assessment was not possible. 6. The right heart structures were not optimally visualized. The right ventricular systolic pressure cannot be assessed on this study. 7. There appears to be a small intra-atrial septal aneurysm present. 8. A follow-up examination is recommended when the patient's heart rate is better controlled. Sarah Sow M.D. (Electronically Signed) Final Date: 26 April 2018 09:27 MEASUREMENTS (Male / Female) Normal Values 2D ECHO LV Diastolic Diameter PLAX 5.2 cm 4.2 - 5.9 / 3.9 - 5.3 cm LV Systolic Diameter PLAX 3.8 cm 2.1 - 4.0 cm LV Fractional Shortening PLAX 26.9 % 25 - 46 % LV Ejection Fraction 2D Teich 52.2 % IVS Diastolic Thickness 1.1 cm LVPW Diastolic Thickness 1.0 cm LV Relative Wall Thickness 0.4 LVOT Diameter 2.4 cm Aortic Root Diameter 3.9 cm LA Systolic Diameter LX 4.2 cm 3.0 - 4.0 / 2.7 - 3.8 cm LA Volume 155.0 cm 18 - 58 / 22 - 52 cm DOPPLER AV Peak Velocity 135.0 cm/s AV Peak Gradient 7.3 mmHg LVOT Peak Velocity 112.0 cm/s LVOT Peak Gradient 5.0 mmHg AV Area Cont Eq pk 3.8 cm Mitral E Point Velocity 69.1 cm/s Mitral A Point Velocity 46.9 cm/s Mitral E to A Ratio 1.5 MV Deceleration Time 391.0 ms PV Peak Velocity 118.0 cm/s PV Peak Gradient 5.6 mmHg LV E' Lateral Velocity 7.2 cm/s Mitral E to LV E' Lateral Ratio 9.6 LV E' Septal Velocity 5.6 cm/s Mitral E to LV E' Septal Ratio 12.4
[2018-04-26 14:34] VITALS: BP 122/80
--- NOTE | 2018-04-26 14:44 | PN- Cardiology ---
Subjective Subjective: Stable, sitting in bedside chair. No specific complaints today. Overall feeling better. Objective Vital Signs and I&Os Vital Signs Date Time Temp Pulse Resp B/P B/P Pulse O2 O2 Flow FiO2 Mean Ox Delivery Rate 04/26 1434 97.8 66 20 122/80 91 04/26 0900 65 124/88 04/26 0647 97.7 65 20 124/88 96 Room Air 04/25 2200 98.3 120 20 130/86 98 Room Air 04/25 1511 98.4 104 18 130/84 97 Intake & Output 04/26 1600 04/26 0800 04/26 0000 04/25 1600 04/25 0800 04/25 0000 Intake Total 363 241.6 600 960 540 Output Total Balance 363 241.6 600 960 540 Intake, IV 243 121.6 840 420 Intake, Oral 120 120 600 120 120 Patient 246 lb 245 lb Weight Weight Bed scale Measurement Method Physical Exam: General Appearance: well developed/nourished, alert, awake, oriented Head: normal HEENT: Normal Neck: supple, JVP normal, carotid upstrokes normal bilaterally, no masses or thyromegaly Respiratory: chest non-tender, clear to auscultation and percussion bilaterally Cardiovascular: irregular rate/rhythm, normal S1, S2, 1-2/6 systolic murmur Abdomen: normal bowel sounds, soft, non-tender Extremities: normal inspection, no significant edema, bilateral stasis changes noted Vascular: Pulses are 2+ and equal bilaterally Neurologic: Grossly normal/nonfocal Current Medications: Current Medications Sig/Cinthia Start time Last Medication Dose Route Stop Time Status Admin Amiodarone HCl 100 MG DAILY 04/25 09 AC 04/26 PO 0900 Apixaban 5 MG BID 04/26 09 AC 04/26 PO 0900 Heparin Sodium 25,000 UNIT Q24H 04/24 1200 DC 04/26 (Porcine) IV 04/26 09 0004 Sodium Chloride 500 ML Ibuprofen 600 MG ONCE ONE 04/25 2000 DC 04/25 PO 04/25 Metoprolol Tartrate 75 MG BID 04/25 2100 AC 04/26 PO 0900 Oxycodone HCl 40 MG Q6 04/24 1800 AC 04/26 PO 1240 Oxycodone HCl 20 MG Q6 04/24 1800 AC 04/26 PO 1240 Oxycodone HCl 20 MG Q4-6 PRN PRN 04/24 1530 AC 04/26 PO 1240 Results Last 48 Hrs of Labs/Mics: Laboratory Tests 04/26/18 0640: Anion Gap 11, Estimated GFR > 60, BUN/Creatinine Ratio 22.5, Free T4 1.64, Total T3 1.00, TSH &T3 &Free T4 Intrp 10.100 H, APTT 44 H, CBC w Diff NO MAN DIFF REQ, RBC 4.07 L, MCV 92.6, MCH 31.0, MCHC 33.5, RDW 15.1 H, MPV 9.0, Gran % 47.2, Lymphocytes % 37.6, Monocytes % 9.3, Eosinophils % 5.4 H, Basophils % 0.5 , Absolute Granulocytes 3.0, Absolute Lymphocytes 2.4, Absolute Monocytes 0.6, Absolute Eosinophils 0.3, Absolute Basophils 0 04/25/18 2015: Troponin I 0.02 04/25/18 1755: APTT 61 H 04/25/18 0641: Anion Gap 9, Estimated GFR > 60, BUN/Creatinine Ratio 23.8, Magnesium 2.1 04/25/18 0210: APTT 67 H 04/24/18 1815: APTT 49 H 04/24/18 1800: Urine Opiates Screen 1621.00, Methadone Screen 53, Barbiturate Screen < 60, Ur Phencyclidine Scrn < 6.00, Amphetamines Screen < 100, U Benzodiazepines Scrn < 85, Urine Cocaine Screen < 50, Urine Cannabis Screen < 5.00 Assessment/Plan Assessment/Plan Assessment: 1. Possible hallucinations 2. Atrial fibrillation, recurrent, elevated ventricular rate 3. Borderline low blood pressure 4. Acute renal insufficiency-resolved 5. Elevated proBNP Recommendations: -Continue on telemetry -Continue current medication regimen -Heart rate control improved but still intermittently tachycardic. -Increase metoprolol to 100 mg twice daily -Echocardiogram noted. -Eliquis 5 mg twice daily started today -Depending on patient's clinical course, consideration for eventual outpatient DEUCE/cardioversion -Timing of cardioversion to be decided upon after endocrinology input Continue telemetry? Yes
[2018-04-26 23:37] VITALS: BP 116/70
--- NOTE | 2018-04-27 07:01 | PN- Housestaff ---
Misty Connelly 04/27/18 0700: Subjective Follow-up For: Atrial Fibrillation with RVR Tele-Events Since Last Visit: A fibm 76-94 Rates; 111 Subjective: Patient seen and examined at bedside this morning. Has a concern about hallucinations present prior to admission where he was seeing people and double vision. Patient claims it was due to new medication flexeril he bagain few weeks ago. He has not had any hallucinations on admission but we will get a pyschiatry consult. He denies any chest pain or shortness of breath. Hopes to be cardioverted if possible since has been successful in past. Will follow up with cardiology and endocrinology. Review of Systems Constitutional: Denies: see HPI. Objective Last 24 Hrs of Vital Signs/I&O Vital Signs Date Time Temp Pulse Resp B/P B/P Pulse O2 O2 Flow FiO2 Mean Ox Delivery Rate 04/27 744 125 120/60 04/27 0744 125 120/60 04/27 0714 98.2 111 20 120/60 94 04/26 2337 98.1 102 20 116/70 95 Room Air 04/26 2032 148 132/80 04/26 1434 97.8 66 20 122/80 91 Intake & Output 04/27 1600 04/27 0800 04/27 0000 Intake Total 240 400 Output Total Balance 240 400 Intake, Oral 240 400 Patient 275 lb Weight Physical Exam General Appearance: Alert, Oriented X3, Cooperative HEENT: Atraumatic, PERRLA, EOMI, Mucous Membr. moist/pink Neck: Supple, No JVD Cardiovascular: Normal S1, Normal S2, Irregularly irregular Lungs: Clear to Auscultation, Normal Air Movement Abdomen: Normal Bowel Sounds, Soft, No Tenderness Neurological: Normal Speech, Strength at 5/5 X4 Ext, Normal Tone, Sensation Intact, Reflexes 2+ Extremities: No Clubbing, No Cyanosis, lower extremity +1 edema; chronic venous changes Vascular: Normal Pulses, Pulses Symmetrical Current Medications: Current Medications Sig/Cinthia Start time Last Medication Dose Route Stop Time Status Admin Amiodarone HCl 100 MG DAILY 04/25 09 AC 04/27 PO 0744 Apixaban 5 MG BID 04/26 0900 AC 04/27 PO 0744 Levothyroxine Sodium 0.025 MG DAILY AC 04/27 0848 AC 04/27 PO 1113 Metoprolol Tartrate 100 MG BID 04/26 2100 AC 04/27 PO 0744 Metoprolol Tartrate 75 MG BID 04/25 2100 DC 04/26 PO 0900 Oxycodone HCl 40 MG Q6 04/24 1800 AC 04/27 PO 1113 Oxycodone HCl 20 MG Q6 04/24 1800 AC 04/27 PO 1113 Oxycodone HCl 20 MG Q4-6 PRN PRN 04/24 1530 AC 04/27 PO 1113 Last 24 Hrs of Lab/Rigoberto Results Last 24 Hrs of Labs/Mics: Laboratory Tests 04/27/18 0640: Anion Gap 8, Estimated GFR > 60, BUN/Creatinine Ratio 17.1, CBC w Diff NO MAN DIFF REQ, RBC 3.86 L, MCV 92.8, MCH 30.9, MCHC 33.3, RDW 14.7 H, MPV 9.0, Gran % 61.5, Lymphocytes % 23.9, Monocytes % 8.7, Eosinophils % 5.4 H, Basophils % 0.5, Absolute Granulocytes 4.1, Absolute Lymphocytes 1.6, Absolute Monocytes 0.6 , Absolute Eosinophils 0.4, Absolute Basophils 0 Assessment/Plan Assessment: 57-year-old male with pmh of atrial fibrillation s/p cardioversion X2 came into ED to be evaluated for left ankle and lower extremity pain. Patient found to be in Atrial fibrillation RVR in rates of 140s. Shortness of breath present on admission with pressures in the lower end 80/50s. Patient has brought out new concern of hallucinations prior to admission. States it may be due to new medication Flexeril that he has drank beer upon taking. Patient has not had any hallucinations during his stay at the hospital. Psychiatry consulted. Patient NPO after midnight for DEUCE/Cardioversion. Problem List: 1. Atrial fibrillation, recurrent, elevated ventricular rate 2. Acute Renal Injury - Resolved 3. Chronic Back Pain PLAN: * Appreciate Endocrinology consult by Dr. Becker today -recommended start levothyroxine 0.025 mg daily. -repeat thyroid function test in 4-6 weeks; patient wishes to be cardioverted and the current thyroid disease;should not interfere with the procedure -Patients free T4 is 1.64 and his TSH is 10.1 with a total T3 of 1.0. On this admission his TSH was 5.0 on April 24 and 10.1 on April 26. -Amiodoarone 100mg Looking back in the [facility] computer the patient had a mildly elevated TSH in February 2017 which then normalized. -positive antithyroglobulin and antithyroid peroxidase antibodies. * Psychiatry consulted for statement and concern of prior hallucinations * Neurology consulted for statement and concern of prior hallucinations * MRI Brain * Patient on telemetry monitoring and being followed by cardiology -continue telemetry; continue current medication regimen -increased Metoprolol to 100mg BID -Eliquis 5mg BID started; heparin discontinued 04/26/18 * Pain Meds: Patient on high dose for chronic back pain of oxycontin and oxycodone for many years; follows up with pain clinic; states hallucinations may be due to prior intake of new medication flexeril 10mg which he drank alchol with Code Status: Full Code DVT PPx: Eliquis Diet: HHD Problem List: 1. ATRIAL FIBRILATION Pain Ratin Pain Location: Occasional chest pain Pain Goal: Pain 4 or less Pain Plan: As per pain pathway Tomorrow's Labs & Rationales: N/A DVT/Prophylaxis: pharmacological Geraldo Ledesma 04/27/18 1038: Attending MD Review Statement Attending Statement Attending MD Statement: examined this patient, discuss w/resident/PA/MEDICAL INVESTIGATOR, agreed w/resident/PA/MEDICAL INVESTIGATOR, reviewed EMR data (avail), discussed with nursing, discussed with case mgmt Attending Assessment/Plan: Visual hallucinations- d/w psychiatrist the hallucinations and they are going to see the patient and we will f/u on their recommendations. Afib with RVR- will d/w cariology. Pt prefers to get cardioversion . His HR staying up in 100-120s . cont on metoprolol for now. will f/u on cardiology recommendations. echo reviewed- ef of 45-50% if not a candidate for cardioversion at present will consider adding diltiazem if ok with cardiology pt on eliquis. d/w cardiology and plan would be to do DEUCE and cardioversion tomorrow. 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 will be started on levothyroxine 25mcg qdaily. appreciated endo input- Luis d/w pt the care plan
[2018-04-27 07:14] VITALS: BP 120/60
--- NOTE | 2018-04-27 07:55 | Cons- Endocrinology ---
General Information and HPI Consulting Request Date of Consult: 04/27/18 Requested By: medical team Reason for Consult: Abnormal thyroid tests Source of Information: patient, old records Exam Limitations: no limitations History of Present Illness: This 57-year-old male states he called the police at home because he thought there were people coming out from under his refrigerator. He also noticed that he had double vision. The police came to the house and at first the patient refused to come to the emergency room. He later agreed to come after speaking with his son. He is in atrial fibrillation. He states he has had atrial fibrillation before once about 10 years ago and more recently about 1 year ago. He has had 2 successful cardioversions in the past. He is followed by Dr. Sow. Since coming to the hospital the patient has had no further hallucinations. He is on chronic pain medicine at home. In addition he was started on Flexeril about 1 month ago for his chronic back pain. He states he believes it was the Flexeril that may have contributed to his hallucinations. In the hospital the patient has been found to have abnormal thyroid function tests. His free T4 is 1.64 and his TSH is 10.1 with a total T3 of 1.0. On this admission his TSH was 5.0 on April 24 and 10.1 on April 26. He is on amiodarone. Looking back in the [facility] computer the patient had a mildly elevated TSH in February 2017 which then normalized. He also has positive antithyroglobulin and antithyroid peroxidase antibodies. He feels that his sister may have thyroid disease but he is not certain. Allergies/Medications Allergies: Coded Allergies: Penicillins (Intermediate, HIVES 02/07/17) Home Med List: Amiodarone HCl 200 MG TABLET 0.5 TAB PO DAILY HEART (Reported) Apixaban (Eliquis) 5 MG TABLET 1 TAB PO BID afib Furosemide 40 MG TABLET 1 TAB PO DAILY DIURETIC (Reported) Ibuprofen 800 MG TABLET 1 TAB PO BID PRN PAIN (Reported) Levothyroxine Sodium 25 MCG TABLET 1 TAB PO DAILY hypothyroidism Metoprolol Tartrate 50 MG TABLET 1 TAB PO BID HEART/BP (Reported) Metoprolol Tartrate (Lopressor) 100 MG TABLET 1.5 TAB PO BID afib Mirtazapine 15 MG TABLET 1 TAB PO QPM MENTAL HEALTH (Reported) Oxycodone HCl (Oxycontin) 60 MG TAB.ER.12H 1 TAB PO 4 TIMES/DAY PAIN CONTROL (Reported) Oxycodone HCl 20 MG TABLET 1 TAB PO 5XDAILY PAIN (Reported) Review of Systems Review of Systems Constitutional: Denies: chills, fever. Cardiovascular: Denies: chest pain. Respiratory: Denies: short of breath. GI: Denies: abdominal pain, nausea, vomiting. Skin: Reports: no symptoms. 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 Home Services at Home: None Smoking Status: Current Everyday Smoker Functional Ability ADLs Independent: dressing, eating, toileting, bathing. Ambulation: walker IADLs Independent: shopping, housework, finances, food prep, telephone, transportation , medication admin. Exam & Diagnostic Data Last 24 Hrs of Vital Signs/I&O Vital Signs Date Time Temp Pulse Resp B/P B/P Pulse O2 O2 Flow FiO2 Mean Ox Delivery Rate 04/27 744 125 120/60 04/27 0744 125 120/60 04/27 0714 98.2 111 20 120/60 94 04/26 2337 98.1 102 20 116/70 95 Room Air 04/26 2032 148 132/80 04/26 1434 97.8 66 20 122/80 91 04/26 0900 65 124/88 Intake & Output 04/27 0800 04/27 0000 04/26 1600 Intake Total 240 400 500 Output Total Balance 240 400 500 Intake, Oral 240 400 500 Patient 275 lb Weight Vital Signs Date Time Temp Pulse Resp B/P B/P Pulse O2 O2 Flow FiO2 Mean Ox Delivery Rate 04/27 0744 125 120/60 04/27 0744 125 120/60 04/27 0714 98.2 111 20 120/60 94 04/26 2337 98.1 102 20 116/70 95 Room Air 04/26 2032 148 132/80 04/26 1434 97.8 66 20 122/80 91 04/26 0900 65 124/88 Intake & Output 04/27 0800 04/27 0000 04/26 1600 Intake Total 240 400 500 Output Total Balance 240 400 500 Intake, Oral 240 400 500 Patient 275 lb Weight Physical Exam General Appearance: alert, awake Head: normal appearance Eyes: Bilateral: normal appearance. Respiratory: normal breath sounds Cardiovascular: irregularly irregular Gastrointestinal: normal bowel sounds Extremities: normal inspection Labs/Rigoberto Results: Laboratory Tests 04/27 04/26 04/25 0640 0640 2014 Chemistry Sodium (137 - 145 mmol/L) Pending 140 Potassium (3.5 - 5.1 mmol/L) Pending 4.4 Chloride (98 - 107 mmol/L) Pending 104 Carbon Dioxide (22 - 30 mmol/L) Pending 25 Anion Gap (5 - 16) Pending 11 BUN (9 - 20 mg/dL) Pending 18 Creatinine (0.7 - 1.2 mg/dL) Pending 0.8 Estimated GFR (>60 ml/min) > 60 BUN/Creatinine Ratio (7 - 25 %) Pending 22.5 Troponin I (<0.11 ng/ml) 0.02 Free T4 (0.64 - 1.79 ng/dL) 1.64 Total T3 (0.97 - 1.69 ng/mL) 1.00 TSH &T3 &Free T4 Intrp (0.27 - 4.20 uIU/mL) 10.100 H Coagulation APTT (25 - 37 SEC) 44 H Hematology CBC w Diff Pending NO MAN DIFF REQ WBC (4.8 - 10.8 /CUMM) Pending 6.4 RBC (4.70 - 6.10 /CUMM) Pending 4.07 L Hgb (14.0 - 18.0 G/DL) Pending 12.6 L Hct (42 - 52 %) Pending 37.7 L MCV (80.0 - 94.0 FL) Pending 92.6 MCH (27.0 - 31.0 PG) Pending 31.0 MCHC (33.0 - 37.0 G/DL) Pending 33.5 RDW (11.5 - 14.5 %) Pending 15.1 H Plt Count (130 - 400 /CUMM) Pending 197 MPV (7.4 - 10.4 FL) Pending 9.0 Gran % (42.2 - 75.2 %) 47.2 Lymphocytes % (20.5 - 51.1 %) 37.6 Monocytes % (1.7 - 9.3 %) 9.3 Eosinophils % (0 - 5 %) 5.4 H Basophils % (0.0 - 2.0 %) 0.5 Absolute Granulocytes (1.4 - 6.5 /CUMM) 3.0 Absolute Lymphocytes (1.2 - 3.4 /CUMM) 2.4 Absolute Monocytes (0.10 - 0.60 /CUMM) 0.6 Absolute Eosinophils (0.0 - 0.7 /CUMM) 0.3 Absolute Basophils (0.0 - 0.2 /CUMM) 0 04/25 1755 Coagulation APTT (25 - 37 SEC) 61 H Assessment/Plan Assessment/Plan This 57-year-old male has mild hypothyroidism. 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 The patient could be started on a low dose of thyroid hormone which is levothyroxine 0.025 mg daily. Repeat thyroid function test can be done in 4-6 weeks. The patient is very frightened by the hallucinations that he was having when he was home alone prior to admission. I suggest that he have a neurological workup although the hallucinations may have been drug-induced with a combination of narcotic pain medicine and the drug Flexeril. The patient does drink states a few beers but he states not every day. He should discontinue the use of alcohol completely while on these medications. The patient states that he wishes to be cardioverted. He has had 2 successful cardioversions in the past. His present thyroid disease should not interfere with cardioversion. Consult Acknowledgment - Thank you for your consult request.
[2018-04-27 08:23] LABS: ABSOLUTE BASOPHIL COUNT 0 /CUMM (0.0-0.2); ABSOLUTE EOSINOPHIL COUNT 0.4 /CUMM (0.0-0.7); ABSOLUTE GRANULOCYTE CT 4.1 /CUMM (1.4-6.5); ABSOLUTE LYMPH COUNT 1.6 /CUMM (1.2-3.4); ABSOLUTE MONOCYTE COUNT 0.6 /CUMM (0.10-0.60); BASOPHIL % 0.5 % (0.0-2.0); EOSINOPHIL % 5.4 % (0-5); GRANULOCYTE % 61.5 % (42.2-75.2); HEMATOCRIT 35.8 % (42-52); MEAN CORPUSCULAR HGB 30.9 PG (27.0-31.0); MEAN CORPUSCULAR HGB CONC 33.3 G/DL (33.0-37.0); MEAN CORPUSCULAR VOLUME 92.8 FL (80.0-94.0); PLATELET COUNT 213 /CUMM (130-400); RBC DISTRIBUTION WIDTH 14.7 % (11.5-14.5); RED BLOOD CELL CT 3.86 /CUMM (4.70-6.10); WHITE BLOOD CELL COUNT 6.7 /CUMM (4.8-10.8)
--- NOTE | 2018-04-27 10:39 | PN- Cardiology ---
Subjective Subjective: The patient notes intermittent mild palpitations. No shortness of breath. No chest pain. No shortness of breath. No diaphoresis. He remains in atrial fibrillation with rate under control Objective Vital Signs and I&Os Vital Signs Date Time Temp Pulse Resp B/P B/P Pulse O2 O2 Flow FiO2 Mean Ox Delivery Rate 04/27 744 125 120/60 04/27 0744 125 120/60 04/27 0714 98.2 111 20 120/60 94 04/26 2337 98.1 102 20 116/70 95 Room Air 04/26 203 148 132/80 04/26 1434 97.8 66 20 122/80 91 Intake & Output 04/27 1600 04/27 0804/27 0000 04/26 1600 04/26 0800 04/26 0000 Intake Total 240 400 500 363 241.6 Output Total Balance 240 400 500 363 241.6 Intake, IV 243 121.6 Intake, Oral 240 400 500 120 120 Patient 275 lb 246 lb Weight Weight Bed scale Measurement Method Physical Exam: Gen: NAD HEENT: normal Lungs: clear to auscultation, normal resp. effort Heart: Irregularly irreg, S1, S2, 1/6 systolic murmur Abdomen: Soft, nontender, no masses Extremities: No clubbing, cyanosis, or edema. Neuro: Alert and oriented x 3, cranial nerves intact Current Medications: Current Medications Sig/Cinthia Start time Last Medication Dose Route Stop Time Status Admin Amiodarone HCl 100 MG DAILY 04/25 0900 AC 04/27 PO 0744 Apixaban 5 MG BID 04/26 0900 AC 04/27 PO 0744 Levothyroxine Sodium 0.025 MG DAILY AC 04/27 0848 AC PO Metoprolol Tartrate 100 MG BID 04/26 2100 AC 04/27 PO 0744 Metoprolol Tartrate 75 MG BID 04/25 2100 DC 04/26 PO 0900 Oxycodone HCl 40 MG Q6 04/24 1800 AC 04/27 PO 0553 Oxycodone HCl 20 MG Q6 04/24 1800 AC 04/27 PO 0553 Oxycodone HCl 20 MG Q4-6 PRN PRN 04/24 1530 AC 04/27 PO 0553 Results Last 48 Hrs of Labs/Mics: Laboratory Tests 04/27/18 0640: Anion Gap 8, Estimated GFR > 60, BUN/Creatinine Ratio 17.1, CBC w Diff NO MAN DIFF REQ, RBC 3.86 L, MCV 92.8, MCH 30.9, MCHC 33.3, RDW 14.7 H, MPV 9.0, Gran % 61.5, Lymphocytes % 23.9, Monocytes % 8.7, Eosinophils % 5.4 H, Basophils % 0.5, Absolute Granulocytes 4.1, Absolute Lymphocytes 1.6, Absolute Monocytes 0.6 , Absolute Eosinophils 0.4, Absolute Basophils 0 04/26/18 0640: Anion Gap 11, Estimated GFR > 60, BUN/Creatinine Ratio 22.5, Free T4 1.64, Total T3 1.00, TSH &T3 &Free T4 Intrp 10.100 H, APTT 44 H, CBC w Diff NO MAN DIFF REQ, RBC 4.07 L, MCV 92.6, MCH 31.0, MCHC 33.5, RDW 15.1 H, MPV 9.0, Gran % 47.2, Lymphocytes % 37.6, Monocytes % 9.3, Eosinophils % 5.4 H, Basophils % 0.5 , Absolute Granulocytes 3.0, Absolute Lymphocytes 2.4, Absolute Monocytes 0.6, Absolute Eosinophils 0.3, Absolute Basophils 0 04/25/18 2015: Troponin I 0.02 04/25/18 1755: APTT 61 H Recent Imaging Studies: 1. This was a technically difficult and very limited study due to the patient's body habitus. 2. Aortic sclerosis is present with no valvular stenosis or insufficiency. 3. Mitral leaflet thickening is present with mild to moderate mitral insufficiency and moderate to severe left atrial enlargement. 4. There is no significant pericardial fluid present on the study. 5. The left ventricular chamber appears to be upper normal in size. The ejection fraction is approximately 45-50%. Accurate wall motion assessment was not possible. 6. The right heart structures were not optimally visualized. The right ventricular systolic pressure cannot be assessed on this study. 7. There appears to be a small intra-atrial septal aneurysm present. 8. A follow-up examination is recommended when the patient's heart rate is better controlled. Assessment/Plan Assessment/Plan Assessment: 1. Possible hallucinations 2. Atrial fibrillation, recurrent, elevated ventricular rate 3. Borderline low blood pressure 4. Acute renal insufficiency-resolved 5. Elevated proBNP Recommendations: * Continue Eliquis for anticoagulation * Continue other cardiac medications * DEUCE/cardioversion will be arranged either as inpatient or as outpatient Continue telemetry? Yes
--- NOTE | 2018-04-27 12:23 | Cons- Psychiatry ---
Psychiatric Consult Date of Consult: 04/27/18 Reason for Consult: This morning patient reported that he had visual hallucinations prior to admission. History of Present Illness: This 57-year-old male presented to the emergency room with a history of losing his balance and falling down the stairs. In the emergency room he was noted to be in paroxysmal A. fib and he was hypertensive. This morning the patient told hospital staff that prior to admission he was "seeing things. The patient has no psychiatric history. He reports that the night prior to admission he was trying to get to sleep when he thought he heard cats crying on his refrigerator. He moved a refrigerator and believes that she saw a woman and her children there under trapdoor. He believes that they were talking to him and he was responding to them. He called maintenance who in turn advised him to call the police which he did. When emergency services arrived at the home there was no evidence of any trapdoor under the fridge, there were no intruders in the home and the patient actually lives in the basement level apartment. The patient reports that this is the first time he experienced anything like this. He has not experienced any of these symptoms over the last few days. He reports that he has been "talking to people" for the past couple of weeks. He says that he has had full conversations with his son are other people that he believes to be there but are not. He also says that he has had some experiences whereby "I see a car going by the house but I see 2 of them when there is only one". This does not happen on a continuous basis. There is no delusional interpretation or other symptoms to imply psychiatric etiology. The patient takes opiates on a chronic basis for pain. He adamantly denies abusing them. Until recently he was also taking soma. This was tapered in 1 month ago or less he was switched to cyclobenzaprine. He believes that cyclobenzaprine participated these symptoms. The patient has a history of drinking alcohol 2-3 beers, a couple of days a week. He is not a daily drinker, does not suffer withdrawals and does not appear to be dependent. He denies any other substance abuse. The patient has no other psychiatric symptoms. Specifically there are no delusions are delusional interpretation of his perceptual abnormalities. There are also no symptoms of thought alienation. It appears that his symptoms occur in clear consciousness. Past psychiatric history: None Family psychiatric history: None Substance abuse history: Social drinker, no history of substance abuse Medical history: Atrial fibrillation with history of cardioversion, chronic low back pain, hypertension, hyperlipidemia, hypothyroidism untreated Allergies: Coded Allergies: Penicillins (Intermediate, HIVES 02/07/17) Current Medications: Med Amiodarone HCl 100 MG PO DAILY 04/25/18 0900 Apixaban 5 MG PO BID 04/26/18 0900 Levothyroxine Sodium 0.025 MG PO DAILY AC 04/27/18 0848 Metoprolol Tartrate 100 MG PO BID 04/26/18 2100 Oxycodone HCl 40 MG PO Q6 04/24/18 1800 Oxycodone HCl 20 MG PO Q4-6 PRN PRN 04/24/18 1530 Oxycodone HCl 20 MG PO Q6 04/24/18 1800 Past History Past Medical History Neurological: NONE EENT: NONE Cardiovascular: AFIB, CHF, hypertension Respiratory: NONE Gastrointestinal: NONE Hepatic: NONE Renal: NONE Musculoskeletal: chronic back pain Psychiatric: NONE Endocrine: NONE Blood Disorders: NONE Cancer(s): 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 Past Surgical History Surgical History: non-contributory Psychosocial History Strengths/Capabilities: Motivated to improve relationships Physical Limitations (Interventions): Pain, chroinc illness Psychiatric Treatment History Psych Treatment Psychiatric Treatment No Diagnosis: by hx dysthymia Risk Factors: chronic/serious med cond., high anxiety/distress, isolate/no social support, lives alone, male Assessment/Plan Mental Status Orientation: Person, Place, Situation Affect: Anxious Speech: WNL Mental Status Exam: The patient is a 57-year-old male appropriately dressed, seen lying on his hospital bed. He was pleasant and appropriate. He was alert and oriented 3. Gait was not assessed. Eye contact was good. Speech was normal in rate, rhythm , volume and tone. Patient described his mood is good apart from his anxiety around his hallucinations. His affect was anxious. He was not suicidal or homicidal. Thought process was normal in tempo, stream and form with no delusions or obsessions. Attention and concentration were good. There is no perceptual abnormality at the time of interview. Impulse control is good. Recent and remote memory are intact. Intelligence level is average, fund of knowledge average, use of language appropriate. Patient's insight is good and his judgment is unimpaired. Lab Results: Lab ALT 26 U/L 04/24/18 0658 AST 27 U/L 04/24/18 0658 Alkaline Phosphatase 84 U/L 04/24/18 0658 BUN 43 mg/dL H 04/24/18 0658 BUN 19 mg/dL 04/25/18 0641 BUN 18 mg/dL 04/26/18 0640 BUN 12 mg/dL 04/27/18 0640 Creatinine 2.2 mg/dL H 04/24/18 0658 Creatinine 0.8 mg/dL 04/25/18 0641 Creatinine 0.8 mg/dL 04/26/18 0640 Creatinine 0.7 mg/dL 04/27/18 0640 Estimated GFR 31 ml/min L 04/24/18 0658 Estimated GFR > 60 ml/min 04/27/18 0640 Free T4 1.64 ng/dL 04/26/18 0640 Potassium 4.6 mmol/L 04/27/18 0640 Sodium 140 mmol/L 04/27/18 0640 TSH 5.060 uIU/mL H 04/24/18 0658 TSH &T3 &Free T4 Intrp 10.100 uIU/mL H 04/26/18 0640 Total T3 1.00 ng/mL 04/26/18 0640 Hct 35.8 % L 04/27/18 0640 Hgb 11.9 G/DL L 04/27/18 0640 MCH 30.9 PG 04/27/18 0640 MCHC 33.3 G/DL 04/27/18 0640 MCV 92.8 FL 04/27/18 0640 RBC 3.86 /CUMM L 04/27/18 0640 RDW 14.7 % H 04/27/18 0640 Diffential Diagnosis: 1. Iatrogenic related to cyclobenzaprine [can cause hallucinations, usually however as a part of serotonin syndrome not present here. Review of the literature shows that it can cause isolated hallucinations in less than 1%] 2. Substance related hallucinosis unlikely since the patient uses alcohol only socially which is supported by his lab indices. Urine was negative for any other substances. 3. Dehydration; the patient does not appear to have been delirious. Dehydration may have compounded other factors but is unlikely to be the sole cause of his symptoms. 4. 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 Impression: New onset visual hallucinations and 57-year-old male with intermittent diplopia. Symptoms coincident with starting cyclobenzaprine. Unassociated with any other psychiatric symptoms and the patient has no psychiatric history. No significant substance use accounting for etiology. Symptoms occurred in clear consciousness with no evidence of delirium. Provisional Treatment Plan: 1. Discontinue cyclobenzaprine 2. Consider neurology consult plus/minus brain MRI for new onset of visual hallucinations and a 57-year-old male with intermittent diplopia Thank you for consulting us on this patient. Psychiatry will sign off for now but please do not hesitate to contact us if we can be of any further assistance.
[2018-04-27 15:14] VITALS: BP 158/80
--- NOTE | 2018-04-27 18:52 | Cons- Neurology ---
General Information and HPI Consulting Request Date of Consult: 04/27/18 Requested By: Baltazar YOO,Geraldo Farfan History of Present Illness: 57-year-old male who complains of diplopia Patient was admitted after he had hallucinatory visions as if someone was coming out of his refrigerator He states that he called the police and apparently he was then advised hospitalization He believes that symptoms may have occurred following medications such as Flexeril States that those symptoms have resolved Diplopia was predominantly one object behind another It was intermittent with no clear precipitant other than possible medications Was no accompanying headache or focal weakness There was no head trauma Allergies/Medications Allergies: Coded Allergies: Penicillins (Intermediate, HIVES 02/07/17) Home Med List: Amiodarone HCl 200 MG TABLET 0.5 TAB PO DAILY HEART (Reported) Furosemide 40 MG TABLET 1 TAB PO DAILY DIURETIC (Reported) Ibuprofen 800 MG TABLET 1 TAB PO BID PRN PAIN (Reported) Metoprolol Tartrate 50 MG TABLET 1 TAB PO BID HEART/BP (Reported) Mirtazapine 15 MG TABLET 1 TAB PO QPM MENTAL HEALTH (Reported) Oxycodone HCl (Oxycontin) 60 MG TAB.ER.12H 1 TAB PO 4 TIMES/DAY PAIN CONTROL (Reported) Oxycodone HCl 20 MG TABLET 1 TAB PO 5XDAILY PAIN (Reported) Current Medications: Current Medications Sig/Cinthia Start time Last Medication Dose Route Stop Time Status Admin Amiodarone HCl 100 MG DAILY 04/25 0900 AC 04/27 PO 0744 Apixaban 5 MG BID 04/26 0900 AC 04/27 PO 0744 Ibuprofen 400 MG ONCE ONE 04/27 1145 DC 04/27 PO 04/27 1146 1532 Levothyroxine Sodium 0.025 MG DAILY AC 04/27 0848 AC 04/27 PO 1113 Metoprolol Tartrate 100 MG BID 04/26 2100 AC 04/27 PO 0744 Oxycodone HCl 40 MG Q6 04/24 1800 AC 04/27 PO 1707 Oxycodone HCl 20 MG Q6 04/24 1800 AC 04/27 PO 1707 Oxycodone HCl 20 MG Q4-6 PRN PRN 04/24 1530 AC 04/27 PO 1707 Review of Systems Review of Systems: Denies headache, vertigo, weight change, chest pains, nausea vomiting, falls, significant swelling lower extremities Admits to occasional shortness of breath; edema lower extremities have improved Other symptoms reviewed and negative Past History Travel History Traveled to [place] past 21 day No Medical History Blood Transfusion Hx: No Neurological: NONE EENT: NONE Cardiovascular: AFIB, CHF, hypertension Respiratory: NONE Gastrointestinal: NONE Hepatic: NONE Renal: NONE Musculoskeletal: chronic back pain Psychiatric: NONE Endocrine: NONE Blood Disorders: NONE Cancer(s): 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 Home Services at Home: None Smoking Status: Current Everyday Smoker Functional Ability ADLs Independent: dressing, eating, toileting, bathing. Ambulation: walker IADLs Independent: shopping, housework, finances, food prep, telephone, transportation , medication admin. Exam & Diagnostic Data Vital Signs and I&O Vital Signs Date Time Temp Pulse Resp B/P B/P Pulse O2 O2 Flow FiO2 Mean Ox Delivery Rate 04/27 1514 98.1 120 20 158/80 97 04/27 0744 125 120/60 04/27 0744 125 120/60 04/27 0714 98.2 111 20 120/60 94 04/26 2337 98.1 102 20 116/70 95 Room Air 04/26 2032 148 132/80 Intake & Output 04/27 1600 04/27 0800 04/27 0000 Intake Total 470 240 400 Output Total Balance 470 240 400 Intake, IV 20 Intake, Oral 450 240 400 Patient 275 lb Weight Mother had COPD Alert and oriented No dysarthria Extraocular movements full No diplopia on exam Pupils equal reactive Fundi not adequately visualized No facial weakness or facial sensory loss Palate tongue shoulders intact Hearing grossly intact Normal tone and strength upper and lower extremities No sensory loss to light touch Deep tendon reflexes hypoactive [place] function upper extremities intact Stooped gait due to chronic low back pain Last 48 Hours of Lab Results: Laboratory Tests 04/27 0640 Chemistry Sodium (137 - 145 mmol/L) 140 Potassium (3.5 - 5.1 mmol/L) 4.6 Chloride (98 - 107 mmol/L) 106 Carbon Dioxide (22 - 30 mmol/L) 26 Anion Gap (5 - 16) 8 BUN (9 - 20 mg/dL) 12 Creatinine (0.7 - 1.2 mg/dL) 0.7 Estimated GFR (>60 ml/min) > 60 BUN/Creatinine Ratio (7 - 25 %) 17.1 Hematology CBC w Diff NO MAN DIFF REQ WBC (4.8 - 10.8 /CUMM) 6.7 RBC (4.70 - 6.10 /CUMM) 3.86 L Hgb (14.0 - 18.0 G/DL) 11.9 L Hct (42 - 52 %) 35.8 L MCV (80.0 - 94.0 FL) 92.8 MCH (27.0 - 31.0 PG) 30.9 MCHC (33.0 - 37.0 G/DL) 33.3 RDW (11.5 - 14.5 %) 14.7 H Plt Count (130 - 400 /CUMM) 213 MPV (7.4 - 10.4 FL) 9.0 Gran % (42.2 - 75.2 %) 61.5 Lymphocytes % (20.5 - 51.1 %) 23.9 Monocytes % (1.7 - 9.3 %) 8.7 Eosinophils % (0 - 5 %) 5.4 H Basophils % (0.0 - 2.0 %) 0.5 Absolute Granulocytes (1.4 - 6.5 /CUMM) 4.1 Absolute Lymphocytes (1.2 - 3.4 /CUMM) 1.6 Absolute Monocytes (0.10 - 0.60 /CUMM) 0.6 Absolute Eosinophils (0.0 - 0.7 /CUMM) 0.4 Absolute Basophils (0.0 - 0.2 /CUMM) 0 04/26 04/25 0640 2014 Chemistry Sodium (137 - 145 mmol/L) 140 Potassium (3.5 - 5.1 mmol/L) 4.4 Chloride (98 - 107 mmol/L) 104 Carbon Dioxide (22 - 30 mmol/L) 25 Anion Gap (5 - 16) 11 BUN (9 - 20 mg/dL) 18 Creatinine (0.7 - 1.2 mg/dL) 0.8 Estimated GFR (>60 ml/min) > 60 BUN/Creatinine Ratio (7 - 25 %) 22.5 Troponin I (<0.11 ng/ml) 0.02 Free T4 (0.64 - 1.79 ng/dL) 1.64 Total T3 (0.97 - 1.69 ng/mL) 1.00 TSH &T3 &Free T4 Intrp (0.27 - 4.20 uIU/mL) 10.100 H Coagulation APTT (25 - 37 SEC) 44 H Hematology CBC w Diff NO MAN DIFF REQ WBC (4.8 - 10.8 /CUMM) 6.4 RBC (4.70 - 6.10 /CUMM) 4.07 L Hgb (14.0 - 18.0 G/DL) 12.6 L Hct (42 - 52 %) 37.7 L MCV (80.0 - 94.0 FL) 92.6 MCH (27.0 - 31.0 PG) 31.0 MCHC (33.0 - 37.0 G/DL) 33.5 RDW (11.5 - 14.5 %) 15.1 H Plt Count (130 - 400 /CUMM) 197 MPV (7.4 - 10.4 FL) 9.0 Gran % (42.2 - 75.2 %) 47.2 Lymphocytes % (20.5 - 51.1 %) 37.6 Monocytes % (1.7 - 9.3 %) 9.3 Eosinophils % (0 - 5 %) 5.4 H Basophils % (0.0 - 2.0 %) 0.5 Absolute Granulocytes (1.4 - 6.5 /CUMM) 3.0 Absolute Lymphocytes (1.2 - 3.4 /CUMM) 2.4 Absolute Monocytes (0.10 - 0.60 /CUMM) 0.6 Absolute Eosinophils (0.0 - 0.7 /CUMM) 0.3 Absolute Basophils (0.0 - 0.2 /CUMM) 0 Imaging/Other Studies: echo' CONCLUSIONS 1. This was a technically difficult and very limited study due to the patient's body habitus. 2. Aortic sclerosis is present with no valvular stenosis or insufficiency. 3. Mitral leaflet thickening is present with mild to moderate mitral insufficiency and moderate to severe left atrial enlargement. 4. There is no significant pericardial fluid present on the study. 5. The left ventricular chamber appears to be upper normal in size. The ejection fraction is approximately 45-50%. Accurate wall motion assessment was not possible. 6. The right heart structures were not optimally visualized. The right ventricular systolic pressure cannot be assessed on this study. 7. There appears to be a small intra-atrial septal aneurysm present. 8. A follow-up examination is recommended when the patient's heart rate is better controlled. Assessment/Plan Assessment: Diplopia Recommendations: Symptoms seem to have resolved and not evident on examination Possibly medication induced Consult Acknowledgment - Thank you for your consult request.
[2018-04-27 21:34] VITALS: BP 110/68
[2018-04-28 06:48] VITALS: BP 162/98
--- NOTE | 2018-04-28 07:01 | PN- Housestaff ---
Misty Connelly 04/28/18 0700: Subjective Follow-up For: Atrial Fibrillation with RVR - DEUCE/Cardioversion today Tele-Events Since Last Visit: Atrial FIbrillation, 73-109 Subjective: Patient seen and examined at bedside this morning. Denies any acute overnight events. Patient currently NPO for DEUCE/Cardioversion this afternoon. Denies any hallucinations. Patient claims he has some shortness of breath that may be contributed to the anticipation for procedure today. Otherwise no complaints. Review of Systems Constitutional: Denies: see HPI. Objective Last 24 Hrs of Vital Signs/I&O Vital Signs Date Time Temp Pulse Resp B/P B/P Pulse O2 O2 Flow FiO2 Mean Ox Delivery Rate 04/28 0806 115 162/98 04/28 0805 115 162/98 04/28 0648 98.1 65 18 162/98 98 Room Air 04/27 2134 96.5 81 18 110/68 96 04/27 2034 128 110/72 04/27 1514 98.1 120 20 158/80 97 Intake & Output 04/28 1600 04/28 0800 04/28 0000 Intake Total 480 Output Total Balance 480 Intake, Oral 480 Physical Exam General Appearance: Alert, Oriented X3, Cooperative HEENT: PERRLA, EOMI, Mucous Membr. moist/pink Cardiovascular: Normal S1, Normal S2, Irregularly Irregular Lungs: Clear to Auscultation, Normal Air Movement Abdomen: Normal Bowel Sounds, Soft, No Tenderness Neurological: Normal Speech, Strength at 5/5 X4 Ext, Normal Tone, Reflexes 2+ Extremities: No Clubbing, No Cyanosis, +2 edema in bilateral lower extremities Vascular: Normal Pulses, Pulses Symmetrical Current Medications: Current Medications Sig/Cinthia Start time Last Medication Dose Route Stop Time Status Admin Amiodarone HCl 100 MG DAILY 04/25 09 AC 04/28 PO 0806 Apixaban 5 MG BID 04/26 0900 AC 04/28 PO 0806 Ibuprofen 400 MG ONCE ONE 04/27 1145 DC 04/27 PO 04/27 1146 1532 Levothyroxine Sodium 0.025 MG DAILY AC 04/27 0848 AC 04/28 PO 0541 Lidocaine 0 .STK-MED ONE 04/28 1033 DC TOP Metoprolol Tartrate 100 MG BID 04/26 2100 AC 04/28 PO 0805 Oxycodone HCl 40 MG Q6 04/24 1800 AC 04/28 PO 0539 Oxycodone HCl 20 MG Q6 04/24 1800 04/28 PO 0539 Oxycodone HCl 20 MG Q4-6 PRN PRN 04/24 1530 04/28 PO 0540 Assessment/Plan Assessment: Patient is a 57 year old male with past medical history of Atrial Fibrillation ( cardioverted 3X in the past), came to ED for left ankle evaluation for lower extremity pain. Patient was found to be in the rates of 140s A-fib RVR. Shortness of breath on admission with low pressures. Patient included additional history of hallucinations on recent aassesment that was present prior to admission. Patient has not had any hallucinations during his stay at the hospital. Problem List: 1. Atrial Fibrillation, recurrent - DEUCE/Cardioversion today 2. Chronic Back Pain PLAN: * Patient NPO for DEUCE/Cardioversion today * Continue to follow endocrinolgy recommendations; 0.025mg levothyroxine for elevated T4 and TSH likely due to Amiodoarone 100mg for patients atrial fibrillation; patient also had positive antithyroglobulin and antithuyroid peroxidase antibodies * Appreciate psychiatry and neurology consultation * MRI unable to be assessed due to patients inability to lay in the machine due to chronic back and neck pain * Continue telemetry monitoring for now and patients current medication regimen * follow up TSH and free T4 in the morning to look for a trend; thyroid US outpatient Code Status: Full Code DVT PPx: Eliquis Diet: HHD Problem List: 1. ATRIAL FIBRILATION Pain Ratin Pain Location: lower left ankle, chest Pain Goal: Pain 4 or less Pain Plan: As per pain pathway Tomorrow's Labs & Rationales: CBC BEP DVT/Prophylaxis: pharmacological Geraldo Ledesma 04/28/18 1245: Attending MD Review Statement Attending Statement Attending MD Statement: examined this patient, discuss w/resident/PA/ACID PURIFIER, agreed w/resident/PA/ACID PURIFIER, reviewed EMR data (avail), discussed with nursing, discussed with case mgmt Attending Assessment/Plan: Afib with RVR- NPO for DEUCE/ cardioversion today. will see how he does with cardioversion. pt doing ok otherwise. BP high today . will monitor closely. Hallucinations/ vision changes resolved- likely secondary to flexeril. Neuro and psych consult appreciated. Possible dc tomorrow if converts to NSR and stays in NSR
[2018-04-28] MEDS ORDERED: ELIQUIS5 M1 PO (07:48)
[2018-04-28] MEDS ORDERED: LOPRESSOR100 M1 PO (07:48)
[2018-04-28] MEDS ORDERED: LEVOTHYROXINE25 MCG PO (07:48)
--- NOTE | 2018-04-28 07:51 | Patient Discharge Instructions ---
Discharge Instructions General Discharge Information You were seen/treated for: Atrial fibrillation with rapid ventricular rate Hallucinations Hypothyroidism Left Ankle Fracture Special Instructions: Follow-up with PCP in 1 week after discharge Follow-up with decatizer in 1 week after discharge Follow-up with Orthopedics (Dr. Teresa) within 6 weeks [phone] for an appointment. instructed to wear this only when he is ambulating and use a sock underneath. I do not want him to use this when he is resting during the evening or sleeping to the concern for his skin breakdown to his venous stasis. Follow-up with psychiatrist for hallucinations in 1-2 weeks after discharge Follow-up with recreational director in 2 weeks after discharge for follow-up of thyroid function test Follow-up with the neurologist in 1-2 weeks after discharge Diet Continue normal diet: Yes Activity Full Activity/No Limits: Yes Acute Coronary Syndrome Inclusion Criteria At DC or during hospital stay patient has or had the following: ACS DIAGNOSIS No Discharge Core Measures Meds if any: Prescribed or Continued at Discharge Meds if any: NOT Prescribed or Continued at Discharge Congestive Heart Failure Inclusion Criteria At DC or during hospital stay patient has or had the following: CHF DIAGNOSIS No Discharge Core Measures Meds if any: Prescribed or Continued at Discharge Meds if any: NOT Prescribed or Continued at Discharge Cerebrovascular accident Inclusion Criteria At DC or during hospital stay patient has or had the following: CVA/TIA Diagnosis No Discharge Core Measures Meds if any: Prescribed or Continued at Discharge Meds if any: NOT Prescribed or Continued at Discharge Venous thromboembolism Inclusion Criteria VTE Diagnosis No VTE Type NONE VTE Confirmed by (Test) NONE Discharge Core Measures - Per Current guidelines, there needs to be overlap - treatment for the first 5 days of Warfarin therapy. - If discharged on Warfarin prior to 5 days of - overlap therapy, the patient will need to be - assessed for post discharge needs including - *Post discharge parental anticoagulation - *Warfarin and/or parental anticoagulation education - *Follow up date to check INR post discharge At least 5 days overlap therapy as Inpatient No Meds if any: Prescribed or Continued at Discharge Note: Overlap Therapy is Warfarin and Anticoagulant Meds if any: NOT Prescribed or Continued at Discharge
--- NOTE | 2018-04-28 10:00 | PN- Cardiology ---
Subjective Subjective: The patient notes intermittent mild palpitations. He remains in atrial fibrillation. Ventricular rate is mostly controlled with intermittent periods of rapid ventricular rate. No chest pain. No shortness of breath. No diaphoresis. No lightheadedness or dizziness. No nausea or vomiting. Objective Vital Signs and I&Os Vital Signs Date Time Temp Pulse Resp B/P B/P Pulse O2 O2 Flow FiO2 Mean Ox Delivery Rate 04/28 0806 115 162/98 04/28 0805 115 162/98 04/28 0648 98.1 65 18 162/98 98 Room Air 04/27 2134 96.5 81 18 110/68 96 04/27 2034 128 110/72 04/27 1514 98.1 120 20 158/80 97 Intake & Output 04/28 1600 04/28 0804/28 0000 04/27 1600 04/27 0804/27 0000 Intake Total 480 470 240 400 Output Total Balance 480 470 240 400 Intake, IV 20 Intake, Oral 480 450 240 400 Patient 275 lb Weight Physical Exam: Gen: NAD HEENT: normal Lungs: clear to auscultation, normal resp. effort Heart: Irregularly irreg, S1, S2, 1/6 systolic murmur Abdomen: Soft, nontender, no masses Extremities: No clubbing, cyanosis, or edema. Neuro: Alert and oriented x 3, cranial nerves intact Current Medications: Current Medications Sig/Cinthia Start time Last Medication Dose Route Stop Time Status Admin Amiodarone HCl 100 MG DAILY 04/25 0900 AC 04/28 PO 0806 Apixaban 5 MG BID 04/26 0900 AC 04/28 PO 0806 Ibuprofen 400 MG ONCE ONE 04/27 1145 DC 04/27 PO 04/27 1146 1532 Levothyroxine Sodium 0.025 MG DAILY AC 04/27 0848 AC 04/28 PO 0541 Metoprolol Tartrate 100 MG BID 04/26 2100 AC 04/28 PO 0805 Oxycodone HCl 40 MG Q6 04/24 1800 AC 04/28 PO 0539 Oxycodone HCl 20 MG Q6 04/24 1800 AC 04/28 PO 0539 Oxycodone HCl 20 MG Q4-6 PRN PRN 04/24 1530 AC 04/28 PO 0540 Results Last 48 Hrs of Labs/Mics: Laboratory Tests 04/27/18 0640: Anion Gap 8, Estimated GFR > 60, BUN/Creatinine Ratio 17.1, CBC w Diff NO MAN DIFF REQ, RBC 3.86 L, MCV 92.8, MCH 30.9, MCHC 33.3, RDW 14.7 H, MPV 9.0, Gran % 61.5, Lymphocytes % 23.9, Monocytes % 8.7, Eosinophils % 5.4 H, Basophils % 0.5, Absolute Granulocytes 4.1, Absolute Lymphocytes 1.6, Absolute Monocytes 0.6 , Absolute Eosinophils 0.4, Absolute Basophils 0 Assessment/Plan Assessment/Plan Assessment: 1. Possible hallucinations 2. Atrial fibrillation, recurrent, elevated ventricular rate 3. Borderline low blood pressure 4. Acute renal insufficiency-resolved 5. Elevated proBNP Recommendations: * Continue Eliquis for anticoagulation * Increase metoprolol to 150 m p.o. twice daily for additional rate control * DEUCE/cardioversion today. * N.p.o. in preparation for procedure. Continue telemetry? Yes
--- NOTE | 2018-04-28 11:35 | PN- Endocrinology ---
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 He was started on Levothyroxine 25 mcg daily. He was feeling okay this morning. His BP was 162/98 and HR was 115 this morning. Plan: continue Levothyroxine 25 mcg daily for now; monitor TSH and free T4 tomorrow morning to look for a trend; continue monitoring vital signs; will obtain thyroid u.s as outpatient. Subjective Subjective: He felt okay this morning. Objective Last 24 Hrs of Vital Signs/I&O Vital Signs Date Time Temp Pulse Resp B/P B/P Pulse O2 O2 Flow FiO2 Mean Ox Delivery Rate 04/28 0806 115 162/98 04/28 0805 115 162/98 04/28 0648 98.1 65 18 162/98 98 Room Air 04/27 2134 96.5 81 18 110/68 96 04/27 2034 128 110/72 04/27 1514 98.1 120 20 158/80 97 Intake & Output 04/28 1600 04/28 0800 04/28 0000 Intake Total 480 Output Total Balance 480 Intake, Oral 480
[2018-04-28 21:59] VITALS: BP 144/82
[2018-04-29 06:38] VITALS: BP 150/82
--- NOTE | 2018-04-29 07:04 | PN- Housestaff ---
Misty Connelly 04/29/18 0703: Subjective Follow-up For: Atrial Fibrillation in RVR Tele-Events Since Last Visit: SB, 52-71 HR, 0.08, 0.16 5 Beats of V TAch at 1901 Subjective: Patient seen and examined at bedside this morning. Patient denies any complaints of chest pains, palpitations, shortness of breath, nausea, vomiting. Patient is able to ambulate and get out of bed. Patient denies any events of hallucinations since his stay in the hospital. Patient is status post day 1 DEUCE /cardioversion in normal sinus rhythm. Patient had 5 beats of V. tach at 1901 on 04/28/2018. Patient complains of left ankle pain that has been present since admission. The pain is located at the lateral aspect of the left foot. There is slight swelling and chronic venous changes. Patient states that he has been elevating his left foot and icing for the past 2 days with no significant improvement in pain. Initial x-ray of the left ankle was negative for any fractures or dislocations. Will follow up uric acid level and repeat left ankle x-ray. Review of Systems Constitutional: Denies: see HPI. Objective Last 24 Hrs of Vital Signs/I&O Vital Signs Date Time Temp Pulse Resp B/P B/P Pulse O2 O2 Flow FiO2 Mean Ox Delivery Rate 04/29 0638 97.8 65 18 150/82 94 Room Air 04/28 2159 97.4 49 18 144/82 96 Room Air 04/28 0806 115 162/98 04/28 0805 115 162/98 Intake & Output 04/29 0800 04/29 0000 04/28 1600 Intake Total 300 300 410 Output Total Balance 300 300 410 Intake, IV 10 Intake, Oral 300 300 400 Patient 272 lb Weight Weight Bed scale Measurement Method Physical Exam General Appearance: Alert, Oriented X3, Cooperative HEENT: PERRLA, EOMI Neck: Supple, No JVD, No thryomegaly Cardiovascular: Regular Rate, Normal S1, Normal S2 Lungs: Clear to Auscultation, Normal Air Movement Abdomen: Soft, No Tenderness Neurological: Normal Gait, Normal Speech, Strength at 5/5 X4 Ext, Normal Tone, Cranial Nerves 3-12 NL, Reflexes 2+ Extremities: +2 pitting edema in bilateral lower extremities; chronic venous changes Vascular: Normal Pulses, Pulses Symmetrical Current Medications: Current Medications Sig/Cinthia Start time Last Medication Dose Route Stop Time Status Admin Amiodarone HCl 100 MG DAILY 04/25 0900 AC 04/28 PO 0806 Apixaban 5 MG BID 04/26 0900 AC 04/28 PO 202 Levothyroxine Sodium 0.025 MG DAILY AC 04/27 0848 AC 04/29 PO 0509 Lidocaine 1 BRIAN DAILY PRN 04/28 1615 CAN TOP Lidocaine 0 .STK-MED ONE 04/28 1033 DC TOP Lidocaine/Prilocaine 1 BRIAN Q6P PRN 04/28 1745 AC 04/28 TOP 2022 Metoprolol Tartrate 150 MG BID 04/28 2100 AC PO Metoprolol Tartrate 100 MG BID 04/26 2100 DC 04/28 PO 0805 Oxycodone HCl 20 MG Q4-6 PRN PRN 04/29 0515 DC PO Oxycodone HCl 40 MG Q6 04/24 1800 AC 04/29 PO 0505 Oxycodone HCl 20 MG Q6 04/24 1800 AC 04/29 PO 0505 Oxycodone HCl 20 MG Q4-6 PRN PRN 04/24 1530 DC 04/28 PO 2327 Oxycodone HCl 20 MG Q4-6 PRN PRN 04/24 1530 AC 04/29 PO 0505 Last 24 Hrs of Lab/Rigoberto Results Last 24 Hrs of Labs/Mics: Laboratory Tests 04/29/18 0636: Sodium Pending, Potassium Pending, Chloride Pending, Carbon Dioxide Pending, Anion Gap Pending, BUN Pending, Creatinine Pending, BUN/Creatinine Ratio Pending , TSH Pending, Free T4 Pending, CBC w Diff Pending, WBC Pending, RBC Pending, Hgb Pending, Hct Pending, MCV Pending, MCH Pending, MCHC Pending, RDW Pending, Plt Count Pending, MPV Pending Assessment/Plan Assessment: Patient is a 57-year-old male with past medical history of atrial fibrillation cardioverted 3 times in the past. Patient originally came to the [facility] ED for left ankle evaluation and swelling. Patient at that time was found to be in the rates of 140s of atrial fibrillation and RVR. During admission patient has shortness of breath and low blood pressures. Patient recently included an additional history of hallucinations on assessment that was present prior to admission. Patient claims that his hallucinations are most likely due to new medication Flexeril for which he drank beers on top. Patient has not had any delusions during his stay at the hospital. Patient is day 1 status post DEUCE/cardioversion on 04/28/2018. Patient had 5 beat run of V. tach at 1901 on 04/28/2013. Patient stable. Has increased left ankle pain. Initial x-ray was negative for any fracture dislocations. Will follow with uric acid level and repeat left ankle x-ray. Problem list: 1. Atrial fibrillation, recurrentday 1 status post DEUCE/cardioversion 2. Chronic back pain 3. Left Ankle Pain Plan: * Patient day 1 status post DEUCE/cardioversion. Patient converted to sinus rhythm. Currently in sinus bradycardia. Rate 52-71. Patient had 5 beats of V. tach overnight. Denies any chest pain, shortness of breath, palpitations. * Patient being followed by endocrinology. Will continue with 0.025 mg levothyroxine. * Appreciate psychiatry and neurology consultation. We will continue to follow recommendations and refer patient upon discharge. * Continue telemetry monitoring for now * Follow-up TSH and free T4: Elevated 10.5 and T4: 2.10 from 1.64. Followed up with geophysicist Dr. Becker. States patient is okay for discharge on current dose of levothyroxine and to follow-up outpatient. Thyroid ultrasound outpatient. Patient has a definite indication of Salty's disease. * Repeat left ankle x-ray for increasing left ankle pain. Initial x-ray on 04/24 was negative for any fractures or dislocations. * Uric acid level 5.0; negative for any indication of gout that would cause patient's left lower ankle pain and swelling. CODE STATUS: Full code DVT prophylaxis: Eliquis Diet: Regular Problem List: 1. ATRIAL FIBRILATION 2. Ankle sprain Pain Ratin Pain Location: left lateral ankle Pain Goal: Pain 4 or less Pain Plan: per pain pathway Tomorrow's Labs & Rationales: Pending discharge DVT/Prophylaxis: pharmacological Discharge Plan Discharge Disposition: home Geraldo Ledesma 04/29/18 1008: Attending MD Review Statement Attending Statement Attending MD Statement: examined this patient, discuss w/resident/PA/AUTOMATIC PILOT MECHANIC, agreed w/resident/PA/AUTOMATIC PILOT MECHANIC, reviewed EMR data (avail), discussed with nursing, discussed with case mgmt Attending Assessment/Plan: Afib with RVR- s/p DEUCE/ cardioversion on 04/28. converted to NSR after cardioversion and staying in NSR. Overnight no events on tele. will f/u on cardio recommendations. Left ankle pain- pt came to the ER for left ankle pain but was found to be in afib with rvr and was admitted for that. Xray done in ER showed- No evidence of acute fracture or malalignment. Will repeat ankle xray again today as pt still having lot of left ankle pain with motion. Will check uric acid level too. pt denies any h/o gout. Hallucinations/ vision changes resolved- likely secondary to flexeril. Neuro and psych consult appreciated. Hashimotos thyroiditis with high TSH and Normal FT4- seen by endo and started on levothyroxine and repeat Ft4 is high. will d/w endo the results and see if we really need to continue on levothyroxine for now. d/w pt the care plan. Pt has been walking independently but having lot of pain with walking due to left ankle pain.
[2018-04-29] MEDS ORDERED: LOPRESSOR100 M1 PO (07:42)
[2018-04-29 07:53] LABS: ABSOLUTE BASOPHIL COUNT 0 /CUMM (0.0-0.2); ABSOLUTE EOSINOPHIL COUNT 0.4 /CUMM (0.0-0.7); ABSOLUTE GRANULOCYTE CT 5.5 /CUMM (1.4-6.5); ABSOLUTE LYMPH COUNT 1.4 /CUMM (1.2-3.4); ABSOLUTE MONOCYTE COUNT 0.6 /CUMM (0.10-0.60); BASOPHIL % 0.4 % (0.0-2.0); EOSINOPHIL % 4.4 % (0-5); GRANULOCYTE % 69.9 % (42.2-75.2); HEMATOCRIT 38.1 % (42-52); MEAN CORPUSCULAR HGB 30.7 PG (27.0-31.0); MEAN CORPUSCULAR VOLUME 93.1 FL (80.0-94.0); MEAN PLATELET VOLUME 8.7 FL (7.4-10.4); PLATELET COUNT 255 /CUMM (130-400); RBC DISTRIBUTION WIDTH 14.8 % (11.5-14.5); RED BLOOD CELL CT 4.09 /CUMM (4.70-6.10); WHITE BLOOD CELL COUNT 7.9 /CUMM (4.8-10.8)
--- NOTE | 2018-04-29 08:17 | PN- Endocrinology ---
Assessment/Plan Endoscopy Assessment: The patient feels improved. Apparently his metoprolol was held because his heart rate went down to 49. He was successfully cardioverted and is in sinus rhythm. The patient was started on levothyroxine 25 mcg daily. He does have underlying Salty's thyroiditis with positive thyroid antibodies. In addition he is on amiodarone which can cause the thyroid to become more underactive. The patient no longer has hallucinations and no longer has double vision. Plan: Suggest continue levothyroxine 25 mcg daily. In about 4 weeks we will increase his dose if needed after checking his thyroid hormone level. He will also need a thyroid ultrasound as an outpatient. The patient is questioning whether or not he really needs to take thyroid hormone. I discussed with him that there is a definite indication in view of the underlying Salty's disease and also the high iodine load he is receiving from amiodarone. I also asked him to notify his children that he has autoimmune thyroid disease so they could be checked for thyroid problems. Subjective Subjective: Feels improved Review of Systems Constitutional: Denies: chills, fever. Cardiovascular: Denies: chest pain. Respiratory: Denies: cough, short of breath. Gastrointestinal: Denies: abdominal pain, bloating. Skin: Reports: no symptoms. Objective Last 24 Hrs of Vital Signs/I&O Vital Signs Date Time Temp Pulse Resp B/P B/P Pulse O2 O2 Flow FiO2 Mean Ox Delivery Rate 04/29 0638 97.8 65 18 150/82 94 Room Air 04/289 97.4 49 18 144/82 96 Room Air Intake & Output 04/29 1600 04/29 0800 07 0000 Intake Total 300 300 Output Total Balance 300 300 Intake, Oral 300 300 Patient 272 lb Weight Weight Bed scale Measurement Method Vital Signs Date Time Temp Pulse Resp B/P B/P Pulse O2 O2 Flow FiO2 Mean Ox Delivery Rate 04/29 0638 97.8 65 18 150/82 94 Room Air 04/289 97.4 49 18 144/82 96 Room Air Intake & Output 04/29 1600 04/29 0800 0718 0000 Intake Total 300 300 Output Total Balance 300 300 Intake, Oral 300 300 Patient 272 lb Weight Weight Bed scale Measurement Method Physical Exam General Appearance: alert, awake, comfortable Head: normal appearance Neck: normal inspection Respiratory: normal breath sounds Cardiovascular: regular rate/rhythm Extremities: normal inspection Current Medications: Current Medications Sig/Cinthia Start time Last Medication Dose Route Stop Time Status Admin Amiodarone HCl 100 MG DAILY 04/25 0900 AC 04/28 PO 08 Apixaban 5 MG BID 04/26 0900 AC 04/28 PO 202 Levothyroxine Sodium 0.025 MG DAILY AC 04/27 0848 AC 04/29 PO 0509 Lidocaine 1 BRIAN DAILY PRN 04/28 1615 CAN TOP Lidocaine 0 .STK-MED ONE 04/28 1033 DC TOP Lidocaine/Prilocaine 1 BRIAN Q6P PRN 04/28 1745 AC 04/28 TOP 202 Metoprolol Tartrate 150 MG BID 04/28 2100 AC PO Metoprolol Tartrate 100 MG BID 04/26 2100 DC 04/28 PO 0805 Oxycodone HCl 20 MG Q4-6 PRN PRN 04/29 0515 DC PO Oxycodone HCl 40 MG Q6 04/24 1800 AC 04/29 PO 0505 Oxycodone HCl 20 MG Q6 04/24 1800 AC 04/29 PO 0505 Oxycodone HCl 20 MG Q4-6 PRN PRN 04/24 1530 DC 04/28 PO 2327 Oxycodone HCl 20 MG Q4-6 PRN PRN 04/24 1530 AC 04/29 PO 0505 Results Pertinent Lab/Rigoberto Results: Laboratory Tests 04/29 04/27 0636 0640 Chemistry Sodium (137 - 145 mmol/L) 141 140 Potassium (3.5 - 5.1 mmol/L) 4.5 4.6 Chloride (98 - 107 mmol/L) 101 106 Carbon Dioxide (22 - 30 mmol/L) 29 26 Anion Gap (5 - 16) 12 8 BUN (9 - 20 mg/dL) 19 12 Creatinine (0.7 - 1.2 mg/dL) 0.8 0.7 Estimated GFR (>60 ml/min) > 60 > 60 BUN/Creatinine Ratio (7 - 25 %) 23.8 17.1 TSH (0.270 - 4.200 uIU/mL) Pending Free T4 (0.64 - 1.79 ng/dL) 2.10 H Hematology CBC w Diff Pending NO MAN DIFF REQ WBC (4.8 - 10.8 /CUMM) Pending 6.7 RBC (4.70 - 6.10 /CUMM) Pending 3.86 L Hgb (14.0 - 18.0 G/DL) Pending 11.9 L Hct (42 - 52 %) Pending 35.8 L MCV (80.0 - 94.0 FL) Pending 92.8 MCH (27.0 - 31.0 PG) Pending 30.9 MCHC (33.0 - 37.0 G/DL) Pending 33.3 RDW (11.5 - 14.5 %) Pending 14.7 H Plt Count (130 - 400 /CUMM) Pending 213 MPV (7.4 - 10.4 FL) Pending 9.0 Gran % (42.2 - 75.2 %) 61.5 Lymphocytes % (20.5 - 51.1 %) 23.9 Monocytes % (1.7 - 9.3 %) 8.7 Eosinophils % (0 - 5 %) 5.4 H Basophils % (0.0 - 2.0 %) 0.5 Absolute Granulocytes (1.4 - 6.5 /CUMM) 4.1 Absolute Lymphocytes (1.2 - 3.4 /CUMM) 1.6 Absolute Monocytes (0.10 - 0.60 /CUMM) 0.6 Absolute Eosinophils (0.0 - 0.7 /CUMM) 0.4 Absolute Basophils (0.0 - 0.2 /CUMM) 0
[2018-04-29 09:33] VITALS: BP 152/90
--- NOTE | 2018-04-29 13:05 | PN- Cardiology ---
Subjective Subjective: The patient is doing okay. He remains in sinus rhythm. Only complains of ankle discomfort. Objective Vital Signs and I&Os Vital Signs Date Time Temp Pulse Resp B/P B/P Pulse O2 O2 Flow FiO2 Mean Ox Delivery Rate 04/29 1045 50 04/29 0933 72 152/90 95 Room Air 04/29 0638 97.8 65 18 150/82 94 Room Air 04/28 2159 97.4 49 18 144/82 96 Room Air Intake & Output 04/29 1600 04/29 0800 04/29 0000 04/28 1600 04/28 0800 04/28 0000 Intake Total 300 300 410 480 Output Total Balance 300 300 410 480 Intake, IV 10 Intake, Oral 300 300 400 480 Patient 272 lb Weight Weight Bed scale Measurement Method Physical Exam: General Appearance: well developed/nourished, alert, awake, oriented Head: normal HEENT: Normal Neck: supple, JVP normal, carotid upstrokes normal bilaterally, no masses or thyromegaly Respiratory: chest non-tender, clear to auscultation and percussion bilaterally Cardiovascular: regular rate/rhythm, normal S1, S2, 1/6 systolic murmur Abdomen: normal bowel sounds, soft, non-tender Extremities: normal inspection, mild edema with bilateral stasis change Vascular: Pulses are 2+ and equal bilaterally Neurologic: Grossly normal/nonfocal Current Medications: Current Medications Sig/Cinthia Start time Last Medication Dose Route Stop Time Status Admin Acetaminophen 650 MG ONCE ONE 04/29 1145 DC PO 04/29 1146 Amiodarone HCl 100 MG DAILY 04/25 09 AC 04/29 PO 0923 Apixaban 5 MG BID 04/26 0900 AC 04/29 PO 0923 Levothyroxine Sodium 0.025 MG DAILY AC 04/27 0848 AC 04/29 PO 0509 Lidocaine 1 BRIAN DAILY PRN 04/28 1615 CAN TOP Lidocaine/Prilocaine 1 BRIAN Q6P PRN 04/28 1745 AC 04/29 TOP 1102 Metoprolol Tartrate 150 MG BID 04/28 2100 AC 04/29 PO 0924 Oxycodone HCl 20 MG Q4-6 PRN PRN 04/29 0515 DC PO Oxycodone HCl 40 MG Q6 04/24 1800 AC 04/29 PO 1101 Oxycodone HCl 20 MG Q6 04/24 1800 AC 07/18 PO 1101 Oxycodone HCl 20 MG Q4-6 PRN PRN 04/24 1530 DC 04/28 PO 2327 Oxycodone HCl 20 MG Q4-6 PRN PRN 04/24 1530 AC 04/29 PO 1101 Results Last 48 Hrs of Labs/Mics: Laboratory Tests 04/29/18 0636: Anion Gap 12, Estimated GFR > 60, BUN/Creatinine Ratio 23.8, Uric Acid 5.0, TSH 10.500 H, Free T4 2.10 H, CBC w Diff NO MAN DIFF REQ, RBC 4.09 L, MCV 93.1, MCH 30.7, MCHC 33.0, RDW 14.8 H, MPV 8.7, Gran % 69.9, Lymphocytes % 17.8 L, Monocytes % 7.5, Eosinophils % 4.4, Basophils % 0.4, Absolute Granulocytes 5.5, Absolute Lymphocytes 1.4, Absolute Monocytes 0.6, Absolute Eosinophils 0.4, Absolute Basophils 0 Assessment/Plan Assessment/Plan Assessment: 1. Possible hallucinations 2. Atrial fibrillation, recurrent, elevated ventricular rate-now in sinus rhythm post cardiovert 3. Borderline low blood pressure 4. Acute renal insufficiency-resolved 5. Elevated proBNP Recommendations: * Continue Eliquis for anticoagulation * Continue current cardiac medication * Further evaluation of ankle pain per the medical team * Out of bed as tolerated. Discharge planning pending Continue telemetry? Yes
--- NOTE | 2018-04-29 13:23 | ECHOCARDIOGRAM REPORT ---
LONDON ALEXANDRA Age: 57 : Gender: M 0 Exam Date: 04/28/2018 13:44 Exam Location: [facility] Ht (in): 72 Wt (lb): 275 BSA: 2.56 BP: 150 / 90 Ordering Physician: Chandrakant Smith MD Referring Physician: Chandrakant Smith MD Technologist: [facility] Room Number: 173-01 Indications: AFIB/FLUTTER Rhythm: Atrial fibrillation Technical Quality: good Medications propofol Ease of Transducer Insertion Minor Difficulty Complications none Technical Difficulty none FINDINGS Left Ventricle Normal size left ventricle. Left ventricular ejection fraction is estimated at 45-50%. Right Ventricle Normal right ventricular size and function. Right Atrium Mild right atrial dilatation. Left Atrium Moderate left atrial dilatation, with no thrombus seen. LA Appendage Normal left atrial appendage with no thrombus seen. IA Septum Normal interatrial septum. Mitral Valve Structurally normal mitral valve. Mild mitral regurgitation. Aortic Valve Mildly thickened aortic valve.no aortic stenosis. No aortic regurgitation. Tricuspid Valve Tricuspid valve not well visualized, grossly normal. Trace tricuspid regurgitation. Pulmonic Valve Pulmonic valve not well visualized, grossly normal. Pericardium No pericardial effusion. Great Vessels Mild atherosclerosis of the descending thoracic aorta. CONCLUSIONS Normal size left ventricle. Left ventricular ejection fraction is estimated at 45-50%. Moderate left atrial dilatation, with no thrombus seen. Normal left atrial appendage with no thrombus seen. Mild mitral regurgitation. Trace tricuspid regurgitation. This study was followed by a DC cardioversion with successfule conversion to NSR. Carlos Eduardo Chacko M.D. (Electronically Signed) Final Date: 29 April 2018 13:22 MEASUREMENTS (Male / Female) Normal Values
--- NOTE | 2018-04-29 14:50 | RADIOLOGY REPORT ---
EXAMINATION: XR ANKLE, LEFT CLINICAL INFORMATION: Left ankle swelling and pain. Presumptive diagnosis of left ankle fracture. Patient states he fell 8 days ago and last use date and now has left ankle swelling and pain. COMPARISON: Left ankle films dated 04/24/2018 and 01/04/2015. TECHNIQUE: AP, lateral, and mortise views of the left ankle. FINDINGS: Moderate soft tissue swelling about the lateral malleolus. Subtle nondisplaced hairline fracture of the distal fibular shaft is seen, best appreciated on the oblique view. Ankle mortise symmetric and intact. Mild cystic changes seen in the lateral talar dome. Small plantar calcaneal spur and small amount of spurring at the posterior calcaneus insertion site of the Achilles tendon. Mild intertarsal spurring. Prominent os trigonum. IMPRESSION: 1. Subtle nondisplaced hairline fracture of the distal fibular shaft with overlying soft tissue swelling. 2. Small plantar calcaneal spur. 3. Diffuse mild degenerative changes.
[2018-04-29 14:54] VITALS: BP 144/92
[2018-04-29 22:30] VITALS: BP 148/80
[2018-04-30 06:35] VITALS: BP 152/88
--- NOTE | 2018-04-30 06:57 | PN- Housestaff ---
Misty Connelly 04/30/18 0656: Subjective Follow-up For: Atrial Fibrillation RVR-Day 2 S/P Cardioversion Left Ankle Fracture Tele-Events Since Last Visit: Sinus bradycardia, 50, 0.10, 0.18; rates 50-53 Subjective: Patient seen and examined at bedside this morning. Continues to have left lower ankle pain. Patient claims that the pain is on the lateral aspect of his ankle. Pain is described as an 8 out of 10. Patient given Motrin 600 mg we will see how he does with the pain. Orthopedics has seen the patient and he has an Aircast on the left lower ankle. Otherwise patient is no longer in atrial fibrillation status post day 2 cardioversion. Denies chest pain, palpitations, tightness, shortness of breath. Review of Systems Constitutional: Denies: see HPI. Objective Last 24 Hrs of Vital Signs/I&O Vital Signs Date Time Temp Pulse Resp B/P B/P Pulse O2 O2 Flow FiO2 Mean Ox Delivery Rate 04/30 0954 57 160/84 04/30 0635 98.4 52 18 152/88 95 Room Air 04/29 2230 98.3 54 16 148/80 90 Room Air 04/29 1454 97.8 58 18 144/92 95 Room Air 04/29 1045 50 Intake & Output 04/30 1600 04/30 0800 04/30 0000 Intake Total 120 720 Output Total Balance 120 720 Intake, Oral 120 720 Patient 284 lb Weight Physical Exam General Appearance: Alert, Oriented X3, Cooperative, No Acute Distress HEENT: Atraumatic, PERRLA, EOMI Cardiovascular: Regular Rate, Normal S1, Normal S2, No Murmurs Lungs: Clear to Auscultation, Normal Air Movement Abdomen: Normal Bowel Sounds, Soft, No Tenderness Neurological: Normal Gait, Normal Speech, Strength at 5/5 X4 Ext, Normal Tone Extremities: No Clubbing, No Cyanosis, No Edema Vascular: Normal Pulses, Pulses Symmetrical Current Medications: Current Medications Sig/Cinthia Start time Last Medication Dose Route Stop Time Status Admin Acetaminophen 650 MG ONCE ONE 04/29 1145 DC 04/29 PO 04/29 1146 1353 Amiodarone HCl 100 MG DAILY 04/25 09 AC 04/30 PO 0954 Apixaban 5 MG BID 04/26 09 AC 04/30 PO 0957 Ibuprofen 600 MG ONCE ONE 04/30 0815 DC 04/30 PO 04/30 0816 0956 Levothyroxine Sodium 0.025 MG DAILY AC 04/27 0848 AC 04/30 PO 0809 Lidocaine/Prilocaine 1 BRIAN Q6P PRN 04/28 1745 AC 04/29 TOP 1102 Metoprolol Tartrate 150 MG BID 04/28 2100 AC 04/30 PO 0955 Oxycodone HCl 40 MG Q6 04/24 1800 AC 04/30 PO 0550 Oxycodone HCl 20 MG Q6 04/24 1800 AC 04/30 PO 0550 Oxycodone HCl 20 MG Q4-6 PRN PRN 04/24 1530 AC 04/30 PO 0550 Assessment/Plan Assessment: Patient is a 57-year-old male with past medical history of atrial fibrillation cardioverted 3 times in the past. Recently came into the [facility] ED for left ankle evaluation swelling. At that time he was found to be in atrial fibrillation RVR with rates in 140s. Patient had an additional history of hallucinations on assessment during his stay in the hospital. These hallucinations were not present on admission. Claims that his hallucinations are most likely due to medication Flexeril which he drank beers on top of. Denies any hallucinations during his stay at the hospital. Patient is day 2 status post DEUCE/cardioversion on 04/28/2018. Patient found to have left ankle fracture. Orthopedics on board. Given Aircast for left ankle. Problem list: 1. Atrial fibrillation, recurrentday 2 status post DEUCE/cardioversion 2. Chronic back pain 3. Left ankle fracture Plan: * Patient seen by orthopedics and repeat X ray of lower left ankle demonstrated the old fibula fracture nondisplaced. Follow-up in orthopedic office in 6 weeks. Weightbearing as tolerated with Aircast. Use with ambulation remove for bathing and sleeping. * Day 2 status post DEUCE/cardioversion. Patient converted to sinus rhythm. Bradycardia with rates 50-53. * Continue monitoring on the telemetry * Continue levothyroxine 0.025 mg as per endocrinology. Follow-up outpatient CODE STATUS: Full code DVT prophylaxis: Eliquis Diet: Regular Problem List: 1. ATRIAL FIBRILATION 2. Fall at home 3. Ankle sprain Pain Ratin Pain Location: left ankle Pain Goal: Pain 4 or less Pain Plan: as per pain pathway Tomorrow's Labs & Rationales: Not needed Geraldo Ledesma 04/30/18 1348: Attending MD Review Statement Attending Statement Attending MD Statement: examined this patient, discuss w/resident/PA/MUSIC SOUND LIGHT TECHNICIAN, agreed w/resident/PA/MUSIC SOUND LIGHT TECHNICIAN, reviewed EMR data (avail), discussed with nursing, discussed with case mgmt Attending Assessment/Plan: Lt ankle hariline fracture- Seen by orthopedics and applied aircast by ortho . will get PT consult . Afib with RVR- pt in NSR s/p cardioversion currently. will f/u on cardiology recommendations. d/w pt the care plan. will make dc plans based on cardio recommendations.
--- NOTE | 2018-04-30 09:09 | Cons- Orthopedic ---
General Information and HPI Consulting Request Date of Consult: 04/30/18 Requested By: Geraldo Ledesma MD History of Present Illness: 57-year-old male who fell and injured his left ankle over the weekend. He was admitted to [facility] for atrial fibrillation. X-rays taken the ankle question if he had a distal fibula fracture however these are read as negative. He continued with left ankle pain repeat films were taken and read as a nondisplaced distal fibula fracture. We were then called. I discussed with the general internist and physician leader who placed the patient into an Aircast. This was not done went to the hospital today to see the patient I placed the patient in air cast myself. States he feels much better in air cast. Rates his pain is a 7. He states his chronic pain meds do not help him with the pain. Allergies/Medications Allergies: Coded Allergies: Penicillins (Intermediate, HIVES 02/07/17) Home Med List: Amiodarone HCl 200 MG TABLET 0.5 TAB PO DAILY HEART (Reported) Apixaban (Eliquis) 5 MG TABLET 1 TAB PO BID afib Furosemide 40 MG TABLET 1 TAB PO DAILY DIURETIC (Reported) Ibuprofen 800 MG TABLET 1 TAB PO BID PRN PAIN (Reported) Levothyroxine Sodium 25 MCG TABLET 1 TAB PO DAILY hypothyroidism Metoprolol Tartrate 50 MG TABLET 1 TAB PO BID HEART/BP (Reported) Metoprolol Tartrate (Lopressor) 100 MG TABLET 1.5 TAB PO BID afib Mirtazapine 15 MG TABLET 1 TAB PO QPM MENTAL HEALTH (Reported) Oxycodone HCl (Oxycontin) 60 MG TAB.ER.12H 1 TAB PO 4 TIMES/DAY PAIN CONTROL (Reported) Oxycodone HCl 20 MG TABLET 1 TAB PO 5XDAILY PAIN (Reported) Past History Medical History Blood Transfusion Hx: No Neurological: NONE EENT: NONE Cardiovascular: AFIB, CHF, hypertension Respiratory: NONE Gastrointestinal: NONE Hepatic: NONE Renal: NONE Musculoskeletal: chronic back pain Psychiatric: NONE Endocrine: NONE Blood Disorders: NONE Cancer(s): NONE CLIENT SERVICES ASSOCIATE/Reproductive: NONE Surgical History Pertinent Surgical History: non-contributory Family History Relations & Conditions If Any: Relation not specified for: *No pertinent family history Psychosocial History Where Do You Live? Home Services at Home: None Smoking Status: Current Everyday Smoker Functional Ability ADLs Independent: dressing, eating, toileting, bathing. Ambulation: walker IADLs Independent: shopping, housework, finances, food prep, telephone, transportation , medication admin. Review of Systems Review of Systems: see chart Exam & Diagnostic Data Vital Signs and I&O Vital Signs Date Time Temp Pulse Resp B/P B/P Pulse O2 O2 Flow FiO2 Mean Ox Delivery Rate 04/30 0635 98.4 52 18 152/88 95 Room Air 04/29 2230 98.3 54 16 148/80 90 Room Air 04/29 1454 97.8 58 18 144/92 95 Room Air 04/29 1045 50 04/29 0933 72 152/90 95 Room Air Intake & Output 04/30 1600 04/30 0800 04/30 0000 04/29 1600 04/29 0800 04/29 0000 Intake Total 120 720 580 300 300 Output Total Balance 120 720 580 300 300 Intake, IV 20 Intake, Oral 120 720 560 300 300 Patient 284 lb 272 lb Weight Weight Bed scale Measurement Method Physical Exam: He is tender over the distal fibular region. He is nontender medially. He has 5 of dorsiflexion and 30 of plantarflexion. Pain with inversion. The skin is intact there is no skin breakdown he does have venous stasis. There is edema of the left ankle as well as the right ankle which is due to chronic swelling he tells me. X-rays reviewed show a nondisplaced distal fibula fracture and wanting an ankle mortise. He is placed into an Aircast today. He was instructed to wear this only when he is ambulating and use a sock underneath. I do not want him to use this when he is resting during the evening or sleeping to the concern for his skin breakdown to his venous stasis. Assessment/Plan Assessment/Plan Left distal fibula fracture nondisplaced -Follow-up in our office in 6 weeks. Weightbearing as tolerated with the Aircast. Use the Aircast only with ambulation remove for bathing and sleeping. Anti-inflammatories for pain. Elevate the ankle. Ice the ankle. Return to see me in 6 weeks at [phone] for an appointment. Treatment plan discussed with Dr Teresa. Consult Acknowledgment - Thank you for your consult request.
[2018-04-30 14:32] VITALS: BP 150/92
--- NOTE | 2018-04-30 15:00 | PN- Cardiology ---
Subjective Subjective: doing okay. Still with some lower extremity discomfort. Hairline fracture noted. Rhythm remained stable on current medications. Objective Vital Signs and I&Os Vital Signs Date Time Temp Pulse Resp B/P B/P Pulse O2 O2 Flow FiO2 Mean Ox Delivery Rate 04/30 1432 97.4 49 18 150/92 97 Room Air 04/30 0954 57 160/84 04/30 0635 98.4 52 18 152/88 95 Room Air 04/29 2230 98.3 54 16 148/80 90 Room Air Intake & Output 04/30 1600 04/30 0800 04/30 0000 04/29 1600 04/29 0800 04/29 0000 Intake Total 120 720 580 300 300 Output Total Balance 120 720 580 300 300 Intake, IV 20 Intake, Oral 120 720 560 300 300 Patient 284 lb 272 lb Weight Weight Bed scale Measurement Method Physical Exam: General Appearance: well developed/nourished, alert, awake, oriented Head: normal HEENT: Normal Neck: supple, JVP normal, carotid upstrokes normal bilaterally, no masses or thyromegaly Respiratory: chest non-tender, clear to auscultation and percussion bilaterally Cardiovascular: regular rate/rhythm, normal S1, S2, 1/6 systolic murmur Abdomen: normal bowel sounds, soft, non-tender Extremities: normal inspection, mild edema with bilateral stasis change Vascular: Pulses are 2+ and equal bilaterally Neurologic: Grossly normal/nonfocal Current Medications: Current Medications Sig/Cinthia Start time Last Medication Dose Route Stop Time Status Admin Amiodarone HCl 100 MG DAILY 04/25 09 AC 04/30 PO 0954 Apixaban 5 MG BID 04/26 0900 AC 04/30 PO 0957 Ibuprofen 600 MG ONCE ONE 04/30 0815 DC 04/30 PO 04/30 0816 0956 Levothyroxine Sodium 0.025 MG DAILY AC 04/27 0848 AC 04/30 PO 0809 Lidocaine/Prilocaine 1 BRIAN Q6P PRN 04/28 1745 AC 04/29 TOP 1102 Metoprolol Tartrate 150 MG BID 04/28 2100 AC 04/30 PO 0955 Morphine Sulfate 2 MG Q4P PRN 04/30 1330 AC 04/30 IV 1417 Oxycodone HCl 40 MG Q6 04/24 1800 AC 04/30 PO 1141 Oxycodone HCl 20 MG Q6 07/13 1800 AC 04/30 PO 1142 Oxycodone HCl 20 MG Q4-6 PRN PRN 04/24 1530 AC 04/30 PO 1142 Results Last 48 Hrs of Labs/Mics: Laboratory Tests 04/29/18 0636: Anion Gap 12, Estimated GFR > 60, BUN/Creatinine Ratio 23.8, Uric Acid 5.0, TSH 10.500 H, Free T4 2.10 H, CBC w Diff NO MAN DIFF REQ, RBC 4.09 L, MCV 93.1, MCH 30.7, MCHC 33.0, RDW 14.8 H, MPV 8.7, Gran % 69.9, Lymphocytes % 17.8 L, Monocytes % 7.5, Eosinophils % 4.4, Basophils % 0.4, Absolute Granulocytes 5.5, Absolute Lymphocytes 1.4, Absolute Monocytes 0.6, Absolute Eosinophils 0.4, Absolute Basophils 0 Assessment/Plan Assessment/Plan Assessment: 1. Atrial fibrillation, recurrent, elevated ventricular rate-now in sinus rhythm post cardiovert 2. Borderline low blood pressure 3. Acute renal insufficiency-resolved 4. Elevated proBNP 5. Hairline fracture distal left fibula Recommendations: * Continue Eliquis for anticoagulation * Continue current cardiac medication * Orthopedic input for fracture * Out of bed as tolerated. Discharge planning pending; the patient is stable for discharge from a cardiac perspective. Follow-up with me in the office in 2 weeks Continue telemetry? No
[2018-04-30 22:18] VITALS: BP 142/78
--- NOTE | 2018-04-30 22:26 | Discharge Summary ---
Visit Information Visit Dates Admission Date: 04/24/18 Discharge Date: 05/01/28 Hospital Course Course Attending Physician: Baltazar YOO,Geraldo Farfan Primary Care Physician: Ezequiel Sow MD Hospital Course: 57 year old male with past medical history for atrial fibrillation not on anticoagulations status post cardioversions X2 to sinus (2009, 2016) with conversion back to sinus, status post cardiac cath in 2006, hypertension, HFpEF, active smoker, chronic low back pain on disability. Patient takes oxycodone and oxyContin for chronic pain. PResented to the ER for evluation of elevated heart rate noticed on checking blood pressure at home. In addition patient evaulated for a fall prior to admission from tripping over the carpet. Patient follows up with Dr. Sow (cardiology). Patient was started on loartan by Dr. Sow a month prior due to worsening blood pressure. Noticed few days prior that his blood pressure was elevated on the machine as well as heart rate. Patient reported mild chest discomfort, nonradiating. Denied any fevers, chills, upper respiratory symptoms, dysuria, urinary frequency/hesitency, bowel/bladder symptoms. EMERGENCY DEPARTMENT: Patient found to be in Atrial Fibrillation RVR in the ED. REceived IV metoprolol and po metoprolol in the ER as well as oral amiodarone which resulted in a drop in blood presure. Received a bolus of IV fluids 2 liters in the ER. Patient decided to be admitted to telemetry for hyopotension and atrial fibrillation with RVR. In addition patient presented with an MARYELLEN with creatinine of 2.2 in the emergency department. Vitals: 97.9, 140HR, 18RR, 131/58, 93% RA Repeat Blood Pressures: 81/55, 84/50, 88/46, 98/58, 102,60 Intial EKG: A-Fib, nonspecific ST T wave changes Troponins: Negative CXR: Hypoexpanded lungs with no acute pulmonary findings. Left Ankle XRay: No acute fracture or malalignment. Left Knee XRay: No acute fracture or malalignment: Last ECHO September 2017: EF: 45-50%, with mild left ventricular enlargement and apical hypokinesis Pertinent Labs: BUN: 43 Cr: 2.2 TSH: 5.060 Utox: +Opiates (prescribed) Pro-BNP: 7510 -- TELEMETRY COURSE: Given patient selevated rates and atrial fibrillation in RVR in the emergency deperatment and hypotension, patient was admitted to the telemetry unit for furthe rmonitoring and evaluation. Problem List: 1. Atrial Fibrillation RVR 2. Left Ankle Pain3 3. Hallucinations/Diplopia 4. Abnormal Thyroid Function Tests 5. Acute Kidney Injury 6. Chronic Back Pain 7. Hypotension-resolved ATRIAL FIBRILLATION RVR Patient admitted to telemetry floor for continuous cardiac monitoring given his elevated heart rate and hypotension. Vitals were taken each shift. Cardiology was consulted to follow patient. Patient had a Juan Vasc score fo 2 and was initially started on IV heparin. Echocardiogram was ordered (45-50%EF). Troponins and EKGs were ordered to rule out ACS. Patients TSH, T4, and hemoglobin A1C was followed. Patients rates were contnously monitored and medications titrated as needed. Metoprolol was increased to 75 and then 150mg BID prior to discharge. Continued on amiodarone 100mg. IV heparin was discontinued and patient was started on oral anticoagulation, Eliquis 5mg BID. Patient was also seen by luncheonette operator Dr. Chacko. It was decided to undergo DEUCE/Cardvioversion given patients history of elevated rates and past attempts successsful to normal sinus rhythm. Patient was converted on sinus rhythm and monitored on telemetry. Advised to follow up with cardiology upon discharge and to continue medications started in hospital. LEFT ANKLE PAIN Patient came in to ER for evlauation of left lower ankle pain after tripping on his carpet. He had mild swelling and warmth to his ankle. Initial x-ray of lower extremity did not demonstrated any acute fracture or dislocations. However, patients lower ankle pain continued to remain during his admission. An orthopedic consultation and repeat x-ray was ordered. Repeat x-ray demonstrated a distal fibular hairline fracture. Orthopedics recommended patient put on an aircast with weight as tolerated and to take it off when resting or showering. Patients pain was controlled with his home pain medications oxycodone, oxyContin and moprhine was added for breakthrough. Patient advised to follow up with the orthopedic service within 6 weeks of discahrge and to continue placement of his aircast. PT had evalutated patient during his time as well to confirm stability and proper education of his injury for discharge. HALLUCINATIONS/DIPLOPIA Patient had intermittently mentioned hallucinations and periods of diplopia prior to admission. Patient stated he reported seeing a woman and her cats feeding from his refrigerator and instances of seeing two people at once. He attributed these events possibly to a new medication, flexeril that he began one month prior. Patient states that he may have had a few beers with this medications. He claims the episodes have not happened since he stopped that medication and were not present during his stay at the hospital. Neurology was consulted nevertheless and MRI brain attempted but patient was not able to attend. Most likely medication induced. Psychiatry evaluation was also obtained. Advised to discontinue cyclobenzaprine. Patient given referrals to followup outpatient if conitnued events. ABNORMAL THYROID FUNCTION TESTS Likely due to patients amiodarone therapy. Patients free T4 was 1.64 and TSH was 10.1 with a total T3 of 1.0. On admission his TSH was 5.0 on April 24, 2018 and 10.1 on [address] Becker was consulted. Patient was started on levothyroxine 25mcg daily given suspected Hashimots. Repeat tests showed continued abnormalities in thyroid functions. Patient was monitored by Dr. Becker and advisde to follow up outpatient upon discharge with possible thyroid US outpatient. ACUTE KIDNEY INJURY Patient acute kidney injury was most likely due to hypoperfusion given his low blood pressures in the ED. Patient was hydrated in the the ER. His losartan, lasix and NSAIds were held until kidney functions improved. Patients BMP was monitored daily. His BUN/Cr normalized prior to discharge. Advised to follow up with PCP outpatient. CHRONIC BACK PAIN Patients CT DISTRIBUTION ANALYST was checked to continue his home medications of OxyContin 60mg extended release 4 times a day and his Oxycodone 20mg 5 times a day prn (5 tabs max). This was verified with the pain management clinic. HYPOTENSION Patient given hydration in the ED. Vitals monitored each shift. Patients blood pressure normalized for the rest of his admission. Issue was resolved. Advised to follow up outpatient with cardiology. Code Status: Full Code DVT PPX: Initially IV heparin --> Eliquis Diet: Hearth Healthy Diet Allergies: Coded Allergies: Penicillins (Intermediate, HIVES 02/07/17) Disposition Summary Disposition Principal Diagnosis: Atrial Fibrillation RVR Additional Diagnosis: Left Ankle Fracture HFpEF Discharge Disposition: home or self care Discharge Instructions General Discharge Information Code Status: Full Code Patient's Diet: Heart Healthy Patient's Activity: As tolerated; weight baring with air cast; follow up orthopedics 6 weeks Follow-Up Instructions/Appts: Please follow up with PCP upon discharge. Please follow up with Cardiology within 1 week of discharge. Please follow up with Endocrinology within 1 week of discharge. Follow up with Neurology and Psychiatry as needed. Use aircast when ambulating with weight baring as tolerated. Follow up outpatient within 6 weeks. Return to ED with worsening chest pain, palpitations, shortness of breath, incresaed hallucinations. Medications at Discharge Discharge Medications: Stop taking the following medications: Ibuprofen (Ibuprofen) 800 MG TABLET ORAL TWICE DAILY as needed for PAIN Qty = 60 Metoprolol Tartrate (Metoprolol Tartrate) 50 MG TABLET ORAL TWICE DAILY Continue taking these medications: Oxycodone HCl (Oxycontin) 60 MG TAB.ER.12H 1 Tablet ORAL 4 TIMES A DAY Qty = 120 Comments: Last Taken: 05/01/18 Time: 12:00 PM Amiodarone HCl (Amiodarone HCl) 200 MG TABLET 0.5 Tablet ORAL DAILY Qty = 180 Comments: Last Taken: 05/01/18 Time: 8:30 AM Furosemide (Furosemide) 40 MG TABLET 1 Tablet ORAL DAILY Qty = 45 Comments: NOT GIVEN IN HOSPITAL Oxycodone HCl (Oxycodone HCl) 20 MG TABLET 1 Tablet ORAL 5XDAILY Qty = 150 Comments: Last Taken: 05/01/18 Time: 12:00 PM Mirtazapine (Mirtazapine) 15 MG TABLET 1 Tablet ORAL Every night Qty = 30 Comments: NOT GIVEN IN HOSPITAL Start taking the following new medications: Apixaban (Eliquis) 5 MG TABLET 1 Tablet ORAL TWICE DAILY Qty = 60 No Refills Instructions: . Comments: Last Taken: 05/01/18 Time: 8:30 AM Levothyroxine Sodium (Levothyroxine Sodium) 25 MCG TABLET 1 Tablet ORAL DAILY Qty = 30 No Refills Instructions: . Comments: Last Taken: 05/01/18 Time: 6:00 AM Metoprolol Tartrate (Lopressor) 100 MG TABLET 1.5 Tablet ORAL TWICE DAILY Qty = 60 No Refills Instructions: . Comments: Last Taken: 05/01/18 Time: 8:30 AM Copies To: Parker YOO,Emil Dugan; Eugenio YOO,Leonard Dugan; Tigre YOO,Kamla; Magi YOO,Ezequiel Mendez; Malick YOO,Filemon; Ginna YOO,Carlos Eduardo
[2018-05-01 06:33] VITALS: BP 140/90
--- NOTE | 2018-05-01 07:04 | PN- Housestaff ---
Misty Connelly 05/01/18 0703: Subjective Follow-up For: Atrial Fibrillation RVR-converted to sinus Left Ankle Fracture-aircast Tele-Events Since Last Visit: Sinus bradycardia, 54-61, 0.10, 0.20 Subjective: Patient seen and examined at bedside this morning. Patient has air cast on left lower ankle. Has been ambulating as tolerated with cane. Denies any chest pain , palpitations or shortness of breath this morning. Patient denies any hallucinations this morning. Tolerating p.o. well. Ready for discharge today. Review of Systems Constitutional: Denies: see HPI. Objective Last 24 Hrs of Vital Signs/I&O Vital Signs Date Time Temp Pulse Resp B/P B/P Pulse O2 O2 Flow FiO2 Mean Ox Delivery Rate 05/01 0633 97.8 60 18 140/90 98 Room Air 04/30 2255 50 142/78 04/30 2218 97.7 50 18 142/78 97 Room Air 04/30 1432 97.4 49 18 150/92 97 Room Air 04/30 0954 57 160/84 Intake & Output 05/01 1600 05/01 0800 05/01 0000 Intake Total 505 300 Output Total Balance 505 300 Intake, IV 5 Intake, Oral 500 300 Physical Exam General Appearance: Alert, Oriented X3, Cooperative, No Acute Distress HEENT: PERRLA, EOMI, Mucous Membr. moist/pink Cardiovascular: Regular Rate, Normal S1, Normal S2 Lungs: Clear to Auscultation, Normal Air Movement Abdomen: Normal Bowel Sounds, Soft, No Tenderness Neurological: Normal Speech, Normal Tone, Reflexes 2+, Strength decreased in left lower ankle with aircast on Extremities: No Clubbing, No Cyanosis, +2 edema in bilateral lower extremities; swelling of left lower ankle from fracture; tender to palpation Vascular: Normal Pulses, Pulses Symmetrical Current Medications: Current Medications Sig/Cinthia Start time Last Medication Dose Route Stop Time Status Admin Amiodarone HCl 100 MG DAILY 04/25 09 AC 04/30 PO 0954 Amlodipine Besylate 2.5 MG ONCE ONE 04/30 1915 DC 04/30 PO 04/30 1916 2255 Apixaban 5 MG BID 04/26 09 AC 04/30 PO 215 Ibuprofen 600 MG ONCE ONE 04/30 0815 DC 04/30 PO 04/30 0816 0956 Levothyroxine Sodium 0.025 MG DAILY AC 04/27 0848 AC 05/01 PO 0609 Lidocaine/Prilocaine 1 BRIAN Q6P PRN 04/28 1745 AC 04/30 TOP 1928 Metoprolol Tartrate 150 MG BID 04/28 2100 AC 04/30 PO 0955 Morphine Sulfate 2 MG Q4P PRN 04/30 1330 AC 05/01 IV 0418 Oxycodone HCl 40 MG Q6 04/24 1800 AC 05/01 PO 0609 Oxycodone HCl 20 MG Q6 04/24 1800 AC 05/01 PO 0609 Oxycodone HCl 20 MG Q4-6 PRN PRN 04/24 1530 AC 05/01 PO 0608 Assessment/Plan Assessment: Patient is a 57-year-old male with past medical history of atrial fibrillation cardioverted 3 times in the past. Recently came into the [facility] ED for left ankle evaluation swelling. At that time he was found to be in atrial fibrillation RVR with rates in 140s. Patient had an additional history of hallucinations on assessment during his stay in the hospital. These hallucinations were not present on admission. Claims that his hallucinations are most likely due to medication Flexeril which he drank beers on top of. Denies any hallucinations during his stay at the hospital. Patient is day 3 status post DEUCE/cardioversion on 04/28/2018 in sinus rhythm. Patient found to have left ankle fracture. Orthopedics on board. Given Aircast for left ankle. Patient stable for discharge today. Problem list: 1. Atrial fibrillation-day 3 status post DEUCE/cardioversion 2. Left ankle fracture 3. Chronic back pain Plan: * Patient currently in sinus rhythm with rate 54-61. To new monitoring patient on telemetry for possible discharge today. Metoprolol 150 twice daily, Eliquis 5 and amiodarone 100. Patient advised to follow-up with cardiology outpatient upon discharge. * Continue levothyroxine 0.025 mg as per endocrinology. Patient advised to follow-up outpatient with Dr. Becker. * Patient has an Aircast on left lower ankle. Advised to use with ambulation remove before bathing and sleeping. Will need to follow-up with orthopedics in 6 weeks. CODE STATUS: Full code DVT prophylaxis: Eliquis Diet: Regular Problem List: 1. ATRIAL FIBRILATION 2. Ankle sprain Pain Ratin Pain Location: let lower ankle Pain Goal: Pain 7 or less Pain Plan: as per pain pathway Tomorrow's Labs & Rationales: discharge today DVT/Prophylaxis: mechanical, pharmacological BaltazarCurryjames 05/01/18 1213: Attending MD Review Statement Attending Statement Attending MD Statement: examined this patient, discuss w/resident/PA/RETAIL CLERK, agreed w/resident/PA/RETAIL CLERK, reviewed EMR data (avail), discussed with nursing, discussed with case mgmt Attending Assessment/Plan: Pt being dced today to home . Lt ankle hariline fracture- Seen by orthopedics and applied aircast by ortho . will f/u as outpt with ortho in 6 weeks. Afib with RVR- pt in NSR s/p cardioversion currently. d/w dr pineda. plan to dc on current medicaitons. d/w pt the care plan.
[2018-05-01 08:41] VITALS: BP 132/74
[2018-05-01] MEDS ORDERED: LOPRESSOR100 M1 PO (09:57)
[2018-05-01] MEDS ORDERED: ELIQUIS5 M1 PO (09:57)
[2018-05-01] MEDS ORDERED: LEVOTHYROXINE25 MCG PO (09:57)
--- NOTE | 2018-05-01 14:55 | PN- Cardiology ---
Subjective Subjective: Stable, remains in sinus rhythm, discharge pending Objective Vital Signs and I&Os Vital Signs Date Time Temp Pulse Resp B/P B/P Pulse O2 O2 Flow FiO2 Mean Ox Delivery Rate 05/01 0841 67 132/74 05/01 0633 97.8 60 18 140/90 98 Room Air 04/30 2255 50 142/78 04/30 2218 97.7 50 18 142/78 97 Room Air Intake & Output 05/01 1600 05/01 0800 05/01 0000 04/30 1600 04/30 0804/30 0000 Intake Total 480 505 300 600 120 720 Output Total Balance 480 505 300 600 120 720 Intake, IV 5 Intake, Oral 480 500 300 600 120 720 Number 1 Bowel Movements Patient 284 lb Weight Physical Exam: General Appearance: well developed/nourished, alert, awake, oriented Head: normal HEENT: Normal Neck: supple, JVP normal, carotid upstrokes normal bilaterally, no masses or thyromegaly Respiratory: chest non-tender, clear to auscultation and percussion bilaterally Cardiovascular: regular rate/rhythm, normal S1, S2, 1/6 systolic murmur Abdomen: normal bowel sounds, soft, non-tender Extremities: normal inspection, mild edema with bilateral stasis change Vascular: Pulses are 2+ and equal bilaterally Neurologic: Grossly normal/nonfocal Current Medications: Current Medications Sig/Cinthia Start time Last Medication Dose Route Stop Time Status Admin Amiodarone HCl 100 MG DAILY 04/25 09 AC 05/01 PO 0841 Amlodipine Besylate 2.5 MG ONCE ONE 04/30 1915 DC 04/30 PO 04/30 1916 2255 Apixaban 5 MG BID 04/26 09 AC 05/01 PO 0842 Levothyroxine Sodium 0.025 MG DAILY AC 04/27 0848 AC 05/01 PO 0609 Lidocaine/Prilocaine 1 BRIAN Q6P PRN 04/28 1745 AC 04/30 TOP 1928 Metoprolol Tartrate 150 MG BID 04/28 2100 AC 05/01 PO 0842 Morphine Sulfate 2 MG Q4P PRN 04/30 1330 AC 05/01 IV 1308 Oxycodone HCl 40 MG Q6 04/24 1800 AC 05/01 PO 1156 Oxycodone HCl 20 MG Q6 04/24 1800 AC 05/01 PO 1156 Oxycodone HCl 20 MG Q4-6 PRN PRN 04/24 1530 AC 05/01 PO 1156 Assessment/Plan Assessment/Plan Assessment: 1. Atrial fibrillation, recurrent, elevated ventricular rate-now in sinus rhythm post cardiovert 2. Borderline low blood pressure 3. Acute renal insufficiency-resolved 4. Elevated proBNP 5. Hairline fracture distal left fibula Recommendations: * Continue Eliquis for anticoagulation * Continue current cardiac medication * Orthopedic input for fracture * Out of bed as tolerated. Discharge planning pending; the patient is stable for discharge from a cardiac perspective. Follow-up with me in the office in 2 weeks Continue telemetry? No
== END 2018-05-01 15:25 | DRG 309 ==
LOC: ERH 06:15 → 1NO 11:58 → ERHI 11:58 → ENRESERV 12:42 → CANRESERV 12:42 → ENRESERV 12:48 → ENTRNSPT 14:31 → EDTRNSPT 14:38 → EDTRNSPTSTS 14:38 → 1NO 14:50 → CMPTRNSPT 14:55 → 1NO 19:28 → ENPENDDIS 05-01 09:58 → ENTRNSPT 05-01 15:22 → 1NO 05-01 15:25 → EDTRNSPT 05-01 15:27 → EDTRNSPTSTS 05-01 15:27 → CMPTRNSPT 05-01 15:36
PROVIDERS: Emergency Medicine; Internal Medicine; Physical Medicine & Rehabilitation Pain Medicine; Student in an Organized Health Care Education/Training Program
PROC: 5A2204Z Restoration of Cardiac Rhythm, Single (ICD-10-PCS; 2018-04-27)
PROC: B24BZZ4 Ultrasonography of Heart with Aorta, Transesophageal (ICD-10-PCS; 2018-04-28)
PROC: 2W3RX2Z Immobilization of Left Lower Leg using Cast (ICD-10-PCS; principal; 2018-04-30)
DX: I48.91 Unspecified atrial fibrillation (principal); N17.9 Acute kidney failure, unspecified; I50.32 Chronic diastolic (congestive) heart failure; E87.1 Hypo-osmolality and hyponatremia; E87.2 Acidosis; R44.1 Visual hallucinations; I11.0 Hypertensive heart disease with heart failure; M54.9 Dorsalgia, unspecified; E03.9 Hypothyroidism, unspecified; E06.3 Autoimmune thyroiditis; E78.5 Hyperlipidemia, unspecified; Z88.0 Allergy status to penicillin; Z79.01 Long term (current) use of anticoagulants; Z79.891 Long term (current) use of opiate analgesic; S82.832A Other fracture of upper and lower end of left fibula, initial encounter for closed fracture; I95.9 Hypotension, unspecified
CPT/HCPCS: 1NP; 36415; 36592; 71045; 71046; 73562-RT; 73610-LT; 73610-RT; 80307; 82436; 93005; 93010; 93306; 93325; 96374; 97116-GO; 97161-GP; 99232; 99291; G0480; J1644; J2270